=== PATIENT | female | born 1960 | race Caucasian/White ===

== ENCOUNTER 2020-03-18 08:33 | Outpatient (REF) | payer OTHER, SELFPAY ==
--- NOTE | 2020-03-18 | MR_ITS ---
EXAMINATION: MR LUMBAR SPINE WITHOUT CONTRAST CLINICAL INFORMATION: Low back pain x5 years on and off worsening times couple of months. Lifting injury 20 years ago. No recent injury. COMPARISON: Lumbar spine x-ray 12/22/2018 TECHNIQUE: MRI of the lumbar spine was obtained using routine sequences without contrast. FINDINGS: There is normal lumbar lordosis. The vertebral heights and alignment is normal. There are disc desiccation changes at L2-L3, L3-L4 and L4-L5 disc levels. The T12-L1 disc level appears unremarkable. At L2-L3 disc level there is a broad-based diffuse bulge flattening the ventral thecal sac with mild AP canal stenosis seen. There is a left lateral disc herniation impinging on the left L2 nerve root. This is best visualized on axial image 15/7. The neural foramina are bilaterally mildly narrowed. At L3-L4 disc level there is mild diffuse bulge with mild bilateral ligament flavum and facet joint hypertrophy with mild AP canal stenosis. Mild narrowing of inferolateral recess of both neural foramina noted. There is mild ligament flavum and facet joint hypertrophy. At L4-L5 disc level there is minimal disc bulge with mild AP canal stenosis. No disc herniation seen. There is minimal bilateral narrowing of neural foramina. There is mild facet joint and ligamentum flavum hypertrophy. At L5-S1 disc level there is no evidence of disc bulge, herniation or spinal stenosis. The neural foramina are patent bilaterally. There is significant bilateral facet joint arthropathy seen. The bone marrow signal, intraspinal signal and paravertebral soft tissues are normal. Conus medullaris terminates at L1-L2 disc level and appears normal in morphology. MR/MR lumbar spine wo con IMPRESSION: Multilevel degenerative disc bulges L2-L3 through L4-L5 disc level with mild AP canal stenosis. There is a left lateral disc herniation at the L2-L3 disc level impinging on the left L2 nerve root. There is underlying mild facet joint hypertrophy most marked at the L5-S1 disc level.
== END 2020-03-18 08:34 | disposition home or self-care (01) ==
LOC: HO.MRI 08:33
PROVIDERS: PCP Internal Medicine Medical Oncology; Visit Provider Internal Medicine Medical Oncology
DX: M51.36 Other intervertebral disc degeneration, lumbar region (principal)
CPT/HCPCS: 72148

== ENCOUNTER 2020-08-10 21:26 | Inpatient (IN) | payer OTHER, SELFPAY ==
--- NOTE | ~2020-08-10 | MR_ITS ---
EXAMINATION: BRAIN MRI WITHOUT CONTRAST CLINICAL INFORMATION: Question stroke. COMPARISON: CT angiogram of the head and neck 08/10/2020. TECHNIQUE: Multiplanar MR imaging of the brain was performed without contrast. FINDINGS: There are scattered nonspecific foci of T2 FLAIR signal hyperintensity within the periventricular white matter and donald that most likely represent a chronic manifestation of small vessel ischemia. No acute territorial infarct. No pathological magnetic susceptibility artifact. Intracranial vascular flow voids are maintained. There is no intracranial mass effect or midline shift. No abnormal extra-axial collection. Lateral and third ventricles are normal. No hydrocephalus. Midline structures including the cervicomedullary junction are normal. No acute bone marrow signal changes. There is no mastoid or middle ear effusion. Mild paranasal sinus disease primarily affecting the ethmoid air cells. Globes and orbits are symmetric. MR/MR head/brain wo con IMPRESSION: There are scattered chronic small vessel ischemic changes within the periventricular white matter and donald. Otherwise unremarkable examination. No evidence of acute infarct or hemorrhage.
--- NOTE | ~2020-08-10 | CT_ITS ---
EXAMINATION: CT angio head neck stroke CLINICAL INFORMATION: Left facial numbness. Left upper extremity numbness. COMPARISON: CT scan of the head 08/10/2020. TECHNIQUE: Leaf Binner images were obtained. A CT angiogram of the head and neck was performed in the arterial phase after the intravenous administration of 70 mL Omnipaque 350. Pre and delayed postcontrast images of the head were also obtained. MIP reconstructions were generated in multiple orientations at the acquisition workstation. Multiple three-dimensional surface rendered images and maximum intensity projection images were generated on a dedicated 3-D lab workstation. Arterial stenoses are measured in accordance with NASCET criteria or similar method if applicable. This CT examination was performed using dose optimization techniques as appropriate, including one or more of the following: Automated exposure control, iterative reconstruction, and adjustment of technique factors (mA and/or kVp) according to patient size (this includes techniques or standardized protocols for targeted exams where dose is matched to indication/reason for exam). Total exam dose-length product 1517 mGy-cm FINDINGS: Head: Postcontrast images reveal no abnormal mass or enhancement within the intracranial compartment. No intracranial mass effect or midline shift. Lateral and third ventricles are normal. No hydrocephalus. Langley-white matter differentiation is preserved and there is no evidence of acute territorial infarct. The calvarium and skull base are intact. Mastoid air cells and middle ear cavities are well aerated. No active paranasal sinus disease. CT angiogram neck: Scattered atheromatous calcification involves the aortic arch apex. Origins of major aortic branches are widely patent. Common carotid arteries are normal. A small amount of partially calcified atheromatous plaque involves both carotid bifurcations. No stenosis of the extracranial internal carotid arteries. The cervical segments of the vertebral arteries as well as their origins are patent. CT angiogram head: Intracranial internal carotid arteries are normal. Intradural vertebral artery segments and basilar artery are normal. Anterior, middle, and posterior cerebral artery complexes are normal. No high-grade stenosis or proximal occlusion is visualized within the intracranial vessels. Other: Soft tissues of the neck including the thyroid gland are normal. Visualized lung apices are clear. There is no acute osseous finding. Specifically no worrisome lytic or blastic osseous lesion. There is multilevel degenerative spondylosis of the cervical spine with at least mild canal stenosis at multiple levels. CT/CT angio head neck stroke IMPRESSION: No evidence of acute territorial infarct. No abnormal intracranial mass or enhancement. There is no stenosis of the cervical carotid or vertebral arteries. No high-grade stenosis or proximal occlusion is visualized within the intracranial vessels. There is multilevel degenerative spondylosis of the cervical spine with at least mild canal stenosis at multiple levels. If there are clinical symptoms of compressive myelopathy then a dedicated cervical spine MRI can be obtained for better anatomic characterization of the cord and canal. This critical result was discussed with Amy Camacho at 10:46 PM on 08/10/2020 and it was ascertained that the content and urgency of the report was understood at the time of direct communication.
--- NOTE | ~2020-08-10 | CT_ITS ---
EXAMINATION: CT HEAD WITHOUT CONTRAST (STROKE PROTOCOL) CLINICAL INFORMATION: Stroke protocol. Left arm numbness. Left facial numbness COMPARISON: None TECHNIQUE: Contiguous axial imaging was performed from the skull base to vertex without intravenous administration of contrast. This CT examination was performed using dose optimization techniques as appropriate, variously including the following: *Automated exposure control *Adjustment of mA and/or kV according to patient size (this includes techniques or standardized protocols for targeted exams where dose is matched to indication/reason for exam; i.e. extremities or head) *Use of iterative reconstruction technique DLP: 698 mGy-cm FINDINGS: There is no intracranial hemorrhage, hematoma, or extra-axial fluid collection. The ventricles are normal in size. There is no hydrocephalus, edema, or mass effect. The walls-white matter differentiation appears symmetric. There is no acute infarct or mass lesion. The calvarium appears intact. There is no pneumocephalus or orbital emphysema. The visualized sinuses and middle ears and mastoid air cells show no significant mucosal thickening. There are no air-fluid levels. CT/CT head for stroke IMPRESSION: No acute intracranial pathology. This critical result was discussed with Amy Camacho MD by telephone at 08/10/2020 10:21 PM and it was ascertained that the content and urgency of the report was understood at the time of direct communication.
[2020-08-10 21:35] VITALS: BP 195/96; PULSE 70; RESP 16; TEMP 36.5; O2SAT 100; BMI 27.3
--- NOTE | 2020-08-10 21:44 | PC.NURSE ---
poc 123
[2020-08-10 21:47] LABS: Glucose, Whole Blood 123 mg/dL (60-115)
--- NOTE | 2020-08-10 21:49 | PC.NURSE ---
IV, POC, EKG and labs obtained. MD at bedside. Pt aware of plan for CT.
[2020-08-10 21:53] LABS: MANUAL DIFF FLAG NO
[2020-08-10 21:55] LABS: Basophils Percent Auto 0.4 % (0-2); Eosinophils Absolute Auto 0.2 X10*3/uL (0.0-0.4); Eosinophils Percent Auto 2.6 % (0-4); Hematocrit 37.9 % (37-47); Hemoglobin 12.6 g/dl (12.0-16.0); Imm Gran Abs Auto 0.02 X10*3/uL (0.00-0.03); Imm Gran Pct Auto 0.3 % (0.0-0.4); Lymphocytes Absolute Auto 3.1 X10*3/uL (1.2-4.9); Lymphocytes Percent Auto 38.4 % (20-40); Mean Corpuscular HGB Conc 33.2 g/dl (31.0-35.0); Mean Corpuscular Hemoglobin 29.9 pg (27.0-33.0); Mean Platelet Volume 9.7 fL (9.4-12.3); Monocytes Absolute Auto 0.8 X10*3/uL (0.1-1.2); Monocytes Percent Auto 9.7 % (2-11); Neutrophils Absolute Auto 3.9 X10*3/uL (2.0-8.3); Neutrophils Percent Auto 48.6 % (45-73); Platelet Count 193 X10*3/uL (160-400); Red Blood Count 4.21 X10*6/uL (4.20-5.50); Red Cell Distribution Width 12.8 % (11.0-16.0); White Blood Count 7.9 X10*3/uL (4.8-10.8)
--- NOTE | 2020-08-10 21:58 | ED_ITS ---
HPI - Neuro Symptoms/Deficit General Chief Complaint: Neuro Symptoms/Deficit Stated Complaint: Numbness on left side Time Seen by Provider: 08/10/20 21:40 Source: patient Mode of arrival: ambulatory Limitations: no limitations History of Present Illness HPI Narrative: Patient comes to the emergency room complaining of left-sided headache, left-sided facial numbness, mild left-sided mouth droop. It earlier today, patient was complaining dysarthria and dysphasia which have improved. Patient denies chest pain. Patient states all her symptoms started around 630-7 p.m. patient states she was at work, did not feel right, had her blood pressure checked and they told her it was high. Patient was instructed to go home, take her blood pressure medication, took atenolol, then return to work. Patient symptoms did not improve, then she came to the emergency room. Related Data Home Medications Medication Instructions Recorded Confirmed atenolol 100 mg PO DAILY 08/10/20 08/10/20 cyclobenzaprine 10 mg PO BEDTIME 08/10/20 08/10/20 hydrochlorothiazide 50 mg PO DAILY 08/10/20 08/10/20 Allergies Allergy/AdvReac Type Severity Reaction Status Date / Time prednisone [PREDNISONE] Allergy Unknown HIVES Unverified 02/01/20 15:03 Sulfa (Sulfonamide Allergy Unknown HIVES Unverified 02/01/20 15:03 Antibiotics) [SULFA (SULFONAMIDE ANTIBIOTICS)] sulfur Allergy Unknown Verified 12/21/18 00:00 sulfa Allergy Unknown Uncoded 02/25/19 00:00 [facility] Past Medical History Medical History (Updated 08/10/20 @ 23:00 by Amy Camacho MD) HTN (hypertension) Social History Social History Advance Directives: No Advance Directives Information Provided: No Physical Exam Vital Signs: Vital Signs: Last Vital Signs Temp 97.7 F 08/10/20 22:00 Pulse 67 08/10/20 22:36 Resp 20 08/10/20 22:36 BP 162/91 H 08/10/20 22:36 Pulse Ox 99 08/10/20 22:00 Body Mass Index 27.3 Course Course Course Narrative: Initial head CT interpretation from Radiology: No acute intracranial pathology. CTA reading is still pending 10:41 I discussed the patient with Dr. Hutchins, at this time patient continues complaining numbness on the left side of the face tongue an arm, strength 5/5 in bilateral upper and lower extremities, facial droop improved, now it is barely noticeable, continues having a headache. Her Neurology, it is possible that the patient had a vascular event, however her current neurological deficits do not warrant tPA. At this time, patient will receive full dose of aspirin. A few minutes ago, patient received her 1st dose of IV labetalol 10:46: CTA of head and neck is negative for large vessel occlusion Patient's blood pressure now is 162/90, heart rate 60, patient states that her symptoms are improving, she still feels that the left side of her tongue is numb, strength 5/5 in upper lower extremities, no chest pain I discussed the above-mentioned with our hospitalist Dr. Beckford, patient being admitted. Patient will need an MRI in the morning MDM - Neuro Symptoms/Deficit Lab Data Result diagrams: 08/10/20 22:00 08/10/20 22:00 Labs: Lab Results 08/10/20 08/10/20 08/10/20 Range/Units 21:43 21:45 21:45 WBC 7.9 (4.8-10.8) X10*3/uL RBC 4.21 (4.20-5.50) X10*6/uL Hgb 12.6 (12.0-16.0) g/dl Hct 37.9 (37-47) % MCV 90.0 (80-98) fL MCH 29.9 (27.0-33.0) pg MCHC 33.2 (31.0-35.0) g/dl RDW 12.8 (11.0-16.0) % Plt Count 193 (160-400) X10*3/uL MPV 9.7 (9.4-12.3) fL Immature Gran % (Auto) 0.3 (0.0-0.4) % Neut % (Auto) 48.6 (45-73) % Lymph % (Auto) 38.4 (20-40) % Sargent % (Auto) 9.7 (2-11) % Eos % (Auto) 2.6 (0-4) % Baso % (Auto) 0.4 (0-2) % Lymph # (Auto) 3.1 (1.2-4.9) X10*3/uL Sargent # (Auto) 0.8 (0.1-1.2) X10*3/uL Eos # (Auto) 0.2 (0.0-0.4) X10*3/uL Baso # (Auto) 0.0 (0.0-0.2) X10*3/uL Abs Immat Gran (auto) 0.02 (0.00-0.03) X10*3/uL Absolute Neuts (auto) 3.9 (2.0-8.3) X10*3/uL Absolute Nucleated RBC 0.000 (0.0-0.012) X10*3/uL Nucleated RBC % (auto) 0.0 (0.0-0.2) /100WBC PT (10.8-13.0) SEC Whole Blood PT (11.1-13.5) sec INR (0.9-1.1) Whole Blood INR (0.9-1.1) APTT (24.1-38.0) SEC Hold Blue Top Sodium 140 (135-145) mmol/L Potassium 3.8 (3.3-5.1) mmol/L Chloride 103 (96-108) mmol/L Carbon Dioxide 26 (22-29) mmol/L Anion Gap 15 (12-20) BUN 20 H (9-16) mg/dL Creatinine 0.81 (0.5-1.4) mg/dL Estim Creat Clear Calc 87.6 Estimated GFR > 60 POC Glucose 123 H (60-115) mg/dL Random Glucose 112 (60-115) mg/dL Calcium 8.6 (8.4-10.2) mg/dL Total Creatine Kinase (26-140) U/L Troponin I High Sens (<3.5-17.0) ng/L 08/10/20 08/10/20 08/10/20 Range/Units 21:45 21:47 22:00 WBC 8.5 (4.8-10.8) X10*3/uL RBC 4.18 L (4.20-5.50) X10*6/uL Hgb 12.4 (12.0-16.0) g/dl Hct 37.8 (37-47) % MCV 90.4 (80-98) fL MCH 29.7 (27.0-33.0) pg MCHC 32.8 (31.0-35.0) g/dl RDW 12.8 (11.0-16.0) % Plt Count 193 (160-400) X10*3/uL MPV 9.6 (9.4-12.3) fL Immature Gran % (Auto) 0.2 (0.0-0.4) % Neut % (Auto) 46.5 (45-73) % Lymph % (Auto) 39.2 (20-40) % Sargent % (Auto) 10.7 (2-11) % Eos % (Auto) 2.9 (0-4) % Baso % (Auto) 0.5 (0-2) % Lymph # (Auto) 3.3 (1.2-4.9) X10*3/uL Sargent # (Auto) 0.9 (0.1-1.2) X10*3/uL Eos # (Auto) 0.3 (0.0-0.4) X10*3/uL Baso # (Auto) 0.0 (0.0-0.2) X10*3/uL Abs Immat Gran (auto) 0.02 (0.00-0.03) X10*3/uL Absolute Neuts (auto) 4.0 (2.0-8.3) X10*3/uL Absolute Nucleated RBC 0.000 (0.0-0.012) X10*3/uL Nucleated RBC % (auto) 0.0 (0.0-0.2) /100WBC PT 10.9 (10.8-13.0) SEC Whole Blood PT (11.1-13.5) sec INR 0.9 (0.9-1.1) Whole Blood INR (0.9-1.1) APTT 35.4 (24.1-38.0) SEC Hold Blue Top SEE NOTE Sodium (135-145) mmol/L Potassium (3.3-5.1) mmol/L Chloride (96-108) mmol/L Carbon Dioxide (22-29) mmol/L Anion Gap (12-20) BUN (9-16) mg/dL Creatinine (0.5-1.4) mg/dL Estim Creat Clear Calc Estimated GFR POC Glucose (60-115) mg/dL Random Glucose (60-115) mg/dL Calcium (8.4-10.2) mg/dL Total Creatine Kinase (26-140) U/L Troponin I High Sens 3.6 (<3.5-17.0) ng/L 08/10/20 08/10/20 08/10/20 Range/Units 22:00 22:00 22:01 WBC (4.8-10.8) X10*3/uL RBC (4.20-5.50) X10*6/uL Hgb (12.0-16.0) g/dl Hct (37-47) % MCV (80-98) fL MCH (27.0-33.0) pg MCHC (31.0-35.0) g/dl RDW (11.0-16.0) % Plt Count (160-400) X10*3/uL MPV (9.4-12.3) fL Immature Gran % (Auto) (0.0-0.4) % Neut % (Auto) (45-73) % Lymph % (Auto) (20-40) % Sargent % (Auto) (2-11) % Eos % (Auto) (0-4) % Baso % (Auto) (0-2) % Lymph # (Auto) (1.2-4.9) X10*3/uL Sargent # (Auto) (0.1-1.2) X10*3/uL Eos # (Auto) (0.0-0.4) X10*3/uL Baso # (Auto) (0.0-0.2) X10*3/uL Abs Immat Gran (auto) (0.00-0.03) X10*3/uL Absolute Neuts (auto) (2.0-8.3) X10*3/uL Absolute Nucleated RBC (0.0-0.012) X10*3/uL Nucleated RBC % (auto) (0.0-0.2) /100WBC PT (10.8-13.0) SEC Whole Blood PT 12.4 (11.1-13.5) sec INR (0.9-1.1) Whole Blood INR 1.0 (0.9-1.1) APTT (24.1-38.0) SEC Hold Blue Top Sodium 140 (135-145) mmol/L Potassium 3.7 (3.3-5.1) mmol/L Chloride 104 (96-108) mmol/L Carbon Dioxide 25 (22-29) mmol/L Anion Gap 15 (12-20) BUN 20 H (9-16) mg/dL Creatinine 0.81 (0.5-1.4) mg/dL Estim Creat Clear Calc 87.6 Estimated GFR > 60 POC Glucose (60-115) mg/dL Random Glucose 115 (60-115) mg/dL Calcium 8.8 (8.4-10.2) mg/dL Total Creatine Kinase 231 H (26-140) U/L Troponin I High Sens < 3.5 (<3.5-17.0) ng/L ECG Data Attestation: I personally reviewed and interpreted this ECG as follows: (Normal sinus rhythm, heart rate 70, nonspecific T-wave inversion in leadIII, nurses segment depression or elevation, QTC 447) NIH Stroke Scale Level of Consciousness: Alert Level of Consciousness Questions: Answers both questions correctly Level of Consciousness Commands: Performs both tasks correctly Best Gaze: Normal Visual: No visual loss Facial Palsy: Minor paralyis Motor Arm (Right): No drift Motor Arm (Left): No drift Motor Leg (Right): No drift Motor Leg (Left): No drift Limb Ataxia: Absent Sensory: Mild to moderate sensory loss Best Language: Mild to moderate aphasia Dysarthia: Mild to moderate dysarthria Extinction and Inattention: No abnormality Score: 4 Discharge Plan Discharge Clinical Impression: Cerebrovascular accident Patient Disposition: Admitted As Inpatient Prescriptions: No Action cyclobenzaprine 10 mg tablet 10 mg PO BEDTIME RF: 0 hydrochlorothiazide 50 mg tablet 50 mg PO DAILY RF: 0 atenolol 50 mg tablet 100 mg PO DAILY RF: 0
[2020-08-10 22:00] VITALS: BP 195/96; PULSE 722; RESP 222; TEMP 36.5; O2SAT 99
[2020-08-10 22:08] LABS: MANUAL DIFF FLAG NO
[2020-08-10 22:08] LABS: Prothrombin Time Whole Bld POC 12.4 sec (11.1-13.5)
[2020-08-10 22:09] LABS: Basophils Percent Auto 0.5 % (0-2); Eosinophils Absolute Auto 0.3 X10*3/uL (0.0-0.4); Eosinophils Percent Auto 2.9 % (0-4); Hematocrit 37.8 % (37-47); Hemoglobin 12.4 g/dl (12.0-16.0); Imm Gran Abs Auto 0.02 X10*3/uL (0.00-0.03); Imm Gran Pct Auto 0.2 % (0.0-0.4); Lymphocytes Absolute Auto 3.3 X10*3/uL (1.2-4.9); Lymphocytes Percent Auto 39.2 % (20-40); Mean Corpuscular HGB Conc 32.8 g/dl (31.0-35.0); Mean Corpuscular Hemoglobin 29.7 pg (27.0-33.0); Mean Corpuscular Volume 90.4 fL (80-98); Mean Platelet Volume 9.6 fL (9.4-12.3); Monocytes Absolute Auto 0.9 X10*3/uL (0.1-1.2); Monocytes Percent Auto 10.7 % (2-11); Neutrophils Percent Auto 46.5 % (45-73); Platelet Count 193 X10*3/uL (160-400); Red Blood Count 4.18 X10*6/uL (4.20-5.50); Red Cell Distribution Width 12.8 % (11.0-16.0); White Blood Count 8.5 X10*3/uL (4.8-10.8)
--- NOTE | 2020-08-10 22:12 | PC.NURSE ---
pt to ct scan. Second IV access placed in R AC
[2020-08-10 22:17] LABS: Anion Gap 15 (12-20); Blood Urea Nitrogen 20 mg/dL (9-16); Calcium 8.6 mg/dL (8.4-10.2); Carbon Dioxide 26 mmol/L (22-29); Chloride 103 mmol/L (96-108); Creatinine Clr Calc Pharmacy 87.6; Estimated Glomerular Filt Rate > 60; Glucose Random 112 mg/dL (60-115); Potassium 3.8 mmol/L (3.3-5.1); Sodium 140 mmol/L (135-145)
[2020-08-10 22:18] LABS: INTERNATIONAL NORM RATIO 0.9 (0.9-1.1); Prothrombin Time 10.9 SEC (10.8-13.0)
[2020-08-10] MEDS: iohexoL 350 MG/ML 75 ML INFUS..BTL IV (22:18)
[2020-08-10 22:26] LABS: Troponin-I High Sensitivity 3.6 ng/L (<3.5-17.0)
[2020-08-10 22:28] VITALS: BP 181/77; PULSE 62
[2020-08-10] MEDS: Labetalol HCL 100 MG/20 ML VIAL 10 MG IVPUSH (22:28)
--- NOTE | 2020-08-10 22:29 | PC.NURSE ---
Pt returns from CT. Pt continues c/o a frontal BORJA, 7/10, and tingling to left side of body. VSS, pt remains hypertensive, medicated with Labetalol per MAR. Awaiting CT results, continue to monitor.
[2020-08-10 22:34] LABS: Partial Thromboplastin Time 35.4 SEC (24.1-38.0)
[2020-08-10 22:35] LABS: Anion Gap 15 (12-20); Blood Urea Nitrogen 20 mg/dL (9-16); Calcium 8.8 mg/dL (8.4-10.2); Carbon Dioxide 25 mmol/L (22-29); Chloride 104 mmol/L (96-108); Creatinine Clr Calc Pharmacy 87.6; Estimated Glomerular Filt Rate > 60; Glucose Random 115 mg/dL (60-115); Potassium 3.7 mmol/L (3.3-5.1); Sodium 140 mmol/L (135-145)
[2020-08-10 22:36] VITALS: BP 162/91; PULSE 67; RESP 20
[2020-08-10 22:36] LABS: Stroke Lab Use COMPLETE
--- NOTE | 2020-08-10 22:36 | PC.NURSE ---
Med Rec completed at bedside with pt.
[2020-08-10 22:41] LABS: Troponin-I High Sensitivity < 3.5 ng/L (<3.5-17.0)
[2020-08-10] MEDS: Aspirin Enteric Coated 325 MG TABLET.DR PO (22:53)
[2020-08-10 22:54] VITALS: BP 154/85; PULSE 64; RESP 16
--- NOTE | 2020-08-10 22:56 | PC.NURSE ---
Pt passing swallow eval, medicated with ASA per JUL. VSS. MD at bedside, plan to medicate with BORJA, awaiting orders. Pt resting in bed, watching TV in NAD.
[2020-08-10] MEDS: Acetaminophen 325 MG TABLET 650 MG PO (23:01)
--- NOTE | 2020-08-10 23:11 | PC.NURSE ---
Hospitalist at bedside.
[2020-08-11] VITALS (12 sets, daily range): BP systolic 145–187; BP diastolic 79–95; PULSE 59–101; RESP 14–18; TEMP 36.1–36.7; O2SAT 93–99
--- NOTE | 2020-08-11 00:32 | PC.NURSE ---
Pt heard coughing in room, reports a history of asthma, states she left her inhaler home, requesting an inhaler. aware.
[2020-08-11 00:35] LABS: COVID-19 Test Negative (Negative)
--- NOTE | 2020-08-11 01:14 | PC.NURSE ---
This RN calling med/surg, med/surg unable to take report at this time.
[2020-08-11] MEDS: Heparin Sodium,Porcine 5,000 UNIT/ML VIAL 5000 UNIT SUBCUT ×2 (01:29→12:30)
[2020-08-11] MEDS: hydrALAZINE HCl 20 MG/ML VIAL 5 MG IVPUSH (01:29)
[2020-08-11] MEDS: Atorvastatin Calcium 80 MG TABLET PO ×2 (01:30→20:26)
--- NOTE | 2020-08-11 01:35 | PC.NURSE ---
Pt medicated per JUL. solar field service technician at bedside for transport.
[2020-08-11] MEDS: 0.9 % Sodium Chloride Flush 3 ML SYRINGE IVFLUSH ×4 (02:59→21:46)
[2020-08-11 05:25] LABS: MANUAL DIFF FLAG NO
[2020-08-11 05:42] LABS: Basophils Percent Auto 0.4 % (0-2); Eosinophils Absolute Auto 0.2 X10*3/uL (0.0-0.4); Hematocrit 38.3 % (37-47); Hemoglobin 12.7 g/dl (12.0-16.0); Imm Gran Abs Auto 0.02 X10*3/uL (0.00-0.03); Imm Gran Pct Auto 0.3 % (0.0-0.4); Lymphocytes Absolute Auto 2.7 X10*3/uL (1.2-4.9); Lymphocytes Percent Auto 36.8 % (20-40); Mean Corpuscular HGB Conc 33.2 g/dl (31.0-35.0); Mean Corpuscular Hemoglobin 29.5 pg (27.0-33.0); Mean Corpuscular Volume 89.1 fL (80-98); Mean Platelet Volume 10.2 fL (9.4-12.3); Monocytes Absolute Auto 0.7 X10*3/uL (0.1-1.2); Neutrophils Absolute Auto 3.6 X10*3/uL (2.0-8.3); Neutrophils Percent Auto 49.5 % (45-73); Platelet Count 200 X10*3/uL (160-400); Red Cell Distribution Width 12.8 % (11.0-16.0); White Blood Count 7.3 X10*3/uL (4.8-10.8)
[2020-08-11 05:56] LABS: Anion Gap 16 (12-20); Blood Urea Nitrogen 15 mg/dL (9-16); Carbon Dioxide 24 mmol/L (22-29); Chloride 104 mmol/L (96-108); Cholesterol 193 mg/dL; Creatinine Clr Calc Pharmacy 92.1; Estimated Glomerular Filt Rate > 60; Glucose Random 113 mg/dL (60-115); HDL Cholesterol 45 mg/dL; LDL Cholesterol Calculated 129 mg/dl; Potassium 3.8 mmol/L (3.3-5.1); Sodium 140 mmol/L (135-145); Triglycerides 95 mg/dL
--- NOTE | 2020-08-11 06:28 | P.HPHOSP_ITS ---
History of Present Illness Date of Service: 08/10/20 Chief Complaint: Numbness and tingling This is a 52-year-old female with past medical history of hypertension who presents to the hospital with complaints of sudden onset facial numbness, tingling, and facial droop on the left side. Her symptoms started around 5:00 p.m. while at work., Patient also reports that her sister noted her to have a slurred speech over the phone, she checked her blood pressure at work and found to be in the 190s systolic, she was sent home took her atenolol and return back to work but continued to feel this numbness, tingling, facial droop, as well as developed left upper arm weakness, numbness and tingling. Patient therefore decided to come to the hospital. This is the 1st episode, no previous similar episodes. She also had a headache 10/10, frontal, nonradiating, she still continues to have numbness and tingling in the face but her speech has improved, she also has some weakness in her left arm. She denies any lower extremity weakness. She denies any palpitations, no chest pain, no abdominal pain nausea or vomitin g, no diarrhea constipation. She has no urinary symptoms and no lower extremity edema. She has no change in vision, and denies palpitations. On arrival to the ED to be 195/96, received hydralazine labetalol with improvement of her BP Labs unremarkable, CT of the head shows no acute intracranial abnormality, CT angiogram of head and neck shows no evidence of acute territorial infarct, no abnormal intracranial mass or enhancement, no stenosis of the cervical carotid or vertebral arteries. Neurology was consulted, recommended starting aspirin, and MRI in a.m. Patient will be admitted for further management Past medical history as below and confirmed with patient Review of Systems Review of Systems: Yes all other systems are reviewed and are negative [facility] Medical History HTN (hypertension) Social History Household Members: None Housing: House Do you presently have visiting nurse or other home services: No Smoking Status: Light tobacco smoker Cigarettes Per Day: 5 Years Smoked: 10 Smoked in Last 30 Days: Yes Patient Interested in Nicotine Replacement: No Patient Given Instructions on How to Stop Smoking: Yes Date Education Initiated: 08/11/20 Second Hand Smoke Exposure: No Use of substances other than those prescribed or required for medical reasons: Yes Substance Use Type: Marijuana Substance Use Frequency: Daily Last Used Substance: Days (ago) Currently Displaying Signs/Symptoms of Drug Intoxication Withdrawal: No Have you been hit, kicked, punched, or otherwise hurt by someone within the past year? If so, by whom?: No Do you feel safe in your current relationship?: No Current Relationship Is there a partner from a previous relationship who is making you feel unsafe now?: No Are you made to feel afraid or neglected: No Advance Directives: No Advance Directives Information Provided: No Do you have thoughts of harming others: None Do you have a plan to hurt others: No Plan Recently lost weight without trying: No Meds Allergies Allergy/AdvReac Type Severity Reaction Status Date / Time prednisone [PREDNISONE] Allergy Unknown HIVES Unverified 02/01/20 15:03 Sulfa (Sulfonamide Allergy Unknown HIVES Unverified 02/01/20 15:03 Antibiotics) [SULFA (SULFONAMIDE ANTIBIOTICS)] sulfur Allergy Unknown Verified 12/21/18 00:00 sulfa Allergy Unknown Uncoded 02/25/19 00:00 Active Medications: Current Medications Generic Name Dose Route Start Last Admin Trade Name Estela PRN Reason Stop Dose Admin Acetaminophen 650 mg 08/11/20 01:11 Acetaminophen 325 Mg Tablet PO Q6H PRN Pain, Mild (Pain Scale 1-3) Aspirin 81 mg 08/11/20 09:00 Aspirin Enteric Coated 81 Mg Tablet. PO DAILY [facility] Atenolol 100 mg 08/11/20 09:00 Atenolol 100 Mg Tablet PO DAILY [facility] Protocol Cyclobenzaprine HCl 10 mg 08/11/20 21:00 Cyclobenzaprine Hcl 10 Mg Tablet PO BEDTIME [facility] Docusate Sodium 100 mg 08/11/20 01:11 Docusate Sodium 100 Mg Capsule PO DAILY PRN Constipation Heparin Sodium (Porcine) 5,000 unit 08/11/20 01:11 08/11/20 01:29 Heparin Sodium,Porcine 5,000 Unit/Ml Vial SUBCUT 5,000 unit Q12H [facility] Administration Hydrochlorothiazide 50 mg 08/11/20 09:00 Hydrochlorothiazide 50 Mg Tablet PO DAILY [facility] Protocol Ondansetron HCl 4 mg 08/11/20 01:11 Ondansetron Hcl 4 Mg/2 Ml Vial IVPUSH Q8H PRN Nausea and Vomiting Sodium Chloride 3 ml 08/11/20 01:11 08/11/20 02:59 0.9 % Sodium Chloride Flush 3 Ml Syringe IVFLUSH 3 ml QSHIFT [facility] Administration Home Medications Medication Instructions Recorded Confirmed Last Taken Type atenolol 100 mg PO DAILY 08/10/20 08/10/20 08/10/20 18:00 History cyclobenzaprine 10 mg PO BEDTIME 08/10/20 08/10/20 08/09/20 21:00 History hydrochlorothiazide 50 mg PO DAILY 08/10/20 08/10/20 08/10/20 08:00 History mometasone-formoterol [Dulera] 2 puff INHALATION NEEDED 08/11/20 08/11/20 Unknown History Physical Exam Vital Signs and Narrative: Vital Signs: Last Vital Signs Temp 97.0 F 08/11/20 04:00 Pulse 101 H 08/11/20 04:00 Resp 18 08/11/20 04:00 BP 145/79 H 08/11/20 04:00 Pulse Ox 99 08/11/20 04:00 Body Mass Index 27.3 Const: General: cooperative and no acute distress Orientation/consciousness: patient oriented x3 Eyes: General: appearance normal, both eyes and all related structures Resp: Effort & Inspection: normal respiratory effort and able to speak in complete sentences Cardio: Rate: regular rate Rhythm: regular rhythm GI: Palpation (GI): Soft to palpation Auscultation: normal bowel sounds Skin: General skin exam: no rashes or lesions noted Neuro: Other: Has decreased sensation of the left side of face, no aphasia, dysarthria, no tongue deviation, strength is 5/5 in all extremities, General: patient oriented x3 and CN's II-XI intact bilaterally Cognition (Neuro): normal cognition Extrem: General: Yes normal to inspection and Yes no pedal edema Results Labs CBC and Chem 7: 08/11/20 04:51 08/11/20 04:51 Labs: Laboratory Results - last 24 hr 08/10/20 08/10/20 08/10/20 21:43 21:45 21:45 MCV 90.0 MCH 29.9 MCHC 33.2 RDW 12.8 Plt Count 193 MPV 9.7 Immature Gran % (Auto) 0.3 Neut % (Auto) 48.6 Lymph % (Auto) 38.4 [place] % (Auto) 9.7 Eos % (Auto) 2.6 Baso % (Auto) 0.4 Lymph # (Auto) 3.1 [place] # (Auto) 0.8 Eos # (Auto) 0.2 Baso # (Auto) 0.0 Abs Immat Gran (auto) 0.02 Absolute Neuts (auto) 3.9 Absolute Nucleated RBC 0.000 Nucleated RBC % (auto) 0.0 PT Whole Blood PT INR Whole Blood INR APTT Hold Blue Top Anion Gap 15 Estim Creat Clear Calc 87.6 Estimated GFR > 60 POC Glucose 123 H Random Glucose 112 Calcium 8.6 Total Creatine Kinase Troponin I High Sens Triglycerides Cholesterol LDL Cholesterol, Calc HDL Cholesterol COVID-19 (RHONDA) [employer] 08/10/20 08/10/20 08/10/20 21:45 21:47 22:00 MCV 90.4 MCH 29.7 MCHC 32.8 RDW 12.8 Plt Count 193 MPV 9.6 Immature Gran % (Auto) 0.2 Neut % (Auto) 46.5 Lymph % (Auto) 39.2 [place] % (Auto) 10.7 Eos % (Auto) 2.9 Baso % (Auto) 0.5 Lymph # (Auto) 3.3 [place] # (Auto) 0.9 Eos # (Auto) 0.3 Baso # (Auto) 0.0 Abs Immat Gran (auto) 0.02 Absolute Neuts (auto) 4.0 Absolute Nucleated RBC 0.000 Nucleated RBC % (auto) 0.0 PT 10.9 Whole Blood PT INR 0.9 Whole Blood INR APTT 35.4 Hold Blue Top SEE NOTE Anion Gap Estim Creat Clear Calc Estimated GFR POC Glucose Random Glucose Calcium Total Creatine Kinase Troponin I High Sens 3.6 Triglycerides Cholesterol LDL Cholesterol, Calc HDL Cholesterol COVID-19 (RHONDA) [employer] 08/10/20 08/10/20 08/10/20 22:00 22:00 22:01 MCV MCH MCHC RDW Plt Count MPV Immature Gran % (Auto) Neut % (Auto) Lymph % (Auto) [place] % (Auto) Eos % (Auto) Baso % (Auto) Lymph # (Auto) [place] # (Auto) Eos # (Auto) Baso # (Auto) Abs Immat Gran (auto) Absolute Neuts (auto) Absolute Nucleated RBC Nucleated RBC % (auto) PT Whole Blood PT 12.4 INR Whole Blood INR 1.0 APTT Hold Blue Top Anion Gap 15 Estim Creat Clear Calc 87.6 Estimated GFR > 60 POC Glucose Random Glucose 115 Calcium 8.8 Total Creatine Kinase 231 H Troponin I High Sens < 3.5 Triglycerides Cholesterol LDL Cholesterol, Calc HDL Cholesterol COVID-19 (RHONDA) COVID-19 Clin Com 08/11/20 08/11/20 08/11/20 00:13 04:51 04:51 MCV 89.1 MCH 29.5 MCHC 33.2 RDW 12.8 Plt Count 200 MPV 10.2 Immature Gran % (Auto) 0.3 Neut % (Auto) 49.5 Lymph % (Auto) 36.8 [place] % (Auto) 10.0 Eos % (Auto) 3.0 Baso % (Auto) 0.4 Lymph # (Auto) 2.7 [place] # (Auto) 0.7 Eos # (Auto) 0.2 Baso # (Auto) 0.0 Abs Immat Gran (auto) 0.02 Absolute Neuts (auto) 3.6 Absolute Nucleated RBC 0.000 Nucleated RBC % (auto) 0.0 PT Whole Blood PT INR Whole Blood INR APTT Hold Blue Top Anion Gap 16 Estim Creat Clear Calc 92.1 Estimated GFR > 60 POC Glucose Random Glucose 113 Calcium 9.0 Total Creatine Kinase Troponin I High Sens Triglycerides 95 Cholesterol 193 LDL Cholesterol, Calc 129 HDL Cholesterol 45 COVID-19 (RHONDA) Negative COVID-19 Clin Com See Note Imaging Radiologist's Impressions: Impressions Head CT 08/10/20 21:49 IMPRESSION: No acute intracranial pathology. This critical result was discussed with Amy Camacho MD by telephone at 08/10/2020 10:21 PM and it was ascertained that the content and urgency of the report was understood at the time of direct communication. Head/Neck CTA 08/10/20 21:50 IMPRESSION: No evidence of acute territorial infarct. No abnormal intracranial mass or enhancement. There is no stenosis of the cervical carotid or vertebral arteries. No high-grade stenosis or proximal occlusion is visualized within the intracranial vessels. There is multilevel degenerative spondylosis of the cervical spine with at least mild canal stenosis at multiple levels. If there are clinical symptoms of compressive myelopathy then a dedicated cervical spine MRI can be obtained for better anatomic characterization of the cord and canal. This critical result was discussed with Amy Camacho at 10:46 PM on 08/10/2020 and it was ascertained that the content and urgency of the report was understood at the time of direct communication. Assessment and Plan (1) Cerebrovascular accident: Qualifiers: CVA mechanism: unspecified Qualified Code(s): I63.9 - Cerebral infarction, unspecified Status: Acute This is a 60-year-old female with past medical history of hypertension presents to the hospital with numbness tingling, elevated blood pressure # stroke/TIA - patient has numbness tingling, decreased sensation in face, as well as left upper extremity - given mild symptoms well as improvement, patient was not given tPA - CT angiogram unremarkable, CT head on - risk factors include hypertension, and family history of CVA - will start on aspirin, high-dose as refer statin, MRI in a.m. - lipid battery - neurology consulted # hypertensive crisis - reports compliance with medication possibly secondary to acute stroke - blood pressure better controlled now - resume home medications DVT prophylaxis: Heparin subQ
[2020-08-11] MEDS: hydroCHLOROthiazide 50 MG TABLET PO (07:58)
[2020-08-11] MEDS: Aspirin Enteric Coated 81 MG TABLET.DR PO (07:58)
[2020-08-11] MEDS: atenoloL 100 MG TABLET PO (07:58)
[2020-08-11] MEDS: Acetaminophen 325 MG TABLET 650 MG PO (12:30)
--- NOTE | 2020-08-11 13:07 | HO.PM.IMPN ---
Subjective Subjective Date of Service: 08/11/20 Interval History: L arm weakness + paresthesias resolved L facial weakness + paresthesias improved normal speech Physical Exam Vital Signs: Vital Signs: Last Vital Signs Temp 97.5 F 08/11/20 11:41 Pulse 60 08/11/20 11:41 Resp 16 08/11/20 11:41 BP 160/93 H 08/11/20 11:41 Pulse Ox 96 08/11/20 11:41 Body Mass Index 27.3 Gen: in no acute distress HEENT: sclera anicteric, moist mucus membranes Neck: supple Lungs: clear to auscultation bilaterally Heart: regular rate and rhythm, no murmurs Abd: soft, non-tender, non-distended Ext: no edema Skin: warm/well-perfused Neuro: alert and oriented x3, barely perceptible lower L facial droop Psych: appropriate affect Objective Data Current Medications Generic Name Dose Route Start Last Admin Trade Name Freq PRN Reason Stop Dose Admin Acetaminophen 650 mg 08/11/20 01:11 08/11/20 12:30 Acetaminophen 325 Mg Tablet PO 650 mg Q6H PRN Administration Pain, Mild (Pain Scale 1-3) Aspirin 81 mg 08/11/20 09:00 08/11/20 07:58 Aspirin Enteric Coated 81 Mg Tablet.Dr PO 81 mg DAILY [facility] Administration Atenolol 100 mg 08/11/20 09:00 08/11/20 07:58 Atenolol 100 Mg Tablet PO 100 mg DAILY [facility] Administration Protocol Atorvastatin Calcium 80 mg 08/11/20 21:00 Atorvastatin Calcium 80 Mg Tablet PO BEDTIME [facility] Cyclobenzaprine HCl 10 mg 08/11/20 21:00 Cyclobenzaprine Hcl 10 Mg Tablet PO BEDTIME [facility] Docusate Sodium 100 mg 08/11/20 01:11 Docusate Sodium 100 Mg Capsule PO DAILY PRN Constipation Heparin Sodium (Porcine) 5,000 unit 08/11/20 01:11 08/11/20 12:30 Heparin Sodium,Porcine 5,000 Unit/Ml Vial SUBCUT 5,000 unit Q12H [facility] Administration Hydrochlorothiazide 50 mg 08/11/20 09:00 08/11/20 07:58 Hydrochlorothiazide 50 Mg Tablet PO 50 mg DAILY [facility] Administration Protocol Ondansetron HCl 4 mg 08/11/20 01:11 Ondansetron Hcl 4 Mg/2 Ml Vial IVPUSH Q8H PRN Nausea and Vomiting Sodium Chloride 3 ml 08/11/20 01:11 08/11/20 07:59 0.9 % Sodium Chloride Flush 3 Ml Syringe IVFLUSH 3 ml QSHIFT [facility] Administration Labs CBC & Chem 7: 08/11/20 04:51 08/11/20 04:51 Labs: Laboratory Results - last 24 hr 08/10/20 08/10/20 08/10/20 21:43 21:45 21:45 WBC 7.9 RBC 4.21 Hgb 12.6 Hct 37.9 MCV 90.0 MCH 29.9 MCHC 33.2 RDW 12.8 Plt Count 193 MPV 9.7 Immature Gran % (Auto) 0.3 Neut % (Auto) 48.6 Lymph % (Auto) 38.4 [place] % (Auto) 9.7 Eos % (Auto) 2.6 Baso % (Auto) 0.4 Lymph # (Auto) 3.1 [place] # (Auto) 0.8 Eos # (Auto) 0.2 Baso # (Auto) 0.0 Abs Immat Gran (auto) 0.02 Absolute Neuts (auto) 3.9 Absolute Nucleated RBC 0.000 Nucleated RBC % (auto) 0.0 PT Whole Blood PT INR Whole Blood INR APTT Hold Blue Top Sodium 140 Potassium 3.8 Chloride 103 Carbon Dioxide 26 Anion Gap 15 BUN 20 H Creatinine 0.81 Estim Creat Clear Calc 87.6 Estimated GFR > 60 POC Glucose 123 H Random Glucose 112 Calcium 8.6 Total Creatine Kinase Troponin I High Sens Triglycerides Cholesterol LDL Cholesterol, Calc HDL Cholesterol COVID-19 ([facility]ONDA) COVID-19 Clin Com 08/10/20 08/10/20 08/10/20 21:45 21:47 22:00 WBC 8.5 RBC 4.18 L Hgb 12.4 Hct 37.8 MCV 90.4 MCH 29.7 MCHC 32.8 RDW 12.8 Plt Count 193 MPV 9.6 Immature Gran % (Auto) 0.2 Neut % (Auto) 46.5 Lymph % (Auto) 39.2 [place] % (Auto) 10.7 Eos % (Auto) 2.9 Baso % (Auto) 0.5 Lymph # (Auto) 3.3 [place] # (Auto) 0.9 Eos # (Auto) 0.3 Baso # (Auto) 0.0 Abs Immat Gran (auto) 0.02 Absolute Neuts (auto) 4.0 Absolute Nucleated RBC 0.000 Nucleated RBC % (auto) 0.0 PT 10.9 Whole Blood PT INR 0.9 Whole Blood INR APTT 35.4 Hold Blue Top SEE NOTE Sodium Potassium Chloride Carbon Dioxide Anion Gap BUN Creatinine Estim Creat Clear Calc Estimated GFR POC Glucose Random Glucose Calcium Total Creatine Kinase Troponin I High Sens 3.6 Triglycerides Cholesterol LDL Cholesterol, Calc HDL Cholesterol COVID-19 (RHONDA) COVID-19 Clin Com 08/10/20 08/10/20 08/10/20 22:00 22:00 22:01 WBC RBC Hgb Hct MCV MCH MCHC RDW Plt Count MPV Immature Gran % (Auto) Neut % (Auto) Lymph % (Auto) [place] % (Auto) Eos % (Auto) Baso % (Auto) Lymph # (Auto) [place] # (Auto) Eos # (Auto) Baso # (Auto) Abs Immat Gran (auto) Absolute Neuts (auto) Absolute Nucleated RBC Nucleated RBC % (auto) PT Whole Blood PT 12.4 INR Whole Blood INR 1.0 APTT Hold Blue Top Sodium 140 Potassium 3.7 Chloride 104 Carbon Dioxide 25 Anion Gap 15 BUN 20 H Creatinine 0.81 Estim Creat Clear Calc 87.6 Estimated GFR > 60 POC Glucose Random Glucose 115 Calcium 8.8 Total Creatine Kinase 231 H Troponin I High Sens < 3.5 Triglycerides Cholesterol LDL Cholesterol, Calc HDL Cholesterol COVID-19 (RHONDA) COVID-19 Clin Com 08/11/20 08/11/20 08/11/20 00:13 04:51 04:51 WBC 7.3 RBC 4.30 Hgb 12.7 Hct 38.3 MCV 89.1 MCH 29.5 MCHC 33.2 RDW 12.8 Plt Count 200 MPV 10.2 Immature Gran % (Auto) 0.3 Neut % (Auto) 49.5 Lymph % (Auto) 36.8 [place] % (Auto) 10.0 Eos % (Auto) 3.0 Baso % (Auto) 0.4 Lymph # (Auto) 2.7 [place] # (Auto) 0.7 Eos # (Auto) 0.2 Baso # (Auto) 0.0 Abs Immat Gran (auto) 0.02 Absolute Neuts (auto) 3.6 Absolute Nucleated RBC 0.000 Nucleated RBC % (auto) 0.0 PT Whole Blood PT INR Whole Blood INR APTT Hold Blue Top Sodium 140 Potassium 3.8 Chloride 104 Carbon Dioxide 24 Anion Gap 16 BUN 15 Creatinine 0.77 Estim Creat Clear Calc 92.1 Estimated GFR > 60 POC Glucose Random Glucose 113 Calcium 9.0 Total Creatine Kinase Troponin I High Sens Triglycerides 95 Cholesterol 193 LDL Cholesterol, Calc 129 HDL Cholesterol 45 COVID-19 (RHONDA) Negative COVID-19 Clin Com See Note ITS Impressions Head CT 08/10/20 21:49 IMPRESSION: No acute intracranial pathology. This critical result was discussed with Amy Camacho MD by telephone at 08/10/2020 10:21 PM and it was ascertained that the content and urgency of the report was understood at the time of direct communication. Head/Neck CTA 08/10/20 21:50 IMPRESSION: No evidence of acute territorial infarct. No abnormal intracranial mass or enhancement. There is no stenosis of the cervical carotid or vertebral arteries. No high-grade stenosis or proximal occlusion is visualized within the intracranial vessels. There is multilevel degenerative spondylosis of the cervical spine with at least mild canal stenosis at multiple levels. If there are clinical symptoms of compressive myelopathy then a dedicated cervical spine MRI can be obtained for better anatomic characterization of the cord and canal. This critical result was discussed with Amy Camacho at 10:46 PM on 08/10/2020 and it was ascertained that the content and urgency of the report was understood at the time of direct communication. Brain MRI 08/11/20 01:11 IMPRESSION: There are scattered chronic small vessel ischemic changes within the periventricular white matter and odnald. Otherwise unremarkable examination. No evidence of acute infarct or hemorrhage. Assessment and Plan (1) Cerebrovascular accident: Status: Acute Assessment and Plan: hospital d#1 60yo F with HTN presenting with L facial and upper extremity weakness and paresthesias # TIA - presented out of tPA window and symptoms very mild [NIHSS 1] - ASA, high-intensity statin - neuro consult + PT/OT/INDUSTRIAL ACCOUNTANT evaluations pending # essential HTN - continue atenolol + HCTZ- will need 3rd agent in future but for now allow permissive HTN # VTE ppx - LMWH
--- NOTE | 2020-08-11 13:50 | MHC.CM.PN ---
PT REPORTS SHE LIVES ALONE AND IS INDEPENDENT WITH ALL CARE. PT HAS NO SERVICES AND ONLY A NEBULIZER FOR DME. PT REPORTS HER PCP IS JILLIAN SHIELDS AND HAS HAS A HCP ON FILE DC PLAN IS CURRENTLY TBD PENDING PT/OT [facility] WITH SERVICES VS ACUTE REHAB TRANSPORTATION TO BE DETERMINED BY DISPO
[2020-08-11] MEDS: Enoxaparin Sodium 40 MG/0.4 ML SYRINGE SUBCUT (14:33)
--- NOTE | 2020-08-11 18:26 | P.CNNE_ITS ---
History of Present Illness Data of Consult Service Date: 08/11/20 Primary Care Provider: Armando Kerns MD HPI Reason for consult: Left face and arm prickly tingling for a few hrs. Elevated BP 60 yr R handed woman with long h/o HBP on atenolol and HCTZ didn't feel right and her BP was in the 190s systolic so she went home from work AND TOOK AN EXTRA ATENOLOL but BP went up furher and she felt prickly sensation in left face and left upper extremity so she came to the ER. CT and CTA were negative. She had no deficits so tPA was not given. MRI today shows no acute stroke, only chronic white matter microvascular disease. Her symptoms of paresthesia resolved in a few hours. She still feeel a slight headache, but otherwise normal . Her speech is normal. Yesterday her sister thought that her speech was not quite right on the phone . Review of Systems Eyes: Eyes: Reports no additional eye complaints ENT: Reports system reviewed and no additional complaints, except as documented and Reports Normal hearing present Cardiovascular: Cardiovascular: Reports no additional cardiovascular complaints Respiratory: Respiratory: Reports no additional respiratory complaints Gastrointestinal: Gastrointestinal: Reports no additional gastrointestinal complaints Musculoskeletal: Musculoskeletal: Reports no additional musculoskeletal complaints Integumentary/Breasts: Skin/Breast: Reports system reviewed and no additional complaints, except as docu Neurologic: Reports as per HPI and Reports Normal hearing present Psychiatric: Psychiatric: Reports as per HPI Endocrine: Endocrine: Reports no additional endocrine complaints Hematologic/Lymphatic: Hematologic/Lymphatic: Reports no additional hematologic/lymphatic complaints Allergic/Immunologic: Allergic/Immunologic: Reports no additional allergic/immunologic complaints [facility] Past Medical History Medical History HTN (hypertension) Social History Social History Household Members: None Housing: House Do you presently have visiting nurse or other home services: No Smoking Status: Light tobacco smoker Cigarettes Per Day: 5 Years Smoked: 10 Smoked in Last 30 Days: Yes Patient Interested in Nicotine Replacement: No Patient Given Instructions on How to Stop Smoking: Yes Date Education Initiated: 08/11/20 Second Hand Smoke Exposure: No Use of substances other than those prescribed or required for medical reasons: Yes Substance Use Type: Marijuana Substance Use Frequency: Daily Last Used Substance: Days (ago) Currently Displaying Signs/Symptoms of Drug Intoxication Withdrawal: No Have you been hit, kicked, punched, or otherwise hurt by someone within the past year? If so, by whom?: No Do you feel safe in your current relationship?: No Current Relationship Is there a partner from a previous relationship who is making you feel unsafe now?: No Are you made to feel afraid or neglected: No Advance Directives: No Advance Directives Information Provided: No Do you have thoughts of harming others: None Do you have a plan to hurt others: No Plan Recently lost weight without trying: No service: No Current occupational status: employed Meds Allergies Allergy/AdvReac Type Severity Reaction Status Date / Time prednisone [PREDNISONE] Allergy Unknown HIVES Unverified 02/01/20 15:03 Sulfa (Sulfonamide Allergy Unknown HIVES Unverified 02/01/20 15:03 Antibiotics) [SULFA (SULFONAMIDE ANTIBIOTICS)] sulfur Allergy Unknown Verified 12/21/18 00:00 sulfa Allergy Unknown Uncoded 02/25/19 00:00 Active Medications: Current Medications Generic Name Dose Route Start Last Admin Trade Name Freq PRN Reason Stop Dose Admin Acetaminophen 650 mg 08/11/20 01:11 08/11/20 12:30 Acetaminophen 325 Mg Tablet PO 650 mg Q6H PRN Administration Pain, Mild (Pain Scale 1-3) Aspirin 81 mg 08/11/20 09:00 08/11/20 07:58 Aspirin Enteric Coated 81 Mg Tablet. PO 81 mg DAILY TERE Administration Atenolol 100 mg 08/11/20 09:00 08/11/20 07:58 Atenolol 100 Mg Tablet PO 100 mg DAILY TERE Administration Protocol Atorvastatin Calcium 80 mg 08/11/20 21:00 Atorvastatin Calcium 80 Mg Tablet PO BEDTIME TERE Cyclobenzaprine HCl 10 mg 08/11/20 21:00 Cyclobenzaprine Hcl 10 Mg Tablet PO BEDTIME TERE Docusate Sodium 100 mg 08/11/20 01:11 Docusate Sodium 100 Mg Capsule PO DAILY PRN Constipation Enoxaparin Sodium 40 mg 08/11/20 14:00 08/11/20 14:33 Enoxaparin Sodium 40 Mg/0.4 Ml Syringe SUBCUT 40 mg Q24H TERE Administration Hydrochlorothiazide 50 mg 08/11/20 09:00 08/11/20 07:58 Hydrochlorothiazide 50 Mg Tablet PO 50 mg DAILY [facility] Administration Protocol Ondansetron HCl 4 mg 08/11/20 01:11 Ondansetron Hcl 4 Mg/2 Ml Vial IVPUSH Q8H PRN Nausea and Vomiting Sodium Chloride 3 ml 08/11/20 01:11 08/11/20 14:39 0.9 % Sodium Chloride Flush 3 Ml Syringe IVFLUSH 3 ml QSHIFT [facility] Administration Home Medications Medication Instructions Recorded Confirmed Last Taken Type atenolol 100 mg PO DAILY 08/10/20 08/10/20 08/10/20 18:00 History cyclobenzaprine 10 mg PO BEDTIME 08/10/20 08/10/20 08/09/20 21:00 History hydrochlorothiazide 50 mg PO DAILY 08/10/20 08/10/20 08/10/20 08:00 History mometasone-formoterol [Dulera] 2 puff INHALATION NEEDED 08/11/20 08/11/20 Unknown History Physical Exam Vital Signs: Vital Signs: Last Vital Signs Temp 97.7 F 08/11/20 15:21 Pulse 59 08/11/20 15:21 Resp 14 08/11/20 15:21 BP 187/89 H 08/11/20 15:21 Pulse Ox 95 08/11/20 15:21 Body Mass Index 27.3 Const: General: cooperative, comfortable, no acute distress, well developed, alert and awake Nutritional Appearance: well nourished Orientation/consciousness: oriented to person, oriented to place and oriented to time Limitations: no limitations HENMT: Head: Yes normal to inspection, Yes normocephalic and Yes atraumatic Ears: hearing grossly normal bilaterally General nose exam: Normal external nose present Face and sinus: Yes normal facial exam Mouth: Normal oral and palatal mucosa present Eyes: General: appearance normal, both eyes and all related structures Visual Melgar: normal visual melgar by confrontation Alignment and Position: alignment normal Periorbital: periorbital findings normal Eyelids: Yes eyelids normal Conjunctivae: conjunctivae normal Sclerae: sclerae normal Corneas: corneas normal Pupils: Equal, round and reactive pupils present and Pupil accommodation reflex normal EOM: EOMs intact bilaterally Direct Ophthalmoscopy: normal light reflex Neck: Neck: Yes normal visual inspection, Yes full ROM and Yes no meningeal signs Thyroid: Thyroid normal Carotids: normal carotid upstroke and bounding pulses Chest: Chest palpation & inspection: normal inspection of the chest Resp: Effort & Inspection: normal respiratory effort Auscultation: clear to auscultation bilaterally Cardio: Rate: regular rate Rhythm: regular rhythm Heart sounds: S1 normal heart sound present and S2 normal heart sound present Peripheral pulses: Peripheral pulses 2+ throughout GI: Inspection: Yes normal to inspection Percussion: Yes normal to percussion Auscultation: normal bowel sounds Rectal Exam - Female: deferred Back/Spine/Pelvis: Cervical Spine: normal cervical lordosis and cervical ROM normal Thoracic/Lumbar Spine: thoracic and lumbar spine normal to inspection Skin: General skin exam: no rashes or lesions noted Neuro: Other: Subtle left shoulder abduction weakness 5-/5 otherwise normal strength. Right plantar is equivocal extensor General: oriented to person, oriented to place, oriented to time, gait normal, tone normal, moves all extremities, Normal light touch and pain sensation, no meningeal signs, no focal motor deficits, CN's II-XI intact bilaterally, normal sensation to monofilament and deep tendon reflexes 2+ bilaterally Cranial nerves: Yes CN's II-XII intact bilaterally, Yes Equal, round and reactive pupils present, Yes Bilaterally intact EOM present, Yes Nystagmus not present, Yes Normal facial strength present, Yes Midline tongue present, Yes Normal gag reflex present, Yes Symmetric palate elevation present, Yes Normal hearing present and Yes Ability to bilaterally rotate head present Cognition (Neuro): normal cognition Speech: Other speech findings present (Neuro) Gait exam (Neuro): Normal gait present Motor exam (neuro): 5/5 motor strength present throughout, Pronator motor function not present, no tremor noted, no asterixis, Motor fasciculations not present, Normal motor muscle tone present throughout and Motor abnormalities not present Sensory Exam: Bilaterally intact graphesthesia Deep tendon reflexes (DTR's): Right triceps reflex intensity grade: 2+, Left triceps reflex intensity grade: 2+, Rt Biceps (C5, C6): 2+, Left biceps reflex intensity grade: 2+, Right brachioradialis reflex intensity grade: 2+, Left brachioradialis reflex intensity grade: 2+, Right patellar reflex intensity grade: 2+, Left patellar reflex intensity grade: 2+, Right ankle reflex intensity grade: 2+ and Left ankle reflex intensity grade: 2+ Plantar Reflex Responses: downgoing: left and equivocal: right Coordination: [id number] test normal, [id number] test normal, tandem gait normal and Romberg test negative Pupil s: Normal pupillary reactivity/response: bilateral Extrem: General: Yes normal to inspection, Yes normal exam except as noted and Yes no pedal edema Psych: Appearance: grossly normal Mental Status: mental status grossly normal Speech and movement: Normal speech and movement present and Clear speech present Affect: normal affect Attitude: cooperative Thought p rocess: Normal thought process present Results Labs CBC & Chem 7: 08/11/20 04:51 08/11/20 04:51 Labs: Short CBC 08/10/20 08/10/20 08/11/20 Range/Units 21:45 22:00 04:51 WBC 7.9 8.5 7.3 (4.8-10.8) X10*3/uL Hgb 12.6 12.4 12.7 (12.0-16.0) g/dl Hct 37.9 37.8 38.3 (37-47) % Plt Count 193 193 200 (160-400) X10*3/uL BMP 08/10/20 08/10/20 08/11/20 21:45 22:00 04:51 Sodium 140 140 140 Potassium 3.8 3.7 3.8 Chloride 103 104 104 Carbon Dioxide 26 25 24 BUN 20 H 20 H 15 Creatinine 0.81 0.81 0.77 Calcium 8.6 8.8 9.0 Cardiac Enzymes 08/10/20 Range/Units 22:00 Total Creatine Kinase 231 H (26-140) U/L Assessment and Plan (1) Cerebral microvascular disease: Problem details: MRI shows chronic microvascular disease related to HBP Status: Acute control BP to bring BP below 140/80. Consider adding LIsinopril or Amlodipine ASA 81mg. (2) Hypertension: Status: Acute as above
[2020-08-11] MEDS: Cyclobenzaprine HCl 10 MG TABLET PO (20:27)
[2020-08-12] VITALS (11 sets, daily range): BP systolic 150–171; BP diastolic 76–89; PULSE 56–82; RESP 16–20; TEMP 36.1–36.4; O2SAT 94–98
--- NOTE | 2020-08-12 06:51 | CA_ITS ---
Transthoracic Echocardiogram Patient (Last, First, Middle): Libertad Hurst M Gender: Female Date of : 1960 Age: 60 Procedure Date: 08/12/2020 Procedure Type: Transthoracic Echocardiogram Location: S3W Height: 175.26 cm Weight: 83.92 kg BSA: 2.00 m2 Heart Rate: bpm BP: 160 / 95 mmHg Cupola Liner Helper: CECE Referring MD: Rachell Beckford MD Symptoms: stroke Study Quality: Good Conclusions: - Normal left ventricular size and systolic function. - Abnormal diastolic function is noted. - Normal right ventricular cavity size and systolic function. - The left atrium is likely dilated. Interatrial shunt cannot be excluded by color Doppler. - There is mild dilatation of the sinuses of Valsalva. Findings Left Ventricle Normal left ventricular size and systolic function. There is mildly increased left ventricular wall thickness. The visually estimated ejection fraction is between 60-65%. Abnormal diastolic function is noted. Spectral Doppler is indicative of a pseudonormal filling pattern. E/E prime ratio is between 8 and 15 consistent with indeterminate filling pressures. Right Ventricle Normal right ventricular cavity size and systolic function. Atria The left atrium is likely dilated. Interatrial shunt cannot be excluded by color Doppler. The right atrium is normal in size. Aortic Valve There is a normal trileaflet aortic valve. There is mild calcification of the aortic valve. There is no aortic valve stenosis. There is trace (trivial) aortic valve regurgitation. Mitral Valve Normal mitral valve structure and function. There is trace mitral valve regurgitation. There is no mitral valve stenosis. Pulmonic Valve Normal pulmonic valve structure and function. There is trace pulmonic valve regurgitation. Tricuspid Valve Normal tricuspid valve structure and function. There is trace tricuspid valve regurgitation. Tricuspid regurgitation envelope is inadequate for calculation of right ventricular systolic pressure. Normal right atrial pressure. Great Vessels There is mild dilatation of the sinuses of Valsalva. The visualized portions of the pulmonary artery and branches are normal. Venous The inferior vena cava is normal in size and collapses greater than 50% with inspiration. Pericardium/Pleural There is no evidence of pericardial effusion. Prior Study Comparison No prior study available for comparison. Recommendations, Care & Conclusions Recommend contrast study to evaluate intracardiac shunting. Measurements 2D Linear Measurements IVSd: 1.13 0.6-0.9/0.6-1.0 cm LVIDd: 5.01 3.9-5.3/4.2-5.9 cm LVIDd Index: 2.51 2.4-3.2/2.2-3.1 cm/m2 LVIDs: 2.91 2.0-3.6 cm LVPWd: 1.10 0.7-1.1 cm Ao Root: 3.80 2.1-3.5 cm LA Diam: 3.90 2.7-3.8/3.0-4.0 cm LAIDs Index: 1.95 1.5-2.3 cm/m2 LV Mass: 263.90 67-162/88-224 g LV Mass Index: 131.95 43-95/49-115 g/m2 LVOT Diam: 2.20 3.0+(-)1.3 cm 2D Systolic Function EF 4C: 57.10 >55% EF 2C: 62.00 >55% EF BiP: 60.40 >55% Mitral Valve MV Pk E: 0.62 MV PK A: 0.59 MV Decel Time: 349.00 E/A: 1.10 E'Lateral: 7.62 E'Medial: 5.55 E/E' Med: 11.10 E/E' Lat: 8.10 PHT: 102.00 MVA PHT: 2.16 Decel [place]: 1.77 Aortic Valve AoV Pk Benji: 1.64 AoV Mn Benji: 1.09 AoV VTI: 0.35 AoV Pk Grad: 11.00 Aov Mn Grad: 5.00 [place] Cont.VTI: 2.38 LVOT LVOT Pk Benji: 0.99 LVOT Mn Benji: 0.51 LVOT VTI: 0.22 LVOT Pk Grad: 4.00 LVOT Mn Grad: 1.00 LVOT Diam: 2.20 LVOT Area: 3.80 Diastolic Function MV Pk E: 0.62 MV Pk A: 0.59 E/A: 1.10 E'Medial: 5.55 E/E' Med: 11.10 E' Laterial: 7.62 E/E' Lat: 8.10 Tricuspid Valve RA Press: 3.00 Great Vessels Aorta Ao Root-2D: 3.80 2.0-3.7 cm Sinus of Valsalva: 3.80 2.0-3.5 cm Ao Asc: 3.10 2.1-3.4 cm Ao Arch: 2.70 Updated in Other Vendor System with Status of Final Rafael Seymour MD electronically signed on 08/12/2020 4:11:19 PM with status of Final
[2020-08-12 07:12] LABS: Estimated Average Glucose 100 mg/dL; Hemoglobin A1c % 5.1 %
[2020-08-12] MEDS: hydroCHLOROthiazide 50 MG TABLET PO (09:16)
[2020-08-12] MEDS: atenoloL 100 MG TABLET PO (09:16)
[2020-08-12] MEDS: Aspirin Enteric Coated 81 MG TABLET.DR PO (09:16)
[2020-08-12] MEDS: 0.9 % Sodium Chloride Flush 3 ML SYRINGE IVFLUSH ×3 (09:17→20:54)
[2020-08-12] MEDS: Acetaminophen 325 MG TABLET 650 MG PO ×2 (09:17→19:52)
[2020-08-12] MEDS: Fluticasone/Vilanterol 200/25 BLST.W.DEV 1 PUFF INHALE (09:19)
--- NOTE | 2020-08-12 13:13 | P.DS_ITS ---
DS: Providers Provider Date of Service: 09/14/20 Date of admission: 08/10/20 23:48 Primary care physician: Armando Kerns MD Consults: 08/11/20 01:11 Consult to Neurology Routine Consulting Provider: [facility] [place] Reason for consultation: TIA/stroke DS: Diagnosis Discharge Diagnosis (1) Cerebral microvascular disease: (2) Hypertension: Status: Acute DS: Medications Discharge Medications Home Medications: Home Medications Medication Instructions Recorded Confirmed atenolol 100 mg PO DAILY 08/10/20 08/10/20 cyclobenzaprine 10 mg PO BEDTIME 08/10/20 08/10/20 hydrochlorothiazide 50 mg PO DAILY 08/10/20 08/10/20 mometasone-formoterol [Dulera] 2 puff INHALATION NEEDED 08/11/20 08/11/20 DS: Summary Hospital Course Hospital Course: Chief Complaint: Numbness and tingling please see Dr Griffin's discharge summary from yesterday for more details: This is a 52-year-old female with past medical history of hypertension who presents to the hospital with complaints of sudden onset facial numbness, tingling, and facial droop on the left side. Her symptoms started around 5:00 p.m. while at work., Patient also reports that her sister noted her to have a slurred speech over the phone, she checked her blood pressure at work and found to be in the 190s systolic, she was sent home took her atenolol and return back to work but continued to feel this numbness, tingling, facial droop, as well as developed left upper arm weakness, numbness and tingling. Patient therefore decided to come to the hospital. This is the 1st episode, no previous similar episodes. She also had a headache /, frontal, nonradiating, she still continues to have numbness and tingling in the face but her speech has improved, she also has some weakness in her left arm. She denies any lower extremity weakness. She denies any palpitations, no chest pain, no abdominal pain nausea or vomiting, no diarrhea constipation. She has no urinary symptoms and no lower extremity edema. She has no change in vision, and denies palpitations. On arrival to the ED to be 195/96, received hydralazine labetalol with improvement of her BP Labs unremarkable, CT of the head shows no acute intracranial abnormality, CT angiogram of head and neck shows no evidence of acute territorial infarct, no abnormal intracranial mass or enhancement, no stenosis of the cervical carotid or vertebral arteries. Neurology was consulted, recommended starting aspirin, and MRI in a.m. Patient will be admitted for further management Hospital course: 1. TIA with chronic microvascular disease. MRI did not show new stroke, showed chronic small-vessel ischemic changes. Seen by Neurology: Patient was started on ASA, added small dose atorvastatin. 2. essential HTN- continue atenolol + HCTZ and added Norvasc . Above management discussed with the patient in detail length she understand and in agreement with the above plan, time spent 50 minutes and 50% time spent on counseling. Significant findings: As above. Procedures performed: None. Treatment and response: As above. Complications: None. Time Spent with Patient Time attestation: Total time spent providing and/or coordinating discharge services: Discharge coordination time: Greater than 30 minutes Physical Exam Vital Signs: Vital Signs: Last Vital Signs Temp 97.5 F 08/12/20 11:50 Pulse 62 08/12/20 11:50 Resp 17 08/12/20 11:50 BP 156/86 H 08/12/20 11:50 Pulse Ox 96 08/12/20 11:50 Body Mass Index 27.3 Constitutional Awake and Alert, No apparent distress Neck Supple, No lymphadenopathy Cardiovascular RRR, No M/R/G, S1 S2, No S3 S4, No pedal edema Respiratory Lungs clear, No respiratory distress Gastrointestinal Non tender, Non-distended Skin No rash Neurological Alert & oriented x3 Psychological Appropriate affect DS: Data Data Completed and Pending Labs on day of discharge: Laboratory Results - last 24 hr 08/11/20 04:51 Estimat Average Glucose 100 Hemoglobin A1c % 5.1 Discharge Plan Discharge Anticipated Discharge Date/Time: 08/12/20 12:59 Patient Disposition: Home, Self-Care Discharge Diagnosis: uncontrolled HTN Referrals: Armando Kerns MD [Primary Care Provider] - Discharge Medications: New amlodipine [Norvasc] 5 mg tablet 5 mg PO DAILY Qty: 5 RF: 0 atorvastatin 20 mg tablet 20 mg PO BEDTIME Qty: 30 RF: 0 Continued cyclobenzaprine 10 mg tablet 10 mg PO BEDTIME RF: 0 hydrochlorothiazide 50 mg tablet 50 mg PO DAILY RF: 0 atenolol 50 mg tablet 100 mg PO DAILY RF: 0 Dulera 200-5 mcg/actuation HFA aerosol inhaler 2 puff inhalation NEEDED RF: 0 Discharge Orders: Discharge Order (Routine); Ordered 08/12/20 Ordered By: Jeffery Lilly Diet: advance to usual diet Activity on Discharge: As tolerated Stand Alone Forms: Patient Portal Discharge page Care Plan Goals: Minimize risk for stroke Health Concerns: Uncontrolled HTN Plan of Treatment: take blood pressure medication as directed Assessment: Uncontrolled hypertension. Discharge Date/Time: 08/13/20 10:03
--- NOTE | 2020-08-12 13:29 | MHC.CM.PN ---
Addendum entered by Mckenzie Bills 08/12/20 13:44: nurse vision care associate note met with patient she is aware that she will be discharged home today no srrvices , she is in agreement with this, and wants to be able to return back to work. she has transdportation home and will fllw upwith her primary dr barger. she is also aware that she will be on some new blood pressure medications, (and denies any financial concersn in getting them) Original Note: NURSE EMERGENCY RESPONSE TECHNICIAN NOTE ELECTRONIC MEDICAL RECORD REVIEWED , CASE DISCUSSED SOFIA KO NURSE AND ON MULTIPLE DISCIPLAINRY ROUNDS PWER HOSPITAIST PATIENT WILL BE DISCHARGED HOEM TODAY WITH NO NEED FOR ANY SERVICES , DISCAHREG PLAN HOME NO SERVICES PER HOSPITAIST (AND N VNA ORDEREDS) PATIENT TO SELF ARRANGE TRANSPORTATION WITH FAMILY PCP PATIENT TO CALL FOR POST HOSPITLA DISCHARGE FOLLOW UP
[2020-08-12] MEDS: Enoxaparin Sodium 40 MG/0.4 ML SYRINGE SUBCUT (13:34)
[2020-08-12] MEDS: amLODIPine Besylate 5 MG TABLET PO (13:34)
--- NOTE | 2020-08-12 18:03 | HO.PM.IMPN ---
Subjective Subjective Date of Service: 09/14/20 Interval History: L arm weakness + paresthesias resolved L facial weakness + paresthesias improved normal speech Physical Exam Vital Signs: Vital Signs: Last Vital Signs Temp 97.2 F 08/12/20 15:58 Pulse 62 08/12/20 15:58 Resp 20 08/12/20 15:58 BP 156/89 H 08/12/20 15:58 Pulse Ox 94 08/12/20 15:58 Body Mass Index 27.3 Objective Data Current Medications Generic Name Dose Route Start Last Admin Trade Name Carlosq PRN Reason Stop Dose Admin Acetaminophen 650 mg 08/11/20 01:11 08/12/20 09:17 Acetaminophen 325 Mg Tablet PO 650 mg Q6H PRN Administration Pain, Mild (Pain Scale 1-3) Aspirin 81 mg 08/11/20 09:00 08/12/20 09:16 Aspirin Enteric Coated 81 Mg Tablet.Dr PO 81 mg DAILY TERE Administration Atenolol 100 mg 08/11/20 09:00 08/12/20 09:16 Atenolol 100 Mg Tablet PO 100 mg DAILY TERE Administration Protocol Atorvastatin Calcium 80 mg 08/11/20 21:00 08/11/20 20:26 Atorvastatin Calcium 80 Mg Tablet PO 80 mg BEDTIME TERE Administration Cyclobenzaprine HCl 10 mg 08/11/20 21:00 08/11/20 20:27 Cyclobenzaprine Hcl 10 Mg Tablet PO 10 mg BEDTIME TERE Administration Docusate Sodium 100 mg 08/11/20 01:11 Docusate Sodium 100 Mg Capsule PO DAILY PRN Constipation Enoxaparin Sodium 40 mg 08/11/20 14:00 08/12/20 13:34 Enoxaparin Sodium 40 Mg/0.4 Ml Syringe SUBCUT 40 mg Q24H TERE Administration Fluticasone/Vilanterol 1 puff 08/12/20 08:00 08/12/20 09:19 Fluticasone/Vilanterol 200/25 Blst.W.Dev INHALE 1 puff RDAILY TERE Administration Hydrochlorothiazide 50 mg 08/11/20 09:00 08/12/20 09:16 Hydrochlorothiazide 50 Mg Tablet PO 50 mg DAILY TERE Administration Protocol Ondansetron HCl 4 mg 08/11/20 01:11 Ondansetron Hcl 4 Mg/2 Ml Vial IVPUSH Q8H PRN Nausea and Vomiting Sodium Chloride 3 ml 08/11/20 01:11 08/12/20 17:46 0.9 % Sodium Chloride Flush 3 Ml Syringe IVFLUSH 3 ml QSHIFT TERE Administration Labs CBC & Chem 7: 08/11/20 04:51 08/11/20 04:51 Assessment and Plan (1) Cerebral microvascular disease: (2) Hypertension: Status: Acute Assessment and Plan: 60yo F with HTN presenting with L facial and upper extremity weakness and paresthesias # TIA - presented out of tPA window and symptoms very mild [NIHSS 1] - ASA, high-intensity statin - neuro consult + PT/OT/MARKET RESEARCH CONSULTANT evaluations pending # essential HTN - continue atenolol + HCTZ- will need 3rd agent in future but for now allow permissive HTN Neuro recommend SBP < 140, added Norvasc 5 mg, BP remains high so hydralazine PRN # VTE ppx - LMWH
[2020-08-12] MEDS: hydrALAZINE HCl 10 MG TABLET PO (18:21)
[2020-08-12] MEDS: Atorvastatin Calcium 80 MG TABLET PO (20:53)
[2020-08-12] MEDS: Cyclobenzaprine HCl 10 MG TABLET PO (20:53)
[2020-08-13] VITALS: BP 142/74; PULSE 60; RESP 18; TEMP 36; O2SAT 96
[2020-08-13 04:00] VITALS: BP 137/78; PULSE 68; RESP 18; TEMP 36.1; O2SAT 96
[2020-08-13 07:40] VITALS: BP 147/85; PULSE 64; RESP 17; TEMP 36; O2SAT 95
[2020-08-13] MEDS: atenoloL 100 MG TABLET PO (08:23)
[2020-08-13] MEDS: Aspirin Enteric Coated 81 MG TABLET.DR PO (08:24)
[2020-08-13] MEDS: hydroCHLOROthiazide 50 MG TABLET PO (08:24)
[2020-08-13] MEDS: 0.9 % Sodium Chloride Flush 3 ML SYRINGE IVFLUSH (08:25)
--- NOTE | 2020-08-13 09:46 | MHC.CM.PN ---
nurse senior resident care director note upon arrival to the unit found that patient was stil here , per patient and case [id number] with staffnurse patients blood pressure was elevated and the decision was to give her blod pressure medications and monitor over night . she reported no symptoms just blod pressure readings when staff took her blodd pressure. patient will be discharged today no services, with new blood pressure medications norvasc, in addition to her home blood pressure medications atenolol and hydrochlorathiazide. patient also reported that sdhe can have her blood pressure checked at work qd if necessary and she was given my physician goal range for blood pressures readings
--- NOTE | 2020-08-13 13:23 | P.DS_ITS ---
DS: Providers Provider Date of Service: 08/13/20 Date of admission: 08/10/20 23:48 Date of discharge: 08/13/20 Primary care physician: Armando Kerns MD Consults: 08/11/20 01:11 Consult to Neurology Routine Consulting Provider: [facility] Reason for consultation: TIA/stroke DS: Diagnosis Discharge Diagnosis (1) Cerebral microvascular disease: Status: Acute (2) Hypertension: Status: Acute DS: Medications Discharge Medications Home Medications: Home Medications Medication Instructions Recorded Confirmed atenolol 100 mg PO DAILY 08/10/20 08/10/20 cyclobenzaprine 10 mg PO BEDTIME 08/10/20 08/10/20 hydrochlorothiazide 50 mg PO DAILY 08/10/20 08/10/20 Dulera 2 puff INHALATION NEEDED 08/11/20 08/11/20 Previous Rx's Medication Instructions Recorded amlodipine [Norvasc] 5 mg PO DAILY #5 tab 08/12/20 DS: Summary Hospital Course Hospital Course: Chief Complaint: Numbness and tingling please see Dr Griffin's discharge summary from yesterday for more details: This is a 52-year-old female with past medical history of hypertension who presents to the hospital with complaints of sudden onset facial numbness, tingling, and facial droop on the left side. Her symptoms started around 5:00 p.m. while at work., Patient also reports that her sister noted her to have a slurred speech over the phone, she checked her blood pressure at work and found to be in the 190s systolic, she was sent home took her atenolol and return back to work but continued to feel this numbness, tingling, facial droop, as well as developed left upper arm weakness, numbness and tingling. Patient therefore decided to come to the hospital. This is the 1st episode, no previous similar episodes. She also had a headache 10/10, frontal, nonradiating, she still continues to have numbness and tingling in the face but her speech has improved, she also has some weakness in her left arm. She denies any lower extremity weakness. She denies any palpitations, no chest pain, no abdominal pain nausea or vomiting, no diarrhea constipation. She has no urinary symptoms and no lower extremity edema. She has no change in vision, and denies palpitations. On arrival to the ED to be 195/96, received hydralazine labetalol with improvement of her BP Labs unremarkable, CT of the head shows no acute intracranial abnormality, CT angiogram of head and neck shows no evidence of acute territorial infarct, no abnormal intracranial mass or enhancement, no stenosis of the cervical carotid or vertebral arteries. Neurology was consulted, recommended starting aspirin, and MRI in a.m. Patient will be admitted for further management Hospital course: 1. TIA with chronic microvascular disease. MRI did not show new stroke, showed chronic small-vessel ischemic changes. Seen by Neurology: Patient was started on ASA, added small dose atorvastatin. 2. essential HTN- continue atenolol + HCTZ and added Norvasc . Above management discussed with the patient in detail length she understand and in agreement with the above plan, time spent 50 minutes and 50% time spent on counseling. Significant findings: As above. Procedures performed: None. Treatment and response: As above. Complications: None. Time Spent with Patient Time attestation: Total time spent providing and/or coordinating discharge services: Discharge coordination time: Greater than 30 minutes Physical Exam Vital Signs: Vital Signs: Last Vital Signs Temp 96.8 F 08/13/20 07:40 Pulse 64 08/13/20 07:40 Resp 17 08/13/20 07:40 BP 147/85 H 08/13/20 07:40 Pulse Ox 95 08/13/20 07:40 Body Mass Index 27.3 Physical exam: Constitutional: Not in acute distress, pleasant female. skin: no erythema or rash. Cvs: rrr, [id number] , no murmur res: clear to auscultation ,no rhonchii or wheezing abd: no rebound or guarding ,nt, bs present. ext pulses present , no cyanosis neuro: axo3 , nonfocal. Discharge Plan Discharge Anticipated Discharge Date/Time: 08/12/20 12:59 Patient Disposition: Home, Self-Care Referrals: Armando Kerns MD [Primary Care Provider] - Discharge Medications: New amlodipine [Norvasc] 5 mg tablet 5 mg PO DAILY Qty: 5 RF: 0 atorvastatin 20 mg tablet 20 mg PO BEDTIME Qty: 30 RF: 0 Continued cyclobenzaprine 10 mg tablet 10 mg PO BEDTIME RF: 0 hydrochlorothiazide 50 mg tablet 50 mg PO DAILY RF: 0 atenolol 50 mg tablet 100 mg PO DAILY RF: 0 Dulera 200-5 mcg/actuation HFA aerosol inhaler 2 puff inhalation NEEDED RF: 0 Discharge Orders: Discharge Order (Routine); Ordered 08/12/20 Ordered By: Jeffery Lilly Diet: advance to usual diet Activity on Discharge: As tolerated Stand Alone Forms: Patient Portal Discharge page Care Plan Goals: Minimize risk for stroke Health Concerns: Uncontrolled HTN Plan of Treatment: take blood pressure medication as directed Discharge Date/Time: 08/13/20 10:03
--- NOTE | 2020-09-11 15:17 | MHC.STROKE ---
LATE ENTRY FOR 08/13/20. PATIENT WAS ON ANTI-OLATELET ASPIRIN WHILE SHE WAS IN THE HOSPITAL. HER DISCHARGE SUMMARY DID NOT INCLUDE THE ASPIRIN. I DID CALL DR. SHIELDS'S OFFICE TODAY 09/11/20 AT 0195 AND CHECKED WITH HIS OFFICE IS SHE WAS ON AN ANTIPLATELET. SHE IS NOT. AN ANTIPLATELET WAS RECOMMENDED.
== END 2020-08-13 10:03 | disposition home or self-care (01) | DRG 305 ==
LOC: HO.ED 23:00 → HO.EDOVER 08-11 00:55 → HO.S3 08-11 01:07
PROVIDERS: Family Medicine; Admitting Provider Internal Medicine; Emergency Provider Emergency Medicine; PCP Internal Medicine Medical Oncology; Visit Provider Internal Medicine
DX: I16.9 Hypertensive crisis, unspecified (principal); G45.9 Transient cerebral ischemic attack, unspecified; I67.9 Cerebrovascular disease, unspecified; I10 Essential (primary) hypertension; F17.210 Nicotine dependence, cigarettes, uncomplicated; Z71.6 Tobacco abuse counseling; Z20.822 Contact with and (suspected) exposure to COVID-19; Z88.2 Allergy status to sulfonamides; Z79.899 Other long term (current) drug therapy
CPT/HCPCS: 36415; 70450; 70496; 70498; 70551; 80048; 80061; 82550; 82947; 83036; 84484; 85025; 85610; 85730; 87635; 92610; 93306; 96374; 97161; 97165; 99285; J1650; Q9967

== ENCOUNTER 2020-08-19 08:58 | Outpatient (REF) | payer OTHER, SELFPAY ==
[2020-08-19 10:13] LABS: Rheumatoid Factor < 15.0 IU/mL (<15.0)
[2020-08-19 10:41] LABS: Erythrocyte Sedimentation Rate 23 MM/HR (0-20)
[2020-08-19 10:53] LABS: Syphilis Screen Nonreactive (Nonreactive)
[2020-08-20 11:52] LABS: Lyme Abs Screen <0.90 index
[2020-08-20 14:17] LABS: IgA 102 mg/dL (47-310); IgG 916 mg/dL (600-1640); IgM 89 mg/dL (50-300)
[2020-08-20 23:03] LABS: Anti Nuclear Antibody Screen NEGATIVE (NEGATIVE)
== END 2020-08-19 08:59 | disposition home or self-care (01) ==
LOC: HO.LAB 08:58
PROVIDERS: PCP Internal Medicine Medical Oncology; Visit Provider Psychiatry & Neurology Neurology
DX: M79.7 Fibromyalgia (principal)
CPT/HCPCS: 36415; 82550; 82784; 85652; 86038; 86039; 86334; 86431; 86617; 86618; 86780

== ENCOUNTER → 2020-10-25 13:53 | Outpatient (BNVA) | payer OTHER, SELFPAY | PROVIDERS: PCP Internal Medicine Medical Oncology; Visit Provider Nurse Practitioner Family ==

== ENCOUNTER → 2020-11-19 08:53 | Outpatient (BNVA) | payer OTHER, SELFPAY | PROVIDERS: PCP Internal Medicine Medical Oncology; Visit Provider Nurse Practitioner Family ==

== ENCOUNTER 2020-12-05 14:06 | Outpatient (REF) | payer OTHER, SELFPAY ==
--- NOTE | ~2020-12-05 | US_ITS ---
EXAMINATION: US SOFT TISSUE EXTREMITY CLINICAL INFORMATION: M79.89 - Other specified soft tissue disorders. Patient notes painful lump medial side antecubital fossa right arm. COMPARISON: None TECHNIQUE: Real-time linear ultrasound of the right arm is targeted to the area of clinical concern antecubital fossa. Patient is able to point to area at time of imaging. Grayscale imaging and color Doppler are performed. FINDINGS: There is no visible cystic or solid mass. No skin thickening or edema tracking in soft tissue planes. There is normal color flow in the vasculature. US/US extremity nonvascular IMPRESSION: No focal abnormality noted on targeted soft tissue ultrasound right upper extremity. If clinically indicated, further evaluation of the extremity could be performed with MRI, use of contrast depending on indication.
== END 2020-12-05 14:07 | disposition home or self-care (01) ==
LOC: HO.US 14:06
PROVIDERS: Visit Provider Nurse Practitioner Family
DX: M79.89 Other specified soft tissue disorders (principal)
CPT/HCPCS: 76882

== ENCOUNTER 2021-01-01 06:07 | Outpatient (REF) | payer OTHER, SELFPAY ==
--- NOTE | ~2021-01-01 | FL_ITS ---
EXAMINATION: XR FLUOROSCOPY WITH IMAGES CLINICAL INFORMATION: Sacrococcygeal disorder. COMPARISON: None. TECHNIQUE: Fluoroscopy performed by Amy Godwin. Fluoroscopy time: 0.4 minutes DAP: 1.91 Gycm2 Images: 4 FINDINGS: There are 4 images obtained of SI joints revealing needle positioned along inferior bilateral SI joints. No contrast visualized FL/FL guidance in treatment room IMPRESSION: Fluoroscopy was provided to Amy Godwin for pain management.
== END 2021-01-01 06:08 | disposition home or self-care (01) ==
LOC: HO.RADIR 06:07
PROVIDERS: Visit Provider Internal Medicine
DX: M53.3 Sacrococcygeal disorders, not elsewhere classified (principal)
CPT/HCPCS: 27096; J1040; Q9967

== ENCOUNTER → 2021-02-05 10:26 | Outpatient (BNVA) | payer OTHER, SELFPAY | PROVIDERS: PCP Internal Medicine Medical Oncology; Visit Provider Nurse Practitioner Family ==

== ENCOUNTER 2021-03-19 05:38 | Outpatient (REF) | payer OTHER, SELFPAY ==
--- NOTE | ~2021-03-19 | FL_ITS ---
EXAMINATION: XR FLUOROSCOPY WITH IMAGES CLINICAL INFORMATION: M53.3 - Sacrococcygeal disorders, not elsewhere classified COMPARISON: Fluoroscopic spot views 01/01/2021 TECHNIQUE: Fluoroscopy performed by Dr. Guzman. Fluoroscopy time: 0.4 minutes DAP: 1.38 Gycm2 Images: 8 FINDINGS: There are spinal needles overlying the bilateral sacroiliac joints at mid depth. FL/FL guidance in treatment room IMPRESSION: Fluoroscopy for pain management procedures.
== END 2021-03-19 05:39 | disposition home or self-care (01) ==
LOC: HO.RADIR 05:38
PROVIDERS: Visit Provider Internal Medicine
DX: M53.3 Sacrococcygeal disorders, not elsewhere classified (principal)
CPT/HCPCS: 27096

== ENCOUNTER → 2021-03-24 09:19 | Outpatient (BNVA) | payer OTHER, SELFPAY | PROVIDERS: PCP Internal Medicine Medical Oncology; Visit Provider Internal Medicine ==

== ENCOUNTER 2021-04-30 06:09 | Outpatient (REF) | payer OTHER, SELFPAY ==
--- NOTE | ~2021-04-30 | FL_ITS ---
EXAMINATION: XR FLUOROSCOPY WITH IMAGES CLINICAL INFORMATION: M53.3 - Sacrococcygeal disorders, not elsewhere classified COMPARISON: Fluoroscopic spot views 03/19/2021. TECHNIQUE: Fluoroscopy performed by Dr. Iain Guzman. Fluoroscopy time: 0.3 minutes DAP: 3.78 Gycm2 Images: 4 FINDINGS: There are spinal needles overlying the bilateral mid SI joints. FL/FL guidance in treatment room IMPRESSION: Fluoroscopy for pain management procedure.
== END 2021-04-30 06:10 | disposition home or self-care (01) ==
LOC: HO.RADIR 06:09
PROVIDERS: Visit Provider Internal Medicine
DX: M47.816 Spondylosis without myelopathy or radiculopathy, lumbar region (principal); M53.3 Sacrococcygeal disorders, not elsewhere classified; I10 Essential (primary) hypertension; F17.210 Nicotine dependence, cigarettes, uncomplicated; Z88.2 Allergy status to sulfonamides; Z88.8 Allergy status to other drugs, medicaments and biological substances; Z79.899 Other long term (current) drug therapy
CPT/HCPCS: 27096; J1040; Q9967

== ENCOUNTER 2021-05-25 18:51 | Emergency (ER) | payer OTHER, SELFPAY ==
--- NOTE | ~2021-05-25 | XR_ITS ---
EXAMINATION: XR CHEST CLINICAL INFORMATION: Shortness of breath COMPARISON: None TECHNIQUE: 2 views of the chest were obtained. FINDINGS: No significant abnormality is noted involving the heart, lungs, mediastinum. No acute osseous process. Thoracic spine degeneration. XR/XR chest 2V IMPRESSION: No acute process seen.
[2021-05-25 19:05] VITALS: BP 137/82; PULSE 74; RESP 16; TEMP 37.3; O2SAT 95; BMI 29.5
--- NOTE | 2021-05-25 19:12 | ECG_ITS ---
Test Reason : dyspnea Blood Pressure : / mmHG Vent. Rate : 080 BPM Atrial Rate : 080 BPM P-R Int : 166 ms QRS Dur : 080 ms QT Int : 396 ms P-R-T Axes : 001 035 030 degrees QTc Int : 456 ms Normal sinus rhythm Artifact in precordial leads, but otherwise normal EKG When compared with ECG of 19-MAR-2017 09:09, No significant changes seen Referred By: Elsie Landrum Electronically Signed By:BLANCHE GONSALES
[2021-05-25 19:33] VITALS: BP 156/81; PULSE 68; RESP 16; TEMP 37.2; O2SAT 92
--- NOTE | 2021-05-25 19:35 | ED_ITS ---
HPI - SOB/Dyspnea General Chief Complaint: Dyspnea <Elsie Landrum NP - Last Filed: 05/25/21 21:43> Stated Complaint: bronchitis <Elsie Landrum NP - Last Filed: 05/25/21 21:43> Time Seen by Provider: 05/25/21 18:58 <Elsie Landrum NP - Last Filed: 05/25/21 21:43> Source: EMS <Eslie Landrum NP - Last Filed: 05/25/21 21:43> Mode of arrival: EMS <Elsie Landrum NP - Last Filed: 05/25/21 21:43> Limitations: no limitations <Elsie Landrum NP - Last Filed: 05/25/21 21:43> History of Present Illness HPI Narrative: 60-year-old female with a history of asthma here with reports of wheezing, cough and difficulty breathing for the last 7 days. Patient tells me that she started azithromycin last week and is currently on day 4. She is using her home albuterol nebulizer at home but having continued symptoms. Today while at home she had a coughing fit with difficulty breathing and when she stood up she felt dizzy and lightheaded and she fell to the ground. Patient reports she passed out. Patient denies any chest pain, fevers, chills, productive cough, leg swelling or pain. Received Pfizer vaccine x2 <Elsie Landrum NP - Last Filed: 05/25/21 21:43> Related Data Home Medications: Home Medications Medication Instructions Recorded Confirmed atenolol 50 mg tablet 100 mg PO DAILY 08/10/20 04/30/21 cyclobenzaprine 10 mg tablet 10 mg PO BEDTIME 08/10/20 04/30/21 hydrochlorothiazide 50 mg tablet 50 mg PO DAILY 08/10/20 04/30/21 mometasone-formoterol HFA 200 2 puff INHALATION NEEDED 08/11/20 04/30/21 mcg-5 mcg/actuation aerosol inhaler (Dulera) aspirin 81 mg tablet,delayed 81 mg PO DAILY 11/19/20 04/30/21 release (Adult Aspirin Regimen) Previous Rx's Medication Instructions Recorded amlodipine 5 mg tablet (Norvasc) 5 mg PO DAILY #5 tab 08/12/20 atorvastatin 20 mg tablet 20 mg PO BEDTIME #30 tab 08/13/20 lorazepam 1 mg tablet 1 mg PO ONCE PRN #2 tab 12/30/20 albuterol sulfate 5 mg/mL(0.5 %) 5 mg INHALATION Q4H PRN #20 ml 05/25/21 solution for nebulization albuterol sulfate 90 mcg/actuation 2 puff INHALATION Q4-6H PRN #8.5 g 05/25/21 aerosol inhaler prednisone 20 mg tablet 40 mg PO DAILY #8 tab 05/25/21 pseudoephedrine 30 mg-codeine 10 10 ml PO Q4-6H PRN #200 ml 05/25/21 mg-guaifen 200 mg/5 mL oral liquid <Elsie Landrum NP - Last Filed: 05/25/21 21:43> Allergies/Adverse Reactions: Allergies Allergy/AdvReac Type Severity Reaction Status Date / Time prednisone [PREDNISONE] Allergy Unknown HIVES Verified 04/30/21 10:06 sulfa Allergy Unknown Unknown Uncoded 02/05/21 11:10 <Elsie Landrum NP - Last Filed: 05/25/21 21:43> Review of Systems Review of Systems: Yes all other systems are reviewed and are negative <Elsie Landrum NP - Last Filed: 05/25/21 21:43> Constitutional: Constitutional: Reports no additional constitutional complaints, Denies body ache(s), Denies chills, Denies fever(s), Denies headache(s) and Denies weakness <Elsie Landrum NP - Last Filed: 05/25/21 21:43> Eyes: Eyes: Reports no additional eye complaints and Denies change in vision <Elsie Landrum NP - Last Filed: 05/25/21 21:43> ENT: Reports system reviewed and no additional complaints, except as documented, Reports dizziness, Denies headache(s), Denies nasal congestion, Denies nasal discharge and Denies neck pain <Elsie Landrum NP - Last Filed: 05/25/21 21:43> Cardiovascular: Cardiovascular: Reports no additional cardiovascular complaints, Denies chest pain, Reports syncope, Denies leg edema and Reports dy spnea <Elsie Landrum NP - Last Filed: 05/25/21 21:43> Respiratory: Respiratory: Reports no additional respiratory complaints, Reports cough, Reports dyspnea and Reports wheezing <Elsie Landrum NP - Last Filed: 05/25/21 21:43> Gastrointestinal: Gastrointestinal: Reports no additional gastrointestinal complaints, Denies abdominal pain, Denies diarrhea, Denies nausea and Denies vomiting <Elsie Landrum NP - Last Filed: 05/25/21 21:43> Genitourinary: Genitourinary: Reports no additional female genitourinary complaints and Denies urinary incontinence <Elsie Landrum NP - Last Filed: 05/25/21 21:43> Musculoskeletal: Musculoskeletal: Reports no additional musculoskeletal complaints, Denies back pain, Denies arthralgias, Denies joint swelling, Denies neck pain, Denies numbness and Denies tingling <Elsie Landrum NP - Last Filed: 05/25/21 21:43> Integumentary/Breasts: Skin/Breast: Reports system reviewed and no additional complaints, except as docu and Denies rash <Elsie Landrum NP - Last Filed: 05/25/21 21:43> Neurologic: Reports system reviewed and no additional complaints, except as documented, Denies Abnormal speech present, Reports dizziness, Reports syncope, Denies headache(s), Denies numbness, Denies tingling and Denies weakness <Elsie Landrum NP - Last Filed: 05/25/21 21:43> Allergic/Immunologic: Allergic/Immunologic: Reports wheezing <Elsie Landrum NP - Last Filed: 05/25/21 21:43> [facility] Past Medical History Attestation statement: The following information was validated with the patient. <Elsie Landrum NP - Last Filed: 05/25/21 21:43> Source: old records reviewed and nursing notes reviewed <Elsie Landrum NP - Last Filed: 05/25/21 21:43> Medical History: Medical History Cerebral microvascular disease HTN (hypertension) <Elsie Landrum NP - Last Filed: 05/25/21 21:43> Social History Social History: Social History Household Members: None Housing: House Do you presently have visiting nurse or other home services: No Cigarettes Per Day: 5 Years Smoked: 10 Second Hand Smoke Exposure: No Substance Use Type: Marijuana Advance Directives: No Advance Directives Information Provided: Yes service: No Current occupational status: employed <Elsie Landrum NP - Last Filed: 05/25/21 21:43> Physical Exam Vital Signs: Vital Signs: Last Vital Signs Temp 98.9 F 05/25/21 19:33 Pulse 77 05/25/21 22:08 Resp 16 05/25/21 22:08 BP 145/93 H 05/25/21 22:08 Pulse Ox 95 05/25/21 22:08 BMI result Body Mass Index 29.5 <Elsie Landrum NP - Last Filed: 05/25/21 21:43> Vital Signs: Last Vital Signs Temp 98.9 F 05/25/21 19:33 Pulse 77 05/25/21 22:08 Resp 16 05/25/21 22:08 BP 145/93 H 05/25/21 22:08 Pulse Ox 95 05/25/21 22:08 BMI result Body Mass Index 29.5 <VIRGINIA Castro - Last Filed: 05/25/21 22:27> Const: General: cooperative, healthy appearing, comfortable and no acute distress <Elsie Landrum NP - Last Filed: 05/25/21 21:43> Orientation/consciousness: patient oriented x3 <Elsie Landrum NP - Last Filed: 05/25/21 21:43> Limitations: no limitations <Elsie Landrum NP - Last Filed: 05/25/21 21:43> HENMT: Head: Yes normal to inspection <Elsie Landrum NP - Last Filed: 05/25/21 21:43> Ears: hearing grossly normal bilaterally <Elsie Landrum NP - Last Filed: 05/25/21 21:43> General nose exam: Normal external nose present <Elsie Landrum NP - Last Filed: 05/25/21 21:43> Face and sinus: Yes normal facial exam <Elsie Landrum NP - Last Filed: 05/25/21 21:43> Mouth: Normal oral and palatal mucosa present <Elsie Landrum NP - Last Filed: 05/25/21 21:43> Throat: Yes posterior oropharynx normal <Elsie Landrum NP - Last Filed: 05/25/21 21:43> Eyes: General: appearance normal, both eyes and all related structures <Elsie Landrum NP - Last Filed: 05/25/21 21:43> Pupils: Equal, round and reactive pupils present <Elsie Landrum NP - Last Filed: 05/25/21 21:43> Neck: Neck: Yes normal visual inspection <Elsie Landrum NP - Last Filed: 05/25/21 21:43> Chest: Chest palpation & inspection: normal inspection of the chest <Elsie Landrum NP - Last Filed: 05/25/21 21:43> Resp: Other: Expiratory wheezing throughout <Elsie Landrum NP - Last Filed: 05/25/21 21:43> Effort & Inspection: normal respiratory effort <Elsie Landrum NP - Last Filed: 05/25/21 21:43> Cardio: Rate: regular rate <Elsie Landrum NP - Last Filed: 05/25/21 21:43> Rhythm: regular rhythm <Elsie Landrum NP - Last Filed: 05/25/21 21:43> Peripheral pulses: Peripheral pulses 2+ throughout <Elsie Landrum NP - Last Filed: 05/25/21 21:43> GI: Inspection: Yes normal to inspection <Elsie Landrum NP - Last Filed: 05/25/21 21:43> Palpation (GI): Soft to palpation and nontender <Elsie Landrum NP - Last Filed: 05/25/21 21:43> Auscultation: normal bowel sounds <Elsie Landrum NP - Last Filed: 05/25/21 21:43> Back/Spine/Pelvis: Thoracic/Lumbar Spine: thoracic and lumbar spine normal to inspection <Elsie Landrum NP - Last Filed: 05/25/21 21:43> Skin: General skin exam: no rashes or lesions noted <Elsie Landrum NP - Last Filed: 05/25/21 21:43> Neuro: General: patient oriented x3, no focal motor deficits and normal sensation to monofilament <Elsie Landrum NP - Last Filed: 05/25/21 21:43> Cranial nerves: Yes Equal, round and reactive pupils present <Elsie Landrum NP - Last Filed: 05/25/21 21:43> Cognition (Neuro): normal cognition <Elsie Landrum NP - Last Filed: 05/25/21 21:43> Speech: No Abnormal speech present <Elsie Landrum NP - Last Filed: 05/25/21 21:43> Gait exam (Neuro): Normal gait present <Elsie Landrum NP - Last Filed: 05/25/21 21:43> Motor exam (neuro): 5/5 motor strength present throughout <Elsie Landrum NP - Last Filed: 05/25/21 21:43> Extrem: General: Yes normal to inspection, Yes no pedal edema and Yes no calf tenderness <Elsie Landrum NP - Last Filed: 05/25/21 21:43> Course Course Course Narrative: 60-year-old female here with reports of asthma symptoms which include cough, wheezing and shortness of breath for the last 7 days unrelieved with home nebulizer machine and starting is azithromycin 5 day course. Patient also te lls me that today after having a coughing fit she stood up and felt dizzy and had a syncopal episode. On arrival the patient is alert and oriented. She continues to complain of cough and wheezing and difficulty breathing. On arrival her respiratory rate is normal. Her oxygen saturation rate is 94% on room air. She does have expiratory wheezing throughout. She received a DuoNeb by EMS Will check chest x-ray, COVID screen, labs, EKG. Will give patient albuterol 10 mg, IV Solu-Medrol and magnesium Of note the patient has a listed allergy to oral prednisone. She tells me that she has symptoms of feeling jittery and irritability with prednisone but no symptoms of difficulty breathing or wheezing or rash or vomiting or diarrhea 0-chest x-ray negative. Labs are unremarkable. Patient is feeling improved. Lungs are improved there is still mild expiratory wheezing but overall better. COVID screen is pending. Plan for ambulatory oxygen saturation determine disposition. Likely asthma exacerbation. 2144-Patient ambulated with pulse oximeter >92%. <Elsie Landrum NP - Last Filed: 05/25/21 21:43> 60-year-old female here with reports of asthma symptoms which include cough, wheezing and shortness of breath for the last 7 days unrelieved with home nebulizer machine and starting is azithromycin 5 day course. Patient also tells me that today after having a coughing fit she stood up and felt dizzy and had a syncopal episode. On arrival the patient is alert and oriented. She continues to complain of cough and wheezing and difficulty breathing. On arrival her respiratory rate is normal. Her oxygen saturation rate is 94% on room air. She does have expiratory wheezing throughout. She received a DuoNeb by EMS Will check chest x-ray, COVID screen, labs, EKG. Will give patient albuterol 10 mg, IV Solu-Medrol and magnesium Of note the patient has a listed allergy to oral prednisone. She tells me that she has symptoms of feeling jittery and irritability with prednisone but no symptoms of difficulty breathing or wheezing or rash or vomiting or diarrhea 2139-chest x-ray negative. Labs are unremarkable. Patient is feeling improved. Lungs are improved there is still mild expiratory wheezing but overall better. COVID screen is pending. Plan for ambulatory oxygen saturation determine disposition. Likely asthma exacerbation. 2144-Patient ambulated with pulse oximeter >92%. 2225- patient prefers to be dsicharged and called with the results of her covid swab. patient is well-appearing <VIRGINIA Castro - Last Filed: 05/25/21 22:27> MDM - SOB/Dyspnea MDM Narrative Medical decision making narrative: Less likely PE with negative D-dimer and no clinical findings concerning for DVT with no tachypnea or hypoxia <Elsie Landrum NP - Last Filed: 05/25/21 21:43> Differential Diagnosis Differential diagnosis: Likely pneumonia, asthma with exacerbation and pulmonary embolism <Elsie Landrum NP - Last Filed: 05/25/21 21:43> Medical Records Attestation: I reviewed the patient's medical records. <Elsie Landrum NP - Last Filed: 05/25/21 21:43> Lab Data Attestation: I reviewed the patient's lab results. <Elsie Landrum NP - Last Filed: 05/25/21 21:43> Result diagrams: : 05/25/21 20:44 05/25/21 20:44 <Elsie Landrum NP - Last Filed: 05/25/21 21:43> Labs: Lab Results 05/25/21 05/25/21 05/25/21 Range/Units 20:44 20:44 20:44 WBC 8.5 (4.8-10.8) X10*3/uL RBC 4.31 (4.20-5.50) X10*6/uL Hgb 13.1 (12.0-16.0) g/dl Hct 38.8 (37.0-47.0) % MCV 90.0 (80.0-98.0) fL MCH 30.4 (27.0-33.0) pg MCHC 33.8 (31.0-35.0) g/dl RDW 12.4 (11.0-16.0) % Plt Count 190 (160-400) X10*3/uL MPV 9.7 (9.4-12.3) fL Immature Gran % (Auto) 0.1 (0.0-0.4) % Neut % (Auto) 57.3 (45-73) % Lymph % (Auto) 28.6 (20-40) % Atlantic % (Auto) 8.5 (2-11) % Eos % (Auto) 4.9 H (0-4) % Baso % (Auto) 0.6 (0-2) % Lymph # (Auto) 2.4 (1.2-4.9) X10*3/uL Atlantic # (Auto) 0.7 (0.1-1.2) X10*3/uL Eos # (Auto) 0.4 (0.0-0.4) X10*3/uL Baso # (Auto) 0.1 (0.0-0.2) X10*3/uL Abs Immat Gran (auto) 0.01 (0.00-0.03) X10*3/uL Absolute Neuts (auto) 4.9 (2.0-8.3) x10*3/uL Absolute Nucleated RBC 0.000 (0.0-0.012) X10*3/uL Nucleated RBC % (auto) 0.0 (0.0-0.2) /100WBC PT (9.9-13.0) SEC INR (0.9-1.1) D-Dimer High Sensitivty NG/ML Sodium 139 (135-145) mmol/L Potassium 3.6 (3.3-5.1) mmol/L Chloride 106 (96-108) mmol/L Carbon Dioxide 25 (22-29) mmol/L Anion Gap 12 (12-20) BUN 23 H (9-16) mg/dL Creatinine 1.05 (0.5-1.4) mg/dL Estim Creat Clear Calc 70.0 Estimated GFR 54 Random Glucose 118 H (60-115) mg/dL Lactic Acid (0.5-2.0) mmol/L Calcium 9.2 (8.4-10.2) mg/dL Magnesium 2.8 H (1.6-2.6) mg/dL Total Bilirubin 0.2 (0.0-1.0) mg/dL Direct Bilirubin < 0.2 (0.0-0.5) mg/dL AST 14 (5-31) U/L ALT 15 (0-31) U/L Alkaline Phosphatase 75 (39-117) U/L Troponin I High Sens < 3.5 (<3.5-17.0) ng/L Total Protein 6.5 (6.5-8.0) g/dL Albumin 3.9 (3.5-5.0) g/dL 05/25/21 05/25/21 Range/Units 20:44 20:44 WBC (4.8-10.8) X10*3/uL RBC (4.20-5.50) X10*6/uL Hgb (12.0-16.0) g/dl Hct (37.0-47.0) % MCV (80.0-98.0) fL MCH (27.0-33.0) pg MCHC (31.0-35.0) g/dl RDW (11.0-16.0) % Plt Count (160-400) X10*3/uL MPV (9.4-12.3) fL Immature Gran % (Auto) (0.0-0.4) % Neut % (Auto) (45-73) % Lymph % (Auto) (20-40) % Atlantic % (Auto) (2-11) % Eos % (Auto) (0-4) % Baso % (Auto) (0-2) % Lymph # (Auto) (1.2-4.9) X10*3/uL Atlantic # (Auto) (0.1-1.2) X10*3/uL Eos # (Auto) (0.0-0.4) X10*3/uL Baso # (Auto) (0.0-0.2) X10*3/uL Abs Immat Gran (auto) (0.00-0.03) X10*3/uL Absolute Neuts (auto) (2.0-8.3) x10*3/uL Absolute Nucleated RBC (0.0-0.012) X10*3/uL Nucleated RBC % (auto) (0.0-0.2) /100WBC PT 11.6 (9.9-13.0) SEC INR 1.0 (0.9-1.1) D-Dimer High Sensitivty < 150 NG/ML Sodium (135-145) mmol/L Potassium (3.3-5.1) mmol/L Chloride (96-108) mmol/L Carbon Dioxide (22-29) mmol/L Anion Gap (12-20) BUN (9-16) mg/dL Creatinine (0.5-1.4) mg/dL Estim Creat Clear Calc Estimated GFR Random Glucose (60-115) mg/dL Lactic Acid 0.9 (0.5-2.0) mmol/L Calcium (8.4-10.2) mg/dL Magnesium (1.6-2.6) mg/dL Total Bilirubin (0.0-1.0) mg/dL Direct Bilirubin (0.0-0.5) mg/dL AST (5-31) U/L ALT (0-31) U/L Alkaline Phosphatase (39-117) U/L Troponin I High Sens (<3.5-17.0) ng/L Total Protein (6.5-8.0) g/dL Albumin (3.5-5.0) g/dL <Elsie Landrum NP - Last Filed: 05/25/21 21:43> Lab Results 05/25/21 05/25/21 05/25/21 Range/Units 20:44 20:44 20:44 WBC 8.5 (4.8-10.8) X10*3/uL RBC 4.31 (4.20-5.50) X10*6/uL Hgb 13.1 (12.0-16.0) g/dl Hct 38.8 (37.0-47.0) % MCV 90.0 (80.0-98.0) fL MCH 30.4 (27.0-33.0) pg MCHC 33.8 (31.0-35.0) g/dl RDW 12.4 (11.0-16.0) % Plt Count 190 (160-400) X10*3/uL MPV 9.7 (9.4-12.3) fL Immature Gran % (Auto) 0.1 (0.0-0.4) % Neut % (Auto) 57.3 (45-73) % Lymph % (Auto) 28.6 (20-40) % Atlantic % (Auto) 8.5 (2-11) % Eos % (Auto) 4.9 H (0-4) % Baso % (Auto) 0.6 (0-2) % Lymph # (Auto) 2.4 (1.2-4.9) X10*3/uL Atlantic # (Auto) 0.7 (0.1-1.2) X10*3/uL Eos # (Auto) 0.4 (0.0-0.4) X10*3/uL Baso # (Auto) 0.1 (0.0-0.2) X10*3/uL Abs Immat Gran (auto) 0.01 (0.00-0.03) X10*3/uL Absolute Neuts (auto) 4.9 (2.0-8.3) x10*3/uL Absolute Nucleated RBC 0.000 (0.0-0.012) X10*3/uL Nucleated RBC % (auto) 0.0 (0.0-0.2) /100WBC PT (9.9-13.0) SEC INR (0.9-1.1) D-Dimer High Sensitivty NG/ML Sodium 139 (135-145) mmol/L Potassium 3.6 (3.3-5.1) mmol/L Chloride 106 (96-108) mmol/L Carbon Dioxide 25 (22-29) mmol/L Anion Gap 12 (12-20) BUN 23 H (9-16) mg/dL Creatinine 1.05 (0.5-1.4) mg/dL Estim Creat Clear Calc 70.0 Estimated GFR 54 Random Glucose 118 H (60-115) mg/dL Lactic Acid (0.5-2.0) mmol/L Calcium 9.2 (8.4-10.2) mg/dL Magnesium 2.8 H (1.6-2.6) mg/dL Total Bilirubin 0.2 (0.0-1.0) mg/dL Direct Bilirubin < 0.2 (0.0-0.5) mg/dL AST 14 (5-31) U/L ALT 15 (0-31) U/L Alkaline Phosphatase 75 (39-117) U/L Troponin I High Sens < 3.5 (<3.5-17.0) ng/L Total Protein 6.5 (6.5-8.0) g/dL Albumin 3.9 (3.5-5.0) g/dL 05/25/21 05/25/21 Range/Units 20:44 20:44 WBC (4.8-10.8) X10*3/uL RBC (4.20-5.50) X10*6/uL Hgb (12.0-16.0) g/dl Hct (37.0-47.0) % MCV (80.0-98.0) fL MCH (27.0-33.0) pg MCHC (31.0-35.0) g/dl RDW (11.0-16.0) % Plt Count (160-400) X10*3/uL MPV (9.4-12.3) fL Immature Gran % (Auto) (0.0-0.4) % Neut % (Auto) (45-73) % Lymph % (Auto) (20-40) % Atlantic % (Auto) (2-11) % Eos % (Auto) (0-4) % Baso % (Auto) (0-2) % Lymph # (Auto) (1.2-4.9) X10*3/uL Atlantic # (Auto) (0.1-1.2) X10*3/uL Eos # (Auto) (0.0-0.4) X10*3/uL Baso # (Auto) (0.0-0.2) X10*3/uL Abs Immat Gran (auto) (0.00-0.03) X10*3/uL Absolute Neuts (auto) (2.0-8.3) x10*3/uL Absolute Nucleated RBC (0.0-0.012) X10*3/uL Nucleated RBC % (auto) (0.0-0.2) /100WBC PT 11.6 (9.9-13.0) SEC INR 1.0 (0.9-1.1) D-Dimer High Sensitivty < 150 NG/ML Sodium (135-145) mmol/L Potassium (3.3-5.1) mmol/L Chloride (96-108) mmol/L Carbon Dioxide (22-29) mmol/L Anion Gap (12-20) BUN (9-16) mg/dL Creatinine (0.5-1.4) mg/dL Estim Creat Clear Calc Estimated GFR Random Glucose (60-115) mg/dL Lactic Acid 0.9 (0.5-2.0) mmol/L Calcium (8.4-10.2) mg/dL Magnesium (1.6-2.6) mg/dL Total Bilirubin (0.0-1.0) mg/dL Direct Bilirubin (0.0-0.5) mg/dL AST (5-31) U/L ALT (0-31) U/L Alkaline Phosphatase (39-117) U/L Troponin I High Sens (<3.5-17.0) ng/L Total Protein (6.5-8.0) g/dL Albumin (3.5-5.0) g/dL <VIRGINIA Castro - Last Filed: 05/25/21 22:27> Imaging Data Chest x-ray: Attestation: I personally reviewed and interpreted this imaging study as follows: <Elsie Landrum NP - Last Filed: 05/25/21 21:43> Radiologist's impression: Elsie lawler NP~ EXAMINATION: XR CHEST CLINICAL INFORMATION: Shortness of breath COMPARISON: None TECHNIQUE: 2 views of the chest were obtained. FINDINGS: No significant abnormality is noted involving the heart, lungs, mediastinum. No acute osseous process. Thoracic spine degeneration. XR/XR chest 2V IMPRESSION: No acute process seen. <Elsie Landrum NP - Last Filed: 05/25/21 21:43> ECG Data Attestation: I personally reviewed and interpreted this ECG as follows: <Elsie Landrum NP - Last Filed: 05/25/21 21:43> ECG interpretation date: 05/25/21 <Elsie Landrum NP - Last Filed: 05/25/21 21:43> ECG interpretation time: 19:52 <Elsie Landrum NP - Last Filed: 05/25/21 21:43> Interpretation: Sinus rhythm with a rate 80, normal HI, normal QRS normal QT <Elsie Landrum NP - Last Filed: 05/25/21 21:43> Discharge Plan Discharge Clinical Impression: Asthma with exacerbation, Syncope <Elsie Landrum NP - Last Filed: 05/25/21 21:43> Patient Disposition: Home, Self-Care <Elsie Landrum NP - Last Filed: 05/25/21 21:43> Instructions: Asthma (ED), Syncope (ED) <Elsie Landrum NP - Last Filed: 05/25/21 21:43> Additional Instructions: Start prednisone tomorrow Increase fluids, rest Motrin or Tylenol as needed You may complete your antibiotic Use your inhaler and nebulizer as needed Covid test is negative <Elsie Landrum NP - Last Filed: 05/25/21 21:43> Prescriptions: New prednisone 20 mg tablet 40 mg PO DAILY Qty: 8 RF: 0 albuterol sulfate 90 mcg/actuation HFA aerosol inhaler 2 puff inhalation Q4-6H PRN (Reason: shortness of breath or wheezing) Qty: 8.5 RF: 0 albuterol sulfate 5 mg/mL solution for nebulization 5 mg inhalation Q4H PRN (Reason: shortness of breath or wheezing) Qty: 20 RF: 0 [id number] 30-10-200 mg/5 mL liquid 10 ml PO Q4-6H PRN (Reason: cough) Qty: 200 RF: 0 No Action lorazepam 1 mg tablet 1 mg PO ONCE PRN (Reason: painful procedure) Qty: 2 RF: 0 cyclobenzaprine 10 mg tablet 10 mg PO BEDTIME RF: 0 hydrochlorothiazide 50 mg tablet 50 mg PO DAILY RF: 0 atenolol 50 mg tablet 100 mg PO DAILY RF: 0 Dulera 200-5 mcg/actuation HFA aerosol inhaler 2 puff inhalation NEEDED RF: 0 amlodipine [Norvasc] 5 mg tablet 5 mg PO DAILY Qty: 5 RF: 0 atorvastatin 20 mg tablet 20 mg PO BEDTIME Qty: 30 RF: 0 aspirin [Adult Aspirin Regimen] 81 mg tablet,delayed release (DR/EC) 81 mg PO DAILY RF: 0 <Elsie Landrum NP - Last Filed: 05/25/21 21:43> Referrals: Armando Kerns MD [Primary Care Provider] - 2 days <Elsie Landrum NP - Last Filed: 05/25/21 21:43> Stand Alone Forms: Work/School Release <Elsie Landrum NP - Last Filed: 05/25/21 21:43>
[2021-05-25] MEDS: Albuterol Sulfate (0.083%) 2.5 MG/3 ML VIAL.NEB 10 MG INHALE (19:39)
[2021-05-25 19:40] VITALS: PULSE 70; O2SAT 94
[2021-05-25] MEDS: Magnesium Sulfate/H2O 2 GM/50 ML PIGGYBACK IV (19:47)
[2021-05-25] MEDS: methylPREDNISolone Sod Succ 125 MG/2 ML VIAL IVPUSH (19:47)
[2021-05-25 20:00] VITALS: BP 144/80; PULSE 74; RESP 16; O2SAT 94
[2021-05-25] MEDS: 0.9 % Sodium Chloride 1,000 ML 999 ML IV (20:04)
[2021-05-25 20:53] LABS: MANUAL DIFF FLAG NO
[2021-05-25 20:55] LABS: Basophils Absolute Auto 0.1 X10*3/uL (0.0-0.2); Basophils Percent Auto 0.6 % (0-2); Eosinophils Absolute Auto 0.4 X10*3/uL (0.0-0.4); Eosinophils Percent Auto 4.9 % (0-4); Hematocrit 38.8 % (37.0-47.0); Hemoglobin 13.1 g/dl (12.0-16.0); Imm Gran Abs Auto 0.01 X10*3/uL (0.00-0.03); Imm Gran Pct Auto 0.1 % (0.0-0.4); Lymphocytes Absolute Auto 2.4 X10*3/uL (1.2-4.9); Lymphocytes Percent Auto 28.6 % (20-40); Mean Corpuscular HGB Conc 33.8 g/dl (31.0-35.0); Mean Corpuscular Hemoglobin 30.4 pg (27.0-33.0); Mean Platelet Volume 9.7 fL (9.4-12.3); Monocytes Absolute Auto 0.7 X10*3/uL (0.1-1.2); Monocytes Percent Auto 8.5 % (2-11); Neutrophils Absolute Auto 4.9 x10*3/uL (2.0-8.3); Neutrophils Percent Auto 57.3 % (45-73); Platelet Count 190 X10*3/uL (160-400); Red Blood Count 4.31 X10*6/uL (4.20-5.50); Red Cell Distribution Width 12.4 % (11.0-16.0); White Blood Count 8.5 X10*3/uL (4.8-10.8)
[2021-05-25 21:00] LABS: Prothrombin Time 11.6 SEC (9.9-13.0)
[2021-05-25 21:08] LABS: D Dimer High Sensitivity < 150 NG/ML; Lactic Acid 0.9 mmol/L (0.5-2.0)
[2021-05-25 21:14] LABS: Alanine Aminotransferase 15 U/L (0-31); Albumin Level 3.9 g/dL (3.5-5.0); Alkaline Phosphatase 75 U/L (39-117); Anion Gap 12 (12-20); Aspartate Amino Transferase 14 U/L (5-31); Bilirubin Direct < 0.2 mg/dL (0.0-0.5); Bilirubin Total 0.2 mg/dL (0.0-1.0); Blood Urea Nitrogen 23 mg/dL (9-16); Calcium 9.2 mg/dL (8.4-10.2); Carbon Dioxide 25 mmol/L (22-29); Chloride 106 mmol/L (96-108); Estimated Glomerular Filt Rate 54; Glucose Random 118 mg/dL (60-115); Magnesium 2.8 mg/dL (1.6-2.6); Potassium 3.6 mmol/L (3.3-5.1); Sodium 139 mmol/L (135-145); Total Protein 6.5 g/dL (6.5-8.0)
[2021-05-25 21:15] LABS: Troponin-I High Sensitivity < 3.5 ng/L (<3.5-17.0)
[2021-05-25 22:08] VITALS: BP 145/93; PULSE 77; RESP 16; O2SAT 95
[2021-05-25 22:16] LABS: Influenza A PCR NEGATIVE (Negative); Influenza B PCR NEGATIVE (Negative); Resp Syncy Virus RNA Qual PCR NEGATIVE (Negative); SARS COV2 PCR INHOUSE NEGATIVE (Negative)
[2021-05-25] MEDS: Benzonatate 100 MG CAPSULE PO (22:21)
== END 2021-05-25 22:47 | disposition home or self-care (01) ==
PROVIDERS: Nurse Practitioner Family; Emergency Provider Emergency Medicine; PCP Internal Medicine Medical Oncology
DX: J45.901 Unspecified asthma with (acute) exacerbation (principal); R55 Syncope and collapse; Z20.822 Contact with and (suspected) exposure to COVID-19; I10 Essential (primary) hypertension; F17.200 Nicotine dependence, unspecified, uncomplicated; F12.90 Cannabis use, unspecified, uncomplicated
CPT/HCPCS: 0241U; 36415; 71046; 80048; 80076; 83605; 83735; 84484; 85025; 85379; 85610; 87040; 93005; 94640; 94644; 96365; 96366; 96375; 99284; J2930; J3475

== ENCOUNTER → 2021-05-30 09:51 | Outpatient (BNVA) | payer OTHER, SELFPAY | PROVIDERS: PCP Internal Medicine Medical Oncology; Visit Provider Internal Medicine ==

== ENCOUNTER 2021-06-25 06:04 | Outpatient (REF) | payer OTHER, SELFPAY ==
--- NOTE | ~2021-06-25 | FL_ITS ---
EXAMINATION: XR FLUOROSCOPY WITH IMAGES CLINICAL INFORMATION: Spondylosis with myelopathy or radiculopathy. COMPARISON: April 30, 2021 TECHNIQUE: Fluoroscopy performed by Dr. Iain Guzman. Fluoroscopy time: 0.4 minutes DAP: 1.59 Gycm2 Images: 4 FINDINGS: Clio and contrast are seen overlying the L3-S1 facet joints bilaterally. FL/FL guidance in treatment room IMPRESSION: Pain management imaging.
== END 2021-06-25 06:05 | disposition home or self-care (01) ==
LOC: HO.RADIR 06:04
PROVIDERS: Visit Provider Internal Medicine
DX: M47.816 Spondylosis without myelopathy or radiculopathy, lumbar region (principal)
CPT/HCPCS: 64493; 64494; Q9967

== ENCOUNTER → 2021-06-27 10:48 | Outpatient (BNVA) | payer OTHER, SELFPAY | PROVIDERS: PCP Internal Medicine Medical Oncology; Visit Provider Nurse Practitioner Family ==

== ENCOUNTER 2021-07-05 04:34 | Inpatient (IN) | payer OTHER, SELFPAY ==
[2021-07-05] VITALS (12 sets, daily range): BP systolic 121–147; BP diastolic 63–79; PULSE 70–102; RESP 16–20; TEMP 34.9–36.4; O2SAT 92–99; BMI 33.8
--- NOTE | ~2021-07-05 | XR_ITS ---
EXAMINATION: XR CHEST CLINICAL INFORMATION: Shortness of breath COMPARISON: 05.25.2021 TECHNIQUE: Frontal view of the chest was obtained. FINDINGS: Normal symmetric lung volumes. No parenchymal consolidation. No pleural effusion. No pneumothorax. Cardiomediastinal silhouette and pulmonary vascularity are within normal limits. No acute osseous abnormalities. XR/XR chest 1V IMPRESSION: Unremarkable examination.
[2021-07-05 04:55] LABS: MANUAL DIFF FLAG NO
[2021-07-05 04:58] LABS: Basophils Percent Auto 0.6 % (0-2); Eosinophils Absolute Auto 0.4 X10*3/uL (0.0-0.4); Eosinophils Percent Auto 6.5 % (0-4); Hemoglobin 13.6 g/dl (12.0-16.0); Imm Gran Abs Auto 0.02 X10*3/uL (0.00-0.03); Imm Gran Pct Auto 0.3 % (0.0-0.4); Lymphocytes Absolute Auto 2.3 X10*3/uL (1.2-4.9); Lymphocytes Percent Auto 37.3 % (20-40); Mean Corpuscular HGB Conc 33.2 g/dl (31.0-35.0); Mean Corpuscular Hemoglobin 30.5 pg (27.0-33.0); Mean Corpuscular Volume 91.9 fL (80.0-98.0); Mean Platelet Volume 9.6 fL (9.4-12.3); Monocytes Absolute Auto 0.4 X10*3/uL (0.1-1.2); Monocytes Percent Auto 7.1 % (2-11); Neutrophils Percent Auto 48.2 % (45-73); Platelet Count 202 X10*3/uL (160-400); Red Blood Count 4.46 X10*6/uL (4.20-5.50); Red Cell Distribution Width 12.8 % (11.0-16.0); White Blood Count 6.2 X10*3/uL (4.8-10.8)
[2021-07-05 04:59] LABS: VBG Base Excess -4.2 mmol/L; VBG HCO3 24 mmol/L (22-26); VBG pCO2 56 mmHg; VBG pH 7.23 (7.32-7.43); VBG pO2 48 mmHg
[2021-07-05 05:00] LABS: Venous Blood Gas Refer to POC result
[2021-07-05] MEDS: methylPREDNISolone Sod Succ 125 MG/2 ML VIAL IVPUSH (05:04)
[2021-07-05] MEDS: Albuterol Sulfate (0.083%) 2.5 MG/3 ML VIAL.NEB 10 MG INHALE ×2 (05:09→06:21)
[2021-07-05 05:13] LABS: Lactic Acid 3.9 mmol/L (0.5-2.0)
[2021-07-05 05:15] LABS: Alanine Aminotransferase 12 U/L (0-31); Albumin Level 4.2 g/dL (3.5-5.0); Alkaline Phosphatase 66 U/L (39-117); Anion Gap 16 (12-20); Aspartate Amino Transferase 16 U/L (5-31); Bilirubin Total 0.4 mg/dL (0.0-1.0); Blood Urea Nitrogen 14 mg/dL (9-16); Calcium 9.3 mg/dL (8.4-10.2); Carbon Dioxide 23 mmol/L (22-29); Chloride 105 mmol/L (96-108); Creatinine Clr Calc Pharmacy 74.3; Estimated Glomerular Filt Rate 58; Glucose Random 211 mg/dL (60-115); Potassium 4.4 mmol/L (3.3-5.1); Sodium 140 mmol/L (135-145); Total Protein 6.9 g/dL (6.5-8.0)
[2021-07-05 05:31] LABS: COVID-19 Test Invalid (Negative)
--- NOTE | 2021-07-05 05:41 | ED.SOB ---
HPI - SOB/Dyspnea General Chief Complaint: Dyspnea Stated Complaint: asthma Time Seen by Provider: 07/05/21 04:38 Source: patient Mode of arrival: EMS History of Present Illness HPI Narrative: 61-year-old female with increasing shortness of breath that started last night and while attempting you get up from her bed she had aside out of bed because of respiratory distress. As per EMS on arrival she was noted to be approximately 86% O2 some saturation, received 5 mg of albuterol in route and was noted to be on CPAP. Otherwise, patient denies any chest pain / palpitations, fevers, chills. Related Data Home Medications Medication Instructions Recorded Confirmed atenolol 50 mg tablet 100 mg PO DAILY 08/10/20 06/25/21 cyclobenzaprine 10 mg tablet 10 mg PO BEDTIME 08/10/20 06/25/21 hydrochlorothiazide 50 mg tablet 50 mg PO DAILY 08/10/20 06/25/21 mometasone-formoterol HFA 200 2 puff INHALATION NEEDED 08/11/20 06/25/21 mcg-5 mcg/actuation aerosol inhaler (Dulera) aspirin 81 mg tablet,delayed 81 mg PO DAILY 11/19/20 06/25/21 release (Adult Aspirin Regimen) Previous Rx's Medication Instructions Recorded amlodipine 5 mg tablet (Norvasc) 5 mg PO DAILY #5 tab 08/12/20 atorvastatin 20 mg tablet 20 mg PO BEDTIME #30 tab 08/13/20 lorazepam 1 mg tablet 1 mg PO ONCE PRN #2 tab 12/30/20 albuterol sulfate 5 mg/mL(0.5 %) 5 mg INHALATION Q4H PRN #20 ml 05/25/21 solution for nebulization albuterol sulfate 90 mcg/actuation 2 puff INHALATION Q4-6H PRN #8.5 g 05/25/21 aerosol inhaler prednisone 20 mg tablet 40 mg PO DAILY #8 tab 05/25/21 pseudoephedrine 30 mg-codeine 10 10 ml PO Q4-6H PRN #200 ml 05/25/21 mg-guaifen 200 mg/5 mL oral liquid Allergies Allergy/AdvReac Type Severity Reaction Status Date / Time prednisone [PREDNISONE] Allergy Unknown HIVES Verified 06/25/21 08:00 sulfa Allergy Unknown Unknown Uncoded 06/25/21 08:00 Review of Systems Review of Systems: Pertinent positives and negatives as stated in HPI 10 point review of systems is otherwise negative. COUNTS INCLUDE 234 BEDS AT THE [facility] Past Medical History Source: nursing notes reviewed Medical History Cerebral microvascular disease HTN (hypertension) Social History Social History Household Members: None Housing: House Do you presently have visiting nurse or other home services: No Cigarettes Per Day: 5 Years Smoked: 10 Second Hand Smoke Exposure: No Substance Use Type: Marijuana Advance Directives: No Patient : No service: No Current occupational status: employed Physical Exam Vital Signs: Vital Signs: Last Vital Signs Pulse 79 07/05/21 05:44 Resp 19 07/05/21 05:44 BP 127/78 07/05/21 05:44 Pulse Ox 96 07/05/21 04:45 BMI result Body Mass Index 33.8 VITAL SIGNS: Reviewed. GENERAL: Chronically ill, in mild distress. HEAD: Normocephalic/atraumatic EYES: PERRLA, EOMI OROPHARYNX: no oral lesions noted, posterior pharynx clear and non-erythematous without noted tonsillar enlargement/erythema/exudates NECK: Supple, no adenopathy LUNGS: bibasilar decreased breath sounds, with noted expiratory wheeze, tachypnea is present. SpO2<96> On EMS CPAP CARDIOVASCULAR: Regular rate and rhythm without noted murmurs ABDOMEN: Soft, non-tender, non-distended with bowel sounds. SKIN: Inspection of the skin reveals no rashes NEUROLOGIC: Alert and oriented x 4. Strength and sensation to light touch were grossly intact x 4. Course Course Course Narrative: 0545: 61-year-old female with history and clinical presentation consistent with asthma/COPD exacerbation and on review of all investigations she has noted elevated lactic and VBG does demonstrate mild PCO 2 elevation with pH of 7.23. after patient has received the Solu-Medrol and albuterol treatments she is resting comfortably and is no longer tachypneic. She received initial antibiotics and does not currently meet criteria for sepsis fluids. The rapid COVID-19 was invalid and will repeat testing with the respiratory panel. I discussed the case with the inpatient hospitalist who accepts admission. Repeat VBG has normalized. MDM - SOB/Dyspnea Lab Data Result diagrams: 07/05/21 04:48 07/05/21 04:48 Labs: Lab Results 07/05/21 07/05/21 07/05/21 Range/Units 04:48 04:48 04:49 WBC 6.2 (4.8-10.8) X10*3/uL RBC 4.46 (4.20-5.50) X10*6/uL Hgb 13.6 (12.0-16.0) g/dl Hct 41.0 (37.0-47.0) % MCV 91.9 (80.0-98.0) fL MCH 30.5 (27.0-33.0) pg MCHC 33.2 (31.0-35.0) g/dl RDW 12.8 (11.0-16.0) % Plt Count 202 (160-400) X10*3/uL MPV 9.6 (9.4-12.3) fL Immature Gran % (Auto) 0.3 (0.0-0.4) % Neut % (Auto) 48.2 (45-73) % Lymph % (Auto) 37.3 (20-40) % Page % (Auto) 7.1 (2-11) % Eos % (Auto) 6.5 H (0-4) % Baso % (Auto) 0.6 (0-2) % Lymph # (Auto) 2.3 (1.2-4.9) X10*3/uL Page # (Auto) 0.4 (0.1-1.2) X10*3/uL Eos # (Auto) 0.4 (0.0-0.4) X10*3/uL Baso # (Auto) 0.0 (0.0-0.2) X10*3/uL Abs Immat Gran (auto) 0.02 (0.00-0.03) X10*3/uL Absolute Neuts (auto) 3.0 (2.0-8.3) x10*3/uL Absolute Nucleated RBC 0.000 (0.0-0.012) X10*3/uL Nucleated RBC % (auto) 0.0 (0.0-0.2) /100WBC VBG pH (7.32-7.43) VBG pCO2 mmHg VBG pO2 mmHg VBG HCO3 (22-26) mmol/L VBG O2 Saturation % VBG Base Excess mmol/L Sodium 140 (135-145) mmol/L Potassium 4.4 D (3.3-5.1) mmol/L Chloride 105 (96-108) mmol/L Carbon Dioxide 23 (22-29) mmol/L Anion Gap 16 (12-20) BUN 14 (9-16) mg/dL Creatinine 0.98 (0.5-1.4) mg/dL Estim Creat Clear Calc 74.3 Estimated GFR 58 Random Glucose 211 H (60-115) mg/dL Lactic Acid 3.9 H* (0.5-2.0) mmol/L Calcium 9.3 (8.4-10.2) mg/dL Total Bilirubin 0.4 (0.0-1.0) mg/dL AST 16 (5-31) U/L ALT 12 (0-31) U/L Alkaline Phosphatase 66 (39-117) U/L Total Protein 6.9 (6.5-8.0) g/dL Albumin 4.2 (3.5-5.0) g/dL COVID-19 (RHONDA) (Negative) COVID-19 Clin Com 07/05/21 07/05/21 07/05/21 Range/Units 04:49 04:53 05:54 WBC (4.8-10.8) X10*3/uL RBC (4.20-5.50) X10*6/uL Hgb (12.0-16.0) g/dl Hct (37.0-47.0) % MCV (80.0-98.0) fL MCH (27.0-33.0) pg MCHC (31.0-35.0) g/dl RDW (11.0-16.0) % Plt Count (160-400) X10*3/uL MPV (9.4-12.3) fL Immature Gran % (Auto) (0.0-0.4) % Neut % (Auto) (45-73) % Lymph % (Auto) (20-40) % Page % (Auto) (2-11) % Eos % (Auto) (0-4) % Baso % (Auto) (0-2) % Lymph # (Auto) (1.2-4.9) X10*3/uL Page # (Auto) (0.1-1.2) X10*3/uL Eos # (Auto) (0.0-0.4) X10*3/uL Baso # (Auto) (0.0-0.2) X10*3/uL Abs Immat Gran (auto) (0.00-0.03) X10*3/uL Absolute Neuts (auto) (2.0-8.3) x10*3/uL Absolute Nucleated RBC (0.0-0.012) X10*3/uL Nucleated RBC % (auto) (0.0-0.2) /100WBC VBG pH 7.23 L 7.35 (7.32-7.43) VBG pCO2 56 46 mmHg VBG pO2 48 71 mmHg VBG HCO3 24 26 (22-26) mmol/L VBG O2 Saturation 66.0 92.0 % VBG Base Excess -4.2 0.4 mmol/L Sodium (135-145) mmol/L Potassium (3.3-5.1) mmol/L Chloride (96-108) mmol/L Carbon Dioxide (22-29) mmol/L Anion Gap (12-20) BUN (9-16) mg/dL Creatinine (0.5-1.4) mg/dL Estim Creat Clear Calc Estimated GFR Random Glucose (60-115) mg/dL Lactic Acid (0.5-2.0) mmol/L Calcium (8.4-10.2) mg/dL Total Bilirubin (0.0-1.0) mg/dL AST (5-31) U/L ALT (0-31) U/L Alkaline Phosphatase (39-117) U/L Total Protein (6.5-8.0) g/dL Albumin (3.5-5.0) g/dL COVID-19 (RHONDA) Invalid (Negative) COVID-19 Clin Com See Note Discharge Plan Discharge Clinical Impression: Acute exacerbation of COPD with asthma, Hypertension Patient Disposition: Admitted As Inpatient
[2021-07-05] MEDS: levoFLOXacin/D5W 750 MG/150 ML PIGGYBACK 100 MG IV (05:47)
[2021-07-05 06:00] LABS: VBG Base Excess 0.4 mmol/L; VBG HCO3 26 mmol/L (22-26); VBG pCO2 46 mmHg; VBG pH 7.35 (7.32-7.43); VBG pO2 71 mmHg
[2021-07-05 06:00] LABS: Venous Blood Gas Refer to POC result
[2021-07-05 06:35] LABS: Influenza A PCR NEGATIVE (Negative); Influenza B PCR NEGATIVE (Negative); Resp Syncy Virus RNA Qual PCR NEGATIVE (Negative); SARS COV2 PCR INHOUSE NEGATIVE (Negative)
[2021-07-05 06:53] LABS: Reflex Lactate? Lactic Acid Added
--- NOTE | 2021-07-05 07:08 | PC.NURSE ---
report taken from chris head pt here for dyspnea, in no apparent distress on first contact, appears to be resting. has albuterol tx going, o2 at 98%. denies sob/cp at this time, awaiting lactic acid repeat as well as hospitalist eval. wctm for dc needs.
--- NOTE | 2021-07-05 09:05 | PHA.MEDREC ---
Pharmacy Consult ? Medication Reconciliation Pharmacy has completed the medication reconciliation. Pt had 10 day protocol of doxycycline BID but was unsure of which day she was on, stated she believes day 3 but rx was filled 06/30/21. She also pointed out that she has not picked up her Dulera inhaler in some time but needs to because it really helps. Gi Navarrete, PharmD
[2021-07-05 09:45] LABS: Reflex Lactate? 2 Y
[2021-07-05] MEDS: Atorvastatin Calcium 10 MG TABLET PO (10:06)
[2021-07-05] MEDS: atenoloL 50 MG TABLET PO ×2 (10:06→20:01)
[2021-07-05] MEDS: amLODIPine Besylate 5 MG TABLET PO (10:06)
[2021-07-05] MEDS: Cholecalciferol (Vitamin D3) 25 MCG TABLET 50 MCG PO (10:07)
[2021-07-05] MEDS: Enoxaparin Sodium 40 MG/0.4 ML SYRINGE SUBCUT (10:07)
[2021-07-05] MEDS: Aspirin Enteric Coated 81 MG TABLET.DR PO (10:07)
[2021-07-05] MEDS: PARoxetine HCL 40 MG TABLET PO (10:08)
[2021-07-05 10:39] LABS: ~Lactic Acid-LAB USE ONLY 2.4 mmol/L (0.5-2.0)
[2021-07-05] MEDS: Albuterol/Iprat 2.5/0.5MG 3 ML AMPUL.NEB INHALE ×3 (11:11→19:14)
--- NOTE | 2021-07-05 11:24 | PM.IMHP ---
History of Present Illness Date of Service: 07/05/21 Chief Complaint: dyspnea, wheeze 61yo with asthma/COPD overlap who just finished a course of prednisone last week for exacerbation but then woke up in the middle of the night with shortness of breath and wheezing. No cough and no sputum production. No fever and no chills. She called EMS and was found to be hypoxic with SaO2 86% and in respiratory distress. She was placed on CPAP. She arrived in the ED, was given 10 mg continuous albuterol nebulization, and loaded with methylprednisolone. CXR negative. Initial venous pH 7.23 with pCO2 56; improved to 7.35/46. Lactate 3.9, 6.5% eosinophils. Flu A/B, SARS-CoV2, and RSV PCR all negative. She is currently off oxygen and CPAP and feeling better, but still wheezing. Review of Systems Review of Systems: Yes all other systems are reviewed and are negative [facility] Medical History Cerebral microvascular disease HTN (hypertension) Pertinent family history: Father had COPD. Social History Household Members: None Housing: House Do you presently have visiting nurse or other home services: No Alcohol intake: never Patient Tobacco Use Status: Former Tobacco user Cigarettes Per Day: 5 Years Smoked: 10 Second Hand Smoke Exposure: No Use of substances other than those prescribed or required for medical reasons: No Substance Use Type: Marijuana Advance Directives: No Patient : No service: No Current occupational status: employed Meds Allergies Allergy/AdvReac Type Severity Reaction Status Date / Time prednisone [PREDNISONE] Allergy Unknown HIVES Verified 06/25/21 08:00 sulfa Allergy Unknown Unknown Uncoded 06/25/21 08:00 Active Medications: Current Medications Acetaminophen (Acetaminophen 325 Mg Tablet) 650 mg PO Q6H PRN PRN Reason: Pain, Mild (Pain Scale 1-3) Albuterol Sulfate (Albuterol Sulfate (0.083%) 2.5 Mg/3 Ml Vial.Neb) 2.5 mg INHALE Q2H PRN PRN Reason: Shortness of Breath/Wheezing Albuterol/Ipratropium (Albuterol/Iprat 2.5/0.5mg 3 Ml Ampul.Neb) 3 ml INHALE RQ4H WHILE AWAKE [facility] Last Admin: 07/05/21 11:11 Dose: 3 ml Documented by: Amlodipine Besylate (Amlodipine Besylate 5 Mg Tablet) 5 mg PO DAILY [facility]; Protocol Last Admin: 07/05/21 10:06 Dose: 5 mg Documented by: Aspirin (Aspirin Enteric Coated 81 Mg Tablet.) 81 mg PO DAILY [facility] Last Admin: 07/05/21 10:07 Dose: 81 mg Documented by: Atenolol (Atenolol 50 Mg Tablet) 50 mg PO BID [facility]; Protocol Last Admin: 07/05/21 10:06 Dose: 50 mg Documented by: Atorvastatin Calcium (Atorvastatin Calcium 10 Mg Tablet) 10 mg PO DAILY [facility] Last Admin: 07/05/21 10:06 Dose: 10 mg Documented by: Cyclobenzaprine HCl (Cyclobenzaprine Hcl 5 Mg Tablet) 5 mg PO BEDTIME PRN PRN Reason: Spasms Enoxaparin Sodium (Enoxaparin Sodium 40 Mg/0.4 Ml Syringe) 40 mg SUBCUT Q24H [facility] Last Admin: 07/05/21 10:07 Dose: 40 mg Documented by: Methylprednisolone Sodium Succinate (Methylprednisolone Sod Succ 40 Mg/Ml Vial) 40 mg IVPUSH Q12H [facility] Ondansetron HCl (Ondansetron Hcl 4 Mg/2 Ml Vial) 4 mg IVPUSH Q8H PRN PRN Reason: Nausea and Vomiting Paroxetine HCl (Paroxetine Hcl 40 Mg Tablet) 40 mg PO DAILY [facility] Last Admin: 07/05/21 10:08 Dose: 40 mg Documented by: Pharmacy Consult (Consult Rx Perform Med Rec) 1 each MISCELLANE ONCE PRN PRN Reason: Consult order Sodium Chloride (0.9 % Sodium Chloride Flush 3 Ml Syringe) 3 ml IVFLUSH QSHIFT [facility] Vitamin D (Cholecalciferol (Vitamin D3) 25 Mcg Tablet) 50 mcg PO DAILY [facility] Last Admin: 07/05/21 10:07 Dose: 50 mcg Documented by: Home Medications Medication Instructions Recorded Confirmed Last Taken Type atenolol 50 mg tablet 50 mg PO BID 08/10/20 07/05/21 08/10/20 18:00 History mometasone-formoterol HFA 200 2 puff INHALATION NEEDED 08/11/20 07/05/21 Unknown History mcg-5 mcg/actuation aerosol inhaler (Dulera) aspirin 81 mg tablet,delayed 81 mg PO DAILY 11/19/20 07/05/21 07/05/21 History release (Adult Aspirin Regimen) albuterol sulfate 90 mcg/actuation 2 puff INHALATION Q4H PRN 07/05/21 07/05/21 Unknown History aerosol inhaler atorvastatin 10 mg tablet 1 tab PO DAILY 07/05/21 07/05/21 07/04/21 History cholecalciferol (vitamin D3) 50 50 mcg PO DAILY 07/05/21 07/05/21 07/05/21 History mcg (2,000 unit) tablet cyclobenzaprine 5 mg tablet 1 tab PO BEDTIME PRN 07/05/21 07/05/21 Unknown History doxycycline hyclate 100 mg tablet 1 tab PO BID 07/05/21 07/05/21 Unknown History paroxetine HCl 40 mg tablet 1 tab PO DAILY 07/05/21 07/05/21 07/05/21 History Physical Exam Vital Signs and Narrative: Vital Signs: Last Vital Signs Pulse 88 07/05/21 11:16 Resp 16 07/05/21 11:16 BP 137/69 07/05/21 09:48 Pulse Ox 96 07/05/21 09:48 BMI result Body Mass Index 33.8 Gen: in no acute distress HEENT: sclera anicteric, moist mucus membranes Neck: supple Lungs: diffuse expiratory wheezing with prolonged expiratory phase Heart: regular rate and rhythm, no murmurs Abd: soft, non-tender, non-distended; obese Ext: no edema Skin: warm/well-perfused Neuro: alert and oriented x3, no focal findings Psych: appropriate affect Results Labs CBC and Chem 7: 07/05/21 04:48 07/05/21 04:48 Labs: Laboratory Results - last 24 hr 07/05/21 07/05/21 07/05/21 04:48 04:48 04:49 MCV 91.9 MCH 30.5 MCHC 33.2 RDW 12.8 Plt Count 202 MPV 9.6 Immature Gran % (Auto) 0.3 Neut % (Auto) 48.2 Lymph % (Auto) 37.3 [place] % (Auto) 7.1 Eos % (Auto) 6.5 H Baso % (Auto) 0.6 Lymph # (Auto) 2.3 [place] # (Auto) 0.4 Eos # (Auto) 0.4 Baso # (Auto) 0.0 Abs Immat Gran (auto) 0.02 Absolute Neuts (auto) 3.0 Absolute Nucleated RBC 0.000 Nucleated RBC % (auto) 0.0 VBG pH VBG pCO2 VBG pO2 VBG HCO3 VBG O2 Saturation VBG Base Excess Anion Gap 16 Estim Creat Clear Calc 74.3 Estimated GFR 58 Random Glucose 211 H Lactic Acid 3.9 H* Lactic Acid F/U @ 2Hr Lactic Acid F/U @ 4Hr Calcium 9.3 Total Bilirubin 0.4 AST 16 ALT 12 Alkaline Phosphatase 66 Total Protein 6.9 Albumin 4.2 COVID-19 ([facility]ONDA) COVID-19 Clin Com Influenza Type A (PCR) Influenza Type B (PCR) RSV RNA Qual (PCR) SARS-CoV-2 RNA (RT-PCR) 07/05/21 07/05/21 07/05/21 04:49 04:53 05:53 MCV MCH MCHC RDW Plt Count MPV Immature Gran % (Auto) Neut % (Auto) Lymph % (Auto) [place] % (Auto) Eos % (Auto) Baso % (Auto) Lymph # (Auto) [place] # (Auto) Eos # (Auto) Baso # (Auto) Abs Immat Gran (auto) Absolute Neuts (auto) Absolute Nucleated RBC Nucleated RBC % (auto) VBG pH 7.23 L VBG pCO2 56 VBG pO2 48 VBG HCO3 24 VBG O2 Saturation 66.0 VBG Base Excess -4.2 Anion Gap Estim Creat Clear Calc Estimated GFR Random Glucose Lactic Acid Lactic Acid F/U @ 2Hr Lactic Acid F/U @ 4Hr Calcium Total Bilirubin AST ALT Alkaline Phosphatase Total Protein Albumin COVID-19 (RHONDA) Invalid COVID-19 Clin Com See Note Influenza Type A (PCR) NEGATIVE Influenza Type B (PCR) NEGATIVE RSV RNA Qual (PCR) NEGATIVE SARS-CoV-2 RNA (RT-PCR) NEGATIVE 07/05/21 07/05/21 07/05/21 05:54 07:43 10:18 MCV MCH MCHC RDW Plt Count MPV Immature Gran % (Auto) Neut % (Auto) Lymph % (Auto) [place] % (Auto) Eos % (Auto) Baso % (Auto) Lymph # (Auto) [place] # (Auto) Eos # (Auto) Baso # (Auto) Abs Immat Gran (auto) Absolute Neuts (auto) Absolute Nucleated RBC Nucleated RBC % (auto) VBG pH 7.35 VBG pCO2 46 VBG pO2 71 VBG HCO3 26 VBG O2 Saturation 92.0 VBG Base Excess 0.4 Anion Gap Estim Creat Clear Calc Estimated GFR Random Glucose Lactic Acid Lactic Acid F/U @ 2Hr 3.0 H* Lactic Acid F/U @ 4Hr 2.4 H* Calcium Total Bilirubin AST ALT Alkaline Phosphatase Total Protein Albumin COVID-19 (RHONDA) COVID-19 Clin Com Influenza Type A (PCR) Influenza Type B (PCR) RSV RNA Qual (PCR) SARS-CoV-2 RNA (RT-PCR) ITS Impressions Chest X-Ray 07/05/21 05:32 IMPRESSION: Unremarkable examination. Imaging Radiologist's Impressions: Impressions Chest X-Ray 07/05/21 05:32 IMPRESSION: Unremarkable examination. Assessment and Plan (1) Acute exacerbation of COPD with asthma: Status: Acute Plan 61yo F with COPD/asthma who recently finished a course of prednisone presenting with acute dyspnea, wheezing, hypoxia, and respiratory distress due to COPD/asthma exacerbation. # COPD/asthma exacerbation - admit to M/S, give IV methylprednisolone + standing/prn nebs # acute hypoxic/hypercapneic respiratory failure - resolved - check D-dimer to r/o PE [low-risk by [place]] # lactic acidosis - not septic; due to bronchodilator effect # HTN - continue amlodipine + atenolol # HLD - continue statin # depression - continue paroxetine # chronic back pain - continue prn cyclobenzaprine # VTE ppx - LMWH # code- fuill Quality Stroke Does the patient have a stroke diagnosis?: No VTE Prior VTE?: No VTE Risk Level:: Medical - moderate - high VTE Device Contraindication: N/A - Device Ordered VTE Drug Contraindication: N/A - Med Ordered
[2021-07-05 11:57] LABS: D Dimer High Sensitivity 196 NG/ML
[2021-07-05] MEDS: methylPREDNISolone Sod Succ 40 MG/ML VIAL IVPUSH (17:11)
[2021-07-05] MEDS: Acetaminophen 325 MG TABLET 650 MG PO (17:17)
[2021-07-05] MEDS: Benzonatate 100 MG CAPSULE PO (20:01)
[2021-07-05] MEDS: 0.9 % Sodium Chloride Flush 3 ML SYRINGE IVFLUSH (23:32)
[2021-07-06] VITALS (9 sets, daily range): BP systolic 137–185; BP diastolic 65–89; PULSE 63–80; RESP 18–20; TEMP 36.2–37.3; O2SAT 93–97
[2021-07-06] MEDS: 0.9 % Sodium Chloride Flush 3 ML SYRINGE IVFLUSH ×3 (06:27→20:35)
[2021-07-06] MEDS: methylPREDNISolone Sod Succ 40 MG/ML VIAL IVPUSH (06:27)
--- NOTE | 2021-07-06 06:30 | PC.NURSE ---
Patient reported at 0625 feeling short of breath at rest. Reports using her own inhaler from home all night, unbeknownst to staff. Patient was not aware that she should not take medications from home. audible wheezing. 96% room air. Respiratory on their way for PRN nebulizer. Patient instructed to ring when in need of inhaler/nebulizer.
[2021-07-06] MEDS: Cholecalciferol (Vitamin D3) 25 MCG TABLET 50 MCG PO (07:50)
[2021-07-06] MEDS: PARoxetine HCL 40 MG TABLET PO (07:50)
[2021-07-06] MEDS: amLODIPine Besylate 5 MG TABLET PO (07:50)
[2021-07-06] MEDS: Atorvastatin Calcium 10 MG TABLET PO (07:50)
[2021-07-06] MEDS: atenoloL 50 MG TABLET PO ×2 (07:50→20:34)
[2021-07-06] MEDS: Aspirin Enteric Coated 81 MG TABLET.DR PO (07:50)
[2021-07-06] MEDS: Albuterol/Iprat 2.5/0.5MG 3 ML AMPUL.NEB INHALE ×2 (08:06→15:27)
[2021-07-06] MEDS: Enoxaparin Sodium 40 MG/0.4 ML SYRINGE SUBCUT (09:01)
--- NOTE | 2021-07-06 11:21 | MHC.CM.PN ---
Addendum entered by Lydia Dominguez 07/06/21 13:14: HCP COMPLETED. 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 CURRENT DC PLAN IS HOME WITH NO SERVICES PT WILL ARRANGE TRANSPORT
--- NOTE | 2021-07-06 12:18 | HO.PM.IMPN ---
Subjective Subjective Date of Service: 07/06/21 Interval History: No acute issues overnight. Minimal improvement with current therapies. Productive cough bothersome at night Review of Systems Denies chest pain Admits to shortness of breath with minimal exertion along with productive cough Denies nausea vomiting diarrhea Physical Exam Vital Signs: Vital Signs: Last Vital Signs Temp 99.1 F 07/06/21 07:52 Pulse 75 07/06/21 08:07 Resp 18 07/06/21 08:07 BP 185/86 H 07/06/21 07:52 Pulse Ox 96 07/06/21 07:52 BMI result Body Mass Index 33.8 Const: Other: Awake alert orient x3 no acute distress Resp: Other: Diminished at bases; dense expiratory wheezes all amaro Cardio: Other: No S4; positive S1-S2; no S3 murmurs rubs or gallops GI: Other: Soft nontender nondistended normoactive bowel sounds x4 quadrants Extrem: Other: No edema bilaterally Objective Data Active Medications Acetaminophen (Acetaminophen 325 Mg Tablet) 650 mg PO Q6H PRN PRN Reason: Pain, Mild (Pain Scale 1-3) Last Admin: 07/05/21 17:17 Dose: 650 mg Documented by: LOC Albuterol Sulfate (Albuterol Sulfate (0.083%) 2.5 Mg/3 Ml Vial.Neb) 2.5 mg INHALE Q2H PRN PRN Reason: Shortness of Breath/Wheezing Albuterol/Ipratropium (Albuterol/Iprat 2.5/0.5mg 3 Ml Ampul.Neb) 3 ml INHALE RQ4H WHILE AWAKE [facility] Last Admin: 07/06/21 11:49 Dose: Not Given Documented by: BLANCA Non-Admin Reason: Patient Refused Amlodipine Besylate (Amlodipine Besylate 5 Mg Tablet) 5 mg PO DAILY [facility]; Protocol Last Admin: 07/06/21 07:50 Dose: 5 mg Documented by: LOC Aspirin (Aspirin Enteric Coated 81 Mg Tablet.) 81 mg PO DAILY [facility] Last Admin: 07/06/21 07:50 Dose: 81 mg Documented by: LOC Atenolol (Atenolol 50 Mg Tablet) 50 mg PO BID [facility]; Protocol Last Admin: 07/06/21 07:50 Dose: 50 mg Documented by: LOC Atorvastatin Calcium (Atorvastatin Calcium 10 Mg Tablet) 10 mg PO DAILY [facility] Last Admin: 07/06/21 07:50 Dose: 10 mg Documented by: LOC Benzonatate (Benzonatate 100 Mg Capsule) 100 mg PO TID PRN PRN Reason: Cough Last Admin: 07/05/21 20:01 Dose: 100 mg Documented by: OBIE Cyclobenzaprine HCl (Cyclobenzaprine Hcl 5 Mg Tablet) 5 mg PO BEDTIME PRN PRN Reason: Spasms Doxycycline Hyclate (Doxycycline Hyclate 100 Mg Tablet) 100 mg PO Q12H [facility] Enoxaparin Sodium (Enoxaparin Sodium 40 Mg/0.4 Ml Syringe) 40 mg SUBCUT Q24H [facility] Last Admin: 07/06/21 09:01 Dose: 40 mg Documented by: LOC Methylprednisolone Sodium Succinate (Methylprednisolone Sod Succ 125 Mg/2 Ml Vial) 60 mg IVPUSH Q6H [facility] Ondansetron HCl (Ondansetron Hcl 4 Mg/2 Ml Vial) 4 mg IVPUSH Q8H PRN PRN Reason: Nausea and Vomiting Paroxetine HCl (Paroxetine Hcl 40 Mg Tablet) 40 mg PO DAILY [facility] Last Admin: 07/06/21 07:50 Dose: 40 mg Documented by: LOC Pharmacy Consult (Consult Rx Perform Med Rec) 1 each MISCELLANE ONCE PRN PRN Reason: Consult order Sodium Chloride (0.9 % Sodium Chloride Flush 3 Ml Syringe) 3 ml IVFLUSH QSHIFT [facility] Last Admin: 07/06/21 06:27 Dose: 3 ml Documented by: BRANT Vitamin D (Cholecalciferol (Vitamin D3) 25 Mcg Tablet) 50 mcg PO DAILY [facility] Last Admin: 07/06/21 07:50 Dose: 50 mcg Documented by: LOC Labs CBC & Chem 7: 07/05/21 04:48 07/05/21 04:48 Microbiology Microbiology Results: Microbiology 07/05/21 04:54 Blood Culture - Preliminary Blood - Venous No growth after 24 hours. 07/05/21 04:49 Blood Culture - Preliminary Blood - Venous No growth after 24 hours. Assessment and Plan (1) Acute exacerbation of COPD with asthma: Status: Acute (2) Hypertension: Status: Acute Plan 61yo F with COPD/asthma who recently finished a course of prednisone presenting with acute dyspnea, wheezing, hypoxia, and respiratory distress due to COPD/asthma exacerbation. 1. COPD/asthma exacerbation - will increase methylprednisolone to 60 q.6 hours -add doxycycline given sputum production 2.Acute hypoxic/hypercapneic respiratory failure - resolved - as per #1 3. Persistant lactic acidosis - not septic; due to bronchodilator effect 4. HTN - acceptable control - continue amlodipine/ atenolol 5.Depression - continue paroxetine VTE ppx LMWH Full Code Quality Stroke Does the patient have a stroke diagnosis?: No VTE Prior VTE?: No VTE Risk Level:: Medical - moderate - high VTE Device Contraindication: N/A - Device Ordered VTE Drug Contraindication: N/A - Med Ordered
[2021-07-06] MEDS: methylPREDNISolone Sod Succ 125 MG/2 ML VIAL 60 MG IVPUSH ×2 (13:32→18:35)
[2021-07-06] MEDS: Cyclobenzaprine HCl 5 MG TABLET PO (18:41)
[2021-07-07] VITALS: BP 155/80; PULSE 52; RESP 18; TEMP 36.9; O2SAT 94
[2021-07-07] MEDS: methylPREDNISolone Sod Succ 125 MG/2 ML VIAL 60 MG IVPUSH ×2 (00:41→06:30)
[2021-07-07] MEDS: guaiFEN/Codeine SF 200/20/10ML 10 ML LIQUID PO (02:27)
[2021-07-07 04:00] VITALS: BP 148/68; PULSE 54; RESP 18; TEMP 36.8; O2SAT 94
[2021-07-07 05:44] LABS: MANUAL DIFF FLAG NO
[2021-07-07 05:48] LABS: Basophils Percent Auto 0.1 % (0-2); Hematocrit 39.4 % (37.0-47.0); Imm Gran Abs Auto 0.11 X10*3/uL (0.00-0.03); Imm Gran Pct Auto 0.9 % (0.0-0.4); Lymphocytes Percent Auto 8.8 % (20-40); Mean Corpuscular Hemoglobin 30.2 pg (27.0-33.0); Mean Corpuscular Volume 91.6 fL (80.0-98.0); Mean Platelet Volume 10.2 fL (9.4-12.3); Monocytes Absolute Auto 0.2 X10*3/uL (0.1-1.2); Monocytes Percent Auto 1.8 % (2-11); Neutrophils Absolute Auto 10.3 x10*3/uL (2.0-8.3); Neutrophils Percent Auto 88.4 % (45-73); Platelet Count 218 X10*3/uL (160-400); Red Cell Distribution Width 12.8 % (11.0-16.0); White Blood Count 11.7 X10*3/uL (4.8-10.8)
[2021-07-07 06:16] LABS: Alanine Aminotransferase 11 U/L (0-31); Albumin Level 4.3 g/dL (3.5-5.0); Alkaline Phosphatase 54 U/L (39-117); Anion Gap 14 (12-20); Aspartate Amino Transferase 10 U/L (5-31); Bilirubin Total 0.4 mg/dL (0.0-1.0); Blood Urea Nitrogen 19 mg/dL (9-16); Calcium 9.7 mg/dL (8.4-10.2); Carbon Dioxide 26 mmol/L (22-29); Chloride 105 mmol/L (96-108); Creatinine Clr Calc Pharmacy 94.6; Estimated Glomerular Filt Rate > 60; Glucose Fasting 131 mg/dL (60-99); Potassium 4.6 mmol/L (3.3-5.1); Sodium 140 mmol/L (135-145); Total Protein 7.1 g/dL (6.5-8.0)
[2021-07-07] MEDS: Aspirin Enteric Coated 81 MG TABLET.DR PO (07:13)
[2021-07-07] MEDS: amLODIPine Besylate 5 MG TABLET PO (07:13)
[2021-07-07] MEDS: Atorvastatin Calcium 10 MG TABLET PO (07:13)
[2021-07-07] MEDS: 0.9 % Sodium Chloride Flush 3 ML SYRINGE IVFLUSH (07:13)
[2021-07-07] MEDS: Cholecalciferol (Vitamin D3) 25 MCG TABLET 50 MCG PO (07:13)
[2021-07-07] MEDS: atenoloL 50 MG TABLET PO (07:13)
[2021-07-07] MEDS: PARoxetine HCL 40 MG TABLET PO (07:13)
[2021-07-07 07:32] VITALS: BP 172/76; PULSE 65; RESP 18; TEMP 36.2; O2SAT 96
[2021-07-07 08:11] VITALS: PULSE 65; RESP 18; O2SAT 96
[2021-07-07] MEDS: Albuterol/Iprat 2.5/0.5MG 3 ML AMPUL.NEB INHALE (08:11)
[2021-07-07] MEDS: Enoxaparin Sodium 40 MG/0.4 ML SYRINGE SUBCUT (09:09)
[2021-07-07 11:36] VITALS: BP 189/101; PULSE 65; RESP 18; TEMP 36.6; O2SAT 97
[2021-07-07] MEDS: Benzonatate 100 MG CAPSULE PO (12:12)
--- NOTE | 2021-07-07 12:23 | MHC.CM.PN ---
PT TO DC HOME TODAY WITH NO SERVICES PT TO ARRANGE TRANSPORT
--- NOTE | 2021-07-07 12:28 | PM.DS ---
DS: Providers Provider Date of Service: 07/07/21 Date of admission: 07/05/21 09:29 Date of discharge: 07/07/21 Primary care physician: Armando Kerns MD DS: Diagnosis Discharge Diagnosis (1) Acute exacerbation of COPD with asthma: Status: Acute (2) Hypertension: Status: Acute DS: Summary Hospital Course Hospital Course: 61yo with asthma/COPD overlap who just finished a course of prednisone last week for exacerbation but then woke up in the middle of the night with shortness of breath and wheezing.? No cough and no sputum production.? No fever and no chills.? She called EMS and was found to be hypoxic with SaO2 86% and in respiratory distress.? She was placed on CPAP.? She arrived in the ED, was given 10 mg continuous albuterol nebulization, and loaded with methylprednisolone.? CXR negative.? Initial venous pH 7.23 with pCO2 56; improved to 7.35/46.? Lactate 3.9, 6.5% eosinophils.? Flu A/B, SARS-CoV2, and RSV PCR all negative.? She is currently off oxygen and CPAP and feeling better, but still wheezing. Hospital course Patient admitted to the general medical floor given IV methylprednisolone along with oral doxycycline and aggressive nebs. With a course of next 48 hours she improved significantly however still has considerable wheezes and cough. At this time she does not have an O2 requirement, and she wishes to go home. At this time please she is medically stable for same and will prescribe a home nebulizer with albuterol for along with a steroid taper and completed course of doxycycline. She will follow-up with her PCP in 1-2 weeks. She was given work note to return 07/14/2021 without restrictions Time Spent with Patient Time attestation: Total time spent providing and/or coordinating discharge services: Discharge coordination time: Greater than 30 minutes Quality: Stroke Does the patient have a stroke diagnosis?: No Physical Exam Vital Signs: Vital Signs: Last Vital Signs Temp 97.9 F 07/07/21 11:36 Pulse 65 07/07/21 11:36 Resp 18 07/07/21 11:36 BP 189/101 H 07/07/21 11:36 Pulse Ox 97 07/07/21 11:36 BMI result Body Mass Index 33.8 Const: Other: Awake alert orient x3 no acute distress Resp: Other: Diminished at bases; expiratory wheezes all amaro but improved aeration Cardio: Other: No S4; positive S1-S2; no S3 murmurs rubs or gallops GI: Other: Soft nontender nondistended normoactive bowel sounds x4 quadrants Extrem: Other: No edema bilaterally DS: Data Data Completed and Pending Labs on day of discharge: Laboratory Results - last 24 hr 07/07/21 07/07/21 04:56 04:56 WBC 11.7 H RBC 4.30 Hgb 13.0 Hct 39.4 MCV 91.6 MCH 30.2 MCHC 33.0 RDW 12.8 Plt Count 218 MPV 10.2 Immature Gran % (Auto) 0.9 H Neut % (Auto) 88.4 H Lymph % (Auto) 8.8 L Payette % (Auto) 1.8 L Eos % (Auto) 0.0 Baso % (Auto) 0.1 Lymph # (Auto) 1.0 L Payette # (Auto) 0.2 Eos # (Auto) 0.0 Baso # (Auto) 0.0 Abs Immat Gran (auto) 0.11 H Absolute Neuts (auto) 10.3 H Absolute Nucleated RBC 0.000 Nucleated RBC % (auto) 0.0 Sodium 140 Potassium 4.6 Chloride 105 Carbon Dioxide 26 Anion Gap 14 BUN 19 H Creatinine 0.77 Estim Creat Clear Calc 94.6 Estimated GFR > 60 Fasting Glucose 131 H Calcium 9.7 Total Bilirubin 0.4 AST 10 ALT 11 Alkaline Phosphatase 54 Total Protein 7.1 Albumin 4.3 Preliminary micro results at discharge 07/05/21 04:54 Blood Culture - Preliminary Blood - Venous No growth after 48 hours. 07/05/21 04:49 Blood Culture - Preliminary Blood - Venous No growth after 48 hours. Discharge Plan Discharge Patient Disposition: Home, Self-Care Discharge Diagnosis: Acute asthma exacerbation Referrals: Armando Kerns MD [Primary Care Provider] - 1 Week Discharge Medications: New codeine-guaifenesin 10-100 mg/5 mL Liquid 10 ml PO Q4H PRN (Reason: Cough) Qty: 240 0RF methylprednisolone 4 mg tablet See Rx Instructions .ROUTE .COMPLEX Qty: 18 0RF Rx Instructions: 4 mg orally: 1 tab p.o. t.i.d. x3 days, 1 tab b.i.d. x3 days, 1 tab daily x3 days albuterol sulfate 2.5 mg /3 mL (0.083 %) solution for nebulization 2.5 mg inhalation Q4-6H PRN (Reason: shortness of breath or wheezing) Qty: 90 0RF ipratropium-albuterol 0.5 mg-3 mg(2.5 mg base)/3 mL Solution For Nebulization 3 ml inhalation RQ4H WHILE AWAKE Qty: 90 0RF cefuroxime axetil 500 mg tablet 500 mg PO BID 10 Days Qty: 20 0RF (DME) nebulizer and compressor Device See Rx Instructions .Route Qty: 1 0RF Rx Instructions: As directed Continued atenolol 50 mg tablet 50 mg PO BID 0RF Dulera 200-5 mcg/actuation HFA aerosol inhaler 2 puff inhalation NEEDED 0RF amlodipine [Norvasc] 5 mg tablet 5 mg PO DAILY Qty: 5 0RF atorvastatin 10 mg tablet 1 tab PO DAILY 0RF paroxetine HCl 40 mg tablet 1 tab PO DAILY 0RF cyclobenzaprine 5 mg tablet 1 tab PO BEDTIME PRN (Reason: Spasms) 0RF cholecalciferol (vitamin D3) 50 mcg (2,000 unit) Tablet 50 mcg PO DAILY 0RF albuterol sulfate 90 mcg/actuation HFA aerosol inhaler 2 puff inhalation Q4H PRN (Reason: shortness of breath or wheezing) 0RF albuterol sulfate 5 mg/mL solution for nebulization 5 mg inhalation Q4H PRN (Reason: shortness of breath or wheezing) Qty: 20 0RF aspirin [Adult Aspirin Regimen] 81 mg tablet,delayed release (DR/EC) 81 mg PO DAILY 0RF Discontinued doxycycline hyclate 100 mg tablet 1 tab PO BID 0RF Rx Instructions: 10 day protocol filled 06/30/21 Discharge Orders: Discharge Order (Routine); Ordered 07/07/21 Ordered By: Arthur Esparza Diet: advance to usual diet Activity on Discharge: As tolerated Stand Alone Forms: Patient Portal Discharge page Care Plan Goals: Complete course of Ceftin twice a day for 10 days. Take methylprednisolone (Medrol) as prescribed. Take with food. Health Concerns: Continue to abstain from tobacco Plan of Treatment: Complete course of antibiotics and steroids as prescribed. Use nebulizer 4 times a day as needed for wheezing. Cough syrup at bedtime. Assessment: As per discharge summary
== END 2021-07-07 13:28 | disposition home or self-care (01) | DRG 190 ==
LOC: HO.ED 05:54 → HO.EDOVER 09:37 → HO.S3 13:47
PROVIDERS: Admitting Provider Family Medicine; Emergency Provider Student in an Organized Health Care Education/Training Program; PCP Internal Medicine Medical Oncology; Visit Provider Hospitalist
DX: J44.1 Chronic obstructive pulmonary disease with (acute) exacerbation (principal); J96.02 Acute respiratory failure with hypercapnia; J96.01 Acute respiratory failure with hypoxia; J45.901 Unspecified asthma with (acute) exacerbation; E87.2 Acidosis; E78.5 Hyperlipidemia, unspecified; I10 Essential (primary) hypertension; F32.A Depression, unspecified; G89.29 Other chronic pain; Z20.822 Contact with and (suspected) exposure to COVID-19; Z88.2 Allergy status to sulfonamides; Z79.82 Long term (current) use of aspirin; Z79.899 Other long term (current) drug therapy
CPT/HCPCS: 0241U; 36415; 71045; 80053; 82803; 83605; 85025; 85379; 87040; 87635; 94640; 94644; 94645; 96365; 96375; 99285; J1650; J1956; J2920; J2930

== ENCOUNTER 2021-07-23 06:08 | Outpatient (REF) | payer OTHER, SELFPAY ==
--- NOTE | ~2021-07-23 | FL_ITS ---
EXAMINATION: XR FLUOROSCOPY WITH IMAGES CLINICAL INFORMATION: M47.816 - Spondylosis without myelopathy or radiculopathy COMPARISON: MR lumbar spine 03/18/2020. TECHNIQUE: Fluoroscopy performed by Dr. Iain Guzman. Fluoroscopy time: 0.3 minutes DAP: 2.54 Gycm2 Images: 3 FINDINGS: There are spinal needles overlying the bilateral outer L3, L4, and L5 neural foramen. There is contrast seen in the respective nerve sheaths. Some early transforaminal epidural extension is suggested. No visible vascular communication. FL/FL guidance in treatment room IMPRESSION: Fluoroscopy for pain management procedures.
== END 2021-07-23 06:09 | disposition home or self-care (01) ==
LOC: HO.RADIR 06:08
PROVIDERS: Visit Provider Internal Medicine
DX: M47.816 Spondylosis without myelopathy or radiculopathy, lumbar region (principal)
CPT/HCPCS: 64493; 64494

== ENCOUNTER → 2021-07-25 11:44 | Outpatient (BNVA) | payer OTHER, SELFPAY | PROVIDERS: PCP Internal Medicine Medical Oncology; Visit Provider Nurse Practitioner Family ==

== ENCOUNTER → 2021-08-08 08:46 | Outpatient (BNVA) | payer OTHER, SELFPAY | PROVIDERS: PCP Internal Medicine Medical Oncology; Visit Provider Hospitalist | DX: J45.40 Moderate persistent asthma, uncomplicated (principal); F17.210 Nicotine dependence, cigarettes, uncomplicated; Z79.899 Other long term (current) drug therapy; Z23 Encounter for immunization | CPT/HCPCS: 90471; 90732 ==

== ENCOUNTER → 2021-08-22 11:04 | Outpatient (BNVA) | payer OTHER, SELFPAY | PROVIDERS: PCP Internal Medicine Medical Oncology; Visit Provider Internal Medicine | DX: Z13.89 Encounter for screening for other disorder (principal) ==

== ENCOUNTER 2021-09-01 07:04 | Outpatient (REF) | payer OTHER, SELFPAY ==
[2021-09-01 07:19] LABS: MANUAL DIFF FLAG NO
[2021-09-01 08:03] LABS: Basophils Percent Auto 0.5 % (0-2); Eosinophils Absolute Auto 0.3 X10*3/uL (0.0-0.4); Eosinophils Percent Auto 3.3 % (0-4); Hematocrit 36.8 % (37.0-47.0); Hemoglobin 12.2 g/dl (12.0-16.0); Imm Gran Abs Auto 0.03 X10*3/uL (0.00-0.03); Imm Gran Pct Auto 0.4 % (0.0-0.4); Lymphocytes Absolute Auto 2.6 X10*3/uL (1.2-4.9); Lymphocytes Percent Auto 34.4 % (20-40); Mean Corpuscular HGB Conc 33.2 g/dl (31.0-35.0); Mean Corpuscular Hemoglobin 30.3 pg (27.0-33.0); Mean Corpuscular Volume 91.5 fL (80.0-98.0); Mean Platelet Volume 10.2 fL (9.4-12.3); Monocytes Absolute Auto 0.7 X10*3/uL (0.1-1.2); Monocytes Percent Auto 9.9 % (2-11); Neutrophils Absolute Auto 3.8 x10*3/uL (2.0-8.3); Neutrophils Percent Auto 51.5 % (45-73); Platelet Count 210 X10*3/uL (160-400); Red Blood Count 4.02 X10*6/uL (4.20-5.50); Red Cell Distribution Width 12.7 % (11.0-16.0); White Blood Count 7.5 X10*3/uL (4.8-10.8)
[2021-09-01 08:56] LABS: Erythrocyte Sedimentation Rate 18 MM/HR (0-20)
[2021-09-03 06:36] LABS: Immunoglobulin E 248 kU/L (<OR=114)
[2021-09-03 14:47] LABS: IgA 108 mg/dL (47-310); IgG 726 mg/dL (600-1640); IgM 98 mg/dL (50-300)
[2021-09-06 14:50] LABS: Asperg fumigatus Precip Abs NEGATIVE (NEGATIVE); Micropoly faeni Abs NEGATIVE (NEGATIVE); Pigeon serum Abs NEGATIVE (NEGATIVE); Saccharo pora viridis Abs NEGATIVE (NEGATIVE); Thermo candidus Abs NEGATIVE (NEGATIVE); Thermoa vulgaris #1 NEGATIVE (NEGATIVE)
== END 2021-09-01 07:05 | disposition home or self-care (01) ==
LOC: HO.LAB 07:04
PROVIDERS: PCP Internal Medicine Medical Oncology; Visit Provider Hospitalist
DX: J45.909 Unspecified asthma, uncomplicated (principal); R91.8 Other nonspecific abnormal finding of lung field
CPT/HCPCS: 36415; 82784; 82785; 85025; 85652; 86003; 86331; 86606; 86609

== ENCOUNTER 2021-09-05 07:45 | Outpatient (REF) | payer OTHER, SELFPAY ==
--- NOTE | 2021-09-05 13:19 | PFT_ITS ---
Forced vital capacity 66%, FEV1 58%. FEV1/FVC ratio is 67. FEF 25-75, 42% and MVV 69%. Post bronchodilator therapy, there is a significant improvement in all the flow volumes bringing the results to almost normal levels. Total lung capacity 102%. Residual volume 142%. Diffusion capacity 50. CONCLUSION: Moderately severe obstructive airway disorder. Excellent response to bronchodilator therapy with almost complete reversal of the obstructive disorder. These findings are consistent with asthma, COPD overlap syndrome. Clinical correlation recommended. MD KATARZYNA Godwin/MODPablo / [id number]
== END 2021-09-05 07:46 | disposition home or self-care (01) ==
LOC: HO.RESP 07:45
PROVIDERS: PCP Internal Medicine Medical Oncology; Visit Provider Hospitalist
DX: J45.909 Unspecified asthma, uncomplicated (principal); R06.00 Dyspnea, unspecified
CPT/HCPCS: 94060; 94727; 94729

== ENCOUNTER 2021-10-23 11:42 | Outpatient (REF) | payer OTHER, SELFPAY ==
--- NOTE | ~2021-10-23 | XR_ITS ---
EXAMINATION: XR PELVIS CLINICAL INFORMATION: Right posterior pelvic pain. COMPARISON: MR lumbar spine 03/18/2020. TECHNIQUE: AP view of the pelvis. FINDINGS: The bones and soft tissues are normal. No fracture. Sacroiliac and hip joints are normal. Pubic symphysis is normal. No abnormal soft tissue calcifications. XR/XR pelvis 1-2V IMPRESSION: Normal pelvis. If symptoms persist, recommend correlation with a CT or MR, as subtle pelvic fractures can be radiographically occult.
--- NOTE | ~2021-10-23 | XR_ITS ---
EXAMINATION: XR LUMBOSACRAL SPINE CLINICAL INFORMATION: Lower back pain. COMPARISON: MR lumbar spine dated from 03/18/2020. TECHNIQUE: Three views of the lumbosacral spine. FINDINGS: No acute compression deformity or malalignment. Moderate disc space narrowing and facet arthropathy at L5-S1. Mild disc space narrowing at L4-L5. Mild symmetric sclerosis of the SI joints. No significant soft tissue abnormality. Small pelvic phleboliths are noted. Atherosclerotic disease of the abdominal aorta. XR/XR lumbar spine 2-3V IMPRESSION: No acute compression deformity or subluxation. Mild to moderate lumbar spondylosis, more prominent at L5-S1. For evaluation of nerve root impingement and central canal narrowing, correlation with an MR of the lumbar spine could be helpful if clinically pertinent.
== END 2021-10-23 11:43 | disposition home or self-care (01) ==
LOC: HO.XRAY 11:42
PROVIDERS: PCP Internal Medicine Medical Oncology; Visit Provider Internal Medicine
DX: R10.2 Pelvic and perineal pain (principal); M54.50 Low back pain, unspecified; Z91.81 History of falling
CPT/HCPCS: 72100; 72170

== ENCOUNTER 2021-11-28 13:06 | Outpatient (REF) | payer OTHER, SELFPAY ==
--- NOTE | ~2021-11-28 | CT_ITS ---
EXAMINATION: CT CHEST SCREENING CLINICAL INFORMATION: Nicotine dependence. COMPARISON: Chest x-ray 07/05/2021. TECHNIQUE: Multidetector volumetric CT imaging of the chest is performed without contrast using low dose technique. Additional 2D coronal and sagittal reformatted images and axial 3D maximum intensity projection (MIP) images are generated on the CT workstation. This CT examination was performed using dose optimization techniques as appropriate, variously including the following: *Automated exposure control *Adjustment of mA and/or kV according to patient size (this includes techniques or standardized protocols for targeted exams where dose is matched to indication/reason for exam; i.e. extremities or head) *Use of iterative reconstruction technique DLP: 60 mGy-cm FINDINGS: LUNGS: The lungs are well expanded and clear of acute pneumonic process. There is a 1 mm calcification right lower lobe axial image 168/6. No additional pulmonary nodule seen. There is minimal atelectatic changes right lung base and lingula. MEDIASTINUM: The thyroid lobes are symmetric and normal. The central trachea and the bronchi are normal. Heart size and the great vessels are normal caliber. No pericardial effusion is seen. No abnormal-sized mediastinal or hilar lymph node seen. There is residual thymus tissue in the anterior mediastinum. There are coronary artery calcifications present. PLEURA: There is no pleural effusion. No pleural mass or thickening. AXILLA: No lymphadenopathy. UPPER ABDOMEN: Visualized liver, spleen, pancreas and bilateral adrenal glands unremarkable. OSSEOUS STRUCTURES: There is no lytic or sclerotic process seen. There is mild ventral spondylosis mid and lower dorsal spine. CT/CT lung screening IMPRESSION: 1 mm calcification. Minimal atelectatic changes in the lingula and right lower lobe. ASSESSMENT: Lung-RADS category 2: Benign. RECOMMENDATION: Low-dose annual CT chest.
== END 2021-11-28 13:07 | disposition home or self-care (01) ==
LOC: HO.CT 13:06
PROVIDERS: PCP Internal Medicine Medical Oncology; Visit Provider Physician Assistant Medical
DX: Z12.2 Encounter for screening for malignant neoplasm of respiratory organs (principal); F17.210 Nicotine dependence, cigarettes, uncomplicated
CPT/HCPCS: 71271; G0296

== ENCOUNTER 2022-03-18 18:29 | Outpatient (REF) | payer OTHER, SELFPAY ==
--- NOTE | ~2022-03-18 | MR_ITS ---
EXAMINATION: MR LUMBAR SPINE WITHOUT CONTRAST CLINICAL INFORMATION: Bilateral leg numbness. Back pain. COMPARISON: MRI dated 03/18/2020. TECHNIQUE: Multiplanar, multisequence imaging was obtained. FINDINGS: VERTEBRAL BODIES AND PARASPINAL STRUCTURES: There is a mild leftward curvature of the mid lumbar spine. No compression fractures are seen. A minimal retrosubluxation is stable at the L3-L4 level. Reduced intradiscal signal and mild disc space narrowing are relatively stable from the L2 through the L5 levels. Mild edematous endplate changes are visible at the L5-S1 level lateralized to the left side and to the right side at the L2-L3 and L3-L4 levels. There are no compression fractures. The paraspinal soft tissues are normal. Small left renal cyst is stable. The imaged bony pelvis is normal. CONUS MEDULLARIS AND CAUDA EQUINE: The distal cord, conus tip, and cauda equina nerve roots are normal. SPINAL LEVELS: L1-L2: No disc pathology, central canal stenosis, or foraminal narrowing. L2-L3: Mild diffuse disc bulge and endplate spurring with jtuu-rw-yzsurcta facet arthropathy and stable mild central canal stenosis. Mild bilateral foraminal narrowing is otherwise unchanged. L3-L4: Slight retrosubluxation and broad-based disc bulge with facet arthropathy contributes to worsened ventral thecal sac deformity and ojgc-zz-fnlgishb central canal stenosis, also slightly worsened. Mild foraminal narrowing. L4-L5: Broad-based disc bulge and superimposed shallow, broad-based central disc protrusion results in mild mass effect upon the L5 nerve roots in the subarticular zones. Hypertrophic facet arthropathy with stable mild central canal stenosis. Qpbh-jv-avkzaoek right foraminal narrowing as on prior imaging. L5-S1: Hwrzaxea-ri-aisrvf facet arthropathy, more so on the left side again evident, though without foraminal encroachment. Very mild disc bulge. No central canal stenosis. MR/MR lumbar spine wo con IMPRESSION: 1. Slightly worsened ventral thecal sac deformity and progressed xptz-tg-nzsbhtgb central canal stenosis at the L3-L4 level. 2. Stable broad-based central disc protrusion at the L4-L5 level with mild mass effect upon both L5 nerve roots. Stable mild central canal stenosis and hrck-sv-ergfuprd right foraminal narrowing. 3. Stable mild central canal stenosis and hypertrophic facet arthropathy at the L2-L3 level. Mild leftward lumbar spinal curvature. 4. Stable vnklxpos-fl-gkkwtl facet arthropathy at the L5-S1 level.
--- NOTE | ~2022-03-18 | MR_ITS ---
EXAMINATION: MR CERVICAL SPINE WITHOUT CONTRAST CLINICAL INFORMATION: Cervical spondylosis. COMPARISON: None available. TECHNIQUE: MRI of the cervical spine was performed using routine sequences without contrast. FINDINGS: The cervical vertebral bodies maintain normal height. There is mild anterolisthesis of C3 on C4 and C6 on C7. There is moderate disc height loss at C5-C6. No bone marrow edema is seen. The cervical cord signal appears normal. The imaged portions of the intracranial contents and extraspinal soft tissues appear normal. SPINAL LEVELS: C2-C3: No posterior disc abnormality. No spinal canal or neural foraminal stenosis. C3-C4: No posterior disc abnormality. Uncovertebral hypertrophy mildly narrows left neural foramen. Moderate right facet arthropathy. No spinal canal stenosis. C4-C5: Disc osteophyte complex with central protrusion with mild inferior migration results in moderate spinal canal stenosis with ventral cord deformity. Moderate left and mild right facet arthropathy. Mild left neural foraminal stenosis. C5-C6: Disc osteophyte complex with ligamentum flavum infolding resulting in moderate to severe spinal canal stenosis with cord deformity. Uncovertebral hypertrophy and mild facet arthropathy results in severe bilateral neural foraminal stenosis. C6-C7: Mild disc osteophyte complex with uncovertebral hypertrophy. Mild left neural foraminal stenosis. No spinal canal stenosis. C7-T1: No posterior disc abnormality. Moderate facet arthropathy. No spinal canal or neural foraminal stenosis. MR/MR cervical spine wo con IMPRESSION: 1. Multilevel degenerative spondylotic changes. 2. At C4-C5 there is moderate spinal canal stenosis with ventral cord deformity. 3. At C5-C6 there is moderate to severe spinal canal stenosis with cord deformity and severe bilateral neural foraminal stenosis.
== END 2022-03-18 18:30 | disposition home or self-care (01) ==
LOC: HO.MRI 18:29
PROVIDERS: Visit Provider Physician Assistant
DX: M54.2 Cervicalgia (principal); M47.816 Spondylosis without myelopathy or radiculopathy, lumbar region
CPT/HCPCS: 72141; 72148

== ENCOUNTER → 2022-05-25 07:48 | Outpatient (BNVA) | payer OTHER, SELFPAY | PROVIDERS: PCP Internal Medicine Medical Oncology; Visit Provider Internal Medicine Rheumatology | DX: Z13.89 Encounter for screening for other disorder (principal) ==

== ENCOUNTER 2022-05-25 08:54 | Outpatient (REF) | payer OTHER, SELFPAY ==
[2022-05-25 10:33] LABS: MANUAL DIFF FLAG NO
[2022-05-25 10:39] LABS: Basophils Absolute Auto 0.1 X10*3/uL (0.0-0.2); Basophils Percent Auto 0.6 % (0-2); Eosinophils Absolute Auto 0.2 X10*3/uL (0.0-0.4); Eosinophils Percent Auto 2.7 % (0-4); Hematocrit 39.9 % (37.0-47.0); Hemoglobin 13.1 g/dl (12.0-16.0); Imm Gran Abs Auto 0.03 X10*3/uL (0.00-0.03); Imm Gran Pct Auto 0.4 % (0.0-0.4); Lymphocytes Absolute Auto 1.7 X10*3/uL (1.2-4.9); Lymphocytes Percent Auto 21.3 % (20-40); Mean Corpuscular HGB Conc 32.8 g/dl (31.0-35.0); Mean Corpuscular Hemoglobin 29.2 pg (27.0-33.0); Mean Corpuscular Volume 88.9 fL (80.0-98.0); Mean Platelet Volume 9.7 fL (9.4-12.3); Monocytes Absolute Auto 0.6 X10*3/uL (0.1-1.2); Monocytes Percent Auto 7.6 % (2-11); Neutrophils Absolute Auto 5.3 x10*3/uL (2.0-8.3); Neutrophils Percent Auto 67.4 % (45-73); Platelet Count 229 X10*3/uL (160-400); Red Blood Count 4.49 X10*6/uL (4.20-5.50); Red Cell Distribution Width 12.7 % (11.0-16.0); White Blood Count 7.9 X10*3/uL (4.8-10.8)
[2022-05-25 11:13] LABS: C Reactive Protein 0.23 mg/dL (< or = 0.50)
[2022-05-25 11:25] LABS: Thyroid Stimulating Hormone 1.67 uIU/mL (0.32-4.0)
[2022-05-25 11:43] LABS: Erythrocyte Sedimentation Rate 25 MM/HR (0-20)
== END 2022-05-25 08:55 | disposition home or self-care (01) ==
LOC: HO.10HDL 08:54
PROVIDERS: Visit Provider Internal Medicine Rheumatology
DX: M54.9 Dorsalgia, unspecified (principal); M25.551 Pain in right hip; M47.816 Spondylosis without myelopathy or radiculopathy, lumbar region; M47.812 Spondylosis without myelopathy or radiculopathy, cervical region; R53.83 Other fatigue
CPT/HCPCS: 36415; 82550; 84443; 85025; 85652; 86140

== ENCOUNTER → 2022-10-23 08:26 | Outpatient (BNVA) | payer OTHER, SELFPAY | PROVIDERS: PCP Internal Medicine Medical Oncology; Visit Provider Internal Medicine ==

== ENCOUNTER → 2022-10-27 14:29 | Outpatient (BNVA) | payer OTHER, SELFPAY | PROVIDERS: PCP Internal Medicine Medical Oncology; Visit Provider Neurological Surgery ==

== ENCOUNTER 2022-11-19 08:16 | Day surgery (SDC) | payer OTHER, SELFPAY ==
--- NOTE | 2022-11-13 | ECG_ITS ---
Test Reason : preop Blood Pressure : / mmHG Vent. Rate : 062 BPM Atrial Rate : 062 BPM P-R Int : 190 ms QRS Dur : 086 ms QT Int : 436 ms P-R-T Axes : 029 022 -02 degrees QTc Int : 442 ms Normal sinus rhythm Normal ECG When compared with ECG of 25-MAY-2021 19:52, Inverted T waves have replaced nonspecific T wave abnormality in Inferior leads Referred By: Katharine Alston Electronically Signed By:Rafael Seymour
[2022-11-13 13:19] VITALS: BP 198/93; PULSE 62; RESP 20; O2SAT 98; BMI 29.2
--- NOTE | 2022-11-13 13:34 | HO.ANESPROP2 ---
Documented by User: Katharine Alston NP 11/13/22 13:45 HPI - Anesthesia Eval Consult details Narrative: 62yo F for C4-5,C5-6 Ant Cerv Discectomy w/ fusion Medically optimized per pcp No recent illness COPD stable with daily beztri. Occasional albuterol. Continues to smoke. Denies CP. Walks daily. ~ 2 miles [facility] Active Problems Active Problems: All Active Problems (Updated 11/13/22 @ 13:07 by Naa Schmid RN) Spondylosis of lumbar region without myelopathy or radiculopathy (Acute) Cervicalgia (Acute) Bilateral shoulder pain (Acute) Palpable mass of soft tissue of elbow (Acute) Sacroiliac joint pain (Acute) Snoring (Acute) Multilevel spine pain (Acute) Hip pain, right (Acute) Cervical osteoarthritis (Acute) Fatigue (Acute) Cervical spinal stenosis (Acute) Spinal stenosis, lumbar region with neurogenic claudication (Acute) Cervical spondylosis with myelopathy and radiculopathy (Acute) Hypertension (Acute) Personal history of nicotine dependence (Acute) Asthma (Acute) Past Medical History Medical History (Updated 11/13/22 @ 13:07 by Naa Schmid RN) Arthritis Asthma Cerebral microvascular disease COVID-19 Degenerative disc disease at L5-S1 level Depression Habitual snoring Hepatitis C History of TIA (transient ischemic attack) Hypertension Internal hemorrhoids Nonhealing nonsurgical wound Numbness Personal history of nicotine dependence Tobacco dependence Tubular adenoma of colon (~2001) Family History Family History (Updated 10/07/21 @ 12:34 by Shereen Rivera PA-C) Paternal Grandmother Colon cancer Father HTN (hypertension) CAD (coronary artery disease) Mother HTN (hypertension) CAD (coronary artery disease) Son HTN (hypertension) Family history of problems with anesthesia: No Surgical History Surgical History (Updated 11/12/22 @ 12:29 by Naa Schmid RN) History of colonoscopy History of hysterectomy (~2007) History of liver biopsy (~2014) History of surgery on lower extremity (~2014) History of tubal ligation History of Problems with Anesthesia: No Social History Social History (Updated 11/19/22 @ 08:42 by Lia Farfan RN) Household Members: None Housing: House Are you a primary home care nurse to a significant other at home: No Do you presently have visiting nurse or other home services: No Alcohol intake: current Alcohol intake frequency: a few times a month Patient Tobacco Use Status: Current everyday Tobacco user Tobacco use type: Cigarette Cigarettes Per Day: 5 Years Smoked: 20 Years Quit 01/2022 Second Hand Smoke Exposure: No Use of substances other than those prescribed or required for medical reasons: Yes Substance Use Type: Marijuana Substance Use Frequency: Daily Have you been hit, kicked, punched, or otherwise hurt by someone within the past year? If so, by whom?: No Are you DNR?: No Advance Directives: No Advance Directives Information Provided: Yes Advance Directives on File: No Recently lost weight without trying: No Eating poorly because of decreased appetite: No Nutrition Risks: No Nutritional Risk Patient : No : No Poor oral hygiene: No service: No Current occupational status: employed Meds Allergies Allergy/AdvReac Type Severity Reaction Status Date / Time prednisone [PREDNISONE] Allergy Unknown Anxiety Verified 11/13/22 13:18 prednisolone Allergy Unknown Verified 11/12/22 12:31 sulfa Allergy Unknown Hives Uncoded 11/13/22 13:18 Home Medications Medication Instructions Recorded Confirmed Last Taken Type atenolol 50 mg tablet 100 mg PO DAILY 08/10/20 11/13/22 11/19/22 History aspirin 81 mg tablet,delayed 81 mg PO DAILY 11/19/20 11/13/22 11/11/22 History release (Adult Aspirin Regimen) paroxetine HCl 40 mg tablet 1 tab PO DAILY 07/05/21 11/13/22 11/19/22 History albuterol sulfate 90 mcg/actuation 2 puff inhalation Q4-6H PRN 11/12/22 11/12/22 11/17/22 History aerosol inhaler (ProAir HFA) Shortness Of Breath amitriptyline 50 mg tablet 100 mg PO BEDTIME 11/12/22 11/13/22 11/17/22 History meloxicam submicronized 10 mg 10 mg PO DAILY 11/12/22 11/13/22 11/11/22 History capsule Exam Exam Date and Time: November 13, 2022 1334 Height,Weight and Vital Signs: Height 5 ft 9 in Weight 89.811 kg Last Vital Signs Pulse 62 11/13/22 13:19 Resp 20 11/13/22 13:19 BP 198/93 H 11/13/22 13:19 Pulse Ox 98 11/13/22 13:19 O2 Del Method Room Air 11/13/22 13:19 Airway Mallampati Class: III (Small mouth) TM Dist: >3cm Neck ROM: Limited Loose/Missing/Broken Teeth: No Heart: RRR Lungs: CTAB Assessment and Plan Assessment Anesthesia Assessment: Anesthesia Plan Discussed, Smoking Cess. Discussed and PAT Visit Final Anesthetic Review Family History of Problems with Anesthesia: No History of Problems with Anesthesia: No Documented by User: Iain Guzman MD 11/19/22 09:38 [facility] Past Medical History Medical History (Updated 11/13/22 @ 13:07 by Naa Schmid RN) Arthritis Asthma Cerebral microvascular disease COVID-19 Degenerative disc disease at L5-S1 level Depression Habitual snoring Hepatitis C History of TIA (transient ischemic attack) Hypertension Internal hemorrhoids Nonhealing nonsurgical wound Numbness Personal history of nicotine dependence Tobacco dependence Tubular adenoma of colon (~2001) Family History Family History (Updated 10/07/21 @ 12:34 by Shereen Rivera PA-C) Paternal Grandmother Colon cancer Father HTN (hypertension) CAD (coronary artery disease) Mother HTN (hypertension) CAD (coronary artery disease) Son HTN (hypertension) Surgical History Surgical History (Updated 11/12/22 @ 12:29 by Naa Schmid RN) History of colonoscopy History of hysterectomy (~2007) History of liver biopsy (~2014) History of surgery on lower extremity (~2014) History of tubal ligation Social History Social History (Updated 11/19/22 @ 08:42 by Lia Farfan RN) Household Members: None Housing: House Are you a primary home care nurse to a significant other at home: No Do you presently have visiting nurse or other home services: No Alcohol intake: current Alcohol intake frequency: a few times a month Patient Tobacco Use Status: Current everyday Tobacco user Tobacco use type: Cigarette Cigarettes Per Day: 5 Years Smoked: 20 Years Quit 01/2022 Second Hand Smoke Exposure: No Use of substances other than those prescribed or required for medical reasons: Yes Substance Use Type: Marijuana Substance Use Frequency: Daily Have you been hit, kicked, punched, or otherwise hurt by someone within the past year? If so, by whom?: No Are you DNR?: No Advance Directives: No Advance Directives Information Provided: Yes Advance Directives on File: No Recently lost weight without trying: No Eating poorly because of decreased appetite: No Nutrition Risks: No Nutritional Risk Patient : No : No Poor oral hygiene: No service: No Current occupational status: employed Meds Allergies Allergy/AdvReac Type Severity Reaction Status Date / Time prednisone [PREDNISONE] Allergy Unknown Anxiety Verified 11/13/22 13:18 prednisolone Allergy Unknown Verified 11/12/22 12:31 sulfa Allergy Unknown Hives Uncoded 11/13/22 13:18 Home Medications Medication Instructions Recorded Confirmed Last Taken Type atenolol 50 mg tablet 100 mg PO DAILY 08/10/20 11/13/22 11/19/22 History aspirin 81 mg tablet,delayed 81 mg PO DAILY 11/19/20 11/13/22 11/11/22 History release (Adult Aspirin Regimen) paroxetine HCl 40 mg tablet 1 tab PO DAILY 07/05/21 11/13/22 11/19/22 History albuterol sulfate 90 mcg/actuation 2 puff inhalation Q4-6H PRN 11/12/22 11/12/22 11/17/22 History aerosol inhaler (ProAir HFA) Shortness Of Breath amitriptyline 50 mg tablet 100 mg PO BEDTIME 11/12/22 11/13/22 11/17/22 History meloxicam submicronized 10 mg 10 mg PO DAILY 11/12/22 11/13/22 11/11/22 History capsule Assessment and Plan Final Anesthetic Review NPO: Yes ASA Class: III Final Preanesthetic Review: No Changes in Pt Med Stat, Meds/Allgs Chart Reviewed, Consent Obtained/Reviewed and Anes Risks/Benef Reviewed Patient Risk: Intermediate Procedure Risk: Intermediate Anesthetic Plan Anesthetic Plan: GA Disposition: Standard PACU
[2022-11-13 14:25] LABS: Hematocrit 39.3 % (37.0-47.0); Mean Corpuscular HGB Conc 33.1 g/dl (31.0-35.0); Mean Corpuscular Hemoglobin 28.8 pg (27.0-33.0); Mean Corpuscular Volume 87.1 fL (80.0-98.0); Mean Platelet Volume 9.7 fL (9.4-12.3); Platelet Count 207 X10*3/uL (160-400); Red Blood Count 4.51 X10*6/uL (4.20-5.50); Red Cell Distribution Width 12.5 % (11.0-16.0); White Blood Count 8.4 X10*3/uL (4.8-10.8)
[2022-11-13 15:10] LABS: Anion Gap 10 (12-20); Blood Urea Nitrogen 13 mg/dL (9-16); Calcium 9.6 mg/dL (8.4-10.2); Carbon Dioxide 29 mmol/L (22-29); Chloride 105 mmol/L (96-108); Creatinine Clr Calc Pharmacy 100.6; Estimated Glomerular Filt Rate > 60; Glucose Random 105 mg/dL (60-115); Potassium 4.1 mmol/L (3.3-5.1); Sodium 140 mmol/L (135-145)
[2022-11-19] VITALS (15 sets, daily range): BP systolic 138–203; BP diastolic 67–98; PULSE 62–69; RESP 10–20; TEMP 36.5–36.8; O2SAT 91–96
--- NOTE | ~2022-11-19 | FL_ITS ---
EXAMINATION: XR FLUOROSCOPY WITH IMAGES CLINICAL INFORMATION: Pain COMPARISON: 03/18/2022 TECHNIQUE: Fluoroscopy Supervised By: Dr. Lui Mendiola. Fluoroscopy Time: 0. Cumulative Dose: 0.854 mGy. DAP: 0.151 Gycm2. Images: 2. FINDINGS: Interbody fusion changes are noted at C4-C5 and C5-C6 seen in a limited fashion. FL/FL guidance in OR IMPRESSION: Postsurgical changes as above..
--- NOTE | 2022-11-19 08:58 | PC.NURSE ---
DR MEJIA AWARE B/P WILL RECHECK B/P IN 30MINS PT STS TOOK B/P MEDS AT 8AM
--- NOTE | 2022-11-19 09:51 | MHC.SHP ---
Pre-Procedural Eval Section A Date of Service: 11/19/22 The patient is an INPATIENT: No The History & Physical has been completed within 30 days and I have reviewed it.: Yes Section B Chief Complaint: Other spondylosis with myelopathy, cervical region Allergies: Allergies Allergy/AdvReac Type Severity Reaction Status Date / Time prednisone [PREDNISONE] Allergy Unknown Anxiety Verified 11/13/22 13:18 prednisolone Allergy Unknown Verified 11/12/22 12:31 sulfa Allergy Unknown Hives Uncoded 11/13/22 13:18 Plan Diagnosis/Plan: Unchanged I have reviewed the history and physical and performed a pertinent physical examination on my patient. No changes have occurred unless specified. Time Spent With Patient Time: Total time managing care of this patient today ____ minutes.
--- NOTE | 2022-11-19 12:10 | W.PM.OPN ---
Operative Note Operative Note Date of Service: 11/19/22 Narrative: Preoperative Diagnosis: cervical myelopathy due to degenerative disc disease C4-5 and C5-C6 Procedure: C4-5 and C5-Y2Zgmkhyme discectomy, arthrodesis and implantation cage ; C4-C6 anterior instrumentation ; local autograft; microscope Informed Consent was obtained for this operation. I have explained the nature, purpose and benefits of the operation. I have discussed the risks and benefit of the operation including possible complications or adverse events with patient/family. Alternative(s) were discussed with the patient with their relative benefits and risks as well as the consequences of not accepting the operation were included in obtaining consent. Surgeon: PERLA TELLEZ MD, PHD Procedure Assisted By: Saud Mejia Description of Procedure: this 8-year-old female are suffer from neck pain and progressive cervical myelopathy due to spinal cord compression at C4-5 and C5-C6. She was offered an anterior diskectomy and fusion of these levels. The procedure complications were explained. The patient was consented. The patient was brought to the operating room and endotracheally intubated. The patient was put in supine position with slight extension of the neck. Prep and drape was done followed by timeout. A mid cervical incision was made followed by opening of the platysma. The prevertebral fascia was reached following the natural planes while the physician marketing assistant manager provided manual retraction. The prevertebral fascia was opened to expose the disc space. A spinal needle was placed in the disk space to confirm the correct level with xray. The longus colli muscles were released bilaterally and a self retaining retractor was inserted. An initial diskectomy was done towards the posterior annulus at C4-5 and C5-C6. Then two Rich[place] pins were placed in the C4-5 vertebral bodies and distraction was give over the interspace. The discectomy was completed toward the posterior annulus of the disc. The microscope was brought in. The central disc herniation was removed to decompress the spinal cord. the body of C4 and C5 was undercut and bone chips were saved for autograft. The endplates were prepared after which a 6 mm cage filled with autograft was inserted into the disc space. A separate attached plate was locked down with 2 x 14 mm screws as anterior instrumentation. Then attention was turned to the C5-C6 level. Distraction was given over the interspace. The diskectomy was completed. The posterior longitudinal ligament was opened and resected to expose the underlying dura. Osteophytes were resected from the body of C5 and C6 and saved for autograft. Bilateral foraminotomies were done. The endplates were prepared after which a 6 mm cage filled with autograft was inserted into the disc space. A separate attached plate was locked down with 2 x 14 mm screws as anterior instrumentation. Final x-rays in AP and lateral projection showed a satisfactory position of the implant. The physician marketing assistant manager took over. The Richwood pin was removed. Hemostasis was done. He closed the incision in 2 layers with a 3-0 Vicryl. Steri-Strips used to approximate incision. An OpSite with Tegaderm was used to cover the incision. All sponge and needle counts were correct. Patient was extubated and transported in stable is to recovery room. Anesthesia: General Estimated Blood Loss (ml):20 Duration of Surgery: 90 Postoperative Plan: Discharge home Complications: None
--- NOTE | 2022-11-19 12:10 | PM.DS ---
DS: Providers Provider Date of Service: 11/19/22 Date of discharge: 11/19/22 Primary care physician: Armando Kerns MD Admitting clinician: Neeraj Grullon DS: Diagnosis Discharge Diagnosis (1) Cervical spondylosis with myelopathy and radiculopathy: Status: Acute DS: Summary Time Spent with Patient Time attestation: Total time managing care of this patient today ____ minutes. Discharge coordination time: Less than 30 minutes Quality: Safe Use of Opioids Does Pt have an Active Cancer Diagnosis on the Problem List?: No Quality: Stroke Does the patient have a stroke diagnosis?: No Physical Exam Vital Signs: Vital Signs: Last Vital Signs Temp 98.2 F 11/19/22 08:18 Pulse 68 11/19/22 08:18 Resp 20 11/19/22 08:18 BP 183/89 H 11/19/22 08:58 Pulse Ox 96 11/19/22 08:18 O2 Del Method Room Air 11/19/22 08:18 BMI result Body Mass Index 29.2 Discharge Plan Discharge Patient Disposition: Home, Self-Care Referrals: Armando Kerns MD [Primary Care Provider] - 1 Week Discharge Medications: New docusate sodium [Colace] 100 mg capsule 100 mg PO BID Qty: 20 0RF oxycodone-acetaminophen [Percocet] 5-325 mg tablet 1 tab PO Q4H PRN (Reason: pain) Qty: 30 0RF Rx Instructions: Partial Fill upon patient request. Continued atenolol 50 mg tablet 100 mg PO DAILY amlodipine [Norvasc] 5 mg tablet 5 mg PO DAILY Qty: 5 0RF paroxetine HCl 40 mg tablet 1 tab PO DAILY albuterol sulfate 2.5 mg /3 mL (0.083 %) solution for nebulization 2.5 mg inhalation Q4-6H PRN (Reason: shortness of breath or wheezing) Qty: 90 0RF (DME) nebulizer and compressor Device See Rx Instructions .Route Qty: 1 0RF Rx Instructions: As directed amitriptyline 50 mg tablet 100 mg PO BEDTIME albuterol sulfate [ProAir HFA] 90 mcg/actuation Hfa Aerosol Inhaler 2 puff INHALATION Q4-6H PRN (Reason: Shortness Of Breath) meloxicam submicronized 10 mg Capsule 10 mg PO DAILY aspirin [Adult Aspirin Regimen] 81 mg tablet,delayed release (DR/EC) 81 mg PO DAILY Greta Ingram 160-9-4.8 mcg/actuation HFA aerosol inhaler 2 inh inhalation BID 30 Days Qty: 10.7 11RF Discharge Orders: Discharge Order (Routine); Ordered 11/19/22 Ordered By: Saud Lanier Diet: Advance to usual diet Activity on Discharge: As tolerated Activity Restrictions/Additional Instructions: After your spinal surgery we ask you to observe the following restrictions/guidelines: Activity: It is normal to feel some discomfort as you increase your activity, but that will improve with time. We ask you avoid heavy lifting or acitivities that cause pain. As a general rule, 8lbs is a safe limit for lifting right after surgery. Walk as much as you feel comfortable but not to exhaustion. You will feel extra tired the first few days after surgery. Stay well hydrated. It is OK to walk up and down stairs You may return to driving when you are off narcotics (such as vicodin, oxycodone, dilaudid, etc), and you are back to normal functional capacity. If you have any concerns please check with office before driving. Return to work is specific to each patient and each surgery, so please speak with your doctor/PA at first follow up. Please bring paperwork such as FMLA at that time if you need it filled out. Medications: We will give you a short supply of narcotics after surgery (usually one weeks worth). If you need more please call the office but do not use more than prescribed. You will need to give our office 48 hours notice if you need narcotics refilled and we do not fill narcotics on weekends or evenings. If you are on a narcotic, it is a good idea to take a stool softener such as colace or senna to avoid constipation If you take blood thinner such as aspirin, Plavix, Coumadin, Effient, Eliquis etc for conditions such as Afib, DVT, Pulmonary embolus, coronary disease, stents etc please speak with your surgeon about specific details as to when you can resume these medications. You can resume NSAIDs on post op day 1 (eg: Motrin, Naproxen, etc). Follow up: Please call the office, , after surgery to arrange a 3 week follow up for wound check. Wound Care: You may remove your dressing on the first day after surgery. You may leave open to air. Please do not remove the steri strips underneath. they will fall off on their own in one week. IT IS NORMAL FOR THE WOUND TO OOZE OR BE BLOODY FOR A FEW DAYS AFTER SURGERY. IF THIS HAPPENS JUST PLACE NEW DRESSING OVER IT TO AVOID STAINING CLOTHES. You may shower on post op day # 1 We ask that you do not let the water soak the wound. If it does get wet, just towel dry lightly. Please do not scrub your incision or place any type of chemical/ointment on the wound. No tub baths, pools or jacuzzis for one month. If you have any leaking or redness from your wound, or fevers, please call office
== END 2022-11-19 15:46 | disposition home or self-care (01) ==
PROVIDERS: Nurse Practitioner; PCP Internal Medicine Medical Oncology; Visit Provider Neurological Surgery
PROC: (CPT 22551; principal; 2022-11-19 11:40)
DX: M47.12 Other spondylosis with myelopathy, cervical region (principal); M47.22 Other spondylosis with radiculopathy, cervical region; M50.021 Cervical disc disorder at C4-C5 level with myelopathy; M50.121 Cervical disc disorder at C4-C5 level with radiculopathy; M50.022 Cervical disc disorder at C5-C6 level with myelopathy; M50.122 Cervical disc disorder at C5-C6 level with radiculopathy; G95.20 Unspecified cord compression; I10 Essential (primary) hypertension; J45.909 Unspecified asthma, uncomplicated; Z79.82 Long term (current) use of aspirin; Z79.899 Other long term (current) drug therapy
CPT/HCPCS: 22551; 22552; 22853 ×2; 22845; 20936; 36415; 80048; 85027; 93005; C1713; J0131; J0690; J1100; J1170; J2250; J2405; J3010

== ENCOUNTER 2022-12-09 14:48 | Outpatient (AMB) | payer OTHER, SELFPAY ==
--- NOTE | 2022-12-09 17:47 | HO.SPINEOV ---
Intake Intake Visit Reasons: 1st post op Allergies prednisone [PREDNISONE] Allergy (Unknown, Verified 11/13/22 13:18) Anxiety prednisolone Allergy (Verified 11/12/22 12:31) Unknown sulfa Allergy (Unknown, Uncoded 11/13/22 13:18) Hives Assessment & Plan Assessment & Plan (1) Status post cervical spinal fusion: Code(s): Z98.1 - Arthrodesis status Plan Dear colleague, On 12/10/2022, I saw for 1st postoperative visit your patient Libertad Hurst. She underwent an anterior diskectomy fusion C4-5 and C5-C6 3 weeks ago for progressive cervical myelopathy. She states that her arms still feel heavy. She does not recall dropping that many objects any more and she has not fallen. So overall her neurological symptoms seem to be improved. Her main complaint today is right-sided neck pain that should resolve over time. I would like to follow up with the patient in 6 weeks with a cervical x-ray. At the end of the consult she also mentioned back pain for which she underwent an MRI in the recent past. We will discuss these symptoms at her next visit. Thank you for the referral. Neeraj Grullon MD, PhD Spine Fellowship Trained Neurosurgeon Director, [facility] [place] [facility] Orders: Orders XR cervical spine 2V 6 Weeks Z98.1 - Arthrodesis status Coding Level of Care Code Global (10975) Diagnoses Status post cervical spinal fusion Z98.1
== END 2022-12-09 16:39 | disposition home or self-care (01) ==
PROVIDERS: PCP Internal Medicine Medical Oncology; Visit Provider Neurological Surgery
DX: Z98.1 Arthrodesis status (principal)
CPT/HCPCS: 99024

== ENCOUNTER → 2022-12-09 14:48 | Outpatient (BNVA) | payer OTHER, SELFPAY | PROVIDERS: PCP Internal Medicine Medical Oncology; Visit Provider Neurological Surgery ==

== ENCOUNTER 2023-01-19 11:40 | Outpatient (REF) | payer OTHER, SELFPAY ==
--- NOTE | ~2023-01-19 | XR_ITS ---
EXAMINATION: XR CERVICAL SPINE CLINICAL INFORMATION: Arthrodesis status post ACDF C4-C6 COMPARISON: MRI cervical spine from 03/18/2022 TECHNIQUE: 2 views of the cervical spine were obtained. FINDINGS: Anterior cervical fusion of C4-C5 and C5-C6. Spinal hardware is grossly intact. Prevertebral soft tissue swelling at this level. Straightening of normal cervical curvature which may secondary to patient positioning versus muscle spasm. No acute visible fracture or dislocation. 2 mm and spaces are maintained. Posterior elements are intact. Paraspinal soft tissues are unremarkable. Visualized portions of the upper chest are unremarkable. XR/XR cervical spine 2V IMPRESSION: 1. Anterior cervical fusion of C4-C5 and C5-C6. Spinal hardware is grossly intact. 2. Prevertebral soft tissue swelling at this level. 3. Straightening of normal cervical curvature which may secondary to patient positioning versus muscle spasm. 4. No acute visible fracture or dislocation.
== END 2023-01-19 11:41 | disposition home or self-care (01) ==
LOC: HO.HOSX 11:40
PROVIDERS: Visit Provider Physician Assistant
DX: M54.2 Cervicalgia (principal); R53.1 Weakness; Z98.1 Arthrodesis status
CPT/HCPCS: 72040

== ENCOUNTER 2023-01-19 12:44 | Outpatient (AMB) | payer OTHER, SELFPAY ==
--- NOTE | 2023-01-19 13:03 | A.SPINEOV_ITS ---
Intake Intake Visit Reasons: 2nd post op with xrays Intake Note: Ms. Hurst is here today for her 2nd post-op visit. Project Economist Required: No Allergies prednisone [PREDNISONE] Allergy (Unknown, Verified 11/13/22 13:18) Anxiety prednisolone Allergy (Verified 11/12/22 12:31) Unknown sulfa Allergy (Unknown, Uncoded 11/13/22 13:18) Hives Assessment & Plan Assessment & Plan (1) Cervicalgia: Code(s): M54.2 - Cervicalgia Plan Libertad is a 62-year-old female comes in today for her 2nd postoperative appointment. She had cervical spine x-rays completed today which were reviewed with her in the office. She states that she is still having bilateral hand weakness, and reports that her arm still feel ?heavy. She is able to complete the majority of her ADLs without issue and is able to use her bilateral upper extremities for more intricate tasks such as cooking cleaning. She states that she does not have any right-sided neck/upper back pain any longer. She reports that she has a different issue, that she would like to discuss with Dr. Grullon. She has significant low back pain which radiates from her lumbar spine to her posterior buttocks down the posterior thighs terminating above the knee. She also endorses significant bilateral lateral sided hip pain. She reports that she wants to have surgery for this issue, and is concerned that she was not able to see Dr. Grullon today as she has been experiencing significant low back pain as of late. She was informed that she was booked only for a postoperative appointment today, and that Dr. Grullon is still in surgery from this AM. On exam the patient has 5/5 strength in her upper extremities with no obvious deficit. She has 5/5 strength in her lower extremities as well, and has no deficit. Sensation remains grossly intact. (-) bilateral straight leg raise. (- ) bilateral rick's. (+) left-sided Gaenslen's, (-) right-sided Gaenslen's. The patient is able to ambulate well. Pain management is currently working the patient up for this low back pain issue and reported that the most successful intervention has been the blockade of her sacroiliac innervation via a Dreyfus technique injection that provided 70% relief. They recommended sacroiliac joint innervation stimulator placement which was denied by her insurance. Per the last pain management notes it seems as though they are attempting to appeal the insurance company for approval. Libertad was encouraged to make a follow-up appointment with the assistant front office manager to see Dr. Grullon for a separate consult. She will be scheduled for a consult appointment with Dr. Grullon for her new low-back related issue. He will need to review her MRI from March of 2022 and decided if there is some type of intervention he would like to offer. Total amount of time spent in this visit was 35 minutes in discussion of symptoms, MRI lumbar spine & Cervical X-ray imaging results, pain management treatment course, & subsequent plan of care. Blade Grullon MD,PhD [facility] Orders: Orders XR cervical spine 2V Today Z98.1 - Arthrodesis status Coding Level of Care Code Est Pt Level 4 (66954) Diagnoses Cervicalgia M54.2
== END 2023-01-19 13:56 | disposition home or self-care (01) ==
PROVIDERS: PCP Internal Medicine Medical Oncology; Visit Provider Physician Assistant
DX: M54.2 Cervicalgia (principal)
CPT/HCPCS: 99214

== ENCOUNTER 2023-01-20 07:15 | Outpatient (REF) | payer OTHER, SELFPAY | END 2023-01-20 07:16 | disposition home or self-care (01) | LOC: HO.HOSX 07:15 | PROVIDERS: Visit Provider Neurological Surgery | DX: Z13.89 Encounter for screening for other disorder (principal) ==

== ENCOUNTER 2023-02-02 14:28 | Outpatient (AMB) | payer OTHER, SELFPAY ==
--- NOTE | 2023-02-02 14:43 | A.SPINEOV_ITS ---
Intake Intake Visit Reasons: lower back consult Intake Note: Mrs. Hurst is here today c/o new problem/low back pain. Call Center Professional Required: No Allergies prednisone [PREDNISONE] Allergy (Unknown, Verified 11/13/22 13:18) Anxiety prednisolone Allergy (Verified 11/12/22 12:31) Unknown sulfa Allergy (Unknown, Uncoded 11/13/22 13:18) Hives Assessment & Plan Assessment & Plan (1) Lumbar degenerative disc disease: Code(s): M51.36 - Other intervertebral disc degeneration, lumbar region Plan Dear Colleague, On 02/02/2023, I saw Libertad Hurst for excruciating low back pain. I recently performed a cervical decompression and fusion for cervical myelopathy. Today she wants to discuss her back problems. She states that they have been going on for a long time and prevent her from doing her job. The pain is located in the lower spine and in the bilateral hips. The pain gets worse with sitting or laying on her side. Standing make her symptoms better. She denies symptoms in her legs. It takes a long time to get going in the morning due to her back pain. She had multiple injections in the past, including an SI joint injection. The SI joint injection only gave her relief for 1 hour of approximately 70%. She was evaluated by our pain management team, Dr. Guzman, who recommended a mi nimally invasive lumbar decompression L3-4 and L4-5. On exam, she is in discomfort sitting and she wants to stand up. Extension of the lumbar spine is painful. There are no neurological deficits. Reviewed the MRI of the lumbar spine shows mild lumbar degenerative disc disease L2-3, L3-4 and L4-5 and moderate central spinal stenosis L3-4 and L4-5. In summary, this patient is suffering from chronic intractable low back pain. The symptoms are not characteristic of lumbar spinal stenosis and therefore I would not offer her a lumbar decompression or lumbar fusion. I will discuss her case with Dr. Guzman to see if she is a candidate for facet blocks and possible facet denervation. I spent 30 minutes in this consult. Neeraj Grullon MD, PhD Spine Fellowship Trained Neurosurgeon Director, [facility] [place] [facility] Coding Level of Care Code Est Pt Level 3 (97926) Diagnoses Lumbar degenerative disc disease M51.36
== END 2023-02-02 15:27 | disposition home or self-care (01) ==
PROVIDERS: PCP Internal Medicine Medical Oncology; Visit Provider Neurological Surgery
DX: M51.36 Other intervertebral disc degeneration, lumbar region (principal)
CPT/HCPCS: 99213

== ENCOUNTER → 2023-02-02 14:28 | Outpatient (BNVA) | payer OTHER, SELFPAY | PROVIDERS: PCP Internal Medicine Medical Oncology; Visit Provider Neurological Surgery ==

== ENCOUNTER 2023-02-08 09:08 | Outpatient (AMB) | payer OTHER, SELFPAY ==
[2023-02-08 09:21] VITALS: BP 191/84; PULSE 63; RESP 14; O2SAT 92
--- NOTE | 2023-02-08 09:21 | A.OFFVIS_ITS ---
Intake Vital Signs 02/08/23 09:21 Weight 195 lb BP 191/84 H Blood Pressure Location Rt brachial Position Sitting Respiration 14 Pulse 63 Pulse Source Pulse Oximeter Pulse Oximetry (%) 92 Oxygen Delivery Method Room Air Intake Visit Reasons: BACK PAIN/REF BACK DR TELLEZ Allergies prednisone [PREDNISONE] Allergy (Unknown, Verified 02/08/23 09:23) Anxiety sulfa Allergy (Unknown, Uncoded 02/08/23 09:23) Hives Medication List - Last Reconciled 02/08/23 by Shyanne Villafuerte LPN albuterol sulfate 2.5 mg (3 mL) inhalation Q4-6H PRN albuterol sulfate 90 mcg/actuation (ProAir HFA) 2 puffs inhalation Q4-6H PRN amitriptyline 100 mg PO BEDTIME amlodipine (Norvasc) 5 mg PO DAILY aspirin (Adult Aspirin Regimen) 81 mg PO DAILY atenolol 100 mg PO DAILY flmopfatwb-cphlkghr-rbnqeycctw 160-9-4.8 mcg/actuation (Breztri Aerosphere) 2 inhalations inhalation BID 30 days nebulizer and compressor As directed paroxetine HCl 1 tab PO DAILY HPI BACK PAIN/REF BACK DR TELLEZ HPI Details 62-year-old female who presents today to the office for a follow-up of back pain. She underwent an anterior diskectomy fusion C4-5 and C5-C6 on 11/19/22. She still has neck pain, making steady improvement. Still trying to wean off smoking. The patient reports longstanding history of back pain. It limits her ability to do her job. The pain is located in the lower spine and in the bilateral hips. The pain gets worse with sitting or lying on her side. She reports pain and paresthesia in her right foot. She has difficulty standing for prolonged time. Endorses back pain with walking, improved with sitting and flexing forward. She had multiple injections in the past, the most helpful of which was a SIJ innervation block. The patient started back on Chantix. The patient will resume half-day shift work on 02/14/23. She is taking amitriptyline 50 mg QHS P.R.N. Past Procedures: 07/23/21: Bilateral Diagnostic L3-L4-L5 MB Bs ? 40 - 50% relief. 06/25/21: Right Diagnostic L3-L4-L5 MBBs ? 40 to 50% relief. 04/30/21: Bilateral Intra-articular SIJ injection ? 30% relief for 2 weeks. 03/19/21: Bilateral Diagnostic SIJ Inner vation Block ([employer]) ? 70% relief for 4 hours. 01/01/21: Bilateral SIJ Injections ? 25% relief for a few days. [facility] Medical History (Updated 02/08/23 @ 12:44 by Iain Guzman MD) Numbness COVID-19 Arthritis Habitual snoring Tobacco dependence Depression Internal hemorrhoids Nonhealing nonsurgical wound Degenerative disc disease at L5-S1 level History of TIA (transient ischemic attack) Hepatitis C Tubular adenoma of colon (~2001) Personal history of nicotine dependence Asthma Hypertension Cerebral microvascular disease Surgical History (Updated 12/09/22 @ 17:50 by Neeraj Tellez MD, PhD) History of tubal ligation History of surgery on lower extremity (~2014) History of colonoscopy History of liver biopsy (~2014) History of hysterectomy (~2007) Family History (Updated 10/07/21 @ 12:34 by Shereen Rivera PA-C) Paternal Grandmother Colon cancer Father HTN (hypertension) CAD (coronary artery disease) Mother HTN (hypertension) CAD (coronary artery disease) Son HTN (hypertension) Social History (Updated 11/19/22 @ 08:42 by Lia Farfan RN) Household Members: None Housing: House Are you a primary intensive care anaesthetist to a significant other at home: No Do you presently have visiting nurse or other home services: No Alcohol intake: current Alcohol intake frequency: a few times a month Patient Tobacco Use Status: Current everyday Tobacco user Tobacco use type: Cigarette Cigarettes Per Day: 5 Years Smoked: 20 Years Quit 01/2022 Second Hand Smoke Exposure: No Substance Use Type: Marijuana service: No Current occupational status: employed Review of Systems Const All systems reviewed & are unremarkable except as noted in HPI and below Physical Exam Vital Signs: Last Vital Signs Pulse 63 02/08/23 09:21 Resp 14 02/08/23 09:21 BP 191/84 H 02/08/23 09:21 Pulse Ox 92 02/08/23 09:21 Oxygen Delivery Method Room Air 02/08/23 09:21 General: Appears afebrile. Alert and oriented. Mood and affect appropriate. Follows and participates in conversation appropriately. Respiratory effort is unlabored. Able to transition from sit to stand unassisted. Ambulates with bilaterally normal heel strike and toe off. Results Reviewed Results Reviewed: 03/18/22: MR LUMBAR SPINE WITHOUT CONTRAST FINDINGS: VERTEBRAL BODIES AND PARASPINAL STRUCTURES: There is a mild leftward curvature of the mid lumbar spine. No compression fractures are seen. A minimal retrosubluxation is stable at the L3-L4 level. Reduced intradiscal signal and mild disc space narrowing are relatively stable from the L2 through the L5 levels. Mild edematous endplate changes are visible at the L5-S1 level lateralized to the left side and to the right side at the L2-L3 and L3-L4 levels. There are no compression fractures. The paraspinal soft tissues are normal. Small left renal cyst is stable. The imaged bony pelvis is normal. CONUS MEDULLARIS AND CAUDA EQUINE: The distal cord, conus tip, and cauda equina nerve roots are normal. SPINAL LEVELS: L1-L2: No disc pathology, central canal stenosis, or foraminal narrowing. L2-L3: Mild diffuse disc bulge and endplate spurring with tzct-jd-uhvasjzi facet arthropathy and stable mild central canal stenosis. Mild bilateral foraminal narrowing is otherwise unchanged. L3-L4: Slight retrosubluxation and broad-based disc bulge with facet arthropathy contributes to worsened ventral thecal sac deformity and pvyh-vn-nclhtnkb central canal stenosis, also slightly worsened. Mild foraminal narrowing. L4-L5: Broad-based disc bulge and superimposed shallow, broad-based central disc protrusion results in mild mass effect upon the L5 nerve roots in the subarticular zones. Hypertrophic facet arthropathy with stable mild central canal stenosis. Kfdl-si-sdhkleqx right foraminal narrowing as on prior imaging. L5-S1: Pzfgrncp-bo-wdyaqb facet arthropathy, more so on the left side again evident, though without foraminal encroachment. Very mild disc bulge. No central canal stenosis. IMPRESSION: 1. Slightly worsened ventral thecal sac deformity and progressed mild-to-mod erate central canal stenosis at the L3-L4 level. 2. Stable broad-based central disc protrusion at the L4-L5 level with mild mass effect upon both L5 nerve roots. Stable mild central canal stenosis and dopp-yg-qwwirqwr right foraminal narrowing. 3. Stable mild central canal stenosis and hypertrophic facet arthropathy at the L2-L3 level. Mild leftward lumbar spinal curvature. 4. Stable egvkziou-nu-uyrnjx facet arthropathy at the L5-S1 level. 01/19/23: XR CERVICAL SPINE FINDINGS: Anterior cervical fusion of C4-C5 and C5-C6. Spinal hardware is grossly intact. Prevertebral soft tissue swelling at this level. Straightening of normal cervical curvature which may secondary to patient positioning versus muscle spasm. No acute visible fracture or dislocation. 2 mm and spaces are maintained. Posterior elements are intact. Paraspinal soft tissues are unremarkable. Visualized portions of the upper chest are unremarkable. IMPRESSION: 1. Anterior cervical fusion of C4-C5 and C5-C6. Spinal hardware is grossly intact. 2. Prevertebral soft tissue swelling at this level. 3. Straightening of normal cervical curvature which may secondary to patient positioning versus muscle spasm. 4. No acute visible fracture or dislocation. Assessment & Plan Assessment & Plan (1) Lumbar degenerative disc disease: Code(s): M51.36 - Other intervertebral disc degeneration, lumbar region (2) Spinal stenosis, lumbar region with neurogenic claudication: Code(s): M48.062 - Spinal stenosis, lumbar region with neurogenic claudication (3) Vertebrogenic low back pain: Code(s): M54.51 - Vertebrogenic low back pain Plan We will schedule her for bilateral L3-4 and L4-5 MILD procedure to start with given significant LF hypertrophy at those levels (80/60mm respectively) and symptoms of neurogenic claudication/radiculopathy. Discussed the risks and benefits of the procedure with the patient in detail. All questions were ans wered. The patient is on board with the plan. Following the MILD procedure, we will consider BVN ablation/intercept procedure at L4-5 for possible vertebrogenic sourse for refractory symptoms. Provided a one-time script for Tramadol for pain control until the procedure is completed. Counseled not to combine with amitriptyline. Justification for interventional therapy: ? Patient with average pain > 6/10 ? Patient has exhausted conservative therapy including diagnostic injections, steroid injections, oral medications. ? Patient continuing home exercise program ? Previous injection provided >50% relief x > [address] Guzman by Nir Arenas, medical staff assistant, on 02/08/2023. I, Dr. Guzman, have personally reviewed and agree with the information entered by the scribe. Medications: New tramadol 50 mg PO BID PRN 40 tabs 0RF pain Coding Level of Care Code Est Pt Level 4 (66674) Diagnoses Lumbar degenerative disc disease M51.36 Spinal stenosis, lumbar region with neurogenic claudication M48.062 Vertebrogenic low back pain M54.51
== END 2023-02-08 09:51 | disposition home or self-care (01) ==
PROVIDERS: PCP Internal Medicine Medical Oncology; Visit Provider Internal Medicine
DX: M51.36 Other intervertebral disc degeneration, lumbar region (principal); M48.062 Spinal stenosis, lumbar region with neurogenic claudication; M54.51 Vertebrogenic low back pain
CPT/HCPCS: 99214

== ENCOUNTER → 2023-02-08 09:08 | Outpatient (BNVA) | payer OTHER, SELFPAY | PROVIDERS: PCP Internal Medicine Medical Oncology; Visit Provider Internal Medicine ==

== ENCOUNTER 2023-06-11 12:50 | Inpatient (IN) | payer OTHER, SELFPAY ==
[2023-06-11] VITALS (8 sets, daily range): BP systolic 152–166; BP diastolic 58–84; PULSE 68–84; RESP 15–20; TEMP 36.3–37.1; O2SAT 90–97; BMI 26.6
--- NOTE | ~2023-06-11 | XR_ITS ---
EXAMINATION: XR CHEST CLINICAL INFORMATION: Shortness of breath. Cough. Rule out pneumonia. COMPARISON: Previous chest x-ray June [address] November 2019 TECHNIQUE: 2 views of the chest were obtained. FINDINGS: The cardiac and mediastinal contours are stable. The lungs are clear. No pleural effusion or thorax. Degenerative changes of the thoracic spine. Postsurgical changes of the lower cervical spine. XR/XR chest 2V IMPRESSION: No evidence for acute disease in the chest.
--- NOTE | 2023-06-11 13:04 | ECG_ITS ---
Test Reason : DYSPNEA Blood Pressure : / mmHG Vent. Rate : 065 BPM Atrial Rate : 065 BPM P-R Int : 176 ms QRS Dur : 080 ms QT Int : 408 ms P-R-T Axes : 018 022 028 degrees QTc Int : 424 ms Normal sinus rhythm Normal ECG When compared with ECG of 13-NOV-2022 14:06, No significant change was found Referred By: Tmomy Rodrigues Electronically Signed By:Rafael Seymour
--- NOTE | 2023-06-11 13:06 | ED_ITS ---
HPI - SOB/Dyspnea General Chief Complaint: Dyspnea Stated Complaint: DIFF BREATHING Time Seen by Provider: 06/11/23 12:53 Source: patient Mode of arrival: EMS Limitations: no limitations History of Present Illness HPI Narrative: 63-year-old female with a history of arthritis, depression, degenerative disc disease, TIA, cerebral microvascular disease, hypertension, asthma, hepatitis-C status post treatment who presents emergency department for evaluation of shortness of breath x2 weeks. Patient states she has had a cough which is productive of thick yellow sputum for approximately 2 weeks. She states she has been short of breath and has had use her inhaler and nebulizer more frequently. She did see her PCP and was treated with prednisone and an antibiotic as an outpatient with no improvement of her symptoms. She states that prior to coming to the emergency department she became very short of breath and was unable breathe. She used an albuterol nebulizer at home with no relief therefore she called an ambulance. Paramedics report that the patient appear to be in significant respiratory distress, she was tripoding and using accessory muscles to breathe. Paramedics treated her with DuoNeb x2 nebulizer treatments, Solu- Medrol 125 mg IV and magnesium 2 g IV. At the time my evaluation she is tachypneic but able to answer questions, speaks in full sentences and according the paramedics is significantly improved compared to when they 1st evaluated her. Patient states she has never been intubated but did have an asthma exacerbation approximately 1 year prior requiring a 4 day hospitalization. Patient smokes 5 cigarettes per day. She also smokes at least 1 marijuana cigarettes daily. Related Data Home Medications Medication Instructions Recorded Confirmed atenolol 50 mg tablet 100 mg PO DAILY 08/10/20 06/11/23 aspirin 81 mg tablet,delayed 81 mg PO DAILY 11/19/20 06/11/23 release (Adult Aspirin Regimen) paroxetine HCl 40 mg tablet 1 tab PO DAILY 07/05/21 06/11/23 albuterol sulfate 90 mcg/actuation 2 puff inhalation Q4-6H PRN 11/12/22 06/11/23 aerosol inhaler (ProAir HFA) Shortness Of Breath amitriptyline 50 mg tablet 50 mg PO BEDTIME 11/12/22 06/11/23 Previous Rx's Medication Instructions Recorded amlodipine 5 mg tablet (Norvasc) 5 mg PO DAILY #5 tabs 08/12/20 albuterol sulfate 2.5 mg/3 mL 2.5 mg (3 mL) inhalation Q4-6H PRN 07/07/21 (0.083 %) solution for nebulization shortness of breath or wheezing #90 mL nebulizer and compressor #1 ea 07/07/21 budesonide 160 mcg-glycopyr 9 2 inh inhalation BID 30 days #10.7 02/11/22 mcg-formot 4.8 mcg/actuation HFA grams inhaler (Breztri Aerosphere) Allergies Allergy/AdvReac Type Severity Reaction Status Date / Time prednisone [PREDNISONE] Allergy Unknown Anxiety Verified 06/11/23 13:02 sulfa Allergy Unknown Hives Uncoded 06/11/23 13:02 Review of Systems 2 Review of Systems: Yes all other systems are reviewed and are negative [facility] Past Medical History Medical History Numbness COVID-19 Arthritis Habitual snoring Tobacco dependence Depression Internal hemorrhoids Nonhealing nonsurgical wound Degenerative disc disease at L5-S1 level History of TIA (transient ischemic attack) Hepatitis C Tubular adenoma of colon (~2001) Personal history of nicotine dependence Asthma Hypertension Cerebral microvascular disease Surgical History History of tubal ligation History of surgery on lower extremity (~2014) History of colonoscopy History of liver biopsy (~2014) History of hysterectomy (~2007) Family History Family History Paternal Grandmother Colon cancer Father HTN (hypertension) CAD (coronary artery disease) Mother HTN (hypertension) CAD (coronary artery disease) Son HTN (hypertension) Social History Social History Household Members: None Housing: House Are you a primary director of healthcare systems to a significant other at home: No Do you presently have visiting nurse or other home services: No Alcohol intake: current Alcohol intake frequency: a few times a month Patient Tobacco Use Status: Never used Tobacco Tobacco use type: Cigarette Cigarettes Per Day: 5 Years Smoked: 20 Years Quit 01/2022 Smoked in Last 30 Days: No Second Hand Smoke Exposure: No Use of substances other than those prescribed or required for medical reasons: No Substance Use Type: Marijuana Advance Directives: No Advance Directives Information Provided: Yes Nutrition Risks: No Nutritional Risk Patient : No service: No Current occupational status: employed Physical Exam 2 Vital Signs: Vital Signs: Last Vital Signs Temp 97.4 F 06/11/23 15:24 Pulse 84 06/11/23 15:24 Resp 15 06/11/23 15:24 BP 164/68 H 06/11/23 15:24 Pulse Ox 93 06/11/23 15:24 O2 Del Method Nasal Cannula 06/11/23 15:24 O2 Flow Rate 2 06/11/23 15:24 BMI result Body Mass Index 26.6 Vital signs were normal except for an elevated respiratory rate of 20 an elevated blood pressure of 152/82 Exam General: Awake, alert in no distress, speaking in full sentences, tachypneic but otherwise no significant respiratory distress Head: Normocephalic, atraumatic EENT: PERRL, Lids normal, sclera normal, conjunctiva normal, nose normal , ears normal, throat without erythema or exudates Neck: Supple, no adenopathy, no trachea midline or C-spine tenderness Lung: Breath sounds symmetric bilaterally, diffuse wheezing, coughing at end of expiration, no rales, no rhonchi Chest: symmetric movement, nontender Heart: regular rate and rhythm, normal S1, S2 no murmurs or rubs Abdomen: soft, non-tender, nondistended, normal bowel sounds Back: no vertebral tenderness, no CVAT Extremities: no deformities, moves all extremities symmetrically Neuro: Awake, alert, oriented, normal speech, cranial nerves intact, moves all extremities symmetrically Psych: Pleasant, cooperative Medications Administered Generic Name Dose Route Start Last Admin Trade Name Freq PRN Reason Stop Dose Admin Albuterol/Ipratropium 3 ml 06/11/23 16:00 06/11/23 15:06 Albuterol/Iprat 2.5/0.5mg 3 Ml Ampul.Neb INHALE 3 ml RQ4H TERE Administration Discontinued Medications Generic Name Dose Route Start Last Admin Trade Name Freq PRN Reason Stop Dose Admin Albuterol Sulfate 2.5 mg/ 5 mg 06/11/23 13:05 06/11/23 13:17 Albuterol Sulfate 2.5 mg INHALE 06/11/23 13:06 5 mg ONCE ONE Administration Medical Decision Making Medical Decision Making MDM Narrative: 63-year-old female with a history of arthritis, depression, degenerative disc disease, TIA, cerebral microvascular disease, hypertension, asthma, hepatitis-C status post treatment who presents emergency department for evaluation of shortness of breath x2 weeks completed a course of steroids and antibiotics with no improvement her symptoms, developed severe shortness of breath prior to coming to the emergency department. Paramedics reported that the patient was in significant respiratory distress, was using accessory muscles to breathe and was tripoding when they arrived on the scene. Patient gave herself a nebulizer treatment of albuterol with no improvement, paramedics treated the patient with DuoNeb x2 nebulizers, Solu-Medrol 125 mg IV and magnesium 2 g IV with improvement of her symptoms. On presentation the patient is tachypneic, able to talk in full sentences. Exam did reveal diffuse wheezing with cough at the end of expiration otherwise unremarkable. Following evaluation was ordered: CBC, CMP, PTT, BNP, troponin, VBG, EKG, two view chest x-ray, O2 saturation and cardiac monitoring Patient was treated with the following: Bronchodilator protocol Differential diagnosis includes but is not limited to asthma exacerbation, bronchitis, pneumonia, viral syndrome, COVID-19, influenza, electrolyte abnormalities, anemia, myocardial infarction/ischemia 14:20 My interpretation patient's laboratory evaluation is as follows: WBC was normal. H&H was normal. CMP was normal except for slight elevation of glucose of 121. COVID-19 and influenza were negative. Venous blood gas revealed a normal pH of 7.39 and a normal pCO2 of 41 suggesting that the patient is not retaining CO2 which is reassuring. Troponin was below detectable limits. The patient does feel better after getting albuterol 5 mg nebulizer. Patient's lung exam however revealed significant diffuse wheezing. Patient's presentation is consistent with an asthma exacerbation, given the frequency of her nebulizer use at home, in the amount of bronchodilators use in the emergency department, the patient will need to be admitted for further management of her asthma. I did discuss over tiger text, the patient's presentation and need for admission with the covering hospitalist, physician mobile unit assistant Angélica Lombardo. Differential Diagnosis Differential Diagnoses: The differential diagnosis associated with the presentation includes Admission/Observation Consideration of admission/observation: Escalation of care including admission/observation considered Lab Data 06/11/23 13:19 06/11/23 13:19 Labs: Lab Results 06/11/23 06/11/23 Range/Units 13:19 13:26 WBC 8.0 (4.8-10.8) X10*3/uL RBC 4.48 (4.20-5.50) X10*6/uL Hgb 13.5 (12.0-16.0) g/dl Hct 40.5 (37.0-47.0) % MCV 90.4 (80.0-98.0) fL MCH 30.1 (27.0-33.0) pg MCHC 33.3 (31.0-35.0) g/dl RDW 13.0 (11.0-16.0) % Plt Count 197 (160-400) X10*3/uL MPV 9.8 (9.4-12.3) fL Immature Gran % (Auto) 0.2 (0.0-0.4) % Neut % (Auto) 61.0 (45-73) % Lymph % (Auto) 23.4 (20-40) % [place] % (Auto) 7.3 (2-11) % Eos % (Auto) 7.6 H (0-4) % Baso % (Auto) 0.5 (0-2) % Lymph # (Auto) 1.9 (1.2-4.9) X10*3/uL [place] # (Auto) 0.6 (0.1-1.2) X10*3/uL Eos # (Auto) 0.6 H (0.0-0.4) X10*3/uL Baso # (Auto) 0.0 (0.0-0.2) X10*3/uL Abs Immat Gran (auto) 0.02 (0.00-0.03) X10*3/uL Absolute Neuts (auto) 4.9 (2.0-8.3) x10*3/uL Absolute Nucleated RBC 0.000 (0.0-0.012) X10*3/uL Nucleated RBC % (auto) 0.0 (0.0-0.2) /100WBC APTT 30.8 (26.0-36.4) SEC VBG pH 7.39 (7.32-7.43) VBG pCO2 41 mmHg VBG pO2 57 mmHg VBG HCO3 25 (22-26) mmol/L VBG O2 Saturation 88.0 % VBG Base Excess 0.9 mmol/L Sodium 139 (135-145) mmol/L Potassium 4.0 (3.3-5.1) mmol/L Chloride 106 (96-108) mmol/L Carbon Dioxide 23 (22-29) mmol/L Anion Gap 14 (12-20) BUN 14 (9-16) mg/dL Creatinine 0.86 (0.5-1.4) mg/dL Estim Creat Clear Calc 78.5 Estimated GFR > 60 Random Glucose 121 H (60-115) mg/dL Calcium 8.9 D (8.4-10.2) mg/dL Total Bilirubin 0.6 (0.0-1.0) mg/dL AST 15 (5-31) U/L ALT 12 (0-31) U/L Alkaline Phosphatase 55 (39-117) U/L Troponin I High Sens < 2.7 (<3.5-17.0) ng/L B-Natriuretic Peptide 148 H (<100) pg/mL Total Protein 6.8 (6.5-8.0) g/dL Albumin 4.0 (3.5-5.0) g/dL Lipase 14 (8-78) U/L COVID-19 (RHONDA) Negative (Negative) COVID-19 Clin Com See Note Influenza Type A (DK) Negative (Negative) Influenza Type B (DK) Negative (Negative) Influenza A & B Note See Note Independent Interpretation I performed an independent interpretation of an: EKG Interpretation: My interpretation patient's 12 EKG done at 13:44 hours is as follows: Normal sinus rhythm rate of 65, normal IA interval, QRS duration QTC interval, no ST segment elevation, no ST segment profession, normal T-waves, no PACs, no PVCs- this is a normal EKG Radiology Impression Discussion of test interpretation with radiology: I have reviewed the radiologist's reading. Radiologist Impression: XR chest 2V IMPRESSION: No evidence for acute disease in the chest. Dictated By: Courtney Echevarria MD Critical Care Time Critical Care Time Critical Care Time: Yes Total Critical Care Time: 35 Attestation: Critical Care: The patient was critically ill with a high probability of imminent or life threatening deterioration. I spent greater than 30 minutes of discontinuous time evaluating the patient,delivering critical care at the bedside, discussing and evaluating pertinent data with consultants. Critical care time does not include time spent performing separately billable procedures or teaching. Total time spent performing critical care was 35 minutes. Discharge Plan Discharge Clinical Impression: Asthma Patient Disposition: Admitted As Inpatient
--- NOTE | 2023-06-11 13:15 | PC.NURSE ---
a&ox4. vss and up to date. 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 pt presents to the ED from home w/ sob x 2 weeks. pt was 90% upon EMS arrival w/ use of accessory muscles/in tripod position. EMS placed pt on 3L via NC - resting at 95%. pt recieved 2 duoneb treatments, solumedrol, and magnesium via IVP. pt able to speak in full/clear sentences upon ED arrival. slight sob/wob noted. respirations even/slightly labored. pt received breathing treatment via RT in ED. pt placed back on 2L via NC. ED provider bedside w/ pt assessing pt. pt aware of plan of care going forward at this time. call vincent placed within reach.
[2023-06-11] MEDS: Albuterol Sulfate 2.5 MG, Albuterol Sulfate (0.083%) 2.5 MG 5 MG INHALE (13:17)
[2023-06-11 13:28] LABS: MANUAL DIFF FLAG NO
[2023-06-11 13:31] LABS: VBG Base Excess 0.9 mmol/L; VBG HCO3 25 mmol/L (22-26); VBG pCO2 41 mmHg; VBG pH 7.39 (7.32-7.43); VBG pO2 57 mmHg
[2023-06-11 13:32] LABS: Venous Blood Gas Refer to POC result
[2023-06-11 13:33] LABS: Basophils Percent Auto 0.5 % (0-2); Eosinophils Absolute Auto 0.6 X10*3/uL (0.0-0.4); Eosinophils Percent Auto 7.6 % (0-4); Hematocrit 40.5 % (37.0-47.0); Hemoglobin 13.5 g/dl (12.0-16.0); Imm Gran Abs Auto 0.02 X10*3/uL (0.00-0.03); Imm Gran Pct Auto 0.2 % (0.0-0.4); Lymphocytes Absolute Auto 1.9 X10*3/uL (1.2-4.9); Lymphocytes Percent Auto 23.4 % (20-40); Mean Corpuscular HGB Conc 33.3 g/dl (31.0-35.0); Mean Corpuscular Hemoglobin 30.1 pg (27.0-33.0); Mean Corpuscular Volume 90.4 fL (80.0-98.0); Mean Platelet Volume 9.8 fL (9.4-12.3); Monocytes Absolute Auto 0.6 X10*3/uL (0.1-1.2); Monocytes Percent Auto 7.3 % (2-11); Neutrophils Absolute Auto 4.9 x10*3/uL (2.0-8.3); Platelet Count 197 X10*3/uL (160-400); Red Blood Count 4.48 X10*6/uL (4.20-5.50)
[2023-06-11 13:37] LABS: Partial Thromboplastin Time 30.8 SEC (26.0-36.4)
[2023-06-11 13:45] LABS: Alanine Aminotransferase 12 U/L (0-31); Alkaline Phosphatase 55 U/L (39-117); Anion Gap 14 (12-20); Aspartate Amino Transferase 15 U/L (5-31); Bilirubin Total 0.6 mg/dL (0.0-1.0); Blood Urea Nitrogen 14 mg/dL (9-16); Calcium 8.9 mg/dL (8.4-10.2); Carbon Dioxide 23 mmol/L (22-29); Chloride 106 mmol/L (96-108); Creatinine Clr Calc Pharmacy 78.5; Estimated Glomerular Filt Rate > 60; Glucose Random 121 mg/dL (60-115); Lipase 14 U/L (8-78); Sodium 139 mmol/L (135-145); Total Protein 6.8 g/dL (6.5-8.0)
[2023-06-11 13:51] LABS: B Type Natriuretic Peptide 148 pg/mL (<100)
[2023-06-11 13:53] LABS: COVID-19 Test Negative (Negative); IDNOW Serial# 58CA691E; IDNOW Serial# 9DB6401D; Influenza A Negative (Negative); Influenza B2 Negative (Negative)
[2023-06-11 13:55] LABS: Troponin-I High Sensitivity < 2.7 ng/L (<3.5-17.0)
--- NOTE | 2023-06-11 13:57 | PC.NURSE ---
pt to xray at this time. pt ambulating independently w/o assistance and without the use of O2. no sob/wob noted. respirations even and unlabored.
--- NOTE | 2023-06-11 14:44 | PC.NURSE ---
pt speaking w/ admitting provider at this time.
--- NOTE | 2023-06-11 14:58 | P.HPHOSP_ITS ---
History of Present Illness Date of Service: 06/11/23 Attending physician on admission: Gadiel Leal Chief Complaint: sob 63y/o F active smoker cigratte and marijuana ,hx of asthma /copd overlap,arthritis, depression, degenerative disc disease, TIA, cerebral microvascular disease, hypertension, hepatitis-C status post treatment - presented with shortness of breath and productive cough with yellow sputum for almost 3-4 days. In addition patient claimed to excessive inhaler use, also tried course of prednisone as well as Ceftin outpatient with PCP but no relief. Her shortness of breath and wheezing was not getting better so decided come to the hospital- Paramedics treated her with DuoNeb x2 nebulizer treatments, Solu- Medrol 125 mg IV and magnesium 2 g IV with little relief. In addition patient denies any BiPAP use history or intubation in past But asthma exacerbation approximately 1 year prior requiring a 4 day hospitalization. In ED: No leukocytosis,bmp also fine, chest x-ray also fine. She said 1 of the family member had similar symptoms, denies any URI like symptoms or any recent travel. otherwise Denies new complaint of chest pain or or abdominal pain or fever or chills or nausea or vomiting or any weakness or numbness. Considering shortness of breath not improving significantly in addition failing outpatient prednisone and antibiotic therapy-ED requested for inpatient admission for COPD/asthma exacerbation. Review of Systems 2 Review of Systems: Yes all other systems are reviewed and are negative [facility] Medical History Numbness COVID-19 Arthritis Habitual snoring Tobacco dependence Depression Internal hemorrhoids Nonhealing nonsurgical wound Degenerative disc disease at L5-S1 level History of TIA (transient ischemic attack) Hepatitis C Tubular adenoma of colon (~2001) Personal history of nicotine dependence Asthma Hypertension Cerebral microvascular disease Family History Paternal Grandmother Colon cancer Father HTN (hypertension) CAD (coronary artery disease) Mother HTN (hypertension) CAD (coronary artery disease) Son HTN (hypertension) Pertinent family history: Father had COPD. Surgical History History of tubal ligation History of surgery on lower extremity (~2014) History of colonoscopy History of liver biopsy (~2014) History of hysterectomy (~2007) Social History Household Members: None Housing: House Are you a primary child care sitter to a significant other at home: No Do you presently have visiting nurse or other home services: No Alcohol intake: current Alcohol intake frequency: a few times a month Patient Tobacco Use Status: Never used Tobacco Tobacco use type: Cigarette Cigarettes Per Day: 5 Years Smoked: 20 Years Quit 01/2022 Second Hand Smoke Exposure: No Substance Use Type: Marijuana service: No Current occupational status: employed Meds Allergies Allergy/AdvReac Type Severity Reaction Status Date / Time prednisone [PREDNISONE] Allergy Unknown Anxiety Verified 06/11/23 13:02 sulfa Allergy Unknown Hives Uncoded 06/11/23 13:02 Active Medications: Current Medications Albuterol/Ipratropium (Albuterol/Iprat 2.5/0.5mg 3 Ml Ampul.Neb) 3 ml INHALE Q4H TERE Albuterol/Ipratropium (Albuterol/Iprat 2.5/0.5mg 3 Ml Ampul.Neb) 3 ml INHALE Q3H PRN PRN Reason: sob Enoxaparin Sodium (Enoxaparin Sodium 40 Mg/0.4 Ml Syringe) 40 mg SUBCUT Q24H [facility] Azithromycin 500 mg/ Sodium (Chloride) 250 mls @ 125 mls/hr IV Q24H [facility] Methylprednisolone Sodium Succinate (Methylprednisolone Sod Succ 40 Mg/Ml Vial) 40 mg IVPUSH BID [facility] Sodium Chloride (0.9 % Sodium Chloride Flush 3 Ml Syringe) 3 ml IVFLUSH QSHIFT [facility] Home Medications Medication Instructions Recorded Confirmed Last Taken Type atenolol 50 mg tablet 100 mg PO DAILY 08/10/20 06/11/23 06/10/23 History aspirin 81 mg tablet,delayed 81 mg PO DAILY 11/19/20 06/11/23 06/10/23 History release (Adult Aspirin Regimen) paroxetine HCl 40 mg tablet 1 tab PO DAILY 07/05/21 06/11/23 06/10/23 History albuterol sulfate 90 mcg/actuation 2 puff inhalation Q4-6H PRN 11/12/22 06/11/23 06/10/23 History aerosol inhaler (ProAir HFA) Shortness Of Breath amitriptyline 50 mg tablet 50 mg PO BEDTIME 11/12/22 06/11/23 06/10/23 History Physical Exam 2 Vital Signs and Narrative: Vital Signs: Last Vital Signs Temp 98.8 F 06/11/23 13:02 Pulse 80 06/11/23 13:16 Resp 20 06/11/23 13:16 BP 152/82 H 06/11/23 13:02 Pulse Ox 97 06/11/23 13:02 O2 Del Method Room Air 06/11/23 13:02 BMI result Body Mass Index 26.6 Appearance: Alert.? Oriented X3.?sob. Eyes: Pupils equal, round and reactive to light.? Sclera nonicteric.? ENT: Pharynx normal.? Moist mucous membranes. cvs: rrr, [id number] . res: air entry diminshed ,has b/l exp wheezing abd: no rebound or guarding ,nt, bs present. ext pulses present , no cyanosis . neuro: axo3 , nonfocal. Results Labs 06/11/23 13:19 06/11/23 13:19 Labs: Laboratory Results - last 24 hr 06/11/23 06/11/23 13:19 13:26 MCV 90.4 MCH 30.1 MCHC 33.3 RDW 13.0 Plt Count 197 MPV 9.8 Immature Gran % (Auto) 0.2 Neut % (Auto) 61.0 Lymph % (Auto) 23.4 [place] % (Auto) 7.3 Eos % (Auto) 7.6 H Baso % (Auto) 0.5 Lymph # (Auto) 1.9 [place] # (Auto) 0.6 Eos # (Auto) 0.6 H Baso # (Auto) 0.0 Abs Immat Gran (auto) 0.02 Absolute Neuts (auto) 4.9 Absolute Nucleated RBC 0.000 Nucleated RBC % (auto) 0.0 APTT 30.8 VBG pH 7.39 VBG pCO2 41 VBG pO2 57 VBG HCO3 25 VBG O2 Saturation 88.0 VBG Base Excess 0.9 Anion Gap 14 Estim Creat Clear Calc 78.5 Estimated GFR > 60 Random Glucose 121 H Calcium 8.9 D Total Bilirubin 0.6 AST 15 ALT 12 Alkaline Phosphatase 55 B-Natriuretic Peptide 148 H Total Protein 6.8 Albumin 4.0 Lipase 14 COVID-19 (RHONDA) Negative COVID-19 Clin Com See Note Influenza Type A (DK) Negative Influenza Type B (DK) Negative Influenza A & B Note See Note ECG Attestation: I personally reviewed and interpreted this ECG as follows: (nsr ,no st changes ) Imaging Radiologist's Impressions: Impressions Chest X-Ray 06/11/23 13:59 IMPRESSION: No evidence for acute disease in the chest. Assessment and Plan (1) COPD (chronic obstructive pulmonary disease): Qualifiers: COPD type: COPD with acute exacerbation Qualified Code(s): J44.1 - Chronic obstructive pulmonary disease with (acute) exacerbation Status: Acute Plan 63y/o F active smoker cigratte and marijuana ,hx of asthma /copd overlap,arthritis, depression, degenerative disc disease, TIA, cerebral microvascular disease, hypertension, hepatitis-C status post treatment - presented with shortness of breath and productive cough with yellow sputum for almost 3-4 days. Acute Copd excerebation / Asthma (mild persistent): Shortness of breath with minimal exertion, talking in small sentences Failed outpatient prednisone/antibiotic therapy. started on nebs, steroids, antibiotics. TIA history: Continue aspirin, medical reconciliation pending Hypertension: Continue home medication, medical reconciliation pending. Depression:Continue home medication, medical reconciliation pending. Active smoker: Recommended to quit smoking, also recommended to quit marijuana use if possible. Added nicotine therapy. DVT prophylaxis: SubQ Lovenox Patient will benefit from 24-48 hour of inpatient management for COPD exacerbation considering failed outpatient prednisone/antibiotic therapy and inhaler, also did not responded well with ED in nebulizers-needs nebs, steroids, antibiotics and respiratory status monitoring for any deterioration and if needed might need expert evaluation. Above management discussed with the patient in detail length she understand and in agreement with the above plan, time spent 70 minute. Patient is full code. Quality Stroke Does the patient have a stroke diagnosis?: No VTE Prior VTE?: No VTE Risk Level:: Medical - moderate - high VTE Device Contraindication: N/A - Device Ordered VTE Drug Contraindication: N/A - Med Ordered
[2023-06-11] MEDS: Albuterol/Iprat 2.5/0.5MG 3 ML AMPUL.NEB INHALE (15:06)
--- NOTE | 2023-06-11 15:10 | PC.NURSE ---
pt receiving 2nd breathing treatment via RT at this time.
--- NOTE | 2023-06-11 15:24 | PHA.MEDREC ---
Pharmacy Consult ? Medication Reconciliation Pharmacy has completed the medication reconciliation.Confirmed medication with patient. Erica Palencia CPhT
--- NOTE | 2023-06-11 15:28 | MHC.EDTECH ---
This pct just assumed care of pt at 1500 ,vitals taken and Patient belonging list done .
--- NOTE | 2023-06-11 15:30 | PC.NURSE ---
admission worksheet completed. transport notified at this time.
[2023-06-11] MEDS: Enoxaparin Sodium 40 MG/0.4 ML SYRINGE SUBCUT (15:43)
[2023-06-11] MEDS: Nicotine 21 MG PATCH.TD24 TRANSDERMA (15:43)
[2023-06-11] MEDS: Azithromycin 500 MG in 0.9 % Sodium Chloride 250 ML 125 MG IV (15:43)
--- NOTE | 2023-06-11 15:48 | PC.NURSE ---
medication administered per provider order.
[2023-06-11] MEDS: 0.9 % Sodium Chloride Flush 3 ML SYRINGE IVFLUSH ×2 (15:51→19:33)
--- NOTE | 2023-06-11 16:01 | PC.NURSE ---
pt being transported upstairs at this time.
[2023-06-11] MEDS: Loratadine 10 MG TABLET PO (17:21)
[2023-06-11] MEDS: guaiFENesin 200 MG/10 ML 10 ML LIQUID PO (17:21)
[2023-06-11] MEDS: Magnesium Sulfate/D5W 1 GM/100 ML PIGGYBACK IV (17:59)
[2023-06-11] MEDS: methylPREDNISolone Sod Succ 40 MG/ML VIAL IVPUSH (19:32)
[2023-06-11] MEDS: Amitriptyline HCl 50 MG TABLET PO (19:32)
[2023-06-11] MEDS: Ibuprofen 400 MG TABLET PO (19:38)
--- NOTE | 2023-06-11 19:44 | MHC.PIE ---
p; pt c/o sharp pain with cough to rt chest/breast. note; not prn pain meds? i; dr umana notified. new order Motrin po q6 e; will cont to monitor
[2023-06-12] VITALS (9 sets, daily range): BP systolic 140–152; BP diastolic 70–77; PULSE 67–85; RESP 14–18; TEMP 36.1–37; O2SAT 92–97
[2023-06-12] MEDS: Albuterol/Iprat 2.5/0.5MG 3 ML AMPUL.NEB INHALE ×5 (02:25→19:43)
[2023-06-12] MEDS: Nicotine 21 MG PATCH.TD24 TRANSDERMA (08:53)
[2023-06-12] MEDS: amLODIPine Besylate 5 MG TABLET PO (08:55)
[2023-06-12] MEDS: PARoxetine HCL 40 MG TABLET PO (08:55)
[2023-06-12] MEDS: Loratadine 10 MG TABLET PO (08:55)
[2023-06-12] MEDS: atenoloL 100 MG TABLET PO (08:55)
[2023-06-12] MEDS: 0.9 % Sodium Chloride Flush 3 ML SYRINGE IVFLUSH ×2 (08:55→19:57)
[2023-06-12] MEDS: methylPREDNISolone Sod Succ 40 MG/ML VIAL IVPUSH ×2 (08:55→19:55)
[2023-06-12] MEDS: Aspirin Enteric Coated 81 MG TABLET.DR PO (08:56)
--- NOTE | 2023-06-12 10:33 | HO.PM.IMPN ---
Subjective Subjective Date of Service: 06/12/23 Interval History: copd excerebation Review of Systems Patient shortness of breath with minimal exertion, has cough, no fever or chills Physical Exam Vital Signs: Vital Signs: Last Vital Signs Temp 97 F 06/12/23 06:51 Pulse 73 06/12/23 06:51 Resp 17 06/12/23 06:51 BP 152/72 H 06/12/23 06:51 Pulse Ox 92 06/12/23 06:51 O2 Del Method Nasal Cannula 06/12/23 06:51 O2 Flow Rate 2 06/12/23 06:51 BMI result Body Mass Index 26.6 Appearance: Alert.? Oriented X3.?sob. cvs: rrr, [id number] . res: air entry diminshed ,has b/l exp wheezing abd: no rebound or guarding ,nt, bs present. ext pulses present , no cyanosis . neuro: axo3 , nonfocal. Objective Data Active Medications Albuterol/Ipratropium (Albuterol/Iprat 2.5/0.5mg 3 Ml Ampul.Neb) 3 ml INHALE RQ4H [facility] Last Admin: 06/12/23 06:31 Dose: 3 ml Documented By: KAYLEY Albuterol/Ipratropium (Albuterol/Iprat 2.5/0.5mg 3 Ml Ampul.Neb) 3 ml INHALE Q3H PRN PRN Reason: sob Last Admin: 06/12/23 02:25 Dose: 3 ml Documented By: KAYLEY Amitriptyline HCl (Amitriptyline Hcl 50 Mg Tablet) 50 mg PO BEDTIME [facility] Last Admin: 06/11/23 19:32 Dose: 50 mg Documented By: ADALBERTO Amlodipine Besylate (Amlodipine Besylate 5 Mg Tablet) 5 mg PO DAILY [facility]; Protocol Last Admin: 06/12/23 08:55 Dose: 5 mg Documented By: SEAN Aspirin (Aspirin Enteric Coated 81 Mg Tablet.) 81 mg PO DAILY [facility] Last Admin: 06/12/23 08:56 Dose: 81 mg Documented By: SEAN Atenolol (Atenolol 100 Mg Tablet) 100 mg PO DAILY [facility]; Protocol Last Admin: 06/12/23 08:55 Dose: 100 mg Documented By: SEAN Enoxaparin Sodium (Enoxaparin Sodium 40 Mg/0.4 Ml Syringe) 40 mg SUBCUT Q24H [facility] Last Admin: 06/11/23 15:43 Dose: 40 mg Documented By: JAYLEEN Guaifenesin (Guaifenesin 200 Mg/10 Ml 10 Ml Liquid) 10 ml PO Q6H PRN PRN Reason: cough Last Admin: 06/11/23 17:21 Dose: 10 ml Documented By: YULIA Azithromycin 500 mg/ Sodium (Chloride) 250 mls @ 125 mls/hr IV Q24H [facility] Last Infusion: 06/11/23 18:00 Dose: Infused Documented By: YULIA Ibuprofen (Ibuprofen 400 Mg Tablet) 400 mg PO Q6H PRN PRN Reason: Pain, Mild (Pain Scale 1-3) Last Admin: 06/11/23 19:38 Dose: 400 mg Documented By: ADALBERTO Loratadine (Loratadine 10 Mg Tablet) 10 mg PO DAILY [facility] Last Admin: 06/12/23 08:55 Dose: 10 mg Documented By: SEAN Methylprednisolone Sodium Succinate (Methylprednisolone Sod Succ 40 Mg/Ml Vial) 40 mg IVPUSH BID [facility] Last Admin: 06/12/23 08:55 Dose: 40 mg Documented By: SEAN Nicotine (Nicotine 21 Mg Patch.Td24) 21 mg TRANSDERMA DAILY [facility] Last Admin: 06/12/23 08:53 Dose: 21 mg Documented By: SEAN Paroxetine HCl (Paroxetine Hcl 40 Mg Tablet) 40 mg PO DAILY [facility] Last Admin: 06/12/23 08:55 Dose: 40 mg Documented By: SEAN Sodium Chloride (0.9 % Sodium Chloride Flush 3 Ml Syringe) 3 ml IVFLUSH QSHIFT [facility] Last Admin: 06/12/23 08:55 Dose: 3 ml Documented By: SEAN Labs 06/11/23 13:19 06/11/23 13:19 Labs: Laboratory Results - last 24 hr 06/11/23 06/11/23 13:19 13:26 MCV 90.4 MCH 30.1 MCHC 33.3 RDW 13.0 Plt Count 197 MPV 9.8 Immature Gran % (Auto) 0.2 Neut % (Auto) 61.0 Lymph % (Auto) 23.4 [place] % (Auto) 7.3 Eos % (Auto) 7.6 H Baso % (Auto) 0.5 Lymph # (Auto) 1.9 [place] # (Auto) 0.6 Eos # (Auto) 0.6 H Baso # (Auto) 0.0 Abs Immat Gran (auto) 0.02 Absolute Neuts (auto) 4.9 Absolute Nucleated RBC 0.000 Nucleated RBC % (auto) 0.0 APTT 30.8 VBG pH 7.39 VBG pCO2 41 VBG pO2 57 VBG HCO3 25 VBG O2 Saturation 88.0 VBG Base Excess 0.9 Anion Gap 14 Estim Creat Clear Calc 78.5 Estimated GFR > 60 Random Glucose 121 H Calcium 8.9 D Total Bilirubin 0.6 AST 15 ALT 12 Alkaline Phosphatase 55 B-Natriuretic Peptide 148 H Total Protein 6.8 Albumin 4.0 Lipase 14 COVID-19 (RHONDA) Negative COVID-19 Clin Com See Note Influenza Type A (DK) Negative Influenza Type B (DK) Negative Influenza A & B Note See Note Assessment and Plan (1) COPD (chronic obstructive pulmonary disease): Status: Acute Plan 63y/o F active smoker cigratte and marijuana ,hx of asthma /copd overlap,arthritis, depression, degenerative disc disease, TIA, cerebral microvascular disease, hypertension, hepatitis-C status post treatment - presented with shortness of breath and productive cough with yellow sputum for almost 3-4 days. Acute Copd excerebation / Asthma (mild persistent): Shortness of breath with minimal exertion, talking in small sentences Failed outpatient prednisone/antibiotic therapy. started on nebs, steroids, antibiotics. TIA history: Continue aspirin, medical reconciliation pending Hypertension: Continue home medication, medical reconciliation pending. Depression:Continue home medication, medical reconciliation pending. Active smoker: Recommended to quit smoking, also recommended to quit marijuana use if possible. Added nicotine therapy. DVT prophylaxis: SubQ Lovenox ongoing inpatient need:in my clinical judgement 48 -72 hour of inpatient management for COPD exacerbation considering failed outpatient prednisone/antibiotic therapy and inhaler, also did not responded well with ED in nebulizers-needs nebs, steroids, antibiotics and respiratory status monitoring for any deterioration and if needed might need expert evaluation. Quality Stroke Does the patient have a stroke diagnosis?: No VTE Prior VTE?: No VTE Risk Level:: Medical - moderate - high VTE Device Contraindication: N/A - Device Ordered VTE Drug Contraindication: N/A - Med Ordered
--- NOTE | 2023-06-12 12:01 | MHC.CM.PN ---
pt is now inpt
--- NOTE | 2023-06-12 12:44 | MHC.CM.PN ---
pt is independent lives at home with her son has own ride home
[2023-06-12] MEDS: Enoxaparin Sodium 40 MG/0.4 ML SYRINGE SUBCUT (16:17)
[2023-06-12] MEDS: Azithromycin 500 MG in 0.9 % Sodium Chloride 250 ML 125 MG IV (16:17)
[2023-06-12] MEDS: guaiFENesin 200 MG/10 ML 10 ML LIQUID PO (17:41)
[2023-06-12] MEDS: Ibuprofen 400 MG TABLET PO (19:55)
[2023-06-12] MEDS: Amitriptyline HCl 50 MG TABLET PO (19:55)
[2023-06-13] MEDS: 0.9 % Sodium Chloride Flush 3 ML SYRINGE IVFLUSH (00:16)
[2023-06-13 03:28] VITALS: BP 157/70; PULSE 57; RESP 16; TEMP 36.4; O2SAT 96
[2023-06-13 07:36] VITALS: BP 149/71; PULSE 87; RESP 16; TEMP 36.3; O2SAT 94
[2023-06-13] MEDS: Albuterol/Iprat 2.5/0.5MG 3 ML AMPUL.NEB INHALE ×2 (07:36→11:19)
[2023-06-13 07:37] VITALS: PULSE 70; RESP 18; O2SAT 98
[2023-06-13] MEDS: Loratadine 10 MG TABLET PO (08:29)
[2023-06-13] MEDS: amLODIPine Besylate 5 MG TABLET PO (08:29)
[2023-06-13] MEDS: Aspirin Enteric Coated 81 MG TABLET.DR PO (08:29)
[2023-06-13] MEDS: atenoloL 100 MG TABLET PO (08:30)
[2023-06-13] MEDS: methylPREDNISolone Sod Succ 40 MG/ML VIAL IVPUSH (08:30)
[2023-06-13] MEDS: Nicotine 21 MG PATCH.TD24 TRANSDERMA (08:30)
[2023-06-13] MEDS: PARoxetine HCL 40 MG TABLET PO (08:30)
--- NOTE | 2023-06-13 10:43 | MHC.CM.PN ---
pt will dc home no servies
[2023-06-13 11:19] VITALS: PULSE 68; RESP 18; O2SAT 97
--- NOTE | 2023-06-13 11:58 | P.DS_ITS ---
DS: Providers Provider Date of Service: 06/13/23 Date of admission: 06/12/23 11:50 Date of discharge: 06/13/23 Primary care physician: Armando Kerns MD Attending physician on discharge: Gadiel Leal Discharging clinician: Gadiel Leal DS: Diagnosis Discharge Diagnosis (1) COPD (chronic obstructive pulmonary disease): Status: Acute DS: Summary Hospital Course Hospital Course: 63y/o F active smoker cigratte and marijuana ,hx of asthma /copd overlap,arthritis, depression, degenerative disc disease, TIA, cerebral microvascular disease, hypertension, hepatitis-C status post treatment - pr esented with shortness of breath and productive cough with yellow sputum for almost 3-4 days. In addition patient claimed to excessive inhaler use, also tried course of prednisone as well as Ceftin outpatient with PCP but no relief. Her shortness of breath and wheezing was not getting better so decided come to the hospital- Paramedics treated her with DuoNeb x2 nebulizer treatments, Solu- Medrol 125 mg IV and magnesium 2 g IV with little relief. In addition patient denies any BiPAP use history or intubation in past But asthma exacerbation approximately 1 year prior requiring a 4 day hospita lization. In ED: No leukocytosis,bmp also fine, chest x-ray also fine. She said 1 of the family member had similar symptoms, denies any URI like symptoms or any recent travel. otherwise Denies new complaint of chest pain or or abdominal pain or fever or chills or nausea or vomiting or any weakness or numbness. Considering shortness of breath not improving significantly in addition failing outpatient prednisone and antibiotic therapy-ED requested for inpatient admission for COPD/asthma exacerbation. Hospital course: Patient came to the hospital because of shortness of breath-found to have copd excerebation: No leukocytosis, chest x-ray negative- started on nebs,steriods ,antibiotics -seems improved significantly with above supportive care - going home with po prednisone 40 mg for 4 days ,azithromycin 250 mg po daily for 3 days more and cough medictaion. Patient was strongly advised to quit smoking, nicotine patch ordered. follow up with pcp outpatient. Plan: po prednisone 40 mg for 4 days ,azithromycin 250 mg po daily for 3 days more and cough medictaion nicotine patch ordered for 7 days. Above management discussed with the patient in detail length she understand in agreement with the above plan, time spent 50 minute. Time Attestation Discharge coordination time: Greater than 30 minutes Quality: Safe Use of Opioids Does Pt have an Active Cancer Diagnosis on the Problem List?: No Quality: Stroke Does the patient have a stroke diagnosis?: No Physical Exam Vital Signs: Vital Signs: Last Vital Signs Temp 97.3 F 06/13/23 07:36 Pulse 68 06/13/23 11:19 Resp 18 06/13/23 11:19 BP 149/71 H 06/13/23 07:36 Pulse Ox 94 06/13/23 07:36 O2 Del Method Nasal Cannula 06/13/23 07:36 O2 Flow Rate 1 06/13/23 07:36 BMI result Body Mass Index 26.6 Appearance: Alert.? Oriented X3.?sob. Eyes: Pupils equal, round and reactive to light.? Sclera nonicteric.? ENT: Pharynx normal.? Moist mucous membranes. cvs: rrr, [id number] . res: air entry fair ,no rales or wheezing abd: no rebound or guarding ,nt, bs present. ext pulses present , no cyanosis . neuro: axo3 , nonfocal. DS: Data Data Completed and Pending Labs on day of discharge: Preliminary micro results at discharge 06/11/23 13:19 Blood Culture - Preliminary Blood - Venous No growth after 24 hours. 06/11/23 13:19 Blood Culture - Preliminary Blood - Venous No growth after 24 hours. Imaging Chest x-ray: Radiologist's impression: ITS Impressions Chest X-Ray 06/11/23 13:59 IMPRESSION: No evidence for acute disease in the chest. Discharge Plan Discharge Anticipated Discharge Date/Time: 06/13/23 11:49 Patient Disposition: Home, Self-Care Discharge Diagnosis: copd execerebation Referrals: Armando Kerns MD [Primary Care Provider] - 1 Week Discharge Medications: New guaifenesin 100 mg/5 mL Liquid 100 mg PO Q6H PRN (Reason: cough) Qty: 100 0RF nicotine 21 mg/24 hr Patch 24 Hour 21 mg transdermal DAILY Qty: 7 0RF loratadine 10 mg Tablet 10 mg PO DAILY Qty: 10 0RF azithromycin 250 mg tablet 250 mg PO DAILY 3 Days Qty: 2 0RF Continued atenolol 50 mg tablet 100 mg PO DAILY amlodipine [Norvasc] 5 mg tablet 5 mg PO DAILY Qty: 5 0RF paroxetine HCl 40 mg tablet 1 tab PO DAILY albuterol sulfate 2.5 mg /3 mL (0.083 %) solution for nebulization 2.5 mg inhalation Q4-6H PRN (Reason: shortness of breath or wheezing) Qty: 90 0RF (DME) nebulizer and compressor Device See Rx Instructions .Route Qty: 1 0RF Rx Instructions: As directed amitriptyline 50 mg tablet 50 mg PO BEDTIME albuterol sulfate [ProAir HFA] 90 mcg/actuation Hfa Aerosol Inhaler 2 puff INHALATION Q4-6H PRN (Reason: Shortness Of Breath) aspirin [Adult Aspirin Regimen] 81 mg tablet,delayed release (DR/EC) 81 mg PO DAILY Breztri Aerosphere 160-9-4.8 mcg/actuation HFA aerosol inhaler 2 inh inhalation BID 30 Days Qty: 10.7 11RF Discharge Orders: Discharge Order (Routine); Ordered 06/13/23 Ordered By: Gadiel Leal Diet: Advance to usual diet Activity on Discharge: As tolerated Stand Alone Forms: Patient Portal Discharge page Care Plan Goals: Patient came to the hospital because of shortness of breath-found to have copd excerebation: No leukocytosis, chest x-ray negative- started on nebs,steriods ,antibiotics -seems improved significantly with above supportive care - going home with po prednisone 40 mg for 4 days ,azithromycin 250 mg po daily for 3 days more and cough medictaion. Patient was strongly advised to quit smoking, nicotine patch ordered. follow up with pcp outpatient. Health Concerns: po prednisone 40 mg for 4 days ,azithromycin 250 mg po daily for 3 days more and cough medictaion nicotine patch ordered for 7 days. Plan of Treatment: as above. Assessment: as above.
== END 2023-06-13 13:08 | disposition home or self-care (01) | DRG 191 ==
LOC: HO.ED 14:45 → HO.EDOVER 15:07 → HO.S3 15:16
PROVIDERS: Admitting Provider Internal Medicine; Emergency Provider Emergency Medicine Emergency Medical Services; PCP Internal Medicine Medical Oncology; Visit Provider Internal Medicine
DX: J44.1 Chronic obstructive pulmonary disease with (acute) exacerbation (principal); J45.31 Mild persistent asthma with (acute) exacerbation; F32.A Depression, unspecified; F17.210 Nicotine dependence, cigarettes, uncomplicated; Z71.6 Tobacco abuse counseling; Z20.822 Contact with and (suspected) exposure to COVID-19; Z79.82 Long term (current) use of aspirin; Z79.899 Other long term (current) drug therapy
CPT/HCPCS: 71046; 80053; 82803; 83690; 83880; 84484; 85025; 85730; 87040; 87502; 87635; 93005; 94640; 99285; J0456; J1650; J2920; J3475

== ENCOUNTER → 2023-06-11 13:04 | Outpatient (BNV) | payer OTHER, SELFPAY | PROVIDERS: Admitting Provider Internal Medicine; Emergency Provider Emergency Medicine Emergency Medical Services; PCP Internal Medicine Medical Oncology; Visit Provider Internal Medicine Cardiovascular Disease | DX: R06.00 Dyspnea, unspecified (principal) | CPT/HCPCS: 93010 ==

== ENCOUNTER → 2023-06-11 14:53 | Outpatient (BNV) | payer OTHER, SELFPAY | PROVIDERS: Admitting Provider Internal Medicine; Emergency Provider Emergency Medicine Emergency Medical Services; PCP Internal Medicine Medical Oncology; Visit Provider Internal Medicine | DX: J44.1 Chronic obstructive pulmonary disease with (acute) exacerbation (principal) | CPT/HCPCS: 99222; 99232; 99239 ==

== ENCOUNTER 2023-08-02 10:00 | Outpatient (AMB) | payer OTHER, SELFPAY ==
[2023-08-02 10:27] VITALS: BP 140/67; PULSE 76; RESP 12; O2SAT 95; BMI 27.3
--- NOTE | 2023-08-02 10:27 | A.OFFVIS_ITS ---
Intake Vital Signs 08/02/23 10:27 Height 5 ft 9 in Weight 185 lb BMI 27.3 BP 140/67 H Blood Pressure Location Lt brachial Position Sitting Respiration 12 Pulse 76 Pulse Source Pulse Oximeter Pulse Oximetry (%) 95 Oxygen Delivery Method Room Air Intake Visit Reasons: PROCEDURE DISCUSSION Allergies prednisone [PREDNISONE] Allergy (Unknown, Verified 08/02/23 10:28) Anxiety sulfa Allergy (Unknown, Uncoded 08/02/23 10:28) Hives Medication List - Last Reconciled 08/02/23 by Shyanne Villafuerte LPN albuterol sulfate 2.5 mg (3 mL) inhalation Q4-6H PRN albuterol sulfate 90 mcg/actuation (ProAir HFA) 2 puffs inhalation Q4-6H PRN amitriptyline 50 mg PO BEDTIME amlodipine (Norvasc) 5 mg PO DAILY atenolol 100 mg PO DAILY [id number]-xgclarrf-emjbaazbwm 160-9-4.8 mcg/actuation (Breztri Aerosphere) 2 inhalations inhalation BID 30 days nebulizer and compressor As directed nicotine 21 mg transdermal DAILY paroxetine HCl 1 tab PO DAILY HPI PROCEDURE DISCUSSION HPI Details 63-year-old female who presents today to the office for a discussion of procedure. 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 Pain is rated as greater than 6 to 7/10 in intensity and has been going on for many years. She states that her neck pain is stable for now. For the past two weeks, she has had worsening pain symptoms, which may be secondary to weather changes. She has difficulty sitting, standing, or lying down. She has difficulty sleeping and takes Amitriptyline ev fortunato day. She reports tingling and numbness sensations in her feet when climbing up or down the stairs. She leans forward on the shopping cart while at the grocery store. She has tried tramadol with mild relief. She is working in the afternoon instead of night. Her insurance had denied PA the MILD procedure due to the procedure being deemed experimental. Past Procedures: 07/23/21: Bilateral Diagnostic L3-L4-L5 MB Bs ? 40 - 50% relief. 06/25/21: Right Diagnostic L3-L4-L5 MBBs ? 40 to 50% relief. 04/30/21: Bilateral Intra-articular SIJ injection ? 30% relief for 2 weeks. 03/19/21: Bilateral Diagnostic SIJ Inner vation Block (Dreyfuss Technique) ? 70% relief for 4 hours. 01/01/21: Bilateral SIJ Injections ? 25% relief for a few days. [facility] Medical History Numbness COVID-19 Arthritis Habitual snoring Tobacco dependence Depression Internal hemorrhoids Nonhealing nonsurgical wound Degenerative disc disease at L5-S1 level History of TIA (transient ischemic attack) Hepatitis C Tubular adenoma of colon (~2001) Personal history of nicotine dependence Asthma Hypertension Cerebral microvascular disease Surgical History History of tubal ligation History of surgery on lower extremity (~2014) History of colonoscopy History of liver biopsy (~2014) History of hysterectomy (~2007) Family History Paternal Grandmother Colon cancer Father HTN (hypertension) CAD (coronary artery disease) Mother HTN (hypertension) CAD (coronary artery disease) Son HTN (hypertension) Social History Household Members: None Household Members Other:: son Housing: House Are you a primary lead care manager to a significant other at home: No Do you presently have visiting nurse or other home services: No Alcohol intake: current Alcohol intake frequency: a few times a month Patient Tobacco Use Status: Never used Tobacco Tobacco use type: Cigarette Cigarettes Per Day: 5 Years Smoked: 20 Years Quit 01/2022 Second Hand Smoke Exposure: No Substance Use Type: Marijuana service: No Current occupational status: employed Review of Systems Const All systems reviewed & are unremarkable except as noted in HPI and below Physical Exam Vital Signs: Last Vital Signs Pulse 76 08/02/23 10:27 Resp 12 08/02/23 10:27 BP 140/67 H 08/02/23 10:27 Pulse Ox 95 08/02/23 10:27 Oxygen Delivery Method Room Air 08/02/23 10:27 BMI result Body Mass Index 27.3 General: Appears afebrile. Alert and oriented. Mood and affect appropriate. Follows and participates in conversation appropriately. Respiratory effort is unlabored. Able to transition from sit to stand unassisted. Ambulates with bilaterally normal heel strike and toe off. Discomfort with lateral bending and twisting. Axial rotation also reproduces pain. Forward flexion produces discomfort. Results Reviewed Results Reviewed: MRI March 2022 VERTEBRAL BODIES AND PARASPINAL STRUCTURES: There is a mild leftward curvature of the mid lumbar spine. No compression fractures are seen. A minimal retrosubluxation is stable at the L3-L4 level. Reduced intradiscal signal and mild disc space narrowing are relatively stable from the L2 through the L5 levels. Mild edematous endplate changes are visible at the L5-S1 level lateralized to the left side and to the right side at the L2-L3 and L3-L4 levels. There are no compression fractures. The paraspinal soft tissues are normal. Assessment & Plan Assessment & Plan (1) Vertebrogenic low back pain: Code(s): M54.51 - Vertebrogenic low back pain Plan Patient has dual issue of moderate spinal stenosis at L3-4 with ligamentum flavum hypertrophy as well as multilevel vertebral endplate Modic changes leading to vertebrogenic low back pain. Unfortunately our authorization request for the minimally invasive lumbar decompression was denied including the appeal. At this time given her debilitating symptoms at rest, I believe it is reasonable to proceed with BVN ablation at L3, L4 and L5 levels. We will submit a PA for this procedure. Discussed the risks and benefits of the procedure with the patient in detail. All questions were answered. The patient is on board with the plan. Justification for interventional therapy: ? Patient with average pain > 6/10 ? Patient has exhausted conservative therapy including oral medications, physical therapy, multiple diagnostic and therapeutic injections for lumbar facets, spinal stenosis and sacroiliac joint pain . Patient has a good understanding of their pain condition and has appropriate mental and social support I provided her 1 time script of tramadol to bridge her until her procedure is scheduled. Scribed for Dr. Guzman by Nir Arenas, medical office asst, on 08/02/2023. I, Dr. Guzman, have personally reviewed and agree with the information entered by the scribe. Medications: New tramadol 50 mg PO DAILY 60 tabs 0RF Coding Level of Care Code Est Pt Level 4 (42300) Diagnoses Vertebrogenic low back pain M54.51
== END 2023-08-02 11:09 | disposition home or self-care (01) ==
PROVIDERS: PCP Internal Medicine Medical Oncology; Visit Provider Internal Medicine
DX: M54.51 Vertebrogenic low back pain (principal)
CPT/HCPCS: 99214

== ENCOUNTER → 2023-08-02 10:00 | Outpatient (BNVA) | payer OTHER, SELFPAY | PROVIDERS: PCP Internal Medicine Medical Oncology; Visit Provider Internal Medicine ==

== ENCOUNTER 2023-11-08 08:54 | Outpatient (AMB) | payer OTHER, SELFPAY ==
--- NOTE | 2023-11-08 08:55 | MHC.OFFVIS ---
Vital Signs 11/08/23 09:02 Height 5 ft 9 in Weight 189 lb BMI 27.9 BP 186/92 H Blood Pressure Location Lt brachial Position Sitting Respiration 14 Pulse 80 Pulse Source Pulse Oximeter Pulse Oximetry (%) 96 Oxygen Delivery Method Room Air Intake Visit Reasons: Back Pain Allergies prednisone [PREDNISONE] Allergy (Unknown, Verified 11/08/23 09:03) Anxiety sulfa Allergy (Intermediate, Uncoded 11/10/23 09:08) Hives Medication List - Last Reconciled 11/08/23 by Shyanne Villafuerte LPN albuterol sulfate 2.5 mg (3 mL) inhalation Q4-6H PRN albuterol sulfate 90 mcg/actuation (ProAir HFA) 2 puffs inhalation Q4-6H PRN amitriptyline 50 mg PO BEDTIME amlodipine (Norvasc) 5 mg PO DAILY atenolol 100 mg PO DAILY crbjhtfcoc-ydtuksvb-abuwibmtnj 160-9-4.8 mcg/actuation (Breztri Aerosphere) 2 inhalations inhalation BID 30 days nebulizer and compressor As directed nicotine 21 mg transdermal DAILY paroxetine HCl 1 tab PO DAILY tramadol 50 mg PO DAILY HPI HPI Back Pain: Details: 63-year-old female who presents today to the office for a back pain. She reports that the pain radiates to her buttock region. She has difficulty sitting, lying down, and prolonged standing. The right side is worse than the left. She has not received any calls to schedule the appointment. Dr. Salazar prescribed amitriptyline, which made her sleepy. She takes it at night. She had FMLA. She is not taking any blood thinners or NSAIDs. She is amenable to scheduling the procedure for Wednesday. She requested a prescription for pain management. She has tried tramadol with minimal benefit.? Past Procedures: 07/23/21: Bilateral Diagnostic L3-L4-L5 MBBs ? 40 - 50% relief. 06/25/21: Right Diagnostic L3-L4-L5 MBBs ? 40 to 50% relief. 04/30/21: Bilateral Intra-articular SIJ injection ? 30% relief for 2 weeks. 03/19/21: Bilateral Diagnostic SIJ Innervation Block (Dreyfuss Technique) ? 70% relief for 4 hours. 01/01/21: Bilateral SIJ Injections ? 25% relief for a few days. [facility] Medical History Numbness COVID-19 Arthritis Habitual snoring Tobacco dependence Depression Internal hemorrhoids Nonhealing nonsurgical wound Degenerative disc disease at L5-S1 level History of TIA (transient ischemic attack) Hepatitis C Tubular adenoma of colon (~2001) Personal history of nicotine dependence Asthma Hypertension Cerebral microvascular disease Surgical History History of tubal ligation History of surgery on lower extremity (~2014) History of colonoscopy History of liver biopsy (~2014) History of hysterectomy (~2007) Family History Paternal Grandmother Colon cancer Father HTN (hypertension) CAD (coronary artery disease) Mother HTN (hypertension) CAD (coronary artery disease) Son HTN (hypertension) Social History Household Members: None Household Members Other:: son Housing: House Are you a primary wound care nurse to a significant other at home: No Do you presently have visiting nurse or other home services: No Alcohol intake: current Alcohol intake frequency: a few times a month Patient Tobacco Use Status: Never used Tobacco Tobacco use type: Cigarette Cigarettes Per Day: 5 Years Smoked: 20 Years Quit 01/2022 Second Hand Smoke Exposure: No Use of substances other than those prescribed or required for medical reasons: No Substance Use Type: Marijuana Are you DNR?: No Advance Directives: No Advance Directives Information Provided: Yes Patient : No service: No Current occupational status: employed Review of Systems Const All systems reviewed & are unremarkable except as noted in HPI and below Physical Exam Vital Signs: Last Vital Signs Pulse 80 11/08/23 09:02 Resp 14 11/08/23 09:02 BP 186/92 H 11/08/23 09:02 Pulse Ox 96 11/08/23 09:02 Oxygen Delivery Method Room Air 11/08/23 09:02 BMI result Body Mass Index 27.9 General: Appears afebrile. Alert and oriented. Mood and affect appropriate. Follows and participates in conversation appropriately. Respiratory effort is unlabored. Able to transition from sit to stand unassisted. Ambulates with bilaterally normal heel strike and toe off. Results Reviewed Results Reviewed: No imaging is available for review. Assessment & Plan Assessment & Plan (1) Vertebrogenic low back pain: Code(s): M54.51 - Vertebrogenic low back pain Category: Medical Plan She has been having severe pain, especially on the right side. Once again, I reviewed the MRI that shows modic changes at L3-L4-L5-S1.?I will try to schedule her for her BVN ablation next Wednesday since I do not see any documentation regarding approval of an extension for her procedure window. We will call her if we are able to schedule her this week. Scribed for Dr. Guzman by Nir Arenas, certified medical coder, on 11/08/2023. I, Dr. Guzman, have personally reviewed and agree with the information entered by the scribe. Medications: Changed From tramadol 50 mg PO DAILY 60 tabs 0RF To tramadol 50 mg PO BID 60 tabs 0RF Coding Level of Care Code Est Pt Level 3 (96183) Diagnoses Vertebrogenic low back pain M54.51
[2023-11-08 09:02] VITALS: BP 186/92; PULSE 80; RESP 14; O2SAT 96; BMI 27.9
== END 2023-11-08 09:24 | disposition home or self-care (01) ==
PROVIDERS: PCP Internal Medicine Medical Oncology; Visit Provider Internal Medicine
DX: M54.51 Vertebrogenic low back pain (principal)
CPT/HCPCS: 99214

== ENCOUNTER → 2023-11-08 08:54 | Outpatient (BNVA) | payer OTHER, SELFPAY | PROVIDERS: PCP Internal Medicine Medical Oncology; Visit Provider Internal Medicine ==

== ENCOUNTER 2023-11-10 07:24 | Day surgery (SDC) | payer OTHER, SELFPAY ==
[2023-11-10] VITALS (15 sets, daily range): BP systolic 147–182; BP diastolic 66–92; PULSE 59–71; RESP 12–20; TEMP 36.2–36.6; O2SAT 93–100; BMI 21.4
--- NOTE | ~2023-11-10 | FL_ITS ---
EXAMINATION: XR FLUOROSCOPY WITH IMAGES CLINICAL INFORMATION: L3, L4, L5 basivertebral nerve ablation. COMPARISON: None available. TECHNIQUE: Fluoroscopy Supervised By: Dr. Guzman. Fluoroscopy Time: 3 min, 44.2 sec. Cumulative Dose: 165.20 mGy. DAP: 26.213 Gycm2. Images: 9. FINDINGS: Intraoperative fluoroscopy and spot films were performed during a procedure in the OR. Ablation probes are seen overlying the spine with the bottom image showing a probe at S1. Precise levels can not be ascertained secondary to marked coning of the images with lack of appropriate landmarks. Please correlate with Dr. Guzman' report for complete details. FL/FL guidance in OR IMPRESSION: Intraoperative fluoroscopy and spot films were obtained. Please see Dr. Guzman' report for complete details.
--- NOTE | 2023-11-10 10:15 | HO.ANESPROP2 ---
[facility] Active Problems Active Problems: All Active Problems COPD (chronic obstructive pulmonary disease) (Acute) Vertebrogenic low back pain (Acute) Lumbar degenerative disc disease (Acute) Status post cervical spinal fusion (Acute) Spondylosis of lumbar region without myelopathy or radiculopathy (Acute) Cervicalgia (Acute) Bilateral shoulder pain (Acute) Palpable mass of soft tissue of elbow (Acute) Sacroiliac joint pain (Acute) Snoring (Acute) Multilevel spine pain (Acute) Hip pain, right (Acute) Cervical osteoarthritis (Acute) Fatigue (Acute) Cervical spinal stenosis (Acute) Spinal stenosis, lumbar region with neurogenic claudication (Acute) Cervical spondylosis with myelopathy and radiculopathy (Acute) Hypertension (Acute) Personal history of nicotine dependence (Acute) Asthma (Acute) Past Medical History Medical History Numbness COVID-19 Arthritis Habitual snoring Tobacco dependence Depression Internal hemorrhoids Nonhealing nonsurgical wound Degenerative disc disease at L5-S1 level History of TIA (transient ischemic attack) Hepatitis C Tubular adenoma of colon (~2001) Personal history of nicotine dependence Asthma Hypertension Cerebral microvascular disease Functional capacity: independent ambulation Patient : No Family History Family History Paternal Grandmother Colon cancer Father HTN (hypertension) CAD (coronary artery disease) Mother HTN (hypertension) CAD (coronary artery disease) Son HTN (hypertension) Family history of problems with anesthesia: No Surgical History Surgical History History of tubal ligation History of surgery on lower extremity (~2014) History of colonoscopy History of liver biopsy (~2014) History of hysterectomy (~2007) History of Problems with Anesthesia: Unobtainable Social History Social History Household Members: None Household Members Other:: son Housing: House Are you a primary personal care home administrator to a significant other at home: No Do you presently have visiting nurse or other home services: No Alcohol intake: current Alcohol intake frequency: a few times a month Patient Tobacco Use Status: Never used Tobacco Tobacco use type: Cigarette Cigarettes Per Day: 5 Years Smoked: 20 Years Quit 01/2022 Second Hand Smoke Exposure: No Substance Use Type: Marijuana service: No Current occupational status: employed Meds Allergies Allergy/AdvReac Type Severity Reaction Status Date / Time prednisone [PREDNISONE] Allergy Unknown Anxiety Verified 11/08/23 09:03 sulfa Allergy Intermediate Hives Uncoded 11/10/23 09:08 Active Medications: Current Medications Lactated Ringer's (Lr) 1,000 mls @ 100 mls/hr IVCONT .Q10H TERE Home Medications ?Medication ?Instructions ?Recorded ?Confirmed ?Last Taken ?Type atenolol 50 mg tablet 100 mg PO DAILY 08/10/20 11/08/23 11/10/23 07:00 History paroxetine HCl 40 mg tablet 1 tab PO DAILY 07/05/21 11/08/23 06/10/23 History albuterol sulfate 90 mcg/actuation 2 puff inhalation Q4-6H PRN 11/12/22 11/08/23 11/10/23 07:00 History aerosol inhaler (ProAir HFA) Shortness Of Breath amitriptyline 50 mg tablet 50 mg PO BEDTIME 11/12/22 11/08/23 06/10/23 History Exam Height,Weight and Vital Signs: Height 5 ft 9 in Weight 65.884 kg Last Vital Signs Temp 97.9 F 11/10/23 09:10 Pulse 60 11/10/23 09:10 Resp 16 11/10/23 09:10 BP 177/92 H 11/10/23 09:10 Pulse Ox 96 11/10/23 09:10 O2 Del Method Room Air 11/10/23 09:10 Airway Mallampati Class: III TM Dist: >3cm Neck ROM: Full Heart: RRR Lungs: CTA Assessment and Plan Assessment Anesthesia Assessment: Anesthesia Plan Discussed and Smoking Cess. Discussed Final Anesthetic Review Family History of Problems with Anesthesia: No History of Problems with Anesthesia: Unobtainable NPO: Yes ASA Class: III Final Preanesthetic Review: Meds/Allgs Chart Reviewed, Consent Obtained/Reviewed and Anes Risks/Benef Reviewed Patient Risk: Low Procedure Risk: Low Anesthetic Plan Anesthetic Plan: GA Disposition: Standard PACU
[2023-11-10 10:45] LABS: MRSA Nasal PCR NEGATIVE (Negative); SA Nasal PCR NEGATIVE (Negative)
--- NOTE | 2023-11-10 10:45 | MHC.SHP ---
Pre-Procedural Eval Section A - 24 Hr Update-Section A only Date of Service: 11/10/23 The patient is an INPATIENT: No Changes since office visit: Yes Patient answered all questions The patient has been examined within 24 hours of the surgical procedure. The History & Physical has been completed within 30 days and I have reviewed it.: Yes Section B - Complete if H&P > 30 days Chief Complaint: Vertebrogenic low back pain Allergies: Allergies Allergy/AdvReac Type Severity Reaction Status Date / Time prednisone [PREDNISONE] Allergy Unknown Anxiety Verified 11/08/23 09:03 sulfa Allergy Intermediate Hives Uncoded 11/10/23 09:08 Plan Diagnosis/Plan: Unchanged I have reviewed the history and physical and performed a pertinent physical examination on my patient. No changes have occurred unless specified. Time Spent With Patient Time: Total time managing care of this patient today ____ minutes.
--- NOTE | 2023-11-10 10:47 | P.OP_ITS ---
Operative Note Operative Note Date of Service: 11/10/23 Narrative: Basivertebral nerve (BVN) ablation ? Intracept Procedure L3, L4, L5, S1 Procedure Time Out: Patient ID confirmed, correct procedure to be performed, correct site and/or side for procedure as per marked location and correct medication(s), including antibiotic to be used for the procedure. Description of Procedure: After receiving anesthesia in the supine position, the patient was placed prone on the operating room table and all pressure points were appropriately padded. The back was sterilely prepped and draped. The C-arm was sterilely draped and moved into position to visualize the S1 vertebral body in the AP and lateral plane. The C-arm was rotated to a Wood view to square off the superior endplate at S1. The C-arm was then rotated to the right approximately 15-20 degrees for an approach to the right S1 pedicle. The skin entry point was identified and infiltrated with 1% lidocaine using a 25-gauge 1- 1/2 inch needle. A 22-gauge 5-inch spinal needle was used to anesthetize the track to the pedicle and periosteum and confirm the introducer cannula trajectory. A skin incision was made with 15 scalpel blade. The introducer cannula with bevel tip was then introduced through the skin, subcutaneous tissue and paraspinal muscle until bony contact was made. The position was checked in the AP and lateral plane. Using a mallet, the trocar was then advanced thru the pedicle to the posterior aspect of the vertebral body using a combination of AP and lateral views to ensure appropriate traversing of the pedicle and no breaching of the pedicle medially. Once the trocar was in the posterior aspect of the S1 vertebral body, the trocar was removed from the cannula and the curved cannula assembly with the nitinol J-stylet was inserted. The spin wheel was rotated counterclockwise permitting excursion of the J-stylet. The curved cannula assembly was then advanced using a mallet in 1-2 mm increments. The J- stylet was observed to traverse the vertebral body in the AP and lateral views. The J-stylet was removed and replaced with the straight stylet to reach the BVN target. Target was reached when the tip of the stylet was 50% anterior of the posterior wall of the S1 in the lateral view (midway between the superior and inferior endplates) and it crossed the midline of the S1 spinous process in the AP view. The stylet was then removed. The bipolar radiofrequency (RF) probe was connected to the generator and then inserted into the introducer cannula in its ablation position. The spin wheel was rotated clockwise to retract the PEEK sleeve to expose the proximal electrode on the radiofrequency probe. The BVN was then ablated using [employer]?s targeted RFG algorithm. While the ablation was occurring at S1, the C-arm was moved to visualize the target at the superolateral aspect of the L5 vertebral body. The C-arm was rotated to square off the superior endplate at L5 and rotated left to obtain an oblique view. The superolateral left L5 pedicle was identified for access. The same process was utilized to place the tip of the cannular 50% anterior of the posterior wall of the L5 in the lateral view (midway between the superior and inferior endplates) and it crossed the midline of the L5 spinous process in the AP view. The stylet was then removed. The bipolar radiofrequency (RF) probe was removed from the previous vertebral body, the tip cleaned and was inserted into the introducer cannula in its ablation position. The spin wheel was rotated clockwise to retract the PEEK sleeve to expose the proximal electrode on the radiofrequency probe. The BVN was then ablated using [employer]?s targeted RFG algorithm. While the ablation was occurring at L5, the C-arm was moved to visualize the target at the superolateral aspect of the L4 vertebral body using the approach similar to the L5 vertebral body. The C-arm was rotated to square off the superior endplate at L4 and rotated approximately to the right to obtain an oblique view. The superolateral right L4 pedicle was identified, and the skin entry point identified. Same steps were followed as for L5. Target was reached when the tip of the stylet was 50% anterior of the posterior wall of the L4 in the lateral view (midway between the superior and inferior endplates) and it crossed the midline of the L4 spinous process in the AP view. The stylet was then removed. The bipolar radiofrequency (RF) probe was removed from the previous vertebral body, the tip cleaned and was inserted into the introducer cannula in its ablation position. The spin wheel was rotated clockwise to retract the PEEK sleeve to expose the proximal electrode on the radiofrequency probe. The BVN was then ablated using [employer]?s targeted RFG algorithm. While the ablation was occurring at L4, the C-arm was moved to visualize the target at the superolateral aspect of the L3 vertebral body. The C-arm was rotated to square off the superior endplate at L3 and rotated left to obtain an oblique view. The superolateral left L3 pedicle was identified for access. The same process was utilized to place the tip of the cannular 50% anterior of the posterior wall of the L3 in the lateral view (midway between the superior and inferior endplates) and it crossed the midline of the L5 spinous process in the AP view. The stylet was then removed. The bipolar radiofrequency (RF) probe was removed from the previous vertebral body, the tip cleaned and was inserted into the introducer cannula in its ablation position. The spin wheel was rotated clockwise to retract the PEEK sleeve to expose the proximal electrode on the radiofrequency probe. The BVN was then ablated using [employer]?s targeted RFG algorithm. With all ablations completed, the instruments were removed from the vertebral bodies. The surgical wounds were closed with 2-0 silk sutures and a sterile dressing was applied. The patient was returned to the supine position and the anesthesia reversed. The patient tolerated the procedure well and was brought to the recovery room. The patient was provided post-op and follow up instructions. Complications: None Estimate Blood Loss: 50 mL
[2023-11-10] MEDS: oxyCODONE HCl Immed Release 5 MG TABLET PO (13:31)
[2023-11-10] MEDS: fentaNYL citrate/PF 100 MCG/2 ML VIAL 25 MCG IVPUSH ×3 (13:32→13:42)
--- NOTE | 2023-11-10 13:38 | P.BOP_ITS ---
Brief Operative Note Date of Service: 11/10/23 Pre-op diagnosis: Vertebrogenic low back pain Post-op diagnosis: same Procedure: Basivertebral nerve ablation L3, L4, L5, S1 Implants: None Surgeon: Iain Guzman MD Anesthesia: GETA Was an Outside Production Inspector used for this Procedure?: No Estimated blood loss (mL): 30 Pathology: none sent Condition: stable Disposition: PACU
[2023-11-10] MEDS: HYDROmorphone HCl 0.5 MG/0.5 ML SYRINGE 0.25 MG IVPUSH ×4 (13:45→14:07)
[2023-11-10] MEDS: Acetaminophen 1,000 MG/100 ML PIGGYBACK 400 MG IV (13:54)
--- NOTE | 2023-11-10 16:23 | HO.POSTANES ---
Post Anesthesia Evaluation Post Anesthesia Evaluation Date of Service: 11/10/23 Vital Signs: Vital Signs Temp Pulse Resp BP Pulse Ox O2 Del Method O2 Flow Rate 11/10/23 15:25 97.1 F 60 16 158/82 H 95 Room Air 11/10/23 15:10 60 14 160/84 H 95 Room Air 11/10/23 14:55 60 14 160/79 H 94 Nasal Cannula with ETCO2 3 11/10/23 14:42 59 13 171/80 H 95 Nasal Cannula with ETCO2 3 11/10/23 14:27 60 12 162/85 H 95 Nasal Cannula with ETCO2 3 11/10/23 14:12 62 16 168/69 H 94 Nasal Cannula with ETCO2 3 11/10/23 14:05 63 16 159/70 H 94 Nasal Cannula with ETCO2 3 11/10/23 14:00 61 16 157/76 H 96 Nasal Cannula with ETCO2 2 11/10/23 14:00 20 11/10/23 13:55 62 20 160/74 H 97 Nasal Cannula with ETCO2 2 11/10/23 13:47 66 16 152/68 H 98 Nasal Cannula with ETCO2 2 11/10/23 13:42 70 16 147/66 H 93 Room Air 11/10/23 13:37 63 16 166/72 H 94 Room Air 11/10/23 13:32 69 16 173/81 H 95 Room Air 11/10/23 13:27 97.1 F 71 16 182/83 H 100 Simple Mask 6 11/10/23 09:10 97.9 F 60 16 177/92 H 96 Room Air Anesthesia: General Endotracheal-GETA Mental Status: Awake Pain Control: Satisfactory Nausea/Vomiting: None Hydration: Adequate Anesthesia-Related Issues: No Anes. Related Issues
== END 2023-11-10 15:38 | disposition home or self-care (01) ==
PROVIDERS: Nurse Practitioner Family; PCP Internal Medicine Medical Oncology; Visit Provider Internal Medicine
PROC: (CPT 64628; principal; 2023-11-10 10:00)
DX: M54.51 Vertebrogenic low back pain (principal); R20.0 Anesthesia of skin; M51.37 Other intervertebral disc degeneration, lumbosacral region; I10 Essential (primary) hypertension; F32.A Depression, unspecified; B19.20 Unspecified viral hepatitis C without hepatic coma; J45.909 Unspecified asthma, uncomplicated; Z86.73 Personal history of transient ischemic attack (TIA), and cerebral infarction without residual deficits; Z79.899 Other long term (current) drug therapy; Z88.2 Allergy status to sulfonamides; Z88.8 Allergy status to other drugs, medicaments and biological substances; Z87.891 Personal history of nicotine dependence; Z98.890 Other specified postprocedural states
CPT/HCPCS: 64628; 64629 ×2; 87640; 87641; J0131; J0690; J1100; J1170; J2250; J2405; J2704; J3010

== ENCOUNTER → 2023-11-10 07:24 | Outpatient (BNV) | payer OTHER, SELFPAY | PROVIDERS: PCP Internal Medicine Medical Oncology; Visit Provider Internal Medicine | DX: M54.51 Vertebrogenic low back pain (principal) | CPT/HCPCS: 64628; 64629 ==

== ENCOUNTER 2023-11-15 08:01 | Outpatient (AMB) | payer OTHER, SELFPAY ==
--- NOTE | 2023-11-15 08:09 | A.OFFVIS_ITS ---
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 The patient reports 100% relief following the procedure. Initially she had pain post procedure for two days, which improved. She has mild pain when sitting down. She is able to move around the house with relief. She has soreness in her hip, which has improved compared to the past. She took shower yesterday and today. The dressing and sutures were removed today in the office. Past Procedures: 11/06/23: Basivertebral nerve (BVN) ablation ? Intracept Procedure L3, L4, L5, S1: 100% relief. 07/23/21: Bilateral Diagnostic L3-L4-L5 MBBs ? 40 - 50% relief. 06/25/21: Right Diagnostic L3-L4-L5 MBBs ? 40 to 50% relief. 04/30/21: Bilateral Intra-articular SIJ injection ? 30% relief for 2 weeks. 03/19/21: Bilateral Diagnostic SIJ Innervation Block (Dreyfuss Technique) ? 70% relief for 4 hours. 01/01/21: Bilateral SIJ Injections ? 25% relief for a few days. [facility] Medical History Numbness COVID-19 Arthritis Habitual snoring Tobacco dependence Depression Internal hemorrhoids Nonhealing nonsurgical wound Degenerative disc disease at L5-S1 level History of TIA (transient ischemic attack) Hepatitis C Tubular adenoma of colon (~2001) Personal history of nicotine dependence Asthma Hypertension Cerebral microvascular disease Surgical History History of tubal ligation History of surgery on lower extremity (~2014) History of colonoscopy History of liver biopsy (~2014) History of hysterectomy (~2007) Family History Paternal Grandmother Colon cancer Father HTN (hypertension) CAD (coronary artery disease) Mother HTN (hypertension) CAD (coronary artery disease) Son HTN (hypertension) Social History Household Members: None Household Members Other:: son Housing: House Are you a primary personal care service provider to a significant other at home: No Do you presently have visiting nurse or other home services: No Alcohol intake: current Alcohol intake frequency: a few times a month Patient Tobacco Use Status: Never used Tobacco Tobacco use type: Cigarette Cigarettes Per Day: 5 Years Smoked: 20 Years Quit 01/2022 Second Hand Smoke Exposure: No Substance Use Type: Marijuana service: No Current occupational status: employed Review of Systems Const All systems reviewed & are unremarkable except as noted in HPI and below Physical Exam Vital Signs: Last Vital Signs Pulse 72 11/15/23 08:10 BP 203/101 H 11/15/23 08:10 Pulse Ox 98 11/15/23 08:10 Oxygen Delivery Method Room Air 11/15/23 08:10 BMI result Body Mass Index 27.0 General: Appears afebrile. Alert and oriented. Mood and affect appropriate. Follows and participates in conversation appropriately. Respiratory effort is unlabored. Able to transition from sit to stand unassisted. Ambulates with bilaterally normal heel strike and toe off. Wounds are well healed and dry Results Reviewed Results Reviewed: No imaging is available for review. Assessment & Plan Assessment & Plan (1) Vertebrogenic low back pain: Code(s): M54.51 - Vertebrogenic low back pain Category: Medical Plan The dressing was removed today in the office. She is cleared to shower. She will follow up as needed. Scribed for Dr. Guzman by Nir Arenas, diagnostic medical sonographer, on 11/15/2023. I, Dr. Guzman, have personally reviewed and agree with the information entered by the scribe. Coding Level of Care Code Est Pt Level 3 (07576) Diagnoses Vertebrogenic low back pain M54.51
[2023-11-15 08:10] VITALS: BP 203/101; PULSE 72; O2SAT 98; BMI 27.0
== END 2023-11-15 08:39 | disposition home or self-care (01) ==
PROVIDERS: PCP Internal Medicine Medical Oncology; Visit Provider Internal Medicine
DX: M54.51 Vertebrogenic low back pain (principal)
CPT/HCPCS: 99024

== ENCOUNTER → 2023-11-15 08:01 | Outpatient (BNVA) | payer OTHER, SELFPAY | PROVIDERS: PCP Internal Medicine Medical Oncology; Visit Provider Internal Medicine ==

== ENCOUNTER 2024-02-14 09:36 | Outpatient (AMB) | payer OTHER, SELFPAY ==
[2024-02-14 10:03] VITALS: BP 180/88; PULSE 59; RESP 15; O2SAT 98
--- NOTE | 2024-02-14 10:03 | A.OFFVIS_ITS ---
Vital Signs 02/14/24 10:03 Height 5 ft 9 in BP 180/88 H Blood Pressure Location Lt brachial Position Sitting Respiration 15 Pulse 59 Pulse Source Pulse Oximeter Pulse Oximetry (%) 98 Oxygen Delivery Method Room Air Intake Visit Reasons: Follow Up S/p BVN 11/10/23 (Cont. R Side Pain) Allergies sulfa Allergy (Intermediate, Uncoded 02/14/24 10:05) Hives Medication List - Last Reconciled 02/14/24 by Shyanne Villafuerte LPN albuterol sulfate 2.5 mg (3 mL) inhalation Q4-6H PRN albuterol sulfate 90 mcg/actuation (ProAir HFA) 2 puffs inhalation Q4-6H PRN amitriptyline 50 mg PO BEDTIME amlodipine (Norvasc) 5 mg PO DAILY atenolol 100 mg PO DAILY tkyryermad-ktvcdpkt-qvuyxcojbi 160-9-4.8 mcg/actuation (Breztri Aerosphere) 2 inhalations inhalation BID 30 days nebulizer and compressor As directed nicotine 21 mg transdermal DAILY paroxetine HCl 1 tab PO DAILY tramadol 50 mg PO BID HPI HPI Follow Up S/p BVN 11/10/23 (Cont. R Side Pain): Details: 63-year-old female who presents today to the office for a follow up status post BVN ablation. She reports right-sided shooting pain and paresthesia from her lower back that radiates down to the buttock region down to the leg. She states that her left- sided pain is resolved and stable. She does some gentle stretching exercises at home in the morning. She is physically active and works two jobs. Past Procedures: 11/06/23: Basivertebral nerve (BVN) ablation ? Intracept Procedure L3, L4, L5, S1: 100% resolution of left lower back pain, persistent right radicular symptoms 07/23/21: Bilateral Diagnostic L3-L4-L5 MBBs ? 40 - 50% relief. 06/25/21: Right Diagnostic L3-L4-L5 MBBs ? 40 to 50% relief. 04/30/21: Bilateral Intra-articular SIJ injection ? 30% relief for 2 weeks. 03/19/21: Bilateral Diagnostic SIJ Innervation Block (Dreyfuss Technique) ? 70% relief for 4 hours. 01/01/21: Bilateral SIJ Injections ? 25% relief for a few days. PFSH Medical History Numbness COVID-19 Arthritis Habitual snoring Tobacco dependence Depression Internal hemorrhoids Nonhealing nonsurgical wound Degenerative disc disease at L5-S1 level History of TIA (transient ischemic attack) Hepatitis C Tubular adenoma of colon (~2001) Personal history of nicotine dependence Asthma Hypertension Cerebral microvascular disease Surgical History History of tubal ligation History of surgery on lower extremity (~2014) History of colonoscopy History of liver biopsy (~2014) History of hysterectomy (~2007) Family History Paternal Grandmother Colon cancer Father HTN (hypertension) CAD (coronary artery disease) Mother HTN (hypertension) CAD (coronary artery disease) Son HTN (hypertension) Social History Household Members: None Household Members Other:: son Housing: House Are you a primary palliative care specialist to a significant other at home: No Do you presently have visiting nurse or other home services: No Alcohol intake: current Alcohol intake frequency: a few times a month Patient Tobacco Use Status: Never used Tobacco Tobacco use type: Cigarette Cigarettes Per Day: 5 Years Smoked: 20 Years Quit 01/2022 Second Hand Smoke Exposure: No Substance Use Type: Marijuana service: No Current occupational status: employed Review of Systems Const All systems reviewed & are unremarkable except as noted in HPI and below Physical Exam Vital Signs: Last Vital Signs Pulse 59 02/14/24 10:03 Resp 15 02/14/24 10:03 BP 180/88 H 02/14/24 10:03 Pulse Ox 98 02/14/24 10:03 Oxygen Delivery Method Room Air 02/14/24 10:03 General: Appears afebrile. Alert and oriented. Mood and affect appropriate. Follows and participates in conversation appropriately. Respiratory effort is unlabored. Able to transition from sit to stand unassisted. Ambulates with bilaterally normal heel strike and toe off. Straight leg raise is positive on the right side. Results Reviewed Results Reviewed: No imaging is available for review. Assessment & Plan Assessment & Plan (1) Lumbar radiculopathy: Code(s): M54.16 - Radiculopathy, lumbar region Category: Medical Plan I once again reviewed the MRI scan showing slight impingement of the exiting nerve root at the right L4-5. This is consistent with her symptoms of right lumbar radicular pain in the right L5 distribution. We will schedule her for a right L4-5 transforaminal epidural steroid injection. Discussed the risks and benefits of the procedure with the patient in detail. All questions were answered. The patient is on board with the plan. Justification for interventional therapy: ? Patient with average pain > 6/10 ? Patient has exhausted conservative therapy ? Patient unable to tolerate physical therapy due to pain. . Patient has a good understanding of their pain condition and has appropriate mental and social support Scribed for Dr. Guzman by Nir Arenas, medical pathologist, on 02/14/2024. I, Dr. Guzman, have personally reviewed and agree with the information entered by the scribe. Coding Level of Care Code Est Pt Level 3 (14254) Diagnoses Lumbar radiculopathy M54.16
== END 2024-02-14 10:31 | disposition home or self-care (01) ==
LOC: HO.PMC 09:36
PROVIDERS: PCP Internal Medicine Medical Oncology; Visit Provider Internal Medicine
DX: M54.16 Radiculopathy, lumbar region (principal)
CPT/HCPCS: 99213

== ENCOUNTER → 2024-02-14 09:36 | Outpatient (BNVA) | payer OTHER, SELFPAY | PROVIDERS: PCP Internal Medicine Medical Oncology; Visit Provider Internal Medicine ==

== ENCOUNTER 2024-03-02 06:01 | Outpatient (REF) | payer OTHER, SELFPAY | END 2024-03-02 06:02 | disposition home or self-care (01) | LOC: CF 06:01 | PROVIDERS: Visit Provider Internal Medicine | DX: M54.16 Radiculopathy, lumbar region (principal) | CPT/HCPCS: 64483; J1100; J2003; Q9967 ==

== ENCOUNTER 2024-03-02 08:38 | Outpatient (AMB) | payer OTHER, SELFPAY ==
[2024-03-02 08:48] VITALS: BP 204/94; PULSE 57; O2SAT 97
--- NOTE | 2024-03-02 08:48 | MHC.OFFVIS ---
Vital Signs 03/02/24 08:48 03/02/24 09:35 BP 204/94 H 223/103 H Blood Pressure Location Lt brachial Lt brachial Position Sitting Sitting Pulse 57 62 Pulse Source Pulse Oximeter Pulse Oximeter Pulse Oximetry (%) 97 98 Oxygen Delivery Method Room Air Room Air Intake Visit Reasons: Right L4-L5 TFESI Allergies sulfa Allergy (Intermediate, Uncoded 02/14/24 10:05) Hives HPI HPI Right L4-L5 TFESI: Details: Patient presents for scheduled procedure. Denies any recent cough, cold, infection, fever or other significant changes in medical history since last office visit. [facility] Medical History Numbness COVID-19 Arthritis Habitual snoring Tobacco dependence Depression Internal hemorrhoids Nonhealing nonsurgical wound Degenerative disc disease at L5-S1 level History of TIA (transient ischemic attack) Hepatitis C Tubular adenoma of colon (~2001) Personal history of nicotine dependence Asthma Hypertension Cerebral microvascular disease Surgical History History of tubal ligation History of surgery on lower extremity (~2014) History of colonoscopy History of liver biopsy (~2014) History of hysterectomy (~2007) Family History Paternal Grandmother Colon cancer Father HTN (hypertension) CAD (coronary artery disease) Mother HTN (hypertension) CAD (coronary artery disease) Son HTN (hypertension) Social History Household Members: None Household Members Other:: son Housing: House Are you a primary care information associate to a significant other at home: No Do you presently have visiting nurse or other home services: No Alcohol intake: current Alcohol intake frequency: a few times a month Patient Tobacco Use Status: Never used Tobacco Tobacco use type: Cigarette Cigarettes Per Day: 5 Years Smoked: 20 Years Quit 01/2022 Second Hand Smoke Exposure: No Substance Use Type: Marijuana service: No Current occupational status: employed Physical Exam Vital Signs: Last Vital Signs Pulse 62 03/02/24 09:35 BP 223/103 H 03/02/24 09:35 Pulse Ox 98 03/02/24 09:35 Oxygen Delivery Method Room Air 03/02/24 09:35 Office Procedures Details: Transforaminal epidural steroid injection, Right L4/5 After obtaining written consent, pre-procedure blood pressure and heart rate were stable and recorded in the nursing record. The patient was placed in the prone position on the fluoroscopy table. The lumbosacral area was prepped with chloraprep, allowed to dry and draped in sterile fashion. Using fluoroscopy, the skin overlying our target was anesthetized with 0.5% lidocaine. A 22 gauge 3.5 inch spinal needle was advanced to the safe triangle in the upper pole of the right L4/5 foramen. No paresthesias were elicited with needle placement and aspiration was negative for blood and CSF. Correct needle position was confirmed with approximately 1 ml contrast dye (Omnipaque 180 mg/ml) injected under real-time fluoroscopy. No evidence of vascular or intrathecal uptake was seen and there was both epidural and peripheral spread of the contrast agent. 10 mg dexamethasone plus 1 ml containing 0.5% lidocaine was slowly injected. The needle was flushed and removed. The skin was cleansed and a sterile bandages were applied. The patient tolerated the procedure well and no complications were encountered. Following the procedure the patient's vital signs were stable. The patient was discharged home in good condition with post-procedural instructions. Time Out: Immediately prior to the procedure, the following was verbally confirmed that there is a signed consent form and that the correct patient, planned procedure, site and side are consistent with documentation and that necessary equipment and/or blood products are available prior to the start of the case. Complications: none EBL: <5 cc 16971 - Lumbar/Sacral Procedure code (CPT) selection complete Assessment & Plan Assessment & Plan (1) Lumbar radiculopathy: Code(s): M54.16 - Radiculopathy, lumbar region Category: Medical Plan Patient is status post right L4-5 TFESI. Patient tolerated procedure well and was discharged home in stable condition with discharge instructions. All questions were answered. We will follow-up via telephone or in clinic to assess response to therapy. A follow-up appointment was made during today's visit. Orders: Orders FL guidance in treatment room Today M54.16 - Radiculopathy, lumbar region Coding Level of Care Code Procedure Only Diagnoses Lumbar radiculopathy M54.16 CPT Codes Transforaminal Epidural Steroid Inj - TESI 3: 61283 - Lumbar/Sacral ([id number])
[2024-03-02 09:35] VITALS: BP 223/103; PULSE 62; O2SAT 98
== END 2024-03-02 09:46 | disposition home or self-care (01) ==
LOC: HO.PMCPRC 08:38
PROVIDERS: PCP Internal Medicine Medical Oncology; Visit Provider Internal Medicine
DX: M54.16 Radiculopathy, lumbar region (principal)
CPT/HCPCS: 64483

== ENCOUNTER 2024-09-13 10:53 | Outpatient (AMB) | payer OTHER, SELFPAY ==
[2024-09-13 11:14] VITALS: BP 206/102; PULSE 71; RESP 16; O2SAT 95; BMI 27.0
--- NOTE | 2024-09-13 11:14 | A.OFFVIS_ITS ---
Vital Signs 09/13/24 11:14 Height 5 ft 9 in Weight 183 lb BMI 27.0 BP 206/102 H Blood Pressure Location Lt brachial Position Sitting Respiration 16 Pulse 71 Pulse Source Pulse Oximeter Pulse Oximetry (%) 95 Oxygen Delivery Method Room Air Intake Visit Reasons: PROCEDURE DISCUSSION Intake Note: Pt's BP grossly elevated - she recently lost 3 family members and has been stressed [employer] Required: No Allergies sulfa Allergy (Intermediate, Uncoded 09/13/24 11:17) Hives Medication List - Last Reconciled 09/13/24 by Shyanne Villafuerte LPN albuterol sulfate 2.5 mg (3 mL) inhalation Q4-6H PRN albuterol sulfate 90 mcg/actuation (ProAir HFA) 2 puffs inhalation Q4-6H PRN amitriptyline 50 mg PO BEDTIME amlodipine (Norvasc) 5 mg PO DAILY atenolol 100 mg PO DAILY [id number] 160-9-4.8 mcg/actuation (Breztri Aerosphere) 2 inhalations inhalation BID 30 days nebulizer and compressor As directed nicotine 21 mg transdermal DAILY paroxetine HCl 1 tab PO DAILY tramadol 50 mg PO BID valsartan mg PO HPI HPI PROCEDURE DISCUSSION: Details: History of Present Illness The patient is a 64-year-old female presenting with chronic low back pain. She describes the pain as constant and occasionally unbelievable in intensity, primarily on the right side, extending from the back into the right leg. Past lumbar injections have offered temporary relief, with the recent L4-5 transforaminal injection being notably effective for up to a month compared to earlier attempts. Alongside this, she reports issues with balance following a neck procedure, affecting how she ambulates ? often remaining hunched to minimize discomfort. The patient's pain and its functional impact have been significant, with the pain regularly interfering with her day-to-day activities and her ability to work. While open to additional procedures potentially providing relief, concern about invasive methods like spinal cord stimulators persists due to negative experiences shared by acquaintances. She remains engaged in self-care efforts through TENS, though looking for more sustainable pain management solutions. Pain Description - Pain onset: Chronic and persistent over an extended period - Quality: Unbelievable at times, with constant discomfort - Location: Right side of the lower back - Radiation: Radiates down the right leg - Exacerbating factors: Standing, normal posture and daily activities - Alleviating factors: Temporary relief from previous lumbar injections, hunched posture - Functional interference: Interferes with daily activities and maintaining two jobs Physical Exam - Musculoskeletal- Positive straight leg raise test on the right side - Appears afebrile. - Alert and oriented. - Mood and affect appropriate. - Follows and participates in conversation appropriately. - Respiratory effort is unlabored. - Able to transition from sit to stand unassisted. Pain Management - Affect: Pain negatively impacts her mood and interaction, particularly on bad pain days - Analgesia: Currently utilizing TENS for relief, previously received lumbar injections with partial relief - Adverse Effects: No specific medication side effects reported - Activities of Daily Living: Pain affects her ability to work two jobs and routine activities; compensation through altered gait - Aberrant Drug Related Behaviors: None reported [facility] Medical History Numbness COVID-19 Arthritis Habitual snoring Tobacco dependence Depression Internal hemorrhoids Nonhealing nonsurgical wound Degenerative disc disease at L5-S1 level History of TIA (transient ischemic attack) Hepatitis C Tubular adenoma of colon (~2001) Personal history of nicotine dependence Asthma Hypertension Cerebral microvascular disease Surgical History History of tubal ligation History of surgery on lower extremity (~2014) History of colonoscopy History of liver biopsy (~2014) History of hysterectomy (~2007) Family History Paternal Grandmother Colon cancer Father HTN (hypertension) CAD (coronary artery disease) Mother HTN (hypertension) CAD (coronary artery disease) Son HTN (hypertension) Social History Household Members: None Household Members Other:: son Housing: House Are you a primary primary care pediatrician to a significant other at home: No Do you presently have visiting nurse or other home services: No Alcohol intake: current Alcohol intake frequency: a few times a month Patient Tobacco Use Status: Never used Tobacco Tobacco use type: Cigarette Cigarettes Per Day: 5 Years Smoked: 20 Years Quit 01/2022 Second Hand Smoke Exposure: No Substance Use Type: Marijuana service: No Current occupational status: employed Physical Exam Vital Signs: Last Vital Signs Pulse 71 09/13/24 11:14 Resp 16 09/13/24 11:14 BP 206/102 H 09/13/24 11:14 Pulse Ox 95 09/13/24 11:14 Oxygen Delivery Method Room Air 09/13/24 11:14 BMI result Body Mass Index 27.0 Assessment & Plan Assessment & Plan (1) Lumbar radiculopathy: Code(s): M54.16 - Radiculopathy, lumbar region Category: Medical Plan Plan - Right L4-5 TFESI for right lumbar radiculopathy - Provided information regarding potential future intervention with spinal cord stimulator - Monitor relief duration from epidural injections to establish effectiveness and scheduling needs - Discussed the necessity of psychological evaluation for spinal cord stimulator candidacy Patient was informed and verbally consented to the use of an ambient scribe for clinic note documentation during this visit. Discussion Notes During the visit, I reviewed the patient's history of chronic low back pain and the temporary efficacy of past SI joint injections. The discussion included detailed options for continuing injections or considering the implantation of a spinal cord stimulator, with the risks and benefits associated with each choice. The patient expressed her concerns related to the spinal cord stimulator, informed by experiences of close contacts. I emphasized the need for psychological clearance before proceeding with any device implantation. We agreed to proceed with a transforaminal epidural steroid injection since her symptoms at this time appeared to be secondary to lumbar radiculopathy in the last transforaminal injection provided more than 50% relief for more than 6 weeks. Patient Instructions - Monitor and document the duration of relief from the recent injection. - Review the provided brochure on spinal cord stimulators. - Maintain a pain and relief diary to facilitate further discussions. - Expect a follow-up call for scheduling the procedure pending authorization. - Schedule an appointment for psychological evaluation if considering a spinal cord stimulator. Coding Level of Care Code Est Pt Level 4 (36735) Diagnoses Lumbar radiculopathy M54.16
== END 2024-09-13 11:29 | disposition home or self-care (01) ==
LOC: HO.PMC 10:54
PROVIDERS: PCP Internal Medicine Medical Oncology; Visit Provider Internal Medicine
DX: M54.16 Radiculopathy, lumbar region (principal)
CPT/HCPCS: 99214

== ENCOUNTER → 2024-09-13 10:53 | Outpatient (BNVA) | payer OTHER, SELFPAY | PROVIDERS: PCP Internal Medicine Medical Oncology; Visit Provider Internal Medicine ==

== ENCOUNTER 2024-09-28 06:21 | Outpatient (REF) | payer OTHER, SELFPAY ==
--- NOTE | ~2024-09-28 | FL_ITS ---
EXAMINATION: XR FLUOROSCOPY WITH IMAGES CLINICAL INFORMATION: Lumbar pain management. COMPARISON: None available. TECHNIQUE: Fluoroscopy provided to: Dr. Guzman Fluoroscopy time: 0.2 minutes DAP: 0.0436 mGycm2 Images: 3 FINDINGS: 3 fluoroscopic spot images taken during lumbar pain management injection. Please refer to the full procedural report for details. FL/FL guidance in treatment room IMPRESSION: Fluoroscopic guidance. Electronically signed by: Zev Hyde MD 09/28/2024 11:48 AM EDT
--- OUTSIDE RECORDS SUMMARY | 2024-09-28 06:23 | XMS_ITS | Patient Health Record ---
Author Organization Armando Kerns III, MD Address [address] [place] [address] [place] [address] Care Team Providers Care Road Sign Installer Name Role Phone Armando Kerns Primary Care Provider Allergies Allergen (clinical drug ingredient) Drug/Non Drug Allergy documented on EMR Reaction Allergy Type Onset Date Status sulfacetamide Sulfacetamide Unknown Drug Allergy Active prednisolone Prednisolone Unknown Drug Allergy A ctive Results Component Value Reference Range Notes MRSA Nasal Screen Reviewed date:11/13/2023 04:12:56 AM Interpretation: Performing Lab:[facility], [address] [place] [id number] Notes/Report: MRSA Nasal PCR NEGATIVE Negative SA Nasal PCR NEGATIVE Negative MRSA Interpretation SEE NOTE MRSA target DNA not detected; SA target DNA not detected. A MRSA NEGATIVE, SA NEGATIVE test result does not preclude MRSA or SA nasal colonization. FL guidance in OR Reviewed date:12/08/2023 01:11:14 PM Interpretation: Performing Lab: Notes/Report: [address] [address] Fluoroscopy Report Signed Patient: Libertad Graves MR#: [id number] 8 : 1960 Acct:[id number] Age/Sex: 63 / F ADM Date: 11/10/23 Loc: HO.SSS Attending Dr: Iain Guzman MD Ordering Physician: Iain Guzman MD Date of Service: 11/10/23 Procedure(s): FL guidance in OR Accession Number(s): [id number] cc: Armando Kerns MD; Iain Guzman MD EXAMINATION: XR FLUOROSCOPY WITH IMAGES CLINICAL INFORMATION: L3, L4, L5 basivertebral nerve ablation. COMPARISON: None available. TECHNIQUE: Fluoroscopy Supervised By: Dr. Guzman. Fluoroscopy Time: 3 min, 44.2 sec. Cumulative Dose: 165.20 mGy. DAP: 26.213 Gycm2. Images: 9. FINDINGS: Intraoperative fluoroscopy and spot films were performed during a procedure in the OR. Ablation probes are seen overlying the spine with the bottom image showing a probe at S1. Precise levels can not be ascertained secondary to marked coning of the images with lack of appropriate landmarks. Please correlate with Dr. Guzman' report for complete details. FL/FL guidance in OR IMPRESSION: Intraoperative fluoroscopy and spot films were obtained. Please see Dr. Guzman' report for complete details. Dictated By: Hipolito Lisa MD Signed By: <Electronically signed by Hipolito Lisa MD in OV> 12/04/23 2142 DD/ 1300 TD/TT: Real Estate Associate: [place] [address] Fluoroscopy Report Signed Patient: Libertad Graves MR#: [id number] 8 : 1960 Acct:[id number] Age/Sex: 63 / F ADM Date: 11/10/23 Loc: [facility] Attending Dr: Iain Guzman MD Ordering Physician: Iain Guzman MD Date of Service: 11/10/23 Procedure(s): AARON roya veronica in OR Accession Number(s): [id number] cc: Armando Kerns MD; Iain Guzman MD EXAMINATION: XR FLUOROSCOPY WITH IMAGES CLINICAL INFORMATION: L3, L4, L5 basiverte bral nerve ablation. COMPARISON: None available. TECHNIQUE: Fluoroscopy Supervis ed By: Dr. Guzman. Fluoroscopy Time: 3 min, 44.2 sec. Cumulative Dose: 165 .20 mGy. DAP: 26.213 Gycm2. Images: 9. FINDINGS: Intraoperative fluoroscopy and spot films were performed during a procedure in the OR. Ablation probes are seen overlying the spine with the bottom image moe wing a probe at S1. Precise levels can not be ascertained secondar y to marked coning of the images with lack of appropriate landmark s. Please correlate with Dr. Guzman' report for complete details. F L/FL guidance in OR IMPRESSION: Intraoperative fluoroscopy and spot films were obtained. Please see Dr. Guzman' report for complete details. Dictated By: Hipolito Lisa MD Signed By: <Electronically signed by Hipolito Lisa MD in OV> 12/04/23 2142 DD/ 1300 TD/TT: Tourist Adviser ist: SS Reason For Referral Reason Evaluate and Treat Increased Difficulty Breathing Asthma Diagnosis 1 Mild intermittent as thma without complication (J45.20) Diagnosis 2 Tobacco dependence ( F17.200) Referral Organization Armando Kerns III, MD Referring Provider First Name Armando Referring Provider Last Name Luis F Referring Provider Speciality Internal M edicine Referred Provider [facility] er, Pulmonology Referred Provider Specialty Pulmonary [facility] General Notes DFarhana 07/24/2024 11:53:06 AM > Per request of Dr. Kerns Referral was faxed with last progress note Referral Priority Routine Medications Medication SIG (Take, Route, Frequency, Duration) Notes Start Date End Date Status Doxycycline Hyclate 100 MG 1 capsule Ora lly twice a day 05/30/2024 Active PARoxetine HCl 40 MG 1 tablet in the mor bethany Orally Once a day for 90 days Active Valsartan 40 MG 1 tablet Orally a 06/19/2024 Active Albuterol Sulfate HFA 108 (90 Base) MCG/ACT 1 puff Inhalation every 4 hrs Active amLODIPine Besylate 5 MG TAKE ONE TABLET BY MOUTH EVERY DAY Active Dulera 200-5 MCG/ACT INHALE 2 PUFFS TWO TIMES A DAY Active predniSONE 20 MG 1 tablet with food o r milk Orally Once a day 05/22/2024 Active Atenolol 50 MG TAKE 2 TABLETS BY MO UTH EVERY MORNING Active Amitriptyline HCl 50 MG TAKE ONE TABLET BY MOUTH AT BEDTIME Active Albuterol Sulfate HFA 108 (90 Base) MCG/ACT 1 puff as needed Inhalation every 4 hrs 06/25/2023 Active Breztri Aerosphere 160-9-4.8 MCG/ACT 2 puffs Inhalation Twice a day 06/25/2023 Active Immunizations Vaccine Route Administration Date Status Comme nts Hepatitis A (adult) Unknown 01/25/2018 Administered PPV 23 Unknown 08/08/2021 Administered COVID PFIZER Unknown 06/20/2020 Administered COVID PFIZER Unknown 05/27/2020 Administered Social History Tobacco Use: Social History Observation Description Date Details (start date - stop date) Current Smoker NA - NA Sex Assigned At : Social History Observation Description Sex Assigned At Female Tobacco Use/Smoking Question Answer Notes Patient is a current smoker How often do you smoke cigarettes? some days, bu t not every day How many cigarettes a day do you smoke? 5 or les s How soon after you wake up d o you smoke your first cigarette? after 60 minutes Are you interested in quitting? Ready to quit Additional Findings: Tobacco User Light cigarett e smoker ((1-9 cigs/day) Alcohol Screen Question Answer Notes Did you have a drink containing alcohol in the p ast year? No Points 0 Interpretation Negative Problems Problem Type SNOMED Code ICD Code Onset Dates Problem Status W/U Status Risk Notes Problem 39049736 Postmenopausal (Z78.0) Active confirmed Her ovaries remain and she had a hysterectomy in the past. She is postmenopausal and should have bone density done periodically. Problem 493353666508470 Obesity (BMI 30.0-34.9) (E66.9) Active confirmed Her BMI is 30 a nd she has a stable weight. We discussed a weight loss plan for aggressive sodium restriction and calorie reduction. Problem 836482898 Lumbar radiculopathy (M54.16) Active confirmed She is experiencing an exacerbation of the lumbar radiculopathy. I have advised her to use heat and to rest and to continue the muscle relaxer. She will avoid heavy lifting. A follow-up in 1 week will be done. Problem 94896172 Other chronic pain (G89.29) Active confirmed She continues to have low back pain that radiates but the diffuse joint and muscle pain is much improved with discontinuing the statin medication. Problem 40633554 Essential hypertension (I10) Active confirmed Her blood pressure is 160/88 even after lying down for 15 minutes. We discussed diet and nutrition. We reviewed the elements of sodium restriction. I recommended aggressive weight reduction.I have added valsartan 40 mg to her regimen and given her a follow-up visit in the near future to check her blood pressure again. Her medications will be titrated. Problem 74351940 Tobacco dependence (F17.200) Active confirmed She continues t o consume a package of cigarettes daily. We have discussed the health consequences of continued smoking. She was made aware of all of the tobacco cessation programs in the area. Problem 004191596 Mild intermittent asthma without complication (J45.20) Active confirmed She is still on prednisone and will use her inhaler and finished the prednisone prescription. She reports the wheezing has improved. Problem 110474485 Chronic hepatitis C without hepatic coma (B18.2) Active confirmed She has a gastroenterologis t and I will obtain the old records. She will be referred back for therapy if it would be beneficial. Her titer was very elevated. Problem Combined disorder of muscle AND peripheral nerve (024981923) Neuromuscular disease (G70.9) Active confirmed Problem History of depression (710321320) History of depression (Z86.59) Active confirmed Her depression is mild. She has been compliant with all her medications. She is conducting all his activities of daily life without impairment. Problem 996230786 Adenomatous polyp of colon, unspecified part of colon (D12.6) Active confirmed The tubular adenoma was in 2001 and in 2013. She had a normal colonoscopy. She has a family history of colon cancer and should have a colonoscopy every 5 years. She agreed with this. She was referred back to Dr. Flannery to have a screening colonoscopy in the near future. Problem 23206402 Degenerative disc disease, lumbar (M51.36) Active confirmed She has spok en to the neurosurgeon he'll consider surgery after her next surgery. Her degree of pain is unchanged. I have prescribed Tegretol. Problem 62975130 Peripheral polyneuropathy (G62.9) Active confirmed Problem 674993565 Covid-19 (U07.1) Active confirmed She has completely recovered and denies any long-haul symptoms. Problem 221675840 Transient ischemic attack (G45.9) Active confirmed Problem 851582051 Cerebral microvascular disease (I67.89) Active confirmed No further neurological symptoms have been experienced. Vital Signs Heart Rate 60 /min 06/19/2024 Temperature 97.9 degrees Fahrenheit 06/19/2024 Blood pressure diastolic 88 mm Hg 06/19/2024 Height 67 in 06/19/2024 Blood pressure systolic 160 mm Hg 06/19/2024 Weight 192 lbs 06/19/2024 BMI 30.07 kg/m2 06/19/2024 Encounters Encounter Location Date Provider Diagnosis Armando Kerns III, MD [address] [place] [address] [place] [address] 10/01/2023 Armando Kerns Tobacco dependence F17.200 ; Lumbar radiculopathy M54.16 ; Essential hypertension I10 ; Mild intermittent asthma without complication J45.20 ; Degenerative disc disease, lumbar M51.36 and Obesity (BMI 30.0-34.9) E66.9 Armando Kerns III, MD [address] [place] [address] [place] [address] 05/30/2024 Armando Kerns Pharyngitis, unspeci fied etiology J02.9 ; Essential hypertension I10 ; Mild intermittent asthma without complication J45.20 ; Obesity (BMI 30.0-34.9) E66.9 and Tobacco dependence F17.200 Armando Kerns III, MD [address] [place] [address] [place] [address] 06/19/2024 Armando Kerns Pharyngitis, unspeci fied etiology J02.9 ; Essential hypertension I10 ; Mild intermittent asthma without complication J45.20 ; Postmenopausal Z78.0 ; Adenomatous polyp of colon, unspecified part of colon D12.6 ; Degenerative disc disease, lumbar M51.36 ; Tobacco dependence F17.200 and Obesity (BMI 30.0-34.9) E66.9 Armando Kerns III, MD [address] [place] [address] [place] [address] 12/02/2023 Armando Kerns Screening due Z13.9 Armando Kerns III, MD [address] [place] [address] [place] [address] 02/08/2024 Armando Kerns III, MD [address] [place] [address] [place] [address] 05/22/2024 Armando Kerns III, MD [address] [place] [address] [place] [address] 05/22/2024 Armando Kerns III, MD [address] [place] [address] [place] [address] 05/30/2024 Armando Kerns III, MD [address] [place] [address] [place] [address] 05/31/2024 Armando Kerns III, MD [address] [place] [address] [place] [address] 07/04/2024 Armando Kerns III, MD [address] [place] [address] [place] [address] 07/04/2024 Armando Kerns III, MD [address] [place] [address] [place] [address] 07/04/2024 Armnado Kerns III, MD [address] [place] [address] [place] [address] 07/24/2024 Armando Kerns Pharyngitis, unspeci fied etiology J02.9 Armando Kerns III, MD [address] [place] [address] [place] [address] 08/31/2024 Armando Kerns Pharyngitis, unspeci fied etiology J02.9 Assessments Encounter Date Diagnosis (ICD Code) Assessment Notes Treat ment Notes Treatment Clinical Notes 10/01/2023 Lumbar radiculopathy (ICD-10 - M54.16) She is experiencing an exacerbation of the lumbar radiculopathy. I have advised her to use heat and to rest and to continue the muscle relaxer. She will avoid heavy lifting. A follow-up in 1 week will be done. 10/01/2023 Tobacco dependence (ICD-10 - F17.200) She continues to consume a package of cigarettes daily. We have discussed the health consequences of continued smoking. She was made aware of all of the tobacco cessation programs in the area. 05/30/2024 Essential hypertension (ICD-10 - I10) Her blood pressure is now at baseline. We discussed diet and nutrition. We reviewed the elements of sodium restriction. I recommended aggressive weight reduction. 05/30/2024 Pharyngitis, unspecified etiology (ICD-10 - J02.9) She was given an antibiotic and a followup visit. She was given information about antitussives and expectorants as well. 06/19/2024 Essential hypertension (ICD-10 - I10) Her blood pressure is 160/88 even after lying down for 15 minutes. We discussed diet and nutrition. We reviewed the elements of sodium restriction. I recommended aggressive weight reduction.I have added valsartan 40 mg to her regimen and given her a follow-up visit in the near future to check her blood pressure again. Her medications will be titrated. 06/19/2024 Pharyngitis, unspecified etiology (ICD-10 - J02.9) Her recent illness has completely resolved and she has returned to her baseline. 12/02/2023 Screening due (ICD-10 - Z13.9) 07/24/2024 Pharyngitis, unspecified etiology (ICD-10 - J02.9) Her recent illness has completely resolved and she has returned to her baseline. 08/31/2024 Pharyngitis, unspecified etiology (ICD-10 - J02.9) Her recent illness has completely resolved and she has returned to her baseline. 10/01/2023 Essential hypertension (ICD-10 - I10) Her blood pressure is now at baseline. We discussed diet and nutrition. We reviewed the elements of sodium restriction. I recommended aggressive weight reduction. 05/30/2024 Mild intermittent asthma without complication (ICD-10 - J45.20) She is still on prednisone and will use her inhaler and finished the prednisone prescription. She reports the wheezing has improved. 06/19/2024 Mild intermittent asthma without complication (ICD-10 - J45.20) She is still on prednisone and will use her inhaler and finished the prednisone prescription. She reports the wheezing has improved. 10/01/2023 Mild intermittent asthma without complication (ICD-10 - J45.20) She has recovered from the recent attack of asthma. She does not need prednisone. She is breathing room air comfortably. I instructed her to call me at once if her asthma worsens. 05/30/2024 Obesity (BMI 30.0-34.9) (ICD-10 - E66.9) Her BMI is 30 and she has a stable weight. We discussed a weight loss plan for aggressive sodium restriction and calorie reduction. 06/19/2024 Postmenopausal (ICD-10 - Z78.0) Her ovaries remain and she had a hysterectomy in the past. She is postmenopausal and should have bone density done periodically. 10/01/2023 Degenerative disc disease, lumbar (ICD-10 - M51.36) She has spoken to the neurosurgeon he'll consider surgery after her next surgery. Her degree of pain is unchanged. I have prescribed Tegretol. 05/30/2024 Tobacco dependence (ICD-10 - F17.200) She continues to consume a package of cigarettes daily. We have discussed the health consequences of continued smoking. She was made aware of all of the tobacco cessation programs in the area. 06/19/2024 Adenomatous polyp of colon, unspecified part of colon (ICD-10 - D12.6) The tubular adenoma was in 2001 and in 2013. She had a normal colonoscopy. She has a family history of colon cancer and should have a colonoscopy every 5 years. She agreed with this. She was referred back to Dr. Flannery to have a screening colonoscopy in the near future. 10/01/2023 Obesity (BMI 30.0-34.9) (ICD-10 - E66.9) Her BMI is 30 and she has a stable weight. We discussed a weight loss plan for aggressive sodium restriction and calorie reduction. 06/19/2024 Degenerative disc disease, lumbar (ICD-10 - M51.36) She has spoken to the neurosurgeon he'll consider surgery after her next surgery. Her degree of pain is unchanged. I have prescribed Tegretol. 06/19/2024 Tobacco dependence (ICD-10 - F17.200) She continues to consume a package of cigarettes daily. We have discussed the health consequences of continued smoking. She was made aware of all of the tobacco cessation programs in the area. 06/19/2024 Obesity (BMI 30.0-34.9) (ICD-10 - E66.9) Her BMI is 30 and she has a stable weight. We discussed a weight loss plan for aggressive sodium restriction and calorie reduction. 02/08/2024 Other Plan Of Treatment Pending Test Test Name Order Date PROFILE, FASTING (COMPREHENSIVE METABOLI C) 08/20/2020 PROFILE, RANDOM (COMPREHENSIVE METABOLIC ) 06/11/2021 TSH (THYROID STIMULATING HORMONE) 2020 CBC w DIFF 06/11/2021 MONO TEST (HETEROPHILE AB) 06/11/2021 MAMMOGRAM DIGITAL BILATERAL SCREEN 03/12 MAMMOGRAM DIGITAL BILATERAL SCREEN 12/01 Lipid Panel 08/20/2020 Free T4 (Free Thyroxine) 08/20/2020 Next Appt Details Provider Name:Armando Kerns, 10/04/2024 09:30:00 AM, [address] [place] [address] [address], [place], [address], Insurance Providers Payer Name Payer Address Payer Phone Subscriber Number Group Number Insured Name Patient Relationship to Insured Coverage Start Date Coverage End Date [facility] [address] [place] [phone] [id number] LIBERTAD GRAVES Self - patient is the insured Medical (General) History Medical History History ICD Code Degenerative disc disease at L5-S1 level M51.36 essential hypertension nonhealing wound, left 2014, clinical account liaison is Dr. Skinner and Dr. Agustin in [place] overweight body mass index 29 tubular adenoma 2001 family history of colorectal cancer hepatitis C internal hemorrhoids asthma history of depression sulfa allergy ferritin level 760 last menstrual period 2006 tobacco dependence Surgical History Surgery Date(Month/Year) No history Cervical spondylosis with myelopathy and radiculopathy 11/19/2022 debridement nonhealing wound, left calf 03/2015 liver biopsy, Dr. Echevarria 09/2014 colonoscopy, Dr. Kirby, no lesions 2013 hysterectomy, ovaries remain 2007 colonoscopy, Dr. Kirby, tubular adenoma 01/2002 tubal ligation 01/1986 Hospitalization History Reason Date(Month/Year) No history Cerebral Microvascular disease 07/2020 leg cellulitis/ ulcer 08/2015
--- OUTSIDE RECORDS SUMMARY | 2024-09-28 06:24 | XMS_ITS ---
Author Organization Armando Kerns III, MD Address [address] [place] [address] [place] [address] Care Team Providers Care Parachute Supervisor Name Role Phone Armando Kerns Primary Care Provider [phone] REASON FOR VISIT Refills Medications Medication SIG (Take, Route, Fr equency, Duration) Notes Start Date End Date Status PARoxetine HCl 40 MG 1 tablet in the mor bethany Orally Once a day for 90 days Active Social History Sex Assigned At : Social History Observation Description Sex Assigned At Female Encounters Encounter Location Date Provider Diagnosis Amrando Kerns III, MD [address] [place] [address] [place] [address] 08/31/2024 Armando Luis F Pharyngitis, unspecified etiology [...] days Next Appt Details Provider Name:Armando Kerns, 10/04/2024 09:30:00 AM, [address] [place] [address] [place], [address], Progress Notes * JACQUELIN GRAVESDOB:1960 ( 64 yo F)Acc No.[id number]:08/31/2024 Patient:?JACQUELIN GRAVES :1960???Age:64 Y???Sex:Female [facility] [address] [facility] [place], [address] * Refills? Refill PARoxetine HCl Tablet, 40 MG, Orally, 90 Tablet, 1 tablet in the morning, Once a day, 90 days, Refills=3 * true * Date:? Generated for Yfn morales/Jennifer/eTransmitting on:?09/28/2024 06:23 AM EDT
--- OUTSIDE RECORDS SUMMARY | 2024-09-28 06:24 | XMS_ITS ---
Author Organization Armando Kerns III, MD Address [address] [place] [address] [address] [place] [address] Care Team Providers Care Administrative Law Judge Name Role Phone Armando Kerns Primary Care Provider [phone] Allergies Allergen (clinical drug ingredient) Drug/Non Drug Allergy documented on EMR Reaction Allergy Type Onset Date Status sulfacetamide Sulfacetamide Unknown Drug Allergy Active prednisolone Prednisolone Unknown Drug Allergy A ctive REASON FOR VISIT Annual Exam Medications Medication SIG (Take, Route, Frequency, Duration) Notes Start Date End Date Status Doxycycline Hyclate 100 MG 1 capsule Ora lly twice a day 05/30/2024 Active Valsartan 40 MG 1 tablet Orally Twic e a day 06/19/2024 Active Albuterol Sulfate HFA 108 (90 Base) MCG/ACT 1 puff Inhalation every 4 hrs Active Atenolol 50 MG TAKE 2 TABLETS BY MO UTH EVERY MORNING Active Amitriptyline HCl 50 MG TAKE ONE TABLET BY MOUTH AT BEDTIME Active amLODIPine Besylate 5 MG TAKE ONE TABLET BY MOUTH EVERY DAY Active Dulera 200-5 MCG/ACT INHALE 2 PUFFS TWO TIMES A DAY Active PARoxetine HCl 40 MG TAKE 1 TABLET BY MO UTH DAILY IN MORNING. Active Albuterol Sulfate HFA 108 (90 Base) MCG/ACT 1 puff as needed Inhalation every 4 hrs 06/25/2023 Active Breztri Aerosphere 160-9-4.8 MCG/ACT 2 puffs Inhalation Twice a day 06/25/2023 Active predniSONE 20 MG 1 tablet with food o r milk Orally Once a day 05/22/2024 Active Social History Tobacco Use: Social History Observation [...] User Light cigarett e smoker ((1-9 cigs/day) Encounters Encounter Location Date Provider Diagnosis Armando Kerns III, MD [address] [place] [address] [address] [address] 08/18/2024 Armando Kerns Pharyngitis, unspecified etiology J02.9 Assessments Encounter Date Diagnosis (ICD Code) Assessment Notes Treatment Notes Treatment Clinical Notes 08/18/2024 Pharyngitis, unspecified etiology (ICD-10 - J02.9) Her recent illness has completely resolved and she has returned to her baseline. Plan Of Treatment Medication Medication Name Sig Start Date Stop Date Notes Doxycycline Hyclate 100 MG 1 capsule Ora lly twice a day 05/30/2024 Valsartan 40 MG 1 tablet Orally Twice a day 06/19/2024 Albuterol Sulfate HFA 108 (9 0 Base) MCG/ACT 1 puff Inhalation every 4 hrs Atenolol 50 MG TAKE 2 TABLETS BY MO UTH EVERY MORNING Amitriptyline HCl 50 MG TAKE ONE TABLET BY MOUTH AT BEDTIME amLODIPine Besylate 5 MG TAKE ONE TABLET BY MOUTH EVERY DAY Dulera 200-5 MCG/ACT INHALE 2 PUFFS TWO TIMES A DAY PARoxetine HCl 40 MG TAKE 1 TABLET BY MO UTH DAILY IN MORNING. Albuterol Sulfate HFA 108 (9 0 Base) MCG/ACT 1 puff as needed Inhalation every 4 hrs 06/25/2023 Breztri Aerosphere 160-9-4.8 MCG/ACT 2 puffs Inhalation Twice a day 06/25/2023 predniSONE 20 MG 1 tablet with food o r milk Orally Once a day 05/22/2024 Next Appt Details Provider Name:Armando Kerns, 10/04/2024 09:30:00 AM, [address] [place] [address] [address], [place], [address], Progress Notes * KOSKE, DONNADOB:1960 ( 64 yo F)Acc No.[id number]:08/18/2024 Progress Notes Patient:?JACQUELIN GRAVES Provider:?Armando Kerns MD :1960???Age:64 Y???Sex:Female D ate:08/18/2024 Address:[address] [place], [place] [address] [id number] Subjective: * Chief Complaints: * ???1. Annual Exam. * HPI: ???COVID-19 Screening:?Questions?Have you had any new onset fever, chills, cough, congestion, sore throat, shortness of breath, muscle aches??No * ROS:?General/Constitutional:?pain?only normal aches and pains.?Chills?denies.?Fatigue?admits.?Fever?denies.?ENT:?Decreased hearing?denies.?Respiratory:?Cough?denies.?Cardiovascular:?Chest pain with exertion?denies.?Dyspnea on exertion?denies.?Shortness of breath?denies.?Gastrointestinal:?Constipation?denies.?Decreased appetite?denies.?Diarrhea?denies.?Heartburn?denies.?Nausea?denies.?Rectal bleeding?denies.?Vomiting?denies.?Hematology:?bruising?denies.?petechiae?denies.?Swollen glands?none have been noted.?Genitourinary:?Frequent urination?denies.?Musculoskeletal:?Muscle aches?denies.?Painful joints?denies.?Sciatica?denies.?Weakness?denies.?Skin:?Itching?denies.?Rash?denies.?Skin lesion(s)?denies.?Neurologic:?Difficulty speaking?denies.?Dizziness?denies.?Headache?denies.?Low back pain?denies.?Psychiatric:?Depressed mood?denies.? 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 * Surgical History:?tubal liga tion 01/1986, colonoscopy, Dr. Kirby, tubular adenoma 01/2002, hysterectomy, ovaries remain 2007, colonoscopy, Dr. Kirby, no lesions 2013, liver biopsy, Dr. Echevarria 09/2014, debridement nonhealing wound, left calf 03/2015, Cervical spondylosis with myelopathy and radiculopathy 11/19/2022, No history . * Hospitalization/Major Diagno stic Procedure:?leg cellulitis/ ulcer 08/2015, Cerebral Microvascular disease 07/2020, No history . * Family History:?Father: nataly valera, Hypertension, CAD, diagnosed with HTN, CVD.?Mother: alive, Hypertension, CAD, lung cancer, diagnosed with CVD, Cancer, HTN.?Son(s): alive, diagnosed with HTN.?Siblings: alive.?Paternal Grand Mother: diagnosed with Cancer.?1 brother(s) , 2 sister(s) - healthy. 2 son(s) - healthy. .? Her paternal grandmother of colon cancer. Her sons are both hypertensive. Her brother has hypertension. * Social History:?Tobacco Use:?Tobacco Use/Smoking?Patient is a?current smoker ?How often do you smoke cigarettes??some days, but not every day ?How many cigarettes a day do you smoke??5 or less ?How soon after you wake up do you smoke your first cigarette??after 60 minutes ?Are you interested in quitting??Ready to quit ?Additional Findings: Tobacco User?Light cigarette smoker ((1-9 cigs/day) ???She is single and lives with her son. She smokes about 10 cigarettes per day and does not drink or take drugs. She works for [employer]. Smoking: The patient reported smoking, but not as much as before. Work: The patient reported working 40-46 hours a week. Exercise: The patient reported walking a lot. * Medications:?Taking PARoxeti ne HCl 40 MG Tablet TAKE 1 TABLET BY MOUTH DAILY IN MORNING. , Taking amLODIPine Besylate 5 MG Tablet TAKE ONE TABLET BY MOUTH EVERY DAY , Taking Dulera 200-5 MCG/ACT Aerosol INHALE 2 PUFFS TWO TIMES A DAY , Taking Albuterol Sulfate HFA 108 (90 Base) MCG/ACT Aerosol Solution 1 puff as needed Inhalation every 4 hrs , Taking Breztri Aerosphere 160-9-4.8 MCG/ACT Aerosol 2 puffs Inhalation Twice a day , Taking Atenolol 50 MG Tablet TAKE 2 TABLETS BY MOUTH EVERY MORNING , Taking Amitriptyline HCl 50 MG Tablet TAKE ONE TABLET BY MOUTH AT BEDTIME , Taking Doxycycline Hyclate 100 MG Capsule 1 capsule Orally twice a day , Taking Valsartan 40 MG Tablet 1 tablet Orally Twice a day , Taking Albuterol Sulfate HFA 108 (90 Base) MCG/ACT Aerosol Solution 1 puff Inhalation every 4 hrs , Taking predniSONE 20 MG Tablet 1 tablet with food or milk Orally Once a day , stop date 09/02/2024, Medication List reviewed and reconciled with the patient * Allergies:?Sulfacetamide, Pr ednisolone. Objective: * Vitals:? * Examination: ???General Examination: ?GENERAL APPEARANCE:?pleasant, well nourished, well developed, in no acute distress, calm and relaxed.?HEAD:?atraumatic, normocephalic.?EYES:?eomi, perrla, anicteric, conjugate.?EARS:?normal.?NOSE:?septum intact.?ORAL CAVITY:?normal, unremarkable.?NECK/THYROID:?no jugular venous distention, no carotid bruit, thyroid normal.?LYMPH NODES:?no enlarged lymph nodes,spleen normal.?SKIN:?no suspicious lesions, anicteric.?HEART:?no clicks, gallops, murmurs, or rubs, regular rhythm, S1, S2 normal, no s3, or vascular bruits.?LUNGS:?clear to auscultation .?BREASTS:??no masses palpable bilaterally.?ABDOMEN:?bowel sounds normal, no ascites, no organomegaly, no mass.?RECTAL EXAM:?not examined.?MUSCULOSKELETAL:?extremities unremarkable, no clubbing, cyanosis or edema.?PERIPHERAL PULSES:?normal.?NEUROLOGIC:?alert and oriented, cranial nerves 2-12 grossly intact, deep tendon reflexes 2+ symmetrical, motor strength normal upper and lower extremities, sensory exam intact.?PSYCH:?alert, oriented.? Assessment: * Assessment: 1.?Pharyngitis, unspecified etiology - J02.9???Notes :Her recent illness has completely resolved and she has returned to her baseline.??? Plan: * Treatment: 2.?Others? Continue Doxycycline Hyclate Capsule, 100 MG, 1 capsule, Orally, twice a day.?? * Images: * The named appointment provid er may or may not be the originator of this progress note, and it is not deemed complete until electronically signed by the appointment provider. Sign off status: Pending * Provider:?Armando Kerns MD Date:?08/2024 Generated for Yfn morales/Jennifer/Joeitting on:?09/28/2024 06:23 AM EDT History and Physical Notes * HPI (History of Present Illness) Category Sub-Category Detail Notes COVID-19 Screening Questions Have you had any new onset fever, chills, cough, congestion, sore throat, shortness of breath, muscle aches?: No Examination Category Sub-Category Detail Notes General Examination GENERAL APPEARANCE: pleasant , well nourished, well developed, in no acute distress, calm and relaxed HEAD: atraumatic, normocep halic EYES: eomi, perrla, anicte daniel, conjugate EARS: normal NOSE: septum intact NECK/THYROID: no jugular venous di stention, no carotid bruit, thyroid normal HEART: no clicks, gallops, murmurs, or rubs, regular rhythm, S1, S2 normal, no s3, or vascular bruits LUNGS: clear to auscultatio n ABDOMEN: bowel sounds normal, no ascites, no organomegaly, no mass NEUROLOGIC: alert and oriented, cranial nerves 2-12 grossly intact, deep tendon reflexes 2+ symmetrical, motor strength normal upper and lower extremities, sensory exam intact SKIN: no suspicious lesion s, anicteric PERIPHERAL PULSES: normal BREASTS: no masses palpable b ilaterally MUSCULOSKELETAL: extremities unremark able, no clubbing, cyanosis or edema LYMPH NODES: no enlarged lymph no karin,spleen normal RECTAL EXAM: not examined PSYCH: alert, oriented ORAL CAVITY: normal, unremarkable
--- OUTSIDE RECORDS SUMMARY | 2024-09-28 06:24 | XMS_ITS ---
Author Organization Armando Kerns III, MD Address [address] [place] [address] [place] [address] Care Team Providers Care Sustainability Officer Name Role Phone Armando Kerns Primary Care Provider Reason For Referral Reason Evaluate and Treat Increased Difficulty Breathing Asthma Diagnosis 1 Mild intermittent as thma without complication (J45.20) Diagnosis 2 Tobacco dependence ( F17.200) Referral Organization Armando Kerns III, MD Referring Provider First Name Armando Referring Provider Last Name Luis F Referring Provider Speciality Internal M edicine Referred Provider Candace Mccain [facility] er, Pulmonology Referred Provider Specialty Pulmonary [facility] General Notes Farhana Erazo 07/24/2024 11:53:06 AM > Per request of Dr. Kerns Referral was faxed with last progress note Referral Priority Routine REASON FOR VISIT Rx Request Medications Medication SIG (Take, Route, Fr equency, Duration) Notes Start Date End Date Status predniSONE 20 MG 1 tablet with food o r milk Orally Once a day for 20 days 05/22/2024 09/02/2024 Active Social History Sex Assigned At : Social History Observation Description Sex Assigned At Female Encounters Encounter Location Date Provider Diagnosis Armando Kerns III, MD [address] [place] [address] [place] [address] 07/24/2024 Armando Kerns Pharyngitis, unspecified etiology J02.9 Assessments Encounter Date Diagnosis (ICD Code) Assessment Notes Treatment Notes Treatment Clinical Notes 07/24/2024 Pharyngitis, unspecified etiology (ICD-10 - J02.9) Her recent illness has completely resolved and she has returned to her baseline. Plan Of Treatment Medication Medication Name Sig Start Date Stop Date Notes predniSONE 20 MG 1 tablet with food o r milk Orally Once a day for 20 days 05/22/2024 09/02/2024 Referrals Referral Date Details 07/24/2024 07/24/2024, Evaluate and Treat Increased Difficulty Breathing Asthma, Pulmonology [facility] Next Appt Details Provider Name:Armando Kerns, 10/04/2024 09:30:00 AM, [address] [place] [address] [place], [address], Progress Notes * JACQUELIN GRAVESDOB:1960 ( 64 yo F)Acc No.[id number]:07/24/2024 Patient:?JACQUELIN GRAVES :1960???Age:64 Y???Sex:Female Address:[address] [place] [address] [place], [address] * Refills? Refill predniSONE Tablet, 20 MG, Orally, 20 Tablet, 1 tablet with food or milk, Once a day, 20 days, Refills=1 Subjective: * Chief Complaints: * ???Rx Request * Medical History:? * Surgical History:? * Hospitalization/Major Diagno stic Procedure:? * Medications:? Objective: * Vitals:? * Physical Examination:? Assessment: * Assessment: 1.?Pharyngitis, unspecified etiology - J02.9???Notes :Her recent illness has completely resolved and she has returned to her baseline.??? Plan: * Treatment: 2.?Others? Referral To:Pulmonology [facility]??Pulmonary Diseases ?Reason:Evaluate and Treat Increased Difficulty Breathing Asthma * Procedure Codes:? * true * Date:? Generated for Yfn morales/Jennifer/Joeitting on:?09/28/2024 06:24 AM EDT Consultation Request Notes Referral Date Referring Provider Referred Provider Not es 07/24/2024 Armando Kerns [facility], Pulmonology Evaluate and Treat Increased Difficulty Breathing Asthma
== END 2024-09-28 06:22 | disposition home or self-care (01) ==
LOC: CF 06:21
PROVIDERS: Visit Provider Internal Medicine
DX: M54.16 Radiculopathy, lumbar region (principal)
CPT/HCPCS: 64483; J1100; J2003; Q9967

== ENCOUNTER 2024-09-28 10:50 | Outpatient (AMB) | payer OTHER, SELFPAY ==
[2024-09-28 11:13] VITALS: BP 182/92; PULSE 68; RESP 16; O2SAT 95
--- NOTE | 2024-09-28 11:13 | A.OFFVIS_ITS ---
Vital Signs 09/28/24 11:13 09/28/24 11:28 BP 182/92 H 190/90 H Blood Pressure Location Lt brachial Lt brachial Position Sitting Sitting Respiration 16 16 Pulse 68 75 Pulse Source Pulse Oximeter Pulse Oximeter Pulse Oximetry (%) 95 97 Oxygen Delivery Method Room Air Room Air Intake Visit Reasons: Right L4-L5 TFESI System Operator Required: No Allergies sulfa Allergy (Intermediate, Uncoded 09/28/24 11:13) Hives Medication List - Last Reconciled 09/28/24 by Shyanne Villafuerte LPN albuterol sulfate 2.5 mg (3 mL) inhalation Q4-6H PRN albuterol sulfate 90 mcg/actuation (ProAir HFA) 2 puffs inhalation Q4-6H PRN amitriptyline 50 mg PO BEDTIME amlodipine (Norvasc) 5 mg PO DAILY atenolol 100 mg PO DAILY yewuklamxh-jwtrqyut-ywmgruuvxy 160-9-4.8 mcg/actuation (Breztri Aerosphere) 2 inhalations inhalation BID 30 days nebulizer and compressor As directed nicotine 21 mg transdermal DAILY paroxetine HCl 1 tab PO DAILY tramadol 50 mg PO BID valsartan mg PO HPI HPI Right L4-L5 TFESI: Details: Patient presents for scheduled procedure. Denies any recent cough, cold, infection, fever or other significant changes in medical history since last office visit. [facility] Medical History Numbness COVID-19 Arthritis Habitual snoring Tobacco dependence Depression Internal hemorrhoids Nonhealing nonsurgical wound Degenerative disc disease at L5-S1 level History of TIA (transient ischemic attack) Hepatitis C Tubular adenoma of colon (~2001) Personal history of nicotine dependence Asthma Hypertension Cerebral microvascular disease Surgical History History of tubal ligation History of surgery on lower extremity (~2014) History of colonoscopy History of liver biopsy (~2014) History of hysterectomy (~2007) Family History Paternal Grandmother Colon cancer Father HTN (hypertension) CAD (coronary artery disease) Mother HTN (hypertension) CAD (coronary artery disease) Son HTN (hypertension) Social History Household Members: None Household Members Other:: son Housing: House Are you a primary skin care technician to a significant other at home: No Do you presently have visiting nurse or other home services: No Alcohol intake: current Alcohol intake frequency: a few times a month Patient Tobacco Use Status: Never used Tobacco Tobacco use type: Cigarette Cigarettes Per Day: 5 Years Smoked: 20 Years Quit 01/2022 Second Hand Smoke Exposure: No Substance Use Type: Marijuana service: No Current occupational status: employed Physical Exam Vital Signs: Last Vital Signs Pulse 75 09/28/24 11:28 Resp 16 09/28/24 11:28 BP 190/90 H 09/28/24 11:28 Pulse Ox 97 09/28/24 11:28 Oxygen Delivery Method Room Air 09/28/24 11:28 Office Procedures Details: Transforaminal epidural steroid injection, Right L4/5 After obtaining written consent, pre-procedure blood pressure and heart rate were stable and recorded in the nursing record. The patient was placed in the prone position on the fluoroscopy table. The lumbosacral area was prepped with chloraprep, allowed to dry and draped in sterile fashion. Using fluoroscopy, the skin overlying our target was ane sthetized with 0.5% lidocaine. A 22 gauge 3.5 inch spinal needle was advanced to the safe triangle in the upper pole of the right L4 foramen. No paresthesias were elicited with needle placement and aspiration was negative for blood and CSF. Correct needle position was confirmed with approximately 1 ml contrast dye (Omnipaque 180 mg/ml) injected under real-time fluoroscopy. No evidence of vascular or intrathecal uptake was seen and there was both epidural and peripheral spread of the contrast agent. 10 mg dexamethasone plus 1 ml containing 0.5% lidocaine was slowly injected. The needle was flushed and removed. The skin was cleansed and a sterile bandages were applied. The patient tolerated the procedure well and no complications were encountered. Following the procedure the patient's vital signs were stable. The patient was discharged home in good condition with post-procedural instructions. Time Out: Immediately prior to the procedure, the following was verbally confirmed that there is a signed consent form and that the correct patient, planned procedure, site and side are consistent with documentation and that necessary equipment and/or blood products are available prior to the start of the case. Complications: none EBL: <5 cc [address]003 - Lumbar/Sacral Procedure code (CPT) selection complete Assessment & Plan Assessment & Plan (1) Lumbar radiculopathy: Code(s): M54.16 - Radiculopathy, lumbar region Category: Medical Plan Patient is status post right L4-5 TFESI. Patient tolerated procedure well and was discharged home in stable condition with discharge instructions. All questions were answered. We will follow-up via telephone or in clinic to assess response to therapy. A follow-up appointment was made during today's visit. Orders: Orders FL guidance in treatment room Today Shelia Galo APRN, ASSESSMENT SERVICES MANAGER M54.16 - Radiculopathy, lumbar region AMB Transforaminal Epidural Steroid Injection Today Iain Guzman MD M54.16 - Radiculopathy, lumbar region Coding Level of Care Code Procedure Only Diagnoses Lumbar radiculopathy M54.16 CPT Codes Transforaminal Epidural Steroid Inj - TESI 3: 52386 - Lumbar/Sacral ([id number])
[2024-09-28 11:28] VITALS: BP 190/90; PULSE 75; RESP 16; O2SAT 97
== END 2024-09-28 11:28 | disposition home or self-care (01) ==
LOC: HO.PMCPRC 10:50
PROVIDERS: PCP Internal Medicine Medical Oncology; Visit Provider Internal Medicine
DX: M54.16 Radiculopathy, lumbar region (principal)
CPT/HCPCS: 64483

== ENCOUNTER 2024-10-17 09:53 | Outpatient (AMB) | payer OTHER, SELFPAY ==
--- NOTE | 2024-10-17 10:14 | MHC.OFFVIS ---
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 The patient has been having more coughing lately. She states that usually the winter months she has a hard time. Sometime in May she did have an x-ray done which I personally reviewed demonstrating no acute disease. Subsequently after that her breathing got worse and she was not responding to her typical albuterol therapy. She even had a [employer] nebulizer machine that she was using to give herself breathing treatments. The patient was not getting any good response and therefore she went to the hospital to be evaluated. There she was found to have significant wheezing. Repeat chest x-ray was okay. She did have blood work demonstrating significant eosinophilia. The patient was treated in the hospital for COPD exacerbation. Subsequently patient was discharged. She has been taking Dulera twice a day which has been helpful. The fact that the weather is getting a little warmer has also been helpful. Unfortunate she continues to smoke cigarettes. She has been wanting to quit. She did have a patch but did not like it was strong enough or able to function enough. She does take antidepressant therapy. We have to careful wet from a logical therapies we can provide her. I do believe the Nicotrol inhaler will be a good option for her and she start weaning down on the smoking. 10/17/2024 the patient is here for a re-evaluation. She had been lost to follow-up for few years. Likely due to the pandemic. She has developed worsening shortness of breath. Dyspnea with minimal activity moderate severity. She has been using her rescue inhaler often 2-3 times a day. She was responding well to the Breztri but she ran out. She also continues to smoke cigarettes. She has been able to cut down some. Still smoking about a pack every week. She did well with Chantix and she is willing to try against send a prescription for a starter pack and then she can call when she is ready for the maintenance. The patient also has been having issues with refractory hypertension. Blood pressure today was 190-92 and she states does overall better. She has tried multiple agents. I do believe that this is an issue for her that could be affecting her respiratory capacity. In the meantime she also has some thickening of the left ventricular wall already from the significant hypertension. The patient will be optimized with respiratory medicines to improve her respiratory capacity she is going to work on smoking and should try to also have improvement in her double product. Will plan to follow-up in 3 months and will do some pulmonary function studies also to assess her pulmonary capacity at that time. [facility] Medical History (Updated 10/18/24 @ 08:04 by Dalton Rutledge MD) Numbness COVID-19 Arthritis Habitual snoring Tobacco dependence Depression Internal hemorrhoids Nonhealing nonsurgical wound Degenerative disc disease at L5-S1 level History of TIA (transient ischemic attack) Hepatitis C Tubular adenoma of colon (~2001) Personal history of nicotine dependence Asthma Hypertension Cerebral microvascular disease Surgical History History of tubal ligation History of surgery on lower extremity (~2014) History of colonoscopy History of liver biopsy (~2014) History of hysterectomy (~2007) Family History Paternal Grandmother Colon cancer Father HTN (hypertension) CAD (coronary artery disease) Mother HTN (hypertension) CAD (coronary artery disease) Son HTN (hypertension) Social History (Updated 10/17/24 @ 10:19 by Fouzia Mcdonald CMA) Household Members: None Household Members Other:: son Housing: House Are you a primary long term care social worker to a significant other at home: No Do you presently have visiting nurse or other home services: No Alcohol intake: current Alcohol intake frequency: a few times a month Patient Tobacco Use Status: Current everyday Tobacco user Tobacco use type: Cigarette Cigarettes Per Day: 5 Years Smoked: 20 Years Quit 01/2022 Second Hand Smoke Exposure: No Substance Use Type: Marijuana service: No Current occupational status: employed Review of Systems Const Denies fever(s) Eyes Denies change in vision ENT Denies change in voice Card Denies chest pain, Reports dyspnea and Reports dyspnea on exertion Resp Reports chest congestion, Reports cough, Reports dyspnea, Reports dyspnea on exertion and Reports wheezing GI Reports no additional complaints Aller/Immun Reports wheezing Physical Exam Vital Signs: Last Vital Signs Pulse 70 10/17/24 10:15 BP 194/90 H 10/17/24 10:15 Pulse Ox 95 10/17/24 10:15 Oxygen Delivery Method Room Air 10/17/24 10:15 BMI result Body Mass Index 27.2 Const General: alert Neck Neck: Yes normal visual inspection, Yes full ROM and Yes no lymphadenopathy Chest Chest palpation & inspection: normal inspection of the chest Resp Auscultation: rhonchi, wheezes and diminished lung sounds Cardio Rate: regular rate Rhythm: regular rhythm Heart sounds: S1 normal heart sound present and S2 normal heart sound present GI Palpation (GI): Soft to palpation and nontender Auscultation: normal bowel sounds Skin General skin exam: rashes and/or lesions noted Assessment & Plan Assessment & Plan (1) COPD (chronic obstructive pulmonary disease): Code(s): J44.9 - Chronic obstructive pulmonary disease, unspecified Category: Medical Qualifiers: COPD type: COPD with acute exacerbation Qualified Code(s): J44.1 - Chronic obstructive pulmonary disease with (acute) exacerbation (2) Tobacco dependence: Code(s): F17.200 - Nicotine dependence, unspecified, uncomplicated Category: Medical (3) Hypertension: Code(s): I10 - Essential (primary) hypertension Category: Medical Qualifiers: Hypertension type: resistant hypertension Qualified Code(s): I1A.0 - Resistant hypertension Plan Restart Breztri ARIAS start Medrol Pk Tobacco cessation: Chantix Nephrology eval for severe HTN, refractory to meds LDCT PFTs Orders: Orders PFT pulmonary function test 2 Months J44.1 - Chronic obstructive pulmonary disease with (acute) exacerbation Referrals Nephrology Referral I10 - Essential (primary) hypertension Lung Cancer Screening Referral F17.200 - Nicotine dependence, unspecified, uncomplicated Medications: New methylprednisolone (Medrol (Adrien)) PO PER PKG DIR 21 ea 0RF 6 days varenicline tartrate (Chantix Starting Month ) PO PER PKG DIR 42 ea 0RF Changed From albuterol sulfate 2.5 mg (3 mL) inhalation Q4-6H PRN 90 mL 0RF shortness of breath or wheezing To albuterol sulfate 2.5 mg (3 mL) inhalation Q6H PRN 180 mL 6RF shortness of breath or wheezing Refilled erzbhvicug-kosqgfcd-uynslkeewp 160-9-4.8 mcg/actuation (Breztri Aerosphere) 2 inhalations inhalation BID 10.7 grams 11RF 30 days Coding Level of Care Code New Pt Level 4 (95261) Diagnoses Chronic obstructive pulmonary disease with acute exacerbation J44.1 COPD type: COPD with acute exacerbation Tobacco dependence F17.200 Resistant hypertension I1A.0 Hypertension type: resistant hypertension Time Spent (min) 40
[2024-10-17 10:15] VITALS: BP 194/90; PULSE 70; O2SAT 95; BMI 27.2
--- OUTSIDE RECORDS SUMMARY | 2024-10-17 11:09 | XMS_ITS | Patient Health Record ---
Author Organization Armando Kerns III, MD Address [address] [place] [address] Care Team Providers Care Manager Completions Name Role Phone Armando Kerns Primary Care Provider Allergies Allergen (clinical drug ingredient) Drug/Non Drug Allergy documented on EMR Reaction Allergy Type Onset Date Status sulfacetamide Sulfacetamide Unknown Drug Allergy Active prednisolone Prednisolone Unknown Drug Allergy A ctive Results Component Value Reference Range Notes MRSA Nasal Screen Reviewed date:11/13/2023 04:12:56 AM Interpretation: Performing Lab:[facility], [address] [place] [id number] Notes/Report: MRSA Nasal PCR NEGATIVE Negative SA Nasal PCR NEGATIVE Negative MRSA Interpretation SEE NOTE MRSA target DNA not detected; SA target DNA not detected. A MRSA NEGATIVE, SA NEGATIVE test result does not preclude MRSA or SA nasal colonization. FL guidance in OR Reviewed date:12/08/2023 01:11:14 PM Interpretation: Performing Lab: Notes/Report: [address] [address] Fluoroscopy Report Signed Patient: Libertad Graves MR#: [id number] 8 : 1960 Acct:[id number] Age/Sex: 63 / F ADM Date: 11/10/23 Loc: HO.SSS Attending Dr: Iain Guzman MD Ordering Physician: Iain Guzman MD Date of Service: 11/10/23 Procedure(s): FL guidance in OR Accession Number(s): [id number] cc: Armando Kerns MD; Iain Guzman MD [...] in OV> 12/04/23 2142 DD/ 1300 TD/TT: Sample Processor: [place] [address] Fluoroscopy Report Signed Patient: Libertad Graves MR#: [id number] 8 : 1960 Acct:[id number] Age/Sex: 63 / F ADM Date: 11/10/23 Loc: [facility] Attending Dr: Iain Guzman MD Ordering Physician: Iain Guzman MD Date of Service: 11/10/23 Procedure(s): AARON roya veronica in OR Accession Number(s): [id number] cc: Armando Kerns MD; Iain Guzman MD [...] 12/04/23 2142 DD/ 1300 TD/TT: 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 Kerns Referral was faxed with last progress note Referral Priority Routine Referral Appointment Date 10/17/2024 Medications Medication SIG (Take, Route, Frequency, Duration) Notes Start Date End Date Status Doxycycline Hyclate 100 MG 1 capsule Ora lly twice a day 05/30/2024 Active PARoxetine HCl 40 MG 1 tablet in the mor bethany Orally Once a day for 90 days Active Valsartan 40 MG 1 tablet Orally 06/19/2024 Active Albuterol Sulfate HFA 108 (90 [...] Problem Status W/U Status Risk Notes Problem 49911665 Postmenopausal (Z78.0) Active confirmed Her ovaries remain and she had a hysterectomy in the past. She is postmenopausal and should have bone density done periodically. Problem 821843547081938 Obesity (BMI 30.0-34.9) (E66.9) Active confirmed Her BMI is 30 a nd she has a stable weight. We discussed a weight loss plan for aggressive sodium restriction and calorie reduction. Problem 253501892 Lumbar radiculopathy (M54.16) Active confirmed She is experiencing an exacerbation of the lumbar radiculopathy. I have advised her to use heat and to rest and to continue the muscle relaxer. She will avoid heavy lifting. A follow-up in 1 week will be done. Problem 70730589 Other chronic pain (G89.29) Active confirmed She continues to have low back pain that radiates but the diffuse joint and muscle pain is much improved with discontinuing the statin medication. Problem 14822011 Essential hypertension (I10) Active confirmed Her blood [...] again. Her medications will be titrated. Problem 16911665 Tobacco dependence (F17.200) Active confirmed She continues t o consume a package of cigarettes daily. We have discussed the health consequences of continued smoking. She was made aware of all of the tobacco cessation programs in the area. Problem 893903083 Mild intermittent asthma without complication (J45.20) Active confirmed She is still on prednisone and will use her inhaler and finished the prednisone prescription. She reports the wheezing has improved. Problem 099572285 Chronic hepatitis C without hepatic coma (B18.2) Active confirmed She has a gastroenterologis t and I will obtain the old records. She will be referred back for therapy if it would be beneficial. Her titer was very elevated. Problem Combined disorder of muscle AND peripheral nerve (556198109) Neuromuscular disease (G70.9) Active confirmed Problem History of depression (288075120) History of depression (Z86.59) Active confirmed Her depression is mild. She has been compliant with all her medications. She is conducting all his activities of daily life without impairment. Problem 900339229 Adenomatous polyp of colon, unspecified part of colon (D12.6) Active confirmed The tubular adenoma was in 2001 and in 2013. She had a normal colonoscopy. She has a family history of colon cancer and should have a colonoscopy every 5 years. She agreed with this. She was referred back to Dr. Flannery to have a screening colonoscopy in the near future. Problem 78926740 Degenerative disc disease, lumbar (M51.36) Active confirmed She has spok en to the neurosurgeon he'll consider surgery after her next surgery. Her degree of pain is unchanged. I have prescribed Tegretol. Problem 64874637 Peripheral polyneuropathy (G62.9) Active confirmed Problem 031927990 Covid-19 (U07.1) Active confirmed She has completely recovered and denies any long-haul symptoms. Problem 542423202 Transient ischemic attack (G45.9) Active confirmed Problem 030471539 Cerebral microvascular disease (I67.89) Active confirmed No further neurological symptoms have been experienced. Vital Signs Heart Rate 60 /min 06/19/2024 Temperature 97.9 degrees Fahrenheit 06/19/2024 Blood pressure diastolic 88 mm Hg 06/19/2024 Height 67 in 06/19/2024 Blood pressure systolic 160 mm Hg 06/19/2024 Weight 192 lbs 06/19/2024 BMI 30.07 kg/m2 06/19/2024 Encounters Encounter Location Date Provider Diagnosis Armando Kerns III, MD [address] [place] [address] [place] [address] 05/30/2024 Armando Kerns Pharyngitis, unspeci fied etiology J02.9 ; Essential hypertension I10 ; Mild intermittent asthma without complication J45.20 ; Obesity (BMI 30.0-34.9) E66.9 and Tobacco dependence F17.200 Armando Kerns III, MD [address] [place] [address] [place] [address] 06/19/2024 Armando Kerns Pharyngitis, unspeci fied etiology J02.9 ; Essential hypertension I10 ; Mild intermittent asthma without complication J45.20 ; Postmenopausal Z78.0 ; Adenomatous polyp of colon, unspecified part of colon D12.6 ; Degenerative disc disease, lumbar M51.36 ; Tobacco dependence F17.200 and Obesity (BMI 30.0-34.9) E66.9 Armando Kerns III, MD [address] [place] [address] [place] [address] 12/02/2023 Armando Kerns Screening due Z13.9 Armando Kerns III, MD [address] [place] [address] [place] [address] 02/08/2024 Armando Kerns III, MD [address] [place] [address] [place] [address] 05/22/2024 Armando Kerns III, MD [address] [place] [address] [place] [address] 05/22/2024 Armando Kerns III, MD [address] [place] [address] [place] [address] 05/30/2024 Armando Kerns III, MD [address] [place] [address] [place] [address] 05/31/2024 Armando Kerns III, MD [address] [place] [address] [place] [address] 07/04/2024 Armando Kerns III, MD [address] [place] [address] [place] [address] 07/04/2024 Armando Kerns III, MD [address] [place] [address] [place] [address] 07/04/2024 Armando Kerns III, MD [address] [place] [address] [place] [address] 07/24/2024 Armando Enamoradorne Pharyngitis, unspeci fied etiology J02.9 Armando Kerns III, MD [address] [place] [address] [place] [address] 08/31/2024 Armando Enamoradorne Pharyngitis, unspeci fied etiology J02.9 Assessments Encounter Date Diagnosis (ICD Code) Assessment Notes Treat ment Notes Treatment Clinical Notes 05/30/2024 Essential hypertension (ICD-10 - I10) Her [...] and she has returned to her baseline. 05/30/2024 Mild intermittent asthma without complication (ICD-10 - J45.20) She is still on prednisone and will use her inhaler and finished the prednisone prescription. She reports the wheezing has improved. 06/19/2024 Mild intermittent asthma without complication (ICD-10 - J45.20) She is still on prednisone and will use her inhaler and finished the prednisone prescription. She reports the wheezing has improved. 05/30/2024 Obesity (BMI 30.0-34.9) (ICD-10 - E66.9) Her BMI is 30 and she has a stable weight. We discussed a weight loss plan for aggressive sodium restriction and calorie reduction. 06/19/2024 Postmenopausal (ICD-10 - Z78.0) Her ovaries remain and she had a hysterectomy in the past. She is postmenopausal and should have bone density done periodically. 05/30/2024 Tobacco dependence (ICD-10 - F17.200) She [...] a screening colonoscopy in the near future. 06/19/2024 Degenerative disc disease, lumbar (ICD-10 - [...] 08/20/2020 Next Appt Details Provider Name:Armando Kerns, 11/14/2024 02:30:00 PM, [address] [place] [address] , [address], [place], [address], Insurance Providers Payer Name Payer Address Payer Phone Subscriber Number Group Number Insured Name Patient Relationship to Insured Coverage Start Date Coverage End Date [employer] [address] [place] [phone] [id number] LIBERTAD GRAVES Self - patient is the insured Medical (General) History Medical History History ICD Code Degenerative disc disease at L5-S1 level M51.36 essential hypertension nonhealing wound, left 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 Skinner and Dr. Agustin in [place] overweight body mass index 29 tubular adenoma [...]
== END 2024-10-17 10:44 | disposition home or self-care (01) ==
LOC: HO.HPS 09:53
PROVIDERS: PCP Internal Medicine Medical Oncology; Visit Provider Hospitalist
DX: J44.1 Chronic obstructive pulmonary disease with (acute) exacerbation (principal); F17.200 Nicotine dependence, unspecified, uncomplicated; I1A.0 Resistant hypertension
CPT/HCPCS: 99214

== ENCOUNTER 2024-10-25 10:17 | Outpatient (AMB) | payer OTHER, SELFPAY ==
[2024-10-25 10:37] VITALS: BP 190/104; PULSE 67; RESP 16; O2SAT 97; BMI 27.2
--- NOTE | 2024-10-25 10:37 | MHC.OFFVIS ---
Vital Signs 10/25/24 10:37 Height 5 ft 9 in Weight 184 lb BMI 27.2 BP 190/104 H Blood Pressure Location Rt brachial Position Sitting Respiration 16 Pulse 67 Pulse Source Pulse Oximeter Pulse Oximetry (%) 97 Oxygen Delivery Method Room Air Intake Visit Reasons: s/p Right L4-L5 TFESI Intake Note: Pt's BP is grossly elevated - she states she feels fine and just took her BP meds Allergies sulfa Allergy (Intermediate, Uncoded 10/25/24 10:41) Hives Medication List - Last Reconciled 10/25/24 by Shyanne Villafuerte LPN albuterol sulfate 90 mcg/actuation (ProAir HFA) 2 puffs inhalation Q4-6H PRN albuterol sulfate 2.5 mg (3 mL) inhalation Q6H PRN amitriptyline 50 mg PO BEDTIME amlodipine (Norvasc) 5 mg PO DAILY atenolol 100 mg PO DAILY monbfiymdm-vxpmkjpq-quissklzuz 160-9-4.8 mcg/actuation (Breztri Aerosphere) 2 inhalations inhalation BID 30 days methylprednisolone (Medrol (Adrien)) PO PER PKG DIR 6 days nebulizer and compressor As directed nicotine 21 mg transdermal DAILY paroxetine HCl 1 tab PO DAILY valsartan mg PO varenicline tartrate (Chantix Starting Month Box) PO PER PKG DIR HPI HPI s/p Right L4-L5 TFESI: Details: History of Present Illness The patient is a 64-year-old female presenting with chronic low back pain and neurogenic claudication. Her pain is localized on the right side, irradiating down to her buttock and legs, with associated numbness in the right foot. The condition became noticeable after a recent lumbar injection provided temporary relief for one week. She describes her pain intensity as having improved by about 70% during that period; however, it never fully subsided and has gradually returned. The pain worsens when sitting straight or when walking, necessitating her tendency to lean forward for comfort. 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 Previous MRI findings were suggestive of moderate spinal stenosis, which aligns with her neurogenic claudication symptoms. Pain Description - Onset and Timing: Recent exacerbation after lumbar injection. - Quality and Character: Sharp pain radiating down the right side of the buttock and leg, with numbness in the right foot. - Primary Location: Right-side low back pain. - Radiation: Down the right buttock and leg. - Exacerbating Factors: Sitting straight, walking. - Relieving Factors: Leaning forward, resting. - Interference: Affects mobility and daily activities, including caring for pets. Physical Exam - Appears afebrile. - Alert and oriented. - Mood and affect appropriate. - Follows and participates in conversation appropriately. - Respiratory effort is unlabored. - Able to transition from sit to stand unassisted. - Ambulates with bilaterally normal heel strike and toe off. - Able to stand and walk on toes and heels. Results - MRI (3 years ago): Ligamentum flavum hypertrophy at L3-4 and L4-5, moderate spinal stenosis at L3-4. Pain Management - Affect: Pain has a significant negative impact on the patient's daily activities and overall psychological wellbeing. - Analgesia: Recent lumbar injection provided some relief but pain recurred; no current pain management strategy detailed in conversation. - Adverse Effects: None mentioned. - Activities of Daily Living: Pain affects mobility and work-related tasks; functional goals include returning to comfortable movement and activity with pets. - Aberrant Drug Related Behaviors: None noted in conversation. [facility]LY [facility] Medical History (Updated 11/07/24 @ 09:36 by Shereen Rivera PA-C) Numbness COVID-19 Arthritis Habitual snoring Depression Internal hemorrhoids Nonhealing nonsurgical wound Degenerative disc disease at L5-S1 level History of TIA (transient ischemic attack) Hepatitis C Tubular adenoma of colon (~2001) Personal history of nicotine dependence Asthma Hypertension Cerebral microvascular disease Surgical History History of tubal ligation History of surgery on lower extremity (~2014) History of colonoscopy History of liver biopsy (~2014) History of hysterectomy (~2007) Family History Paternal Grandmother Colon cancer Father HTN (hypertension) CAD (coronary artery disease) Mother HTN (hypertension) CAD (coronary artery disease) Son HTN (hypertension) Social History Household Members: None Household Members Other:: son Housing: House Are you a primary career manager to a significant other at home: No Do you presently have visiting nurse or other home services: No Alcohol intake: current Alcohol intake frequency: a few times a month Patient Tobacco Use Status: Current everyday Tobacco user Tobacco use type: Cigarette Cigarettes Per Day: 5 Years Smoked: 20 Years Quit 01/2022 Second Hand Smoke Exposure: No Substance Use Type: Marijuana service: No Current occupational status: employed Physical Exam Vital Signs: Last Vital Signs Pulse 67 10/25/24 10:37 Resp 16 10/25/24 10:37 BP 190/104 H 10/25/24 10:37 Pulse Ox 97 10/25/24 10:37 Oxygen Delivery Method Room Air 10/25/24 10:37 BMI result Body Mass Index 27.2 Assessment & Plan Assessment & Plan (1) Spinal stenosis, lumbar region with neurogenic claudication: Code(s): M48.062 - Spinal stenosis, lumbar region with neurogenic claudication Category: Medical (2) Lumbar radiculopathy: Code(s): M54.16 - Radiculopathy, lumbar region Category: Medical Plan Plan - Order a new MRI to update and evaluate current spinal pathology. Consider MILD procedure for neurogenic claudication symptoms. - Consider spinal cord stimulation trial pending decompression outcomes and insurance coverage. - Follow up to assess post-procedural outcomes and address remaining symptoms. Patient was informed and verbally consented to the use of an ambient scribe for clinic note documentation during this visit. Discussion Notes I discussed with the patient the diagnosis of chronic low back pain with neurogenic claudication secondary to lumbar spinal stenosis. We reviewed the current MRI findings, which show ligamentum flavum hypertrophy and moderate stenosis at the L3-4 level. I explained the proposed minimally invasive lumbar decompression as a potential procedure to alleviate symptoms. I highlighted its anticipated benefits, including reduced pressure on the spinal nerves, and mentioned the possibility of a spinal cord stimulation trial if decompression is not feasible through insurance. The patient understood the plan and expressed willingness to proceed. I advised ordering a new MRI to assess current conditions given the age of the previous study. We agreed to schedule a short stay in the OR for the procedure and discussed post-operative follow-up. Patient Instructions - Await our call to schedule minimally invasive lumbar decompression procedure. - Avoid prolonged sitting or activities that exacerbate pain until further notice. - Expect a follow-up appointment post-procedure to address any persisting symptoms and discuss efficacy. - Contact our office if symptoms worsen or new issues arise before scheduled procedure. Orders: Orders MR lumbar spine wo con 10/25/24 M48.062 - Spinal stenosis, lumbar region with neurogenic claudication Coding Level of Care Code Est Pt Level 4 (86747) Diagnoses Spinal stenosis, lumbar region with neurogenic claudication M48.062 Lumbar radiculopathy M54.16
--- OUTSIDE RECORDS SUMMARY | 2024-10-25 11:37 | XMS_ITS | Patient Health Record ---
Author Organization Armando Kerns III, MD Address [address] [place] [address] Care Team Providers Care Associate Faculty Name Role Phone Armando Kerns Primary Care Provider [phone] Allergies Allergen (clinical drug ingredient) Drug/Non Drug Allergy documented on EMR Reaction Allergy Type Onset Date Status sulfacetamide Sulfacetamide Unknown Drug Allergy Active prednisolone Prednisolone Unknown Drug Allergy A ctive Results Component Value Reference Range Notes MRSA Nasal Screen Reviewed date:11/13/2023 04:12:56 AM Interpretation: Performing Lab:[facility], [address] [place] [id number] Notes/Report: MRSA Nasal PCR NEGATIVE Negative SA Nasal PCR NEGATIVE Negative MRSA Interpretation SEE NOTE MRSA target DNA not detected; SA target DNA not detected. A MRSA NEGATIVE, SA NEGATIVE test result does not preclude MRSA or SA nasal colonization. FL guidance in OR Reviewed date:12/08/2023 01:11:14 PM Interpretation: Performing Lab: Notes/Report: [address] [address] Fluoroscopy Report Signed Patient: Libertad Graves MR#: [id number] 8 : 1960 Acct:[id number] Age/Sex: 63 / F ADM Date: 11/10/23 Loc: HO.SSS Attending Dr: Iain Guzman MD Ordering Physician: Iain Guzman MD Date of Service: 11/10/23 Procedure(s): FL guidance in OR Accession Number(s): [id number] cc: Armando Kerns MD; Iain Guzman MD [...] Guzman' report for complete details. Dictated By: Hiploito iLsa MD Signed By: <Electronically signed by Hipolito Lisa MD in OV> 12/04/23 2142 DD/ 1300 TD/TT: Acid Wash Operator: [place] [address] Fluoroscopy Report Signed Patient: Libertad Graves MR#: [id number] 8 : 1960 Acct:[id number] Age/Sex: 63 / F ADM Date: 11/10/23 [facility] Attending Dr: Iain Guzman MD Ordering Physician: Iain Guzman MD Date of Service: 11/10/23 Procedure(s): AARON roya veronica in OR Accession Number(s): [id number] cc: Armando Kerns MD; Iain Guzman MD [...] in OV> 12/04/23 2142 DD/ 1300 TD/TT: Full Roll Inspector ist: SS Reason For Referral Reason Evaluate and Treat Increased Difficulty Breathing Asthma Diagnosis 1 Mild intermittent as thma without complication (J45.20) Diagnosis 2 Tobacco dependence ( F17.200) Referral Organization Armando Kerns III, MD Referring Provider First Name Armando Referring Provider Last Name Luis F Referring Provider Speciality Internal M edicine Referred Provider [facility] er, Pulmonology Referred Provider Specialty Pulmonary Di [facility] General Notes DFarhana 07/24/2024 11:53:06 AM [...] Problem Status W/U Status Risk Notes Problem 09492479 Postmenopausal (Z78.0) Active confirmed Her ovaries remain and she had a hysterectomy in the past. She is postmenopausal and should have bone density done periodically. Problem 392963640897075 Obesity (BMI 30.0-34.9) (E66.9) Active confirmed Her BMI is 30 a nd she has a stable weight. We discussed a weight loss plan for aggressive sodium restriction and calorie reduction. Problem 211770611 Lumbar radiculopathy (M54.16) Active confirmed She is experiencing an exacerbation of the lumbar radiculopathy. I have advised her to use heat and to rest and to continue the muscle relaxer. She will avoid heavy lifting. A follow-up in 1 week will be done. Problem 58307138 Other chronic pain (G89.29) Active confirmed She continues to have low back pain that radiates but the diffuse joint and muscle pain is much improved with discontinuing the statin medication. Problem 76002156 Essential hypertension (I10) Active confirmed Her blood [...] again. Her medications will be titrated. Problem 87015158 Tobacco dependence (F17.200) Active confirmed She continues t o consume a package of cigarettes daily. We have discussed the health consequences of continued smoking. She was made aware of all of the tobacco cessation programs in the area. Problem 571513164 Mild intermittent asthma without complication (J45.20) Active confirmed She is still on prednisone and will use her inhaler and finished the prednisone prescription. She reports the wheezing has improved. Problem 773456284 Chronic hepatitis C without hepatic coma (B18.2) Active confirmed She has a gastroenterologis t and I will obtain the old records. She will be referred back for therapy if it would be beneficial. Her titer was very elevated. Problem Combined disorder of muscle AND peripheral nerve (873791520) Neuromuscular disease (G70.9) Active confirmed Problem History of depression (562712233) History of depression (Z86.59) Active confirmed Her depression is mild. She has been compliant with all her medications. She is conducting all his activities of daily life without impairment. Problem 927317387 Adenomatous polyp of colon, unspecified part of colon (D12.6) Active confirmed The tubular adenoma was in 2001 and in 2013. She had a normal colonoscopy. She has a family history of colon cancer and should have a colonoscopy every 5 years. She agreed with this. She was referred back to Dr. Flannery to have a screening colonoscopy in the near future. Problem 36709028 Degenerative disc disease, lumbar (M51.36) Active confirmed She has spok en to the neurosurgeon he'll consider surgery after her next surgery. Her degree of pain is unchanged. I have prescribed Tegretol. Problem 03749303 Peripheral polyneuropathy (G62.9) Active confirmed Problem 592592163 Covid-19 (U07.1) Active confirmed She has completely recovered and denies any long-haul symptoms. Problem 588887675 Transient ischemic attack (G45.9) Active confirmed Problem 910831396 Cerebral microvascular disease (I67.89) Active confirmed No further neurological symptoms have been experienced. Vital Signs Heart Rate 60 /min 06/19/2024 Temperature 97.9 degrees Fahrenheit 06/19/2024 Blood pressure diastolic 88 mm Hg 06/19/2024 Height 67 in 06/19/2024 Blood pressure systolic 160 mm Hg 06/19/2024 Weight 192 lbs 06/19/2024 BMI 30.07 kg/m2 06/19/2024 Encounters Encounter Location Date Provider Diagnosis Armando Kerns III, MD [address] [place] [address] [place] [address] 05/30/2024 Armando Kerns Pharyngitis, unspeci fied etiology J02.9 ; Essential hypertension I10 ; Mild intermittent asthma without complication J45.20 ; Obesity (BMI 30.0-34.9) E66.9 and Tobacco dependence F17.200 Armando Kerns III, MD [address] [place] [address] [place] [address] 06/19/2024 Armando Kerns Pharyngitis, unspeci fied etiology J02.9 ; Essential hypertension I10 ; Mild intermittent asthma without complication J45.20 ; Postmenopausal Z78.0 ; Adenomatous polyp of colon, unspecified part of colon D12.6 ; Degenerative disc disease, lumbar M51.36 ; Tobacco dependence F17.200 and Obesity (BMI 30.0-34.9) E66.9 Armando Kerns III, MD [address] [place] [address] [place] [address] 12/02/2023 Armando Kerns Screening due Z13.9 Armando Kerns III, MD [address] [place] [address] [place] [address] 02/08/2024 Armando Kerns III, MD [address] [place] [address] [place] [address] 05/22/2024 Armando Kerns III, MD [address] [place] [address] [place] [address] 05/22/2024 Armando Kerns III, MD [address] [place] [address] [place] [address] 05/30/2024 Armando Kerns III, MD [address] [place] [address] [place] [address] 05/31/2024 Armando Kerns III, MD [address] [place] [address] [place] [address] 07/04/2024 Armando Kerns III, MD [address] [place] [address] [place] [address] 07/04/2024 Armando Kerns III, MD [address] [place] [address] [place] [address] 07/04/2024 Armando Kerns III, MD [address] [place] [address] [place] [address] 07/24/2024 Armando Enamoradorne Pharyngitis, unspeci fied etiology J02.9 Armando Kerns III, MD [address] [place] [address] [place] [address] 08/31/2024 Armando Enamoradorne Pharyngitis, unspeci fied etiology [...] Provider Name:Armando Kerns, 11/14/2024 02:30:00 PM, [address] [place] [address] , [address], [place], [address], Insurance Providers Payer Name Payer Address Payer Phone Subscriber Number Group Number Insured Name Patient Relationship to Insured Coverage Start Date Coverage End Date [facility] [address] [place] [phone] [id number] LIBERTAD GRAVES Self - patient is the insured Medical (General) History Medical History History ICD Code Degenerative disc disease at L5-S1 level M51.36 essential hypertension nonhealing wound, left 2014, psychological anthropologist is Dr. Skinner and Dr. Agustin in [place] overweight body mass index 29 tubular adenoma [...]
== END 2024-10-25 11:37 | disposition home or self-care (01) ==
LOC: HO.PMC 10:18
PROVIDERS: PCP Internal Medicine Medical Oncology; Visit Provider Internal Medicine
DX: M48.062 Spinal stenosis, lumbar region with neurogenic claudication (principal); M54.16 Radiculopathy, lumbar region
CPT/HCPCS: 99214

== ENCOUNTER 2024-11-06 10:08 | Outpatient (AMB) | payer OTHER, SELFPAY ==
[2024-11-06 10:36] VITALS: BP 160/100; PULSE 67; O2SAT 97; BMI 27.8
--- NOTE | 2024-11-06 10:36 | HO.NEPHOV ---
Vital Signs 11/06/24 10:36 Height 5 ft 9 in Weight 188 lb BMI 27.8 BP 160/100 H Blood Pressure Location Lt brachial Position Sitting Pulse 67 Pulse Source Pulse Oximeter Pulse Oximetry (%) 97 Oxygen Delivery Method Room Air Intake Visit Reasons: INP: Essential (primary) hypertension Supervisor Feed House Required: No Accompanied by: Self / Same As Patient Allergies sulfa Allergy (Intermediate, Uncoded 10/25/24 10:41) Hives Medication List - Last Reconciled 11/06/24 by Alfredo Hansen MD albuterol sulfate 90 mcg/actuation (ProAir HFA) 2 puffs inhalation Q4-6H PRN albuterol sulfate 2.5 mg (3 mL) inhalation Q6H PRN amitriptyline 50 mg PO BEDTIME atenolol 100 mg PO DAILY ayjvtkoowm-osazhlfj-phptnmkkup 160-9-4.8 mcg/actuation (Breztri Aerosphere) 2 inhalations inhalation BID 30 days nebulizer and compressor As directed paroxetine HCl 1 tab PO DAILY valsartan 80 mg PO DAILY varenicline tartrate (Chantix Starting Month Box) PO PER PKG DIR HPI Comments Details: 64-year-old female presenting with uncontrolled hypertension. She has had high blood pressure for a long time and is currently taking valsartan and Tylenol, although she reports no significant improvement in her blood pressure levels. Her blood pressure readings at home are consistently high, often reaching 200/100 mmHg, which has caused concern among her colleagues. The patient also has a history of asthma, for which she uses albuterol inhalers and Breztri, which she finds effective. She reports chronic back pain, which has been severe enough to cause numbness in her foot and radiates to her legs. She has undergone several surgeries for her back and is scheduled for an MRI to assess the need for further surgical intervention. The patient has a history of tobacco use, having smoked for 20 years, but is currently using Chantix and has reduced her smoking to three cigarettes a day. She denies any history of diabetes or heart problems, but reports frequent urination without taking diuretics. [facility] Medical History (Updated 10/18/24 @ 08:04 by Dalton Rutledge MD) Numbness COVID-19 Arthritis Habitual snoring Tobacco dependence Depression Internal hemorrhoids Nonhealing nonsurgical wound Degenerative disc disease at L5-S1 level History of TIA (transient ischemic attack) Hepatitis C Tubular adenoma of colon (~2001) Personal history of nicotine dependence Asthma Hypertension Cerebral microvascular disease Surgical History History of tubal ligation History of surgery on lower extremity (~2014) History of colonoscopy History of liver biopsy (~2014) History of hysterectomy (~2007) Family History Paternal Grandmother Colon cancer Father HTN (hypertension) CAD (coronary artery disease) Mother HTN (hypertension) CAD (coronary artery disease) Son HTN (hypertension) Social History Household Members: None Household Members Other:: son Housing: House Are you a primary healthcare analyst to a significant other at home: No Do you presently have visiting nurse or other home services: No Alcohol intake: current Alcohol intake frequency: a few times a month Patient Tobacco Use Status: Current everyday Tobacco user Tobacco use type: Cigarette Cigarettes Per Day: 5 Years Smoked: 20 Years Quit 01/2022 Second Hand Smoke Exposure: No Substance Use Type: Marijuana service: No Current occupational status: employed Review of Systems Const Denies fever(s) and Denies weight loss Card Denies chest pain Resp Denies cough and Denies hemoptysis GI Denies abdominal pain, Denies diarrhea and Denies nausea Musc Denies back pain Neuro Denies focal weakness Physical Exam Vital Signs: Last Vital Signs Pulse 67 11/06/24 10:36 BP 160/100 H 11/06/24 10:36 Pulse Ox 97 11/06/24 10:36 Oxygen Delivery Method Room Air 11/06/24 10:36 BMI result Body Mass Index 27.8 Comfortable Neck supple no JVD. Lungs entry equal no rales. Heart S1-S2 heard no gallop or rub. Abdomen soft nontender. Neuro alert awake oriented. No asterixis. Extremities no edema. Results Reviewed Results Reviewed: No labs since May 2023 Assessment & Plan Assessment & Plan (1) Hypertension: Code(s): I10 - Essential (primary) hypertension Category: Medical Qualifiers: Hypertension type: resistant hypertension Qualified Code(s): I1A.0 - Resistant hypertension Plan - Take amlodipine 5 mg daily, monitor for leg swelling. - Undergo 24-hour blood pressure monitoring as scheduled. - Complete lab tests for kidney function and urine studies. - Continue using albuterol and Breztri inhalers as prescribed. - Attend MRI appointment for back pain evaluation. - Continue using Chantix and reduce smoking further. Orders: Orders Creatinine Urine Today I1A.0 - Resistant hypertension AMB 24 HR B/P Monitor PLACEMENT Today I10 - Essential (primary) hypertension Basic Metabolic Panel Today I1A.0 - Resistant hypertension Complete Blood Count no Diff Today I1A.0 - Resistant hypertension Total Protein Urine Random Today I1A.0 - Resistant hypertension UA and rflx microscopic Today I1A.0 - Resistant hypertension Medications: New amlodipine 5 mg PO DAILY 30 tabs 3RF Changed From valsartan 80 mg PO DAILY To valsartan 40 mg PO BID Coding Level of Care Code New Pt Level 4 (19186) Diagnoses Resistant hypertension I1A.0 Hypertension type: resistant hypertension
--- OUTSIDE RECORDS SUMMARY | 2024-11-06 11:15 | XMS_ITS | Patient Health Record ---
Author Organization Armando Kerns III, MD Address [address] [place] [address] Care Team Providers Care Traveling Clerk Name Role Phone Armando Kerns Primary Care Provider Allergies Allergen (clinical drug ingredient) Drug/Non Drug Allergy documented on EMR Reaction Allergy Type Onset Date Status sulfacetamide Sulfacetamide Unknown Drug Allergy Active prednisolone Prednisolone Unknown Drug Allergy A ctive Results Component Value Reference Range Notes MRSA Nasal Screen Reviewed date:11/13/2023 04:12:56 AM Interpretation: Performing Lab:[facility], [address] [place] [id number] Notes/Report: MRSA Nasal PCR NEGATIVE Negative SA Nasal PCR NEGATIVE Negative MRSA Interpretation SEE NOTE MRSA target DNA not detected; SA target DNA not detected. A MRSA NEGATIVE, SA NEGATIVE test result does not preclude MRSA or SA nasal colonization. FL guidance in OR Reviewed date:12/08/2023 01:11:14 PM Interpretation: Performing Lab: Notes/Report: [address] [address] Fluoroscopy Report Signed Patient: Libertad Graves MR#: [id number] 8 : 1960 Acct:[id number] Age/Sex: 63 / F ADM Date: 11/10/23 Loc: HO.SSS Attending Dr: Iain Guzman MD Ordering Physician: Iain uGzman MD Date of Service: 11/10/23 Procedure(s): FL guidance in OR Accession Number(s): [id number] cc: Armando Kerns MD; Iain Guzman MD [...] in OV> 12/04/23 2142 DD/ 1300 TD/TT: [place]el Operator: [place] [id number] Fluoroscopy Report Signed Patient: Libertad Graves MR#: [id number] 8 : 1960 Acct:[id number] Age/Sex: 63 / F ADM Date: 11/10/23 Loc: [facility] Attending Dr: Iain Guzman MD Ordering Physician: Iain Guzman MD Date of Service: 11/10/23 Procedure(s): AARON roya veronica in OR Accession Number(s): [id number] cc: Armando Kerns MD; Iain Guzman MD [...] in OV> 12/04/23 2142 DD/ 1300 TD/TT: Oil Operator ist: SS Reason For Referral Reason Evaluate and Treat Increased Difficulty Breathing Asthma Diagnosis 1 Mild intermittent as thma without complication (J45.20) Diagnosis 2 Tobacco dependence ( F17.200) Referral Organization Armando Kerns III, MD Referring Provider First Name Armando Referring Provider Last Name Luis F Referring Provider Speciality Internal M edicine Referred Provider [facility] er, Pulmonology Referred Provider Specialty Pulmonary Di [facility] General Notes DFarhana 07/24/2024 11:53:06 AM [...] Problem Status W/U Status Risk Notes Problem 44941489 Postmenopausal (Z78.0) Active confirmed Her ovaries remain and she had a hysterectomy in the past. She is postmenopausal and should have bone density done periodically. Problem 304487824052536 Obesity (BMI 30.0-34.9) (E66.9) Active confirmed Her BMI is 30 a nd she has a stable weight. We discussed a weight loss plan for aggressive sodium restriction and calorie reduction. Problem 464381167 Lumbar radiculopathy (M54.16) Active confirmed She is experiencing an exacerbation of the lumbar radiculopathy. I have advised her to use heat and to rest and to continue the muscle relaxer. She will avoid heavy lifting. A follow-up in 1 week will be done. Problem 56780314 Other chronic pain (G89.29) Active confirmed She continues to have low back pain that radiates but the diffuse joint and muscle pain is much improved with discontinuing the statin medication. Problem 73273163 Essential hypertension (I10) Active confirmed Her blood [...] again. Her medications will be titrated. Problem 72547478 Tobacco dependence (F17.200) Active confirmed She continues t o consume a package of cigarettes daily. We have discussed the health consequences of continued smoking. She was made aware of all of the tobacco cessation programs in the area. Problem 229176865 Mild intermittent asthma without complication (J45.20) Active confirmed She is still on prednisone and will use her inhaler and finished the prednisone prescription. She reports the wheezing has improved. Problem 357071297 Chronic hepatitis C without hepatic coma (B18.2) Active confirmed She has a gastroenterologis t and I will obtain the old records. She will be referred back for therapy if it would be beneficial. Her titer was very elevated. Problem Combined disorder of muscle AND peripheral nerve (315965839) Neuromuscular disease (G70.9) Active confirmed Problem History of depression (542590068) History of depression (Z86.59) Active confirmed Her depression is mild. She has been compliant with all her medications. She is conducting all his activities of daily life without impairment. Problem 368847789 Adenomatous polyp of colon, unspecified part of colon (D12.6) Active confirmed The tubular adenoma was in 2001 and in 2013. She had a normal colonoscopy. She has a family history of colon cancer and should have a colonoscopy every 5 years. She agreed with this. She was referred back to Dr. Flannery to have a screening colonoscopy in the near future. Problem 21522126 Degenerative disc disease, lumbar (M51.36) Active confirmed She has spok en to the neurosurgeon he'll consider surgery after her next surgery. Her degree of pain is unchanged. I have prescribed Tegretol. Problem 10475331 Peripheral polyneuropathy (G62.9) Active confirmed Problem 813940651 Covid-19 (U07.1) Active confirmed She has completely recovered and denies any long-haul symptoms. Problem 597175173 Transient ischemic attack (G45.9) Active confirmed Problem 993308755 Cerebral microvascular disease (I67.89) Active confirmed No further neurological symptoms have been experienced. Vital Signs Heart Rate 60 /min 06/19/2024 Temperature 97.9 degrees Fahrenheit 06/19/2024 Blood pressure diastolic 88 mm Hg 06/19/2024 Height 67 in 06/19/2024 Blood pressure systolic 160 mm Hg 06/19/2024 Weight 192 lbs 06/19/2024 BMI 30.07 kg/m2 06/19/2024 Encounters Encounter Location Date Provider Diagnosis Armando Kerns III, MD [address] [place] [address] [place] [address] 05/30/2024 Armando Kerns Pharyngitis, unspeci fied etiology J02.9 ; Essential hypertension I10 ; Mild intermittent asthma without complication J45.20 ; Obesity (BMI 30.0-34.9) E66.9 and Tobacco dependence F17.200 Armando Kerns III, MD [address] [place] [address] [place] [address] 06/19/2024 Armando Kerns Pharyngitis, unspeci fied etiology J02.9 ; Essential hypertension I10 ; Mild intermittent asthma without complication J45.20 ; Postmenopausal Z78.0 ; Adenomatous polyp of colon, unspecified part of colon D12.6 ; Degenerative disc disease, lumbar M51.36 ; Tobacco dependence F17.200 and Obesity (BMI 30.0-34.9) E66.9 Armando Kerns III, MD [address] [place] [address] [place] [address] 12/02/2023 Armando Kerns Screening due Z13.9 Armando Kerns III, MD [address] [place] [address] [place] [address] 02/08/2024 Armando Kerns III, MD [address] [place] [address] [place] [address] 05/22/2024 Armando Kerns III, MD [address] [place] [address] [place] [address] 05/22/2024 Armando Kerns III, MD [address] [place] [address] [place] [address] 05/30/2024 Armando Kerns III, MD [address] [place] [address] [place] [address] 05/31/2024 Armando Kerns III, MD [address] [place] [address] [place] [address] 07/04/2024 Armando Kerns III, MD [address] [place] [address] [place] [address] 07/04/2024 Armando Kerns III, MD [address] [place] [address] [place] [address] 07/04/2024 Armando Kerns III, MD [address] [place] [address] [place] [address] 07/24/2024 Armando Enamoradorne Pharyngitis, unspeci fied etiology J02.9 Armando Kerns III, MD [address] [place] [address] [place] [address] 08/31/2024 Armando Enamoradorne Pharyngitis, unspeci fied etiology [...] Details Provider Name:Armando Kerns, 11/14/2024 02:30:00 PM, [address] [place] [address] , [address], [place], [address], Insurance Providers Payer Name Payer Address Payer Phone Subscriber Number Group Number Insured Name Patient Relationship to Insured Coverage Start Date Coverage End Date [employer] [address] [place] [phone] [id number] LIBERTAD GRAVES Self - patient is the insured Medical (General) History Medical History History ICD Code Degenerative disc disease at L5-S1 level M51.36 essential hypertension nonhealing wound, left 2014, 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 Agustin in [place] overweight body mass index 29 tubular adenoma [...]
== END 2024-11-06 11:00 | disposition home or self-care (01) ==
LOC: HO.HKA 10:09
PROVIDERS: PCP Internal Medicine Medical Oncology; Referring Provider Hospitalist; Visit Provider Internal Medicine Hypertension Specialist
DX: I1A.0 Resistant hypertension (principal)
CPT/HCPCS: 99204

== ENCOUNTER 2024-11-07 16:06 | Outpatient (REF) | payer OTHER, SELFPAY ==
--- NOTE | ~2024-11-07 | XR_ITS ---
EXAMINATION: XR WRIST, LEFT CLINICAL INFORMATION: M25.532 - Pain in left wrist COMPARISON: None available. TECHNIQUE: PA, lateral, oblique, and scaphoid views of the left wrist. FINDINGS: The bones and soft tissues are normal. No fracture. Alignment is anatomic with normal joint spaces. No erosions or abnormal soft tissue calcifications. XR/XR wrist LT min 3V IMPRESSION: Normal left wrist. Electronically signed by: Zev Hyde MD 11/07/2024 04:45 PM EDT
== END 2024-11-07 16:07 | disposition home or self-care (01) ==
LOC: HO.HMGCX 16:06
PROVIDERS: PCP Internal Medicine Medical Oncology; Visit Provider Physician Assistant Medical
DX: S63.502A Unspecified sprain of left wrist, initial encounter (principal); W17.2XXA Fall into hole, initial encounter; Y93.F9 Activity, other caregiving; Y92.89 Other specified places as the place of occurrence of the external cause; Y99.0 Civilian activity done for income or pay; F17.210 Nicotine dependence, cigarettes, uncomplicated
CPT/HCPCS: 73110; 99202

== ENCOUNTER 2024-11-07 16:06 | Outpatient (AMB) | payer OTHER, SELFPAY ==
--- NOTE | 2024-11-07 16:07 | AM.OFFWIN_ITS ---
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 She tripped in a pothole while walking around her van, resulting in a fall where she landed on her knees and outstretched left hand. - The fall occurred today. - The patient reports significant pain i n the left wrist, with discomfort upon movement of fingers and thumb, though she retains the ability to move them. - The patient is right-handed and report s severe pain when attempting to squeeze with the affected hand. - No pain reported in the elbow or forea rm. - She has abrasions on both of her knees . - She denies shoulder pain, hand pain, n umbness, tingling, BORJA, LOC, CP, SOB, or syncope. Physical Exam General: Cooperative, healthy appearing, comfortable, no acute distress and well developed Orientation: Patient oriented x3 Head: Normal to inspection Neck: Normal visual inspection, full ROM Respiratory: Normal respiratory effort and able to speak in complete sentences. CTAB, no w/r/r noted. Skin: No rashes or lesions noted. Abrasions noted on the knees bilaterally. Bleeding controlled, superficial. Neuro: Patient oriented x3, CN 2-12 intact, gait normal. Sensation is intact. Back/spine: no TTP of cervical, thoracic or lumbar spine. No midline spinous tenderness noted. Extremities: FROM of the left wrist, no swelling or deformity noted. TTP of the radial and ulna styloid. FROM of the digits on the left hand. 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 FROM of the left elbow. Patient was informed and verbally consented to the use of an ambient scribe for clinic note documentation during this visit. [facility] Medical History (Updated 11/07/24 @ 09:36 by Shereen Rivera PA-C) Numbness COVID-19 Arthritis Habitual snoring Depression Internal hemorrhoids Nonhealing nonsurgical wound Degenerative disc disease at L5-S1 level History of TIA (transient ischemic attack) Hepatitis C Tubular adenoma of colon (~2001) Personal history of nicotine dependence Asthma Hypertension Cerebral microvascular disease Surgical History History of tubal ligation History of surgery on lower extremity (~2014) History of colonoscopy History of liver biopsy (~2014) History of hysterectomy (~2007) Family History Paternal Grandmother Colon cancer Father HTN (hypertension) CAD (coronary artery disease) Mother HTN (hypertension) CAD (coronary artery disease) Son HTN (hypertension) Social History Household Members: None Household Members Other:: son Housing: House Are you a primary respiratory care program director to a significant other at home: No Do you presently have visiting nurse or other home services: No Alcohol intake: current Alcohol intake frequency: a few times a month Patient Tobacco Use Status: Current everyday Tobacco user Tobacco use type: Cigarette Cigarettes Per Day: 5 Years Smoked: 20 Years Quit 01/2022 Second Hand Smoke Exposure: No Substance Use Type: Marijuana service: No Current occupational status: employed Review of Systems Const All systems reviewed & are unremarkable except as noted in HPI and below Physical Exam Vital Signs: Last Vital Signs Temp 98.7 F 11/07/24 16:09 Pulse 75 11/07/24 16:09 BP 158/90 H 11/07/24 16:09 Pulse Ox 96 11/07/24 16:09 Oxygen Delivery Method Room Air 11/07/24 16:09 BMI result Body Mass Index 27.5 Results Reviewed Results Reviewed: wrist x-ray reviewed in the office and negative. Will get official read. Assessment & Plan Assessment & Plan (1) Fall: Code(s): W19.XXXA - Unspecified fall, initial encounter Qualifiers: Encounter type: initial encounter Qualified Code(s): W19.XXXA - Unspecified fall, initial encounter (2) Left wrist sprain: Code(s): S63.502A - Unspecified sprain of left wrist, initial encounter Qualifiers: Encounter type: initial encounter Wrist sprain location: unspecified location Qualified Code(s): S63.502A - Unspecified sprain of left wrist, initial encounter Plan Most likely contusions and abrasions s/p fall vs fracture vs sprain X-ray done in the office today Plan- - will order an x-ray in the office today - rest, ice and elevation to the wrist - wear splint for comfort - tylenol and motrin as needed for pain - apply bacitracin to the wounds - may need ortho referral - follow up with PCP Orders: Orders XR wrist LT min 3V Today M25.532 - Pain in left wrist Coding Level of Care Code New Pt Level 4 (33837) Diagnoses Fall, initial encounter W19.XXXA Encounter type: initial encounter Sprain of left wrist, unspecified location, initial encounter S63.502A Encounter type: initial encounter Wrist sprain location: unspecified location
[2024-11-07 16:09] VITALS: BP 158/90; PULSE 75; TEMP 37.1; O2SAT 96; BMI 27.5
--- OUTSIDE RECORDS SUMMARY | 2024-11-07 18:57 | XMS_ITS | Patient Health Record ---
Author Organization Armando Kerns III, MD Address [address] [place] [address] Care Team Providers Care Automatic Brine Mixer Operator Name Role Phone Armando Kerns Primary Care Provider [phone] Allergies Allergen (clinical drug ingredient) Drug/Non Drug Allergy documented on EMR Reaction Allergy Type Onset Date Status sulfacetamide Sulfacetamide Unknown Drug Allergy Active prednisolone Prednisolone Unknown Drug Allergy A ctive Results Component Value Reference Range Notes MRSA Nasal Screen Reviewed date:11/13/2023 04:12:56 AM Interpretation: Performing Lab:[facility], [address] [place] [id number] Notes/Report: MRSA Nasal PCR NEGATIVE Negative SA Nasal PCR NEGATIVE Negative MRSA Interpretation SEE NOTE MRSA target DNA not detected; SA target DNA not detected. A MRSA NEGATIVE, SA NEGATIVE test result does not preclude MRSA or SA nasal colonization. FL guidance in OR Reviewed date:12/08/2023 01:11:14 PM Interpretation: Performing Lab: Notes/Report: [address] [address] Fluoroscopy Report Signed Patient: Jacquelin Graves MR#: [id number] 8 : 1960 Acct:[id number] Age/Sex: 63 / F ADM Date: 11/10/23 Loc: HO.SSS Attending Dr: Iain Guzman MD Ordering Physician: Iain Guzman MD Date of Service: 11/10/23 Procedure(s): FL guidance in OR Accession Number(s): [id number] cc: Armando Kerns MD; Iain Guzman MD [...] in OV> 12/04/23 2142 DD/ 1300 TD/TT: Owner Professional Engineer: [place] [id number] Fluoroscopy Report Signed Patient: Jacquelin Graves MR#: [id number] 8 : 1960 Acct:[id number] Age/Sex: 63 / F ADM Date: 11/10/23 Loc: [facility] Attending Dr: Iain Guzman MD Ordering Physician: Iain Guzman MD Date of Service: 11/10/23 Procedure(s): AARON roya veronica in OR Accession Number(s): [id number] cc: Armando Kerns MD; Iain Guzman MD [...] in OV> 12/04/23 2142 DD/ 1300 TD/TT: Lurer ist: SS XR wrist LT min 3V (Not yet reviewed by provider) Interpretation: Performing Lab: Notes/Report: [facility] Primary [address] [place] [address] XRay Report Signed Patient: Jacquelin Graves MR#: [id number] 8 : 1960 Acct:[id number] Age/Sex: 64 / F ADM Date: 11/07/24 Loc: .[facility] Attending Dr: Maciel Mendez PA-C Ordering Physician: MACIEL MENDEZ Date of Service: 11/07/24 Procedure(s): XR wrist LT min 3V Accession Number(s): [id number] cc: Armando Kerns MD; MACIEL MENDEZ EXAMINATION: XR WRIST, LEFT CLINICAL INFORMATION: M25.532 - Pain in left wrist COMPARISON: None available. TECHNIQUE: PA, lateral, oblique, and scaphoid views of the left wrist. FINDINGS: The bones and soft tissues are normal. No fracture. Alignment is anatomic with normal joint spaces. No erosions or abnormal soft tissue calcifications. XR/XR wrist LT min 3V IMPRESSION: Normal left wrist. Electronically signed by: Zev Hyde MD 11/07/2024 04:45 PM EDT Dictated By: Zev Hyde MD Signed By: <Electronically signed by Zev Hyde MD in OV> 11/07/24 1645 DD/ 1542 TD/TT: 11/07/24 1640 Owner Professional Engineer: [facility] Adult Primary [address] [place] [address] XRay Report Signed Patient: Jacquelin Graves MR#: [id number] 8 : 1960 Acct:[id number] Age/Sex: 64 / F ADM Date: 11/07/24 Loc: HO.HMGCX Attending Dr: Naomi Mendez PA-C Ordering Physician: MACIEL MENDEZ Date of Service: 11/07/24 Procedure(s): XR wri st LT min 3V Accession Number(s): [id number] cc: Armando Kerns MD; MACIEL MENDEZ EXAMINATION: XR WRIST, LEFT CLINICAL INFORMATION: M25.532 - Pain in le ft wrist COMPARISON: None available. TECHNIQUE: PA, lateral, oblique , and scaphoid views of the left wrist. FINDINGS: The bones and soft tissues are normal. No fracture. Alignment is anatomic with normal joint spaces. No erosions or abnormal soft tissue calcifications. X R/XR wrist LT min 3V IMPRESSION: Normal left wrist. Electronically mary d by: Zev Hyde MD 11/07/2024 04:45 PM EDT Dictated By: Zev Hyde MD Signed By: <Electronically signed by Zev Hyde MD in OV> 11/07/24 1645 DD/ 1542 TD/TT: 11/07/24 1640 Owner Professional Engineer: Reason For Referral Reason Evaluate and Treat Increased Difficulty Breathing Asthma Diagnosis 1 Mild intermittent as thma without complication (J45.20) Diagnosis 2 Tobacco dependence ( F17.200) Referral Organization Armando Kerns III, MD Referring Provider First Name Armando Referring Provider Last Name Luis F Referring Provider Speciality Internal M edicine Referred Provider [facility] er, Pulmonology Referred Provider Specialty Pulmonary Di seases General Notes D Farhana 07/24/2024 11:53:06 AM > Per request of [...] 50 MG TAKE 2 TABLETS BY MO UT EVERY MORNING Active Amitriptyline HCl 50 MG [...] Problem Status W/U Status Risk Notes Problem 29960527 Postmenopausal (Z78.0) Active confirmed Her ovaries remain and she had a hysterectomy in the past. She is postmenopausal and should have bone density done periodically. Problem 063536833009175 Obesity (BMI 30.0-34.9) (E66.9) Active confirmed Her BMI is 30 a nd she has a stable weight. We discussed a weight loss plan for aggressive sodium restriction and calorie reduction. Problem 874109478 Lumbar radiculopathy (M54.16) Active confirmed She is experiencing an exacerbation of the lumbar radiculopathy. I have advised her to use heat and to rest and to continue the muscle relaxer. She will avoid heavy lifting. A follow-up in 1 week will be done. Problem 80105483 Other chronic pain (G89.29) Active confirmed She continues to have low back pain that radiates but the diffuse joint and muscle pain is much improved with discontinuing the statin medication. Problem 17753279 Essential hypertension (I10) Active confirmed Her blood [...] again. Her medications will be titrated. Problem 71730889 Tobacco dependence (F17.200) Active confirmed She continues t o consume a package of cigarettes daily. We have discussed the health consequences of continued smoking. She was made aware of all of the tobacco cessation programs in the area. Problem 556227479 Mild intermittent asthma without complication (J45.20) Active confirmed She is still on prednisone and will use her inhaler and finished the prednisone prescription. She reports the wheezing has improved. Problem 901537186 Chronic hepatitis C without hepatic coma (B18.2) Active confirmed She has a gastroenterologis t and I will obtain the old records. She will be referred back for therapy if it would be beneficial. Her titer was very elevated. Problem Combined disorder of muscle AND peripheral nerve (763036626) Neuromuscular disease (G70.9) Active confirmed Problem History of depression (048351024) History of depression (Z86.59) Active confirmed Her depression is mild. She has been compliant with all her medications. She is conducting all his activities of daily life without impairment. Problem 335597339 Adenomatous polyp of colon, unspecified part of colon (D12.6) Active confirmed The tubular adenoma was in 2001 and in 2013. She had a normal colonoscopy. She has a family history of colon cancer and should have a colonoscopy every 5 years. She agreed with this. She was referred back to Dr. Flannery to have a screening colonoscopy in the near future. Problem 54678330 Degenerative disc disease, lumbar (M51.36) Active confirmed She has spok en to the neurosurgeon he'll consider surgery after her next surgery. Her degree of pain is unchanged. I have prescribed Tegretol. Problem 92377260 Peripheral polyneuropathy (G62.9) Active confirmed Problem 782236348 Covid-19 (U07.1) Active confirmed She has completely recovered and denies any long-haul symptoms. Problem 795925611 Transient ischemic attack (G45.9) Active confirmed Problem 341109487 Cerebral microvascular disease (I67.89) Active confirmed No further neurological symptoms have been experienced. Vital Signs Heart Rate 60 /min 06/19/2024 Temperature 97.9 degrees Fahrenheit 06/19/2024 Blood pressure diastolic 88 mm Hg 06/19/2024 Height 67 in 06/19/2024 Blood pressure systolic 160 mm Hg 06/19/2024 Weight 192 lbs 06/19/2024 BMI 30.07 kg/m2 06/19/2024 Encounters Encounter Location Date Provider Diagnosis Armando Kerns III, MD [address] [place] [address] [place] [address] 05/30/2024 Armando Kerns Pharyngitis, unspeci fied etiology J02.9 ; Essential hypertension I10 ; Mild intermittent asthma without complication J45.20 ; Obesity (BMI 30.0-34.9) E66.9 and Tobacco dependence F17.200 Armando Kerns III, MD [address] [place] [address] [place] [address] 06/19/2024 Armando Kerns Pharyngitis, unspeci fied etiology J02.9 ; Essential hypertension I10 ; Mild intermittent asthma without complication J45.20 ; Postmenopausal Z78.0 ; Adenomatous polyp of colon, unspecified part of colon D12.6 ; Degenerative disc disease, lumbar M51.36 ; Tobacco dependence F17.200 and Obesity (BMI 30.0-34.9) E66.9 Armando Kerns III, MD [address] [place] [address] [place] [address] 12/02/2023 Armando Kerns Screening due Z13.9 Armando Kerns III, MD [address] [place] [address] [place] [address] 02/08/2024 Armando Kerns III, MD [address] [place] [address] [place] [address] 05/22/2024 Armando Kerns III, MD [address] [place] [address] [place] [address] 05/22/2024 Armando Kerns III, MD [address] [place] [address] [place] [address] 05/30/2024 Armando Kerns III, MD [address] [place] [address] [place] [address] 05/31/2024 Armando Kerns III, MD [address] [place] [address] [place] [address] 07/04/2024 Armando Kerns III, MD [address] [place] [address] [place] [address] 07/04/2024 Armando Kerns III, MD [address] [place] [address] [place] [address] 07/04/2024 Armando Kerns III, MD [address] [place] [address] [place] [address] 07/24/2024 Armando Kerns Pharyngitis, unspeci fied etiology J02.9 Armando Kerns III, MD [address] [place] [address] [place] [address] 08/31/2024 Armando Kerns Pharyngitis, unspeci fied etiology [...] Panel 08/20/2020 Free T4 (Free Thyroxine) 08/20/2020 XR wrist LT min 3V 11/07/2024 Next Appt Details Provider Name:Armando Kerns, 11/14/2024 02:30:00 PM, [address] [place] [address] [address], [place], [address], Insurance Providers Payer Name Payer Address Payer Phone Subscriber Number Group Number Insured Name Patient Relationship to Insured Coverage Start Date Coverage End Date [facility] [address] [place] [phone] [id number] JACQUELIN GRAVES Self - patient is the insured Medical (General) History Medical History History ICD Code Degenerative disc disease at L5-S1 level M51.36 essential hypertension nonhealing wound, left 2014, acidizer is Dr. Skinner and Dr. Agustin in [place] overweight body mass index 29 tubular adenoma 2002 family history of colorectal cancer hepatitis C [...]
== END 2024-11-07 16:54 | disposition home or self-care (01) ==
PROVIDERS: PCP Internal Medicine Medical Oncology; Visit Provider Physician Assistant Medical
DX: S63.502A Unspecified sprain of left wrist, initial encounter (principal); W19.XXXA Unspecified fall, initial encounter; Z04.2 Encounter for examination and observation following work accident

== ENCOUNTER → 2024-11-07 16:31 | Outpatient (BNV) | payer OTHER, SELFPAY | PROVIDERS: PCP Internal Medicine Medical Oncology; Visit Provider Radiology Diagnostic Radiology | DX: M25.532 Pain in left wrist (principal) | CPT/HCPCS: 73110 ==

== ENCOUNTER → 2024-11-10 07:14 | Outpatient (BNV) | payer OTHER, SELFPAY | PROVIDERS: PCP Internal Medicine Medical Oncology; Visit Provider Radiology Diagnostic Radiology | DX: M47.896 Other spondylosis, lumbar region (principal) | CPT/HCPCS: 72148 ==

== ENCOUNTER 2024-11-10 07:18 | Outpatient (REF) | payer OTHER, SELFPAY ==
--- NOTE | ~2024-11-10 | MR_ITS ---
EXAMINATION: MR LUMBAR SPINE WITHOUT CONTRAST CLINICAL INFORMATION: Neurogenic claudication, spinal stenosis. Back pain, bilateral leg numbness. Chronic. COMPARISON: 03/18/2022 TECHNIQUE: Multiplanar multisequence MR imaging of the lumbar spine was done without IV contrast. Examination was performed on a 1.5 Johanna Siemens magnet, utilizing standard sequences. FINDINGS: CORONAL ALIGNMENT: -There is a trace levoconvex scoliosis. SAGITTAL ALIGNMENT: -There is a normal lordosis. -There is a 2 mm degenerative retrolisthesis of L3 upon L4. -Sagittal alignment otherwise normal. LUMBOSACRAL JUNCTION: -Normal. There are 5 [id number]-[id number] lumbar-type vertebral bodies. VERTEBRAL BODIES/BONE MARROW: -There are no compression deformities or fractures. -Trace edematous endplate changes present oriented to the left at L2-3. -Mild edema noted in the pedicles of L5, likely stress response. No pars defects. -There is a hemangioma in T11. There is no abnormal infiltrating bone marrow signal. DISCS: -There is mild loss of disc height and signal spanning L2-L5. -The remaining discs are normal in height and signal. SPINAL CANAL: -No abnormal developmental findings. CONUS MEDULLARIS: -Terminates at superior endplate of L2. Morphology and signal is normal. INTRADURAL NERVE ROOTS: - Within normal limits. No nerve root clumping or mass identified. Axial Disc Space Images: T12-L1: No central canal or neural foraminal narrowing. Normal facets. No interval change. L1-L2: No central canal or neural foraminal narrowing. Normal facets. No interval change. L2-L3: There is a shallow concentric disc bulge present, extending into both foraminal zones. There are mild hypertrophic degenerative facet changes with mild posterior ligamentous thickening/infolding. There is mild central canal narrowing, mild bilateral subarticular recess narrowing, and mild bilateral neural foraminal narrowing. No interval change. L3-L4: There is a concentric disc bulge present extending into both foraminal zones, with a superimposed left lateral and foraminal disc extrusion. The extruded disc demonstrates mild inferior migration, and is causing severe left subarticular recess stenosis with contact and deviation of the traversing left L4 nerve roots. There are mild to moderate hypertrophic degenerative facet changes with posterior ligamentous thickening/infolding. There is mild to moderate right and moderate left neural foraminal narrowing. There is mild to moderate central canal narrowing. The left disc extrusion is new from prior. L4-L5: There is a concentric bulging disc extending into both foraminal zones, with a superimposed left paracentral extruded component with mild inferior migration. Coupled with moderate hypertrophic degenerative facet changes bilaterally, posterior ligamentous thickening/infolding, there is moderate central canal stenosis, moderate left subarticular recess stenosis with contact but no definite impingement of the traversing left L5 nerve roots, mild to moderate right subarticular recess narrowing, and moderate right and xskk-[id number]-[id number] left neural foraminal narrowing. No significant interval change. L5-S1: There is a shallow concentric bulging disc extending into both foraminal zones, moderate to severe hypertrophic degenerative facet changes bilaterally, mild posterior ligamentous thickening/infolding, with findings resulting in mild central canal narrowing, minimal left greater than right subarticular recess narrowing, and mild to moderate bilateral neural foraminal narrowing. There is contact of the bilateral exiting L5 nerve roots without definite impingement. There is no definite mass effect upon the traversing S1 nerve roots. No significant interval change. IMAGED SI JOINTS: Mild degenerative arthritis bilaterally. PARAVERTEBRAL AND INCLUDED EXTRASPINAL SOFT TISSUES: -There is a small left renal cyst. -The aorta is normal in caliber. -No retroperitoneal adenopathy is present. -Normal-appearing paravertebral and paraspinous musculature. MR/MR lumbar spine wo con IMPRESSION: 1. Moderate lumbar spondylosis most notable spanning L2-S1. Compared with the prior examination, examination is stable with the exception of a new left lateral disc extrusion at L3-4 causing moderate to severe left subarticular recess narrowing and causing mass effect upon the traversing left L4 nerve roots. 2. At L4-5 there is a stable central extruded disc component, resulting in moderate central canal, moderate left greater than right subarticular recess, and mild to moderate neural foraminal stenosis. 3. Edema within the pedicles of L5, likely stress response. No pars defects. 4. Mild to moderate stable disc degeneration spanning L2-L5. 5. See above for details. Electronically signed by: Zev Hyde MD 11/10/2024 08:41 AM EDT
== END 2024-11-10 07:19 | disposition home or self-care (01) ==
LOC: HO.MRI 07:18
PROVIDERS: PCP Internal Medicine Medical Oncology; Visit Provider Internal Medicine
DX: M48.062 Spinal stenosis, lumbar region with neurogenic claudication (principal)
CPT/HCPCS: 72148

== ENCOUNTER 2024-11-27 11:26 | Outpatient (AMB) | payer OTHER, SELFPAY ==
--- NOTE | 2024-11-27 11:26 | A.OFFVIS_ITS ---
Intake Visit Reasons: MR results Allergies sulfa Allergy (Intermediate, Uncoded 10/25/24 10:41) Hives HPI HPI MR results: Details: History of Present Illness The patient is a 64-year-old female presenting with chronic radicular pain and axial low back pain. The pain initially started in the left leg but has since shifted to the right leg, where it has persisted for a while. The pain radiates from the buttocks down the leg to the foot, causing tingling sensations in the foot. The MRI findings indicate new issues on the left side, but the patient's primary pain is on the right side, which has not shown new changes. The patient has significant arthritis in the facet joints, which may be contributing to the pain. Previous interventions have included medications such as Tramadol, which provided minimal relief. The patient reports that bending backward exacerbates the pain, leading to spasms. Pain Description - Pain initially in left leg, now in right leg - Radiates from buttocks down leg to foot - Tingling sensation in foot - Exacerbated by bending backward, causing spasms Results - MRI: New findings on the left side, no new changes on the right side Pain Management - Affect: Pain impacts daily comfort, causing significant discomfort. - Analgesia: Tramadol provided minimal relief; patient reports tingling and discomfort. - Activities of Daily Living: Pain interferes with sitting and requires frequent movement. - Aberrant Drug Related Behaviors: None reported. [facility] Medical History (Updated 12/01/24 @ 13:34 by Iian Guzman MD) Numbness COVID-19 Arthritis Habitual snoring Depression Internal hemorrhoids Nonhealing nonsurgical wound Degenerative disc disease at L5-S1 level History of TIA (transient ischemic attack) Hepatitis C Tubular adenoma of colon (~2001) Personal history of nicotine dependence Asthma Hypertension Cerebral microvascular disease Surgical History History of tubal ligation History of surgery on lower extremity (~2014) History of colonoscopy History of liver biopsy (~2014) History of hysterectomy (~2007) Family History Paternal Grandmother Colon cancer Father HTN (hypertension) CAD (coronary artery disease) Mother HTN (hypertension) CAD (coronary artery disease) Son HTN (hypertension) Social History Household Members: None Household Members Other:: son Housing: House Are you a primary caregiver services home to a significant other at home: No Do you presently have visiting nurse or other home services: No Alcohol intake: current Alcohol intake frequency: a few times a month Patient Tobacco Use Status: Current everyday Tobacco user Tobacco use type: Cigarette Cigarettes Per Day: 5 Years Smoked: 20 Years Quit 01/2022 Second Hand Smoke Exposure: No Substance Use Type: Marijuana service: No Current occupational status: employed Telehealth Telehealth Telehealth Platform: Patients Know Best Location of provider rendering services: practice address Location of patient: address on file Patient Identification confirmed using: Name, : Yes Telehealth method: video Patient verbally consented to treatment: Yes Patient verbally consented to billing insurance company: Yes Patient informed of any privacy concerns related to visit: Yes Minutes spent on Phone/Video with Pt.: 15 Assessment & Plan Assessment & Plan (1) Lumbar spondylosis: Code(s): M47.816 - Spondylosis without myelopathy or radiculopathy, lumbar region Category: Medical Plan Plan - Plan for L4-5 and L5-S1 intraarticular facet injections with aspiration (+/- AZCHERY). - Consider interlaminar injection if current interventions are ineffective. - If pain persists, consider spinal cord stimulation for chronic radicular pain. - Prescribed a limited supply of Tramadol for temporary relief until interventions are performed. Patient was informed and verbally consented to the use of an ambient scribe for clinic note documentation during this visit. Discussion Notes I discussed with the patient the findings of the MRI, which showed new issues on the left side, but confirmed that the primary pain is on the right side with no new changes. We talked about the plan for L4-5 and L5-S1 intraarticular facet injections with aspiration and corticosteroid injection, and the possibility of interlaminar injection if needed. I explained that if these interventions do not alleviate the pain, we may consider spinal cord stimulation. The patient was informed about the temporary prescription of Tramadol for pain relief until the procedures are completed. Patient Instructions - Follow up with the clinic for scheduling of facet injections. - Use prescribed Tramadol as directed for temporary pain relief. - Report any new or worsening symptoms to the clinic immediately. Medications: New acetaminophen-codeine 300-30 mg 1 tab PO BID PRN 14 tabs 0RF pain Coding Level of Care Code Tele Est Pt Level 4 (54853) Diagnoses Lumbar spondylosis M47.816
--- OUTSIDE RECORDS SUMMARY | 2024-11-27 12:35 | XMS_ITS | Patient Health Record ---
Author Organization [facility] Address [address] [place] [address] Care Team Providers Care Silver Solderer Name Role Phone Ubaldo Lemos Primary Care Provider Armando Maciel Unavailable [phone] Allergies Allergen (clinical drug ingredient) Drug/Non Drug Allergy documented on EMR Reaction Allergy Type Onset Date Status Sulfa Unknown Drug Allergy Active Reason For Referral No Information Medications Medication SIG (Take, Route, Frequency, Duration) Notes Start Date End Date Status Atenolol 50 MG 1 tablet Orally Once a day Active Flovent HFA 110 MCG/ACT 1 puff Inhalatio n Twice a day Active ProAir HFA 108 (90 Base) MCG/ACT 2 puffs as needed Inhalation every 4 hrs Active hydroCHLOROthiazide 25 MG 1 tablet Orall y Once a day Active cloNIDine HCl 0.1 MG 1 tablet Orally Once a day Active Paxil 10 MG 1 tablet in the morning Orally Once a day Active LORazepam 0.5 MG 1 tablet at bedtime as needed Orally Once a day Not-Taking Problems Problem Type SNOMED Code ICD Code Onset Dates Problem Status W/U Status Risk Notes Problem Screening for malignant neoplasm of colon (217863942) Screening for colorectal cancer (V76.51) Active confirmed Problem Chronic hepatitis C (100219551) Chronic hepatitis C (070.54) Active confirmed Problem History of polyp of colon (480472752) H/O adenomatous polyp of colon (V12.72) Active confirmed Problem Iron excess (95307305) Iron excess (275.09) Active confirmed Problem Serum alpha-fetoprot ein level elevated (142364736) 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 Problem Elevated liver enzymes level (108202003) Elevated LFTs (790.6) Active confirmed Plan Of Treatment Pending Test Test Name Order Date BUN 10/18/2014 CREATININE 10/18/2014 LIVER PROFILE 02/02/2014 LIVER PROFILE 12/07/2014 LIVER PROFILE 10/18/2014 LIVER PROFILE 11/13/2014 CBC w DIFF 11/13/2014 CBC w DIFF 02/02/2014 CBC w DIFF 11/22/2014 CBC w DIFF 12/07/2014 CBC w DIFF 10/18/2014 PROTHROMBIN TIME (PT, INR) 02/02/2014 ALPHA-FETOPROTEIN,TUMOR MARKER 4 HEMOCHROMATOSIS (C282Y) 09/13/2014 HEPATITIS C VIRAL LOAD 12/07/2014 HEPATITIS C VIRAL LOAD 10/18/2014 HEPATITIS C VIRAL LOAD 11/13/2014 HEPATITIS C GENOTYPE 02/02/2014 MRI ABD W&WO CONTRAST 10/18/2014 Future Test Test Name Order Date COLONOSCOPY 02/02/2014 Insurance Providers Payer Name Payer Address Payer Phone Subscriber Number Group Number Insured Name Patient Relationship to Insured Coverage Start Date Coverage End Date [facility] [address] [place] [phone] [id number] JACQUELIN GRAVES Self - patient is the insured Medical (General) History Medical History History ICD Code colonoscopy 01/10/2002--1 small tubular adenoma removed Hepatitis C--diagnosed in 06 07--never had any followup--hepatitis C viral load was 184,000 at that time-she has never been treated for the Hepatitis C. In September of 2014 she had a liver biopsy showing active hepatitis, grade 2-3/4 and stage III/IV fibrosis(bridging fibrosis)--her alpha-fetoprotein level was 13.0 and she has hepatitis C genotype 1A--quantitative iron study on her liver tissue was in the normal range--her ferritin was 760 with and iron saturation of 49% Denies ID,DM,CVA,renal disease Asthma HTN On Paxil for Hot flashes negative colonoscopy in 2013, other than some sigmoid diverticulosis and internal hemorrhoids Surgical History Surgery Date(Month/Year) hysterectomy and removal of 1 ovary
--- OUTSIDE RECORDS SUMMARY | 2024-11-27 12:35 | XMS_ITS | Patient Health Record ---
Author Organization Armando Kerns III, MD Address [address] [place] [address] [address] [address] Care Team Providers Care Optics Engineer Name Role Phone Armando Kerns Primary Care Provider Allergies Allergen (clinical drug ingredient) Drug/Non Drug Allergy documented on EMR Reaction Allergy Type Onset Date Status sulfacetamide Sulfacetamide Unknown Drug Allergy Active prednisolone Prednisolone Unknown Drug Allergy A ctive Results Component Value Reference Range Notes XR wrist LT min 3V Reviewed date:11/08/2024 05:38:18 AM Interpretation: Performing Lab: Notes/Report: [facility] [address] [address] XRay Report Signed Patient: Jacquelin Graves MR#: [id number] 8 : 1960 Acct:[id number] Age/Sex: 64 / F ADM Date: 11/07/24 Loc: .[facility] Attending Dr: Maciel Richardson PA-C Ordering Physician: MACIEL RICHARDSON Date of Service: 11/07/24 Procedure(s): XR wrist LT min 3V Accession Number(s): [id number] cc: Armando Kerns MD; MACIEL RICHARDSON EXAMINATION: XR WRIST, LEFT CLINICAL INFORMATION: M25.532 [...] Zev Hyde MD 11/07/2024 04:45 PM EDT RP Dictated By: Zev Hyde MD Signed By: <Electronically signed by Zev Hyde MD in OV> 11/07/241644 DD/ 1542 TD/TT: 11/07/24 1640 [place] Hydraulic Press Operator: [facility] [address] [place] [address] [place] [address] XRay Report Signed Patient: Jacquelin Graves MR#: [id number] 8 : 1960 Acct:[id number] Age/Sex: 64 / F ADM Date: 11/07/24 [facility]: Naomi Richardson PA-C Ordering Physician: MACIEL RICHARDSON Date of Service: 11/07/24 Procedure(s): XR wri st LT min 3V Accession Number(s): [id number] cc: Armando Kerns MD; MACIEL RICHARDSON EXAMINATION: XR WRIST, LEFT CLINICAL INFORMATION: M25.532 - Pain in left wrist COMPARISON: None available. TECHNIQUE: PA, lateral, oblique , and scaphoid views of the left wrist. FINDINGS: The bones and soft t issues are normal. No fracture. Alignment is anatomic with normal joint spaces. No erosions or abnormal soft tissue calcifications. X R/XR wrist LT min 3V IMPRESSION: Normal left wrist. Electronically mary d by: Zev Hyde MD 11/07/2024 04:45 PM EDT RP Dictated By: Zev Hyde MD Signed By: <Electron ically signed by Zev Hyde MD in OV> 11/07/241644 DD/ 1542 TD/TT: 11/07/24 1640 [place] Hydraulic Press Operator: MR lumbar spine wo con (Not yet reviewed by provider) Interpretation: Performing Lab: Notes/Report: [address] [address] Magnetic Resonance Report Signed Patient: Jacquelin Graves MR#: [id number] 8 : 1960 Acct:[id number] Age/Sex: 64 / F ADM Date: 11/10/24 Loc: HO.MRI Attending Dr: Iain Guzman MD Ordering Physician: Iain Guzman MD Date of Service: 11/10/24 Procedure(s): MR lumbar spine wo con Accession Number(s): [id number] cc: Armando Kerns MD; Iain Guzman MD EXAMINATION: MR LUMBAR SPINE WITHOUT CONTRAST CLINICAL INFORMATION: Neurogenic claudication, spinal stenosis. Back pain, bilateral leg numbness. Chronic. COMPARISON: 03/18/2022 TECHNIQUE: Multiplanar multisequence MR imaging of the lumbar spine was done without IV contrast. Examination was performed on a 1.5 Johanna Siemens magnet, utilizing standard sequences. FINDINGS: CORONAL ALIGNMENT: -There is a trace levoconvex scoliosis. SAGITTAL ALIGNMENT: -There is a normal lordosis. -There is a 2 mm degenerative retrolisthesis of L3 upon L4. -Sagittal alignment otherwise normal. LUMBOSACRAL JUNCTION: -Normal. There are 5 inx-tzg-mlgtvbk lumbar-type vertebral bodies. VERTEBRAL BODIES/BONE MARROW: -There are no compression deformities or fractures. -Trace edematous endplate changes present oriented to the left at L2-3. -Mild edema noted in the pedicles of L5, likely stress response. No pars defects. -There is a hemangioma in T11. There is no abnormal infiltrating bone marrow signal. DISCS: -There is mild loss of disc height and signal spanning L2-L5. -The remaining discs are normal in height and signal. SPINAL CANAL: -No abnormal developmental findings. CONUS MEDULLARIS: -Terminates at superior endplate of L2. Morphology and signal is normal. INTRADURAL NERVE ROOTS: - Within normal limits. No nerve root clumping or mass identified. Axial Disc Space Images: T12-L1: No central canal or neural foraminal narrowing. Normal facets. No interval change. L1-L2: No central canal or neural foraminal narrowing. Normal facets. No interval change. L2-L3: There is a shallow concentric disc bulge present, extending into both foraminal zones. There are mild hypertrophic degenerative facet changes with mild posterior ligamentous thickening/infolding. There is mild central canal narrowing, mild bilateral subarticular recess narrowing, and mild bilateral neural foraminal narrowing. No interval change. L3-L4: There is a concentric disc bulge present extending into both foraminal zones, with a superimposed left lateral and foraminal disc extrusion. The extruded disc demonstrates mild inferior migration, and is causing severe left subarticular recess stenosis with contact and deviation of the traversing left L4 nerve roots. There are mild to moderate hypertrophic degenerative facet changes with posterior ligamentous thickening/infolding. There is mild to moderate right and moderate left neural foraminal narrowing. There is mild to moderate central canal narrowing. The left disc extrusion is new from prior. L4-L5: There is a concentric bulging disc extending into both foraminal zones, with a superimposed left paracentral extruded component with mild inferior migration. Coupled with moderate hypertrophic degenerative facet changes bilaterally, posterior ligamentous thickening/infolding, there is moderate central canal stenosis, moderate left subarticular recess stenosis with contact but no definite impingement of the traversing left L5 nerve roots, mild to moderate right subarticular recess narrowing, and moderate right and qxbm-ty-fwmsgzdg left neural foraminal narrowing. No significant interval change. L5-S1: There is a shallow concentric bulging disc extending into both foraminal zones, moderate to severe hypertrophic degenerative facet changes bilaterally, mild posterior ligamentous thickening/infolding, with findings resulting in mild central canal narrowing, minimal left greater than right subarticular recess narrowing, and mild to moderate bilateral neural foraminal narrowing. There is contact of the bilateral exiting L5 nerve roots without definite impingement. There is no definite mass effect upon the traversing S1 nerve roots. No significant interval change. IMAGED SI JOINTS: Mild degenerative arthritis bilaterally. PARAVERTEBRAL AND INCLUDED EXTRASPINAL SOFT TISSUES: -There is a small left renal cyst. -The aorta is normal in caliber. -No retroperitoneal adenopathy is present. -Normal-appearing paravertebral and paraspinous musculature. MR/MR lumbar spine wo con IMPRESSION: 1. Moderate lumbar spondylosis most notable spanning L2-S1. Compared with the prior examination, examination is stable with the exception of a new left lateral disc extrusion at L3-4 causing moderate to severe left subarticular recess narrowing and causing mass effect upon the traversing left L4 nerve roots. 2. At L4-5 there is a stable central extruded disc component, resulting in moderate central canal, moderate left greater than right subarticular recess, and mild to moderate neural foraminal stenosis. 3. Edema within the pedicles of L5, likely stress response. No pars defects. 4. Mild to moderate stable disc degeneration spanning L2-L5. 5. See above for details. Electronically signed by: Zev Hyde MD 11/10/2024 08:41 AM EDT RP Dictated By: Zev Hyde MD Signed By: <Electronically signed by Zev Hyde MD in OV> 11/10/24 0841 DD/ 0715 TD/TT: 11/10/24 0805 [place] Hydraulic Press Operator: [place] [address] Magnetic Resonance Report Signed Patient: Jacquelin Graves MR#: [id number] 8 : 1960 Acct:[id number] Age/Sex: 64 / F ADM Date: 11/10/24 Loc: HO.MRI Attending Dr: Iain Guzman MD Ordering Physician: Iain Guzman MD Date of Service: 11/10/24 Procedure(s): MR lum bar spine wo con Accession Number(s): [id number] cc: Armando Kerns MD; Iain Guzman MD EXAMINATION: MR LUMBAR SPINE WITH OUT CONTRAST CLINICAL INFORMATION: Neurogenic claudicat ion, spinal stenosis. Back pain, bilateral leg numbness. Chronic. COMPARISON: 03/18/2022 TECHNIQUE: Multiplanar multiseq uence MR imaging of the lumbar spine was done without IV contrast. Examination was performed on a 1.5 Johanna Siemens magnet, utilizing st andard sequences. FINDINGS: CORONAL ALIGNMENT: -There is a trace le voconvex scoliosis. SAGITTAL ALIGNMENT: -There is a normal lordosis. -There is a 2 mm deg enerative retrolisthesis of L3 upon L4. -Sagittal alignment otherwise normal. LUMBOSACRAL JUNCTION: -Normal. There are 5 ohj-abd-sxecwkr lumbar-type vertebral bodies. VERTEBRAL BODIES/BONE MARROW: -There are no compre ssion deformities or fractures. -Trace edematous end plate changes present oriented to the left at L2-3. -Mild edema noted in the pedicles of L5, likely stress response. No pars defects. -There is a hemangio ma in T11. There is no abnormal infiltrating bone marrow signal. DISCS: -There is mild loss of disc height and signal spanning L2-L5. -The remaining discs are normal in height and signal. SPINAL CANAL: -No abnormal develop mental findings. CONUS MEDULLARIS: -Terminates at super ior endplate of L2. Morphology and signal is normal. INTRADURAL NERVE ROOTS: - Within normal limi ts. No nerve root clumping or mass identified. Axial Disc Space Images: T12-L1: No central c anal or neural foraminal narrowing. Normal facets. No interval change. L1-L2: No central ca nal or neural foraminal narrowing. Normal facets. No interval change. L2-L3: There is a sh allow concentric disc bulge present, extending into both foraminal zones . There are mild hypertrophic degenerative facet changes with mild po sterior ligamentous thickening/infolding. There is mild central canal n arrowing, mild bilateral subarticular recess narrowing, and mild bilateral neural foraminal narrowing. No interval change. L3-L4: There is a co ncentric disc bulge present extending into both foraminal zones, wit h a superimposed left lateral and foraminal disc extrusion. The extru ded disc demonstrates mild inferior migration, and is causing severe le ft subarticular recess stenosis with contact and deviation of the tra versing left L4 nerve roots. There are mild to moderate hypertrophi c degenerative facet changes with posterior ligamentous thickening/infolding. There is mild to moderate right and moderate left neural foraminal narrowing. There is mild to moderate central canal narrow ing. The left disc extrusion is new from prior. L4-L5: There is a co ncentric bulging disc extending into both foraminal zones, with a superi mposed left paracentral extruded component with mild inferior migrat ion. Coupled with moderate hypertrophic degenerative facet c hanges bilaterally, posterior ligamentous thickening/infolding , there is moderate central canal stenosis, moderate left subart icular recess stenosis with contact but no definite impingement of the t raversing left L5 nerve roots, mild to moderate right subarticular r ecess narrowing, and moderate right and szka-ki-auuyepby lef t neural foraminal narrowing. No significant interval change. L5-S1: There is a sh allow concentric bulging disc extending into both foraminal zones, mod erate to severe hypertrophic degenerative facet changes bilaterally, mild posterior ligamentous thickening/infolding, with findings result ing in mild central canal narrowing, minimal left greater than right s ubarticular recess narrowing, and mild to moderate bilateral neural for aminal narrowing. There is contact of the bilateral exiting L5 nerve coleman ts without definite impingement. There is no definite mass effect upon the traversing S1 nerve roots. No significant interval change. IMAGED SI JOINTS: Mild degenerative ar thritis bilaterally. PARAVERTEBRAL AND IN CLUDED EXTRASPINAL SOFT TISSUES: -There is a small le ft renal cyst. -The aorta is normal in caliber. -No retroperitoneal adenopathy is present. -Normal-appearing pa ravertebral and paraspinous musculature. M R/MR lumbar spine wo con IMPRESSION: 1. Moderate lumbar s pondylosis most notable spanning L2-S1. Compared with the prior exami nation, examination is stable with the exception of a new left lateral d isc extrusion at L3-4 causing moderate to severe left subarticular re cess narrowing and causing mass effect upon the traversing left L4 nerve roots. 2. At L4-5 there is a stable central extruded disc component, resulting in moderate central canal, moderate left greater than right subarticular recess, and mild to moderate neural foraminal stenosis. 3. Edema within the pedicles of L5, likely stress response. No pars defects. 4. Mild to moderate stable disc degeneration spanning L2-L5. 5. See above for details. Electronically mary d by: Zev Hyde MD 11/10/2024 08:41 AM EDT Dictated By: Zev Hyde MD Signed By: <Larry cortes signed by Zev Hyde MD in OV> 11/10/24 0841 DD/ 0715 TD/TT: 11/10/24 0805 [place] Hydraulic Press Operator: Reason For Referral Reason Evaluate and Treat Increased Difficulty Breathing Asthma Diagnosis 1 Mild intermittent as thma without complication (J45.20) Diagnosis 2 Tobacco dependence ( F17.200) Referral Organization Armando Kerns III, MD Referring Provider First Name Armando Referring Provider Last Name Luis F Referring Provider Speciality Internal M edicine Referred Provider [facility] er, Pulmonology Referred Provider Specialty Pulmonary Di [...] Problem Status W/U Status Risk Notes Problem 91989590 Postmenopausal (Z78.0) Active confirmed Her ovaries remain and she had a hysterectomy in the past. She is postmenopausal and should have bone density done periodically. Problem 835785300484451 Obesity (BMI 30.0-34.9) (E66.9) Active confirmed Her BMI is 30 a nd she has a stable weight. We discussed a weight loss plan for aggressive sodium restriction and calorie reduction. Problem 442235091 Lumbar radiculopathy (M54.16) Active confirmed She is experiencing an exacerbation of the lumbar radiculopathy. I have advised her to use heat and to rest and to continue the muscle relaxer. She will avoid heavy lifting. A follow-up in 1 week will be done. Problem 18583076 Other chronic pain (G89.29) Active confirmed She continues to have low back pain that radiates but the diffuse joint and muscle pain is much improved with discontinuing the statin medication. Problem 32681451 Essential hypertension (I10) Active confirmed Her blood [...] again. Her medications will be titrated. Problem 43728623 Tobacco dependence (F17.200) Active confirmed She continues t o consume a package of cigarettes daily. We have discussed the health consequences of continued smoking. She was made aware of all of the tobacco cessation programs in the area. Problem 354707044 Mild intermittent asthma without complication (J45.20) Active confirmed She is still on prednisone and will use her inhaler and finished the prednisone prescription. She reports the wheezing has improved. Problem 201702028 Chronic hepatitis C without hepatic coma (B18.2) Active confirmed She has a gastroenterologis t and I will obtain the old records. She will be referred back for therapy if it would be beneficial. Her titer was very elevated. Problem Combined disorder of muscle AND peripheral nerve (571331017) Neuromuscular disease (G70.9) Active confirmed Problem History of depression (122767042) History of depression (Z86.59) Active confirmed Her depression is mild. She has been compliant with all her medications. She is conducting all his activities of daily life without impairment. Problem 801528906 Adenomatous polyp of colon, unspecified part of colon (D12.6) Active confirmed The tubular adenoma was in 2001 and in 2013. She had a normal colonoscopy. She has a family history of colon cancer and should have a colonoscopy every 5 years. She agreed with this. She was referred back to Dr. Flannery to have a screening colonoscopy in the near future. Problem 63370443 Degenerative disc disease, lumbar (M51.36) Active confirmed She has spok en to the neurosurgeon he'll consider surgery after her next surgery. Her degree of pain is unchanged. I have prescribed Tegretol. Problem 11101001 Peripheral polyneuropathy (G62.9) Active confirmed Problem 150983136 Covid-19 (U07.1) Active confirmed She has completely recovered and denies any long-haul symptoms. Problem 239046193 Transient ischemic attack (G45.9) Active confirmed Problem 046499171 Cerebral microvascular disease (I67.89) Active confirmed No further neurological symptoms have been experienced. Vital Signs Heart Rate 60 /min 06/19/2024 Temperature 97.9 degrees Fahrenheit 06/19/2024 Blood pressure diastolic 88 mm Hg 06/19/2024 Height 67 in 06/19/2024 Blood pressure systolic 160 mm Hg 06/19/2024 Weight 192 lbs 06/19/2024 BMI 30.07 kg/m2 06/19/2024 Encounters Encounter Location Date Provider Diagnosis Armando Kerns III, MD [address] [place] [address] [place] [address] 05/30/2024 Armando Kerns Pharyngitis, unspeci fied etiology J02.9 ; Essential hypertension I10 ; Mild intermittent asthma without complication J45.20 ; Obesity (BMI 30.0-34.9) E66.9 and Tobacco dependence F17.200 Armando Kerns III, MD [address] [place] [address] [place] [address] 06/19/2024 Armando Kerns Pharyngitis, unspeci fied etiology J02.9 ; Essential hypertension I10 ; Mild intermittent asthma without complication J45.20 ; Postmenopausal Z78.0 ; Adenomatous polyp of colon, unspecified part of colon D12.6 ; Degenerative disc disease, lumbar M51.36 ; Tobacco dependence F17.200 and Obesity (BMI 30.0-34.9) E66.9 Armando Kerns III, MD [address] [place] [address] 12/02/2023 Armando Vaca due Z13.9 Armando Kerns III, MD [address] [place] [address] [place] [address] 02/08/2024 Armando Kerns III, MD [address] [place] [address] [place] [address] 05/22/2024 Armando Kerns III, MD [address] [place] [address] [place] [address] 05/22/2024 Armando Kerns III, MD [address] [place] [address] [place] [address] 05/30/2024 Armando Kerns III, MD [address] [place] [address] [place] [address] 05/31/2024 Armando Kerns III, MD [address] [place] [address] [place] [address] 07/04/2024 Armando Kerns III, MD [address] [place] [address] [place] [address] 07/04/2024 Armando Kerns III, MD [address] [place] [address] [place] [address] 07/04/2024 Armando Kerns III, MD [address] [place] [address] [place] [address] 07/24/2024 Armando Kerns Pharyngitis, unspeci fied etiology J02.9 Armando Kerns III, MD [address] [place] [address] [place] [address] 08/31/2024 Armando Kerns Pharyngitis, unspeci fied etiology [...] Panel 08/20/2020 Free T4 (Free Thyroxine) 08/20/2020 MR lumbar spine wo con 11/10/2024 Next Appt Details Provider Name:Armando Dixonne, 02/28/2025 09:45:00 AM, [address] [place] [address] [address], [place], [address], Insurance Providers Payer Name Payer Address Payer Phone Subscriber Number Group Number Insured Name Patient Relationship to Insured Coverage Start Date Coverage End Date [facility] [address] [place] [phone] [id number] JACQUELIN GRAVES Self - patient is the insured Medical (General) History Medical History History ICD Code Degenerative disc disease at L5-S1 level M51.36 essential hypertension nonhealing wound, left 2014, handle machine operator is Dr. Skinner and Dr. Agustin in [place] overweight body mass index 29 tubular adenoma [...]
== END 2024-11-27 11:27 | disposition home or self-care (01) ==
LOC: HO.PMC 11:26
PROVIDERS: PCP Internal Medicine Medical Oncology; Visit Provider Internal Medicine
DX: M47.816 Spondylosis without myelopathy or radiculopathy, lumbar region (principal)
CPT/HCPCS: 99214

== ENCOUNTER → 2024-12-12 13:23 | Outpatient (BNVA) | payer OTHER, SELFPAY | PROVIDERS: PCP Internal Medicine Medical Oncology; Visit Provider Internal Medicine Hypertension Specialist | DX: I1A.0 Resistant hypertension (principal) | CPT/HCPCS: 93786; 93788 ==

== ENCOUNTER 2024-12-12 13:32 | Outpatient (AMB) | payer OTHER, SELFPAY ==
[2024-12-12 13:32] VITALS: BP 154/80
--- NOTE | 2024-12-12 13:32 | HO.NEPHOV ---
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: No Accompanied by: Self / Same As Patient Allergies sulfa Allergy (Intermediate, Uncoded 10/25/24 10:41) Hives Medication List - Last Reconciled 12/12/24 by Alfredo Hansen MD acetaminophen-codeine 300-30 mg 1 tab PO BID PRN albuterol sulfate 90 mcg/actuation (ProAir HFA) 2 puffs inhalation Q4-6H PRN albuterol sulfate 2.5 mg (3 mL) inhalation Q6H PRN amitriptyline 50 mg PO BEDTIME amlodipine 5 mg PO DAILY atenolol 100 mg PO DAILY [id number]-[id number] 160-9-4.8 mcg/actuation (Breztri Aerosphere) 2 inhalations inhalation BID 30 days nebulizer and compressor As directed paroxetine HCl 1 tab PO DAILY valsartan 40 mg PO BID varenicline tartrate (Chantix Starting Month Box) PO PER PKG DIR HPI Comments Details: 64-year-old female presenting with uncontrolled hypertension. She has had high blood pressure for a long time and is currently taking valsartan and Tylenol, although she reports no significant improvement in her blood pressure levels. Her blood pressure readings at home are consistently high, often reaching 200/100 mmHg, which has caused concern among her colleagues. The patient also has a history of asthma, for which she uses albuterol inhalers and Breztri, which she finds effective. She reports chronic back pain, which has been severe enough to cause numbness in her foot and radiates to her legs. She has undergone several surgeries for her back and is scheduled for an MRI to assess the need for further surgical intervention. The patient has a history of tobacco use, having smoked for 20 years, but is currently using Chantix and has reduced her smoking to three cigarettes a day. She denies any history of diabetes or heart problems, but reports frequent urination without taking diuretics. 12/12/24 Underwent ABPM [facility] Medical History (Updated 12/01/24 @ 13:34 by Iain Guzman MD) Numbness COVID-19 Arthritis Habitual snoring Depression Internal hemorrhoids Nonhealing nonsurgical wound Degenerative disc disease at L5-S1 level History of TIA (transient ischemic attack) Hepatitis C Tubular adenoma of colon (~2001) Personal history of nicotine dependence Asthma Hypertension Cerebral microvascular disease Surgical History History of tubal ligation History of surgery on lower extremity (~2014) History of colonoscopy History of liver biopsy (~2014) History of hysterectomy (~2007) Family History Paternal Grandmother Colon cancer Father HTN (hypertension) CAD (coronary artery disease) Mother HTN (hypertension) CAD (coronary artery disease) Son HTN (hypertension) Social History Household Members: None Household Members Other:: son Housing: House Are you a primary healthcare economics manager to a significant other at home: No Do you presently have visiting nurse or other home services: No Alcohol intake: current Alcohol intake frequency: a few times a month Patient Tobacco Use Status: Current everyday Tobacco user Tobacco use type: Cigarette Cigarettes Per Day: 5 Years Smoked: 20 Years Quit 01/2022 Second Hand Smoke Exposure: No Substance Use Type: Marijuana service: No Current occupational status: employed Physical Exam Vital Signs: Last Vital Signs BP 154/80 H 12/12/24 13:32 Comfortable Neck supple no JVD. Lungs entry equal no rales. Heart S1-S2 heard no gallop or rub. Abdomen soft nontender. Neuro alert awake oriented. No asterixis. Extremities no edema. Office Procedures 24 B/P Monitor Interpretation Details: Resistant HTN 24 hr average BP is 151/89 Non dipper CPT: 42389 24 Hour Blood Pressure Monitor Reading Procedure code (CPT) selection complete Assessment & Plan Assessment & Plan (1) Hypertension: Code(s): I10 - Essential (primary) hypertension Category: Medical Qualifiers: Hypertension type: resistant hypertension Qualified Code(s): I1A.0 - Resistant hypertension Plan - Take amlodipine 5 mg daily, monitor for leg swelling. Increase Valsartan to 80 mg BID - Continue using albuterol and Breztri inhalers as prescribed. - Continue using Chantix and reduce smoking further. Orders: Orders AMB 24 HR B/P Monitor INTERPRETATION Today I10 - Essential (primary) hypertension Medications: Changed From valsartan 40 mg PO BID To valsartan 80 mg PO BID 60 tabs 0RF Coding Level of Care Code Est Pt Level 4 (78295) Diagnoses Resistant hypertension I1A.0 Hypertension type: resistant hypertension CPT Codes - CPT: 96712 24 Hour Blood Pressure Monitor Reading ([id number])
== END 2024-12-12 16:12 | disposition home or self-care (01) ==
LOC: HO.HKA 13:33
PROVIDERS: PCP Internal Medicine Medical Oncology; Visit Provider Internal Medicine Hypertension Specialist
DX: I1A.0 Resistant hypertension (principal)
CPT/HCPCS: 93790; 99214

== ENCOUNTER 2025-01-12 08:25 | Outpatient (REF) | payer OTHER, SELFPAY ==
--- OUTSIDE RECORDS SUMMARY | 2024-08-31 06:33 | XMS_ITS ---
Author Organization Armando Kerns III, MD Address [address] [place] [address] [place] [address] Care Team Providers Care Counter Helper Name Role Phone Armando Kerns Primary Care Provider REASON FOR VISIT Refills Medications Medication SIG (Take, Route, Fr equency, Duration) Notes Start Date End Date Status PARoxetine HCl 40 MG 1 tablet in the mor bethany Orally Once a day for 90 days Active Social History Sex Assigned At : Social History Observation Description Sex Assigned At Female Encounters Encounter Location Date Provider Diagnosis Armando Kerns III, MD [address] [place] [address] [place] [address] 08/31/2024 Armando Luis F Pharyngitis, unspecified etiology J02.9 Assessments Encounter Date Diagnosis (ICD Code) Assessment Notes Treatment Notes Treatment Clinical Notes 08/31/2024 Pharyngitis, unspecified etiology (ICD-10 - J02.9) Her recent illness has completely resolved and she has returned to her baseline. Plan Of Treatment Medication Medication Name Sig Start Date Stop Date Notes PARoxetine HCl 40 MG 1 tablet in the mor bethany Orally Once a day for 90 days Next Appt Details Provider Name:Armando Kerns, 02/28/2025 09:45:00 AM, [address] [place] [address] [place], [address], Progress Notes * JACQUELIN GRAVESDOB:1960 ( 64 yo F)Acc No.[id number]:08/31/2024 Patient: Sophie MOREJACQUELIN MITCHELL :1960 A ge:64 Y S ex:Female Address: [place], [address] * Refills Refill PARoxetine HCl Tablet, 40 MG, Orally, 90 Tablet, 1 tablet in the morning, Once a day, 90 days, Refills=3 * true * Date: Generated for Yfn morales/Jennifer/Joeitting on: 0 01/12/2025 09:12 AM EDT
--- OUTSIDE RECORDS SUMMARY | 2024-10-04 13:30 | XMS_ITS ---
Author Organization Armando Kerns III, MD Address [address] [place] [address] [place] [address] Care Team Providers Care Rn Occupational Name Role Phone Armando Kerns Primary Care Provider REASON FOR VISIT Annual Exam Social History Sex Assigned At : Social History Observation Description Sex Assigned At Female Encounters Encounter Location Date Provider Diagnosis Armando Kerns III, MD [address] [place] [address] [place] [address] 10/04/2024 Armando Kerns Plan Of Treatment Next Appt Details Provider Name:Armando Kerns, 02/28/2025 09:45:00 AM, [address] [place] [address] [place], [address], Progress Notes * JACQUELIN GRAVESDOB:1960 ( 64 yo F)Acc No.[id number]:10/04/2024 Progress Notes Patient: JACQUELIN SOTO Provider: Sky Kerns MD :1960 A ge:64 Y S ex:Female Date:10/04/2024 Address:[address] [id number] Subjective: * Chief Complaints: * 1 . [...] 10/04/2024 Generated for Yfn morales/Jennifer/Garcia on: 0 01/12/2025 09:13 AM EDT
--- OUTSIDE RECORDS SUMMARY | 2024-11-14 13:00 | XMS_ITS ---
Author Organization Armando Kerns III, MD Address [address] [place] [address] [place] [address] Care Team Providers Care Manager Balance Name Role Phone Armando Kerns Primary Care Provider REASON FOR VISIT Annual Exam Social History Sex Assigned At : Social History Observation Description Sex Assigned At Female Encounters Encounter Location Date Provider Diagnosis Armando Kerns III, MD [address] [place] [address] [place] [address] 11/14/2024 Armando Kerns Plan Of Treatment Next Appt Details Provider Name:Armando Kerns, 02/28/2025 09:45:00 AM, [address] [place] [address] [place], [address], Progress Notes * NETTA GRAVESCHENGDOB:1960 ( 64 yo F)Acc No.[id number]:11/14/2024 Progress Notes Patient: JACQUELIN SOTO Provider: Sky Kerns MD :1960 A ge:64 Y S ex:Female Date:11/14/2024 Address:[address] [id number] Subjective: * Chief Complaints: * 1 . Annual Exam. * Medical History: Objective: * Vitals: Assessment: Plan: * Treatment: * Images: * The named appointment provid er may or may not be the originator of this progress note, and it is not deemed complete until electronically signed by the appointment provider. Sign off status: Pending * Provider: Sky Kerns MD Date: 11/14/2024 Generated for Yfn morales/Jennifer/Garcia on: 01/12/2025 09:13 AM EDT
--- OUTSIDE RECORDS SUMMARY | 2024-12-05 06:39 | XMS_ITS ---
Author Organization Armando Kerns III, MD Address [address] [place] [address] [place] [address] Care Team Providers Care Steam Tunnel Feeder Name Role Phone Armando Kerns Primary Care Provider [phone] REASON FOR VISIT FMLA/ [employer] Social History Sex Assigned At : Social History Observation Description Sex Assigned At Female Encounters Encounter Location Date Provider Diagnosis Armando Kerns III, MD [address] [place] [address] [place] [address] 12/05/2024 Armando Kerns Plan Of Treatment Next Appt Details Provider Name:Armando Kerns, 02/28/2025 09:45:00 AM, [address] [place] [address] [place], [address], Progress Notes * JACQUELIN GRAVESDOB:1960 ( 64 yo F)Acc No.[id number]:12/05/2024 Patient: JACQUELIN SOTO :1960 A ge:64 Y S ex:Female Address[address] [place], * true * Date: Generated for Printi ng/Faxing/eTransmitting on: 0 01/12/2025 09:13 AM EDT
--- OUTSIDE RECORDS SUMMARY | 2025-01-09 09:15 | XMS_ITS ---
Author Organization Armando Kerns III, MD Address [address] [place] [address] [address] [place] [address] Care Team Providers Care Solar Sales Specialist Name Role Phone Armando Kerns Primary Care Provider Allergies Allergen (clinical drug ingredient) Drug/Non Drug Allergy documented on EMR Reaction Allergy Type Onset Date Status sulfacetamide Sulfacetamide Unknown Drug Allergy Active prednisolone Prednisolone Unknown Drug Allergy A ctive REASON FOR VISIT Injury right leg. Would like a Td Shot. Medications Medication SIG (Take, Route, Frequency, Duration) Notes Start Date End Date Status predniSONE 20 MG 1 tablet with food o r milk Orally Once a day 05/22/2024 Active PARoxetine HCl 40 MG 1 tablet in the mor bethany Orally Once a day Active Albuterol Sulfate HFA 108 (90 Base) MCG/ACT 1 puff Inhalation every 4 hrs Active Valsartan 40 MG 1 tablet Orally Twic e a day 06/19/2024 Active Doxycycline Hyclate 100 MG 1 capsule Ora lly twice a day 05/30/2024 Active Amitriptyline HCl 50 MG TAKE ONE TABLET BY MOUTH AT BEDTIME Active Atenolol 50 MG TAKE 2 TABLETS BY MO UTH EVERY MORNING Active Breztri Aerosphere 160-9-4.8 MCG/ACT 2 puffs Inhalation Twice a day 06/25/2023 Active Albuterol Sulfate HFA 108 (90 Base) MCG/ACT 1 puff as needed Inhalation every 4 hrs 06/25/2023 Active Dulera 200-5 MCG/ACT INHALE 2 PUFFS TWO TIMES A DAY Active amLODIPine Besylate 5 MG TAKE ONE TABLET BY MOUTH EVERY DAY Active Immunizations Vaccine Route Administration Date Status Comme nts Td IM Intramuscular 01/09/2025 Administered Social History Tobacco Use: Social History [...] User Light cigarett e smoker ((1-9 cigs/day) Vital Signs Temperature 97.2 degrees Fahrenheit 01/10/20 25 Blood pressure systolic 156 mm Hg 01/10/20 25 Blood pressure diastolic 85 mm Hg 025 Heart Rate 73 /min 01/09/2025 Height 67 in 01/09/2025 Weight 185 lbs 01/09/2025 BMI 28.97 kg/m2 01/09/2025 Encounters Encounter Location Date Provider Diagnosis Armando Kerns III, MD [address] [place] [address] [place] [address] 01/09/2025 Armando Kerns Pharyngitis, unspecified etiology J02.9 ; Immunization, tetanus toxoid Z23 and Tick bite, unspecified site, initial encounter W57.XXXA Assessments Encounter Date Diagnosis (ICD Code) Assessment Notes Treatment Notes Treatment Clinical Notes 01/09/2025 Pharyngitis, unspecified etiology (ICD-10 - J02.9) Her recent illness has completely resolved and she has returned to her baseline. 01/09/2025 Immunization, tetanus toxoid (ICD-10 - Z23) 01/09/2025 Tick bite, unspecified site, initial encounter (ICD-10 - W57.XXXA) Plan Of Treatment Medication Medication Name Sig Start Date Stop Date Notes PARoxetine HCl 40 MG 1 tablet in the mor bethany Orally Once a day Albuterol Sulfate HFA 108 (9 0 Base) MCG/ACT 1 puff Inhalation every 4 hrs Valsartan 40 MG 1 tablet Orally Twice a day 06/19/2024 Amitriptyline HCl 50 MG TAKE ONE TABLET BY MOUTH AT BEDTIME Atenolol 50 MG TAKE 2 TABLETS BY MO UTH EVERY MORNING Breztri Aerosphere 160-9-4.8 MCG/ACT 2 puffs Inhalation Twice a day 06/25/2023 Albuterol Sulfate HFA 108 (9 0 Base) MCG/ACT 1 puff as needed Inhalation every 4 hrs 06/25/2023 Dulera 200-5 MCG/ACT INHALE 2 PUFFS TWO TIMES A DAY amLODIPine Besylate 5 MG TAKE ONE TABLET BY MOUTH EVERY DAY Pending Test Test Name Order Date LYME IGM & IGG RFLX WB 01/09/2025 Next Appt Details Follow Up: As Scheduled, Carolynn son: Annual Exam Provider Name:Armando Kerns, 02/28/2025 09:45:00 AM, [address] [place] [address] DR, [facility] [address], [place], [address], Progress Notes * NETTA GRAVESCHENGDOB:1960 ( 64 yo F)Acc No.[id number]:01/09/2025 Progress Notes Patient: JACQUELIN SOTO Provider: Sky Kerns MD :1960 A ge:64 Y S ex:Female Date:01/09/2025 Address:[address] [place] [address] [facility] [place], [id number] Subjective: * Chief Complaints: * 1 . Injury right leg. Would like a Td Shot.. * HPI: C OVID-19 Screening: r leg above the ankle wound, date last sat, got a tetanus shot, lumb back of head. Questions H ave you had any new onset fever, chills, cough, congestion, sore throat, shortness of breath, muscle aches? N o * ROS: G eneral/Constitutional: pain o nly normal aches and pains. C hills d enies.?Fatigue a dmits. F ever d enies. E NT: Decreased hearing d enies. R espiratory: Cough d enies. C ardiovascular: Chest pain with exertion d enies. D yspnea on exertion?denies. S hortness of breath d enies. G astrointestinal: Constipation d enies. D ecreased appetite d enies.?Diarrhea d enies. H eartburn d enies. N ausea d enies. R ectal bleeding?denies. V omiting d enies. H ematology: bruising d enies. p etechiae d enies. S wollen glands n one have been noted. G enitourinary: Frequent urination d enies. M usculoskeletal: Muscle aches d enies. P ainful joints d enies. S ciatica d enies. W eakness d enies. S kin: Itching d enies. R franko d enies. S kin lesion(s)?denies. N eurologic: Difficulty speaking d enies. D izziness d enies.?Headache d enies. L ow back pain d enies. P sychiatric: Depressed mood d enies. * Medical History: D egenerative disc disease at L5-S1 level, Essential hypertension, nonhealing wound, left 2014, support services rep is Dr. Skinner and Dr. Agustin in [place], Overweight body mass index 29, Tubular adenoma 2001, Family history of colorectal cancer, hepatitis C, Internal hemorrhoids, Asthma, History of depression, Sulfa allergy, Ferritin level 760, Last menstrual period 2005, Tobacco dependence. * Surgical History: t ubal ligation 01/1986, colonoscopy, Dr. Kirby, tubular adenoma 01/2002, hysterectomy, ovaries remain 2007, colonoscopy, Dr. Kirby, no lesions 2013, liver biopsy, Dr. Echevarria 09/2014, debridement nonhealing wound, left calf 03/2015, Cervical spondylosis with myelopathy and radiculopathy 11/19/2022, No history . * Hospitalization/Major Diagno stic Procedure: l eg cellulitis/ ulcer 08/2015, Cerebral Microvascular disease 07/2020, No history . * Family History: F ather: alive, Hypertension, CAD, diagnosed with HTN, CVD. M other: alive, Hypertension, CAD, lung cancer, diagnosed with Cancer, HTN, CVD. S on(s): alive, diagnosed with HTN. S iblings: alive. P aternal Grand Mother: diagnosed with Cancer. 1 brother(s) , 2 sister(s) - healthy. 2 son(s) - healthy. . Her paternal grandmother of colon cancer. Her sons are both hypertensive. Her brother has hypertension. * Social History: T obacco Use: T obacco Use/Smoking P atient is a c urrent smoker H ow often do you smoke cigarettes? s ome days, but not every day H ow many cigarettes a day do you smoke? 5 or less H ow soon after you wake up do you smoke your first cigarette? a fter 60 minutes A re you interested in quitting? R dyana to quit A dditional Findings: Tobacco User L ight cigarette smoker ((1-9 cigs/day) S he is single and lives with her son. She smokes about 10 cigarettes per day and does not drink or take drugs. She works for [employer]. Smoking: The patient reported smoking, but not as much as before. Work: The patient reported working 40-46 hours a week. Exercise: The patient reported walking a lot. * Medications: T aking predniSONE 20 MG Tablet 1 tablet with food or milk Orally Once a day , Taking amLODIPine Besylate 5 MG Tablet [...] puff Inhalation every 4 hrs , Taking PARoxetine HCl 40 MG Tablet 1 tablet in the morning Orally Once a day , Medication List reviewed and reconciled with the patient * Allergies: S ulfacetamide, Prednisolone. Objective: * Vitals: H t: 67, Wt: 185, BMI:28.97, BP: 156/85, HR: 73, Temp: 97.2, Wt-k.91. * Examination: G eneral Examination: GENERAL APPEARANCE: p leasant, well nourished, well developed, in no acute distress, calm and relaxed. HEAD: a traumatic, normocephalic. EYES: e rand, perrla, anicteric, conjugate. EARS: n ormal. NOSE: s eptum intact. ORAL CAVITY: n ormal, unremarkable. NECK/THYROID: n o jugular venous distention, no carotid bruit, thyroid normal. LYMPH NODES: n o enlarged lymph nodes,spleen normal. SKIN: n o suspicious lesions, anicteric. HEART: n o clicks, gallops, murmurs, or rubs, regular rhythm, S1, S2 normal, no s3, or vascular bruits. LUNGS: c lear to auscultation . BREASTS: no masses palpable bilaterally. ABDOMEN: b owel sounds normal, no ascites, no organomegaly, no mass. RECTAL EXAM: n ot examined. MUSCULOSKELETAL: e xtremities unremarkable, no clubbing, cyanosis or edema. PERIPHERAL PULSES: n ormal. NEUROLOGIC: a lert and oriented, cranial nerves 2-12 grossly intact, deep tendon reflexes 2+ symmetrical, motor strength normal upper and lower extremities, sensory exam intact. PSYCH: a lert, oriented. Assessment: * Assessment: 1. I mmunization, tetanus toxoid - Z23 (Primary) 2 . P haryngitis, unspecified etiology - J02.9 N otes :Her recent illness has completely resolved and she has returned to her baseline. 3 . T ick bite, unspecified site, initial encounter - W57.XXXA ? Plan: * Treatment: 2. T ick bite, unspecified site, initial encounter L AB: LYME IGM & IGG RFLX WB * Immunizations: Td : 0.5 mL (Dose No:1) (Route: Intramuscular) given by Armando Kerns MD on Right Arm (Immunization, tetanus toxoid) ???Immunization record has been reviewed and updated. * Procedure Codes: 9 0714 TD VACCINE NO PRSRV >/= 7 IM, Td * Preventive Medicine: Counseling: C are goal follow-up plan: Counseling for abnormal BMI given Y es Above Normal BMI Follow-up D ietary management education, guidance, and counseling, Dietary needs education, Exercise promotion: strength training, Exercise promotion: stretching, Feeding regime, Giving encouragement to exercise, Lifestyle education regarding diet, Nutrition / feeding management, Nutrition therapy, Prescribed activity/exercise education, Prescribed diet education, Prescribed dietary intake, Special diet education, Weight monitoring , Intervention, Order not done: Medical or Other reason not done * Follow Up: A s Scheduled (Reason: Annual Exam) * Images: * The named appointment provid er may or may not be the originator of this progress note, and it is not deemed complete until electronically signed by the appointment provider. Sign off status: Pending * Provider: Sky Kerns MD Date: 01/09/2025 Generated for Natalyai carmen/Jennifer/eTransmitting on: 01/12/2025 09:13 AM EDT History and Physical Notes * [...] edema LYMPH NODES: no enlarged lymph no krain,spleen normal RECTAL EXAM: not examined PSYCH: alert, oriented ORAL CAVITY: normal, unremarkable
--- OUTSIDE RECORDS SUMMARY | 2025-01-12 09:13 | XMS_ITS | Patient Health Record ---
Author Organization Armando Kerns III, MD Address [address] [place] [address] [address] [place] [address] Care Team Providers Care Glass Polisher Name Role Phone Armando Kerns Primary Care Provider [phone] Allergies Allergen (clinical drug ingredient) Drug/Non Drug Allergy documented on EMR Reaction Allergy Type Onset Date Status sulfacetamide Sulfacetamide Unknown Drug Allergy Active prednisolone Prednisolone Unknown Drug Allergy A ctive Results Component Value Reference Range Notes XR wrist LT min 3V Reviewed date:11/08/2024 05:38:18 AM Interpretation: Performing Lab: Notes/Report: [facility] [address] [place] [address] XRay Report Signed Patient: Jacquelin Graves MR#: [id number] 8 : 1960 Acct:[id number] Age/Sex: 64 / F ADM Date: 11/07/24 Loc: .[facility] Attending Dr: Maciel Mendez PA-C Ordering Physician: MACIEL MENDEZ Date of Service: 11/07/24 Procedure(s): XR wrist LT min 3V Accession Number(s): [id number] cc: Armando Kerns MD; MACIEL MENDEZ EXAMINATION: [...] OV> 11/07/241644 DD/ 1542 TD/TT: 11/07/24 1640 Interior Block Wirer: [facility] [address] [place] [address] [place] [address] XRay Report Signed Patient: Jacquelin Graves MR#: [id number] 8 : 1960 Acct:[id number] Age/Sex: 64 / F ADM Date: 11/07/24 [facility]: Naomi Mendez PA-C Ordering Physician: MACIEL MENDEZ Date of Service: 11/07/24 Procedure(s): XR wri st LT min 3V Accession Number(s): [id number] cc: Armando Kerns MD; MACIEL MENDEZ EXAMINATION: [...] OV> 11/07/241644 DD/ 1542 TD/TT: 11/07/24 1640 Interior Block Wirer: MR lumbar spine wo con (Not yet reviewed by provider) Interpretation: Performing Lab: Notes/Report: [address] [address] Magnetic Resonance Report Signed Patient: Jacquelin Graves MR#: [id number] 8 : 1960 Acct:[id number] Age/Sex: 64 / F ADM Date: 11/10/24 Loc: HO.MRI Attending Dr: Iain Guzman MD Ordering Physician: Iain Guzman MD Date of Service: 11/10/24 Procedure(s): MR lumbar spine wo con Accession Number(s): [id number] cc: Armando Kerns MD; Iain Guzman MD [...] normal. LUMBOSACRAL JUNCTION: -Normal. There are 5 vas-hgj-opnhcyd lumbar-type vertebral bodies. VERTEBRAL BODIES/BONE MARROW: -There [...] subarticular recess narrowing, and moderate right and fvil-cx-xwdroiuj left neural foraminal narrowing. No significant interval [...] 11/10/24 0841 DD/ 0715 TD/TT: 11/10/24 0805 Interior Block Wirer: [place] [address] Magnetic Resonance Report Signed Patient: Jacquelin Graves MR#: [id number] 8 : 1960 Acct:[id number] Age/Sex: 64 / F ADM Date: 11/10/24 Loc: HO.MRI Attending Dr: Iain Guzman MD Ordering Physician: Iain Guzman MD Date of Service: 11/10/24 Procedure(s): MR lum bar spine wo con Accession Number(s): [id number] cc: Armando Kerns MD; Iain Guzman MD [...] normal. LUMBOSACRAL JUNCTION: -Normal. There are 5 rll-pjq-oqljaug lumbar-type vertebral bodies. VERTEBRAL BODIES/BONE MARROW: -There [...] r ecess narrowing, and moderate right and trkr-vg-gclzrqlo lef t neural foraminal narrowing. No significant [...] 11/10/24 0841 DD/ 0715 TD/TT: 11/10/24 0805 Interior Block Wirer: Reason For Referral Reason Evaluate and Treat Increased Difficulty Breathing Asthma Diagnosis 1 Mild intermittent as thma without complication (J45.20) Diagnosis 2 Tobacco dependence ( F17.200) Referral Organization Armando Kerns III, MD Referring Provider First Name Armando Referring Provider Last Name Luis F Referring Provider Speciality Internal M edicine Referred Provider [facility] er, Pulmonology Referred Provider Specialty Pulmonary Di seases General Notes D Farhana 07/24/2024 11:53:06 AM > Per request of Dr. Kerns Referral was faxed with last progress note Referral Priority Routine Referral Appointment Date 10/17/2024 Medications Medication SIG (Take, Route, Frequency, Duration) Notes Start Date End Date Status Amitriptyline HCl 50 MG TAKE ONE TABLET [...] ONE TABLET BY MOUTH EVERY DAY Active predniSONE 20 MG 1 tablet [...] Ora lly twice a day 05/30/2024 Active Immunizations Vaccine Route Administration Date Status Comme nts Hepatitis A (adult) Unknown 01/25/2018 Administered PPV 23 Unknown 08/08/2021 Administered COVID PFIZER Unknown 06/20/2020 Administered COVID PFIZER Unknown 05/27/2020 Administered Flu-IIv4pf Unknown 04/29/2020 Administered Influenza no Preserv 3 and > Unknown 02/27/2016 Administered Td IM Intramuscular 01/09/2025 Administered Social History [...] Problem Status W/U Status Risk Notes Problem 93390106 Postmenopausal (Z78.0) Active confirmed Her ovaries remain and she had a hysterectomy in the past. She is postmenopausal and should have bone density done periodically. Problem 139352097267832 Obesity (BMI 30.0-34.9) (E66.9) Active confirmed Her BMI is 30 a nd she has a stable weight. We discussed a weight loss plan for aggressive sodium restriction and calorie reduction. Problem 792657012 Lumbar radiculopathy (M54.16) Active confirmed She is experiencing an exacerbation of the lumbar radiculopathy. I have advised her to use heat and to rest and to continue the muscle relaxer. She will avoid heavy lifting. A follow-up in 1 week will be done. Problem 36977086 Other chronic pain (G89.29) Active confirmed She continues to have low back pain that radiates but the diffuse joint and muscle pain is much improved with discontinuing the statin medication. Problem 00439538 Essential hypertension (I10) Active confirmed Her blood [...] again. Her medications will be titrated. Problem 45078559 Tobacco dependence (F17.200) Active confirmed She continues t o consume a package of cigarettes daily. We have discussed the health consequences of continued smoking. She was made aware of all of the tobacco cessation programs in the area. Problem 773075148 Mild intermittent asthma without complication (J45.20) Active confirmed She is still on prednisone and will use her inhaler and finished the prednisone prescription. She reports the wheezing has improved. Problem 670850535 Chronic hepatitis C without hepatic coma (B18.2) Active confirmed She has a gastroenterologis t and I will obtain the old records. She will be referred back for therapy if it would be beneficial. Her titer was very elevated. Problem Combined disorder of muscle AND peripheral nerve (632214644) Neuromuscular disease (G70.9) Active confirmed Problem History of depression (266168460) History of depression (Z86.59) Active confirmed Her depression is mild. She has been compliant with all her medications. She is conducting all his activities of daily life without impairment. Problem 754629056 Adenomatous polyp of colon, unspecified part of colon (D12.6) Active confirmed The tubular adenoma was in 2001 and in 2013. She had a normal colonoscopy. She has a family history of colon cancer and should have a colonoscopy every 5 years. She agreed with this. She was referred back to Dr. Flannery to have a screening colonoscopy in the near future. Problem 52417852 Degenerative disc disease, lumbar (M51.36) Active confirmed She has spok en to the neurosurgeon he'll consider surgery after her next surgery. Her degree of pain is unchanged. I have prescribed Tegretol. Problem 26780852 Peripheral polyneuropathy (G62.9) Active confirmed Problem 498720620 Covid-19 (U07.1) Active confirmed She has completely recovered and denies any long-haul symptoms. Problem 181564427 Transient ischemic attack (G45.9) Active confirmed Problem 508478262 Cerebral microvascular disease (I67.89) Active confirmed No further neurological symptoms have been experienced. Vital Signs Heart Rate 73 /min 01/09/2025 Temperature 97.2 degrees Fahrenheit 01/09/2025 Blood pressure diastolic 85 mm Hg 01/09/2025 Height 67 in 01/09/2025 Blood pressure systolic 156 mm Hg 01/09/2025 Weight 185 lbs 01/09/2025 BMI 28.97 kg/m2 01/09/2025 Encounters Encounter Location Date Provider Diagnosis Armando Kerns III, MD [address] [place] [address] [place] [address] 01/09/2025 Armando Kerns Pharyngitis, unspeci fied etiology J02.9 ; Immunization, tetanus toxoid Z23 and Tick bite, unspecified site, initial encounter W57.XXXA Armando Kerns III, MD [address] [place] [address] [place] [address] 05/30/2024 Armando Kerns Pharyngitis, unspeci fied etiology J02.9 ; Essential hypertension I10 ; Mild intermittent asthma without complication J45.20 ; Obesity (BMI 30.0-34.9) E66.9 and Tobacco dependence F17.200 Armando Kerns III, MD [address] [place] [address] [place] [address] 06/19/2024 Armando Kerns Pharyngitis, unspeci fied etiology J02.9 ; Essential hypertension I10 ; Mild intermittent asthma without complication J45.20 ; Postmenopausal Z78.0 ; Adenomatous polyp of colon, unspecified part of colon D12.6 ; Degenerative disc disease, lumbar M51.36 ; Tobacco dependence F17.200 and Obesity (BMI 30.0-34.9) E66.9 Armando Kerns III, MD [address] [place] [address] [place] [address] 02/08/2024 Armando Kerns III, MD [address] [place] [address] [place] [address] 05/22/2024 Armando Kerns III, MD [address] [place] [address] [place] [address] 05/22/2024 Armando Kerns III, MD [address] [place] [address] [place] [address] 05/30/2024 Armando Kerns III, MD [address] [place] [address] [place] [address] 05/31/2024 Armando Kerns III, MD [address] [place] [address] [place] [address] 07/04/2024 Armando Kerns III, MD [address] [place] [address] [place] [address] 07/04/2024 Armando Kerns III, MD [address] [place] [address] [place] [address] 07/04/2024 Armando Kerns III, MD [address] [place] [address] [place] [address] 07/24/2024 Armando Kerns Pharyngitis, unspeci fied etiology J02.9 Armando Kerns III, MD [address] [place] [address] [place] [address] 08/31/2024 Armando Kerns Pharyngitis, unspeci fied etiology J02.9 Armando Kerns III, MD [address] [place] [address] [place] [address] 12/05/2024 Armando Kerns Assessments Encounter Date Diagnosis (ICD Code) Assessment Notes Treat ment Notes Treatment Clinical Notes 01/09/2025 Pharyngitis, unspecified etiology (ICD-10 - J02.9) Her recent illness has completely resolved and she has returned to her baseline. 05/30/2024 Essential hypertension (ICD-10 - I10) Her [...] and she has returned to her baseline. 07/24/2024 Pharyngitis, unspecified etiology (ICD-10 - J02.9) Her recent illness has completely resolved and she has returned to her baseline. 08/31/2024 Pharyngitis, unspecified etiology (ICD-10 - J02.9) Her recent illness has completely resolved and she has returned to her baseline. 01/09/2025 Immunization, tetanus toxoid (ICD-10 - Z23) 01/09/2025 Tick bite, unspecified site, initial encounter (ICD-10 - W57.XXXA) 05/30/2024 Mild intermittent asthma without complication (ICD-10 [...] (HETEROPHILE AB) 06/11/2021 MAMMOGRAM DIGITAL BILATERAL SCREEN 12/01 MAMMOGRAM DIGITAL BILATERAL SCREEN 03/12 LYME IGM & IGG RFLX WB 01/09/2025 Lipid Panel 08/20/2020 Free T4 (Free Thyroxine) 08/20/2020 MR lumbar spine wo con 11/10/2024 Next Appt Details Provider Name:Armando Kerns, 02/28/2025 09:45:00 AM, [address] [place] [address] [address] [place], [place], [address], Insurance Providers Payer Name Payer Address Payer Phone Subscriber Number Group Number Insured Name Patient Relationship to Insured Coverage Start Date Coverage End Date [facility] [address] [place] [phone] [id number] JACQUELIN GRAVES Self - patient is the insured Medical (General) History Medical History History ICD Code Degenerative disc disease at L5-S1 level M51.36 essential hypertension nonhealing wound, left 2014, 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 Skinner and Dr. Agustin in [place] overweight body mass index 29 tubular adenoma [...]
--- OUTSIDE RECORDS SUMMARY | 2025-01-12 09:13 | XMS_ITS | Patient Health Record ---
Author Organization [facility] Address [address] [place] [address] Care Team Providers Care Psychiatry Teacher Name Role Phone Ubaldo Lemos Primary Care Provider Armando Maciel Unavailable [phone] Allergies Allergen (clinical drug ingredient) Drug/Non Drug [...] Problem Screening for malignant neoplasm of colon (558233802) Screening for colorectal cancer (V76.51) Active confirmed Problem Chronic hepatitis C (359259841) Chronic hepatitis C (070.54) Active confirmed Problem History of polyp of colon (369012698) H/O adenomatous polyp of colon (V12.72) Active confirmed Problem Iron excess (84335178) Iron excess (275.09) Active confirmed Problem Serum alpha-fetoprot ein level elevated (927133161) 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 Problem Elevated liver enzymes level (557058414) Elevated LFTs (790.6) Active confirmed Plan Of Treatment Pending Test Test Name Order Date BUN 10/18/2014 CREATININE 10/18/2014 LIVER PROFILE 02/02/2014 LIVER PROFILE 12/07/2014 LIVER PROFILE 10/18/2014 LIVER PROFILE 11/13/2014 CBC w DIFF 10/18/2014 CBC w DIFF 11/13/2014 CBC w DIFF 02/02/2014 CBC w DIFF 11/22/2014 CBC w DIFF 12/07/2014 PROTHROMBIN TIME (PT, INR) 02/02/2014 ALPHA-FETOPROTEIN,TUMOR MARKER [...] Insured Coverage Start Date Coverage End Date [facility] [address] [place] [address] [id number] JACQUELIN GRAVES Self - patient is the [...] with and iron saturation of 49% Denies [place],DM,CVA,renal disease Asthma HTN On Paxil for Hot flashes negative colonoscopy in 2013, other than some sigmoid diverticulosis and internal hemorrhoids Surgical History Surgery Date(Month/Year) hysterectomy and removal of 1 ovary
[2025-01-13 06:33] LABS: Lyme Abs Screen <0.90 index
== END 2025-01-12 08:26 | disposition home or self-care (01) ==
LOC: HO.LAB 08:25
PROVIDERS: PCP Internal Medicine Medical Oncology; Visit Provider Internal Medicine Medical Oncology
DX: T14.90XA Injury, unspecified, initial encounter (principal); W57.XXXA Bitten or stung by nonvenomous insect and other nonvenomous arthropods, initial encounter
CPT/HCPCS: 36415; 86617; 86618

== ENCOUNTER 2025-01-25 06:39 | Outpatient (REF) | payer OTHER, SELFPAY ==
--- OUTSIDE RECORDS SUMMARY | 2024-10-04 13:30 | XMS_ITS ---
Author Organization Armando Kerns III, MD Address [address] [place] [address] [place] [address] Care Team Providers Care Retail Wireless Sales Representative Name Role Phone Armando Kerns Primary Care Provider REASON FOR VISIT Annual Exam Social History Sex Assigned At : Social History Observation Description Sex Assigned At Female Encounters Encounter Location Date Provider Diagnosis Armando Kerns III, MD [address] [place] [address] [place] [address] 10/04/2024 Armando Kerns Plan Of Treatment Next Appt Details Provider Name:Armando Kerns, 02/28/2025 09:45:00 AM, [address] [place] [address] [place], [address], Progress Notes * NETTA GRAVESCHENGDOB:1960 ( 64 yo F)Acc No.[id number]:10/04/2024 Progress Notes Patient: JACQUELIN SOTO Provider: Sky Kerns MD :1960 A ge:64 Y S ex:Female Date:10/04/2024 Address:[address] [id number] Subjective: * Chief Complaints: * 1 . Annual Exam. * Medical History: Objective: * Vitals: Assessment: Plan: * Treatment: * Images: * The named appointment provid er may or may not be the originator of this progress note, and it is not deemed complete until electronically signed by the appointment provider. Sign off status: Pending * Provider: Sky Kerns MD Date: 0 10/04/2024 Generated for Yfn morales/Jennifer/Garcia on: 0 01/25/2025 06:42 AM EDT
--- OUTSIDE RECORDS SUMMARY | 2024-11-14 13:00 | XMS_ITS ---
Author Organization Armando Kerns III, MD Address [address] [place] [address] [place] [address] Care Team Providers Care Frozen Foods Manager Name Role Phone Armando Kerns Primary Care Provider [phone] REASON FOR VISIT Annual Exam Social History Sex Assigned At : Social History Observation Description Sex Assigned At Female Encounters Encounter Location Date Provider Diagnosis Armando Kerns III, MD [address] [place] [address] [place] [address] 11/14/2024 Armando Kerns Plan Of Treatment Next Appt Details Provider Name:Armando Kerns, 02/28/2025 09:45:00 AM, [address] [place] [address] [place], [address], Progress Notes * NETTA GRAVESCHENGDOB:1960 ( 64 yo F)Acc No.[id number]:11/14/2024 Progress Notes Patient: JACQUELIN SOTO Provider: Sky Kerns MD :1960 A ge:64 Y S ex:Female Date:11/14/2024 Address:[address] [id number] Subjective: * Chief Complaints: * 1 . [...] Date: 11/14/2024 Generated for Yfn morales/Jennifer/Garcia on: 01/25/2025 06:43 AM EDT
--- OUTSIDE RECORDS SUMMARY | 2024-12-05 06:39 | XMS_ITS ---
Author Organization Armando Kerns III, MD Address [address] [place] [address] [place] [address] Care Team Providers Care Broaching Machine Operator Name Role Phone Armando Kerns Primary Care Provider REASON FOR VISIT FMLA/ [employer] Social History Sex Assigned At : Social History Observation Description Sex Assigned At Female Encounters Encounter Location Date Provider Diagnosis Armando Kerns III, MD [address] [place] [address] [place] [address] 12/05/2024 Armando Kerns Plan Of Treatment Next Appt Details Provider Name:Armando Kerns, 02/28/2025 09:45:00 AM, [address] [place] [address] [place], [address], Progress Notes * JACQUELIN GRAVESDOB:1960 ( 64 yo F)Acc No.[id number]:12/05/2024 Patient: JACQUELIN SOTO :1960 A ge:64 Y S ex:Female Address[address] [place], * true * Date: Generated for Printi ng/Faxing/eTransmitting on: 0 01/25/2025 06:43 AM EDT
--- OUTSIDE RECORDS SUMMARY | 2025-01-09 09:15 | XMS_ITS ---
Author Organization Armando Kerns III, MD Address [address] [place] [address] [address] [place] [address] Care Team Providers Care Frontend Engineer Name Role Phone Armando Kerns Primary Care Provider [phone] Allergies Allergen (clinical drug ingredient) Drug/Non Drug [...] Risk Notes Problem Bite of tick (event) (726214504) Tick bite, unspecified site, initial encounter (W57.XXXA) Active confirmed She reports a recent deer tick finding that is in the skin of her back. She was given a course of doxycycline. Problem 809309899 Pharyngitis, unspecified etiology (J02.9) Active confirmed Her recent illness has completely resolved and she has returned to her baseline. Problem 962024011 Overweight (E66.3) Active confirmed We made a [...] Date Provider Diagnosis Armando Kerns III, MD [address] [place] [address] [address], [place]URA [phone] 01/09/2025 Armando Kerns Immunization, tetsantiagou s toxoid [...] Exam Provider Name:Armando Kerns, 02/28/2025 09:45:00 AM, [address] [place] [address] , [address] [place], [address], Progress Notes * NETTA GRAVESCHENGDOB:1960 ( 64 yo F)Acc No.[id number]:01/09/2025 Progress Notes Patient: JACQUELIN SOTO Provider: Sky Kerns MD :1960 A ge:64 Y S ex:Female Date:01/09/2025 [facility] [id number] Subjective: * Chief Complaints: * S kin [...] drink or take drugs. She works for [employer]. Smoking: The patient reported smoking, but not [...] MD Date: 0 01/09/2025 Generated for Yfn morales/Jennifer/Joeitting on: 0 01/25/2025 06:43 AM EDT History and Physical Notes * [...] attached LYMPH NODES: no enlarged lymph no karin,spleen normal RECTAL EXAM: not examined PSYCH: alert, oriented ORAL CAVITY: normal, unremarkable
--- OUTSIDE RECORDS SUMMARY | 2025-01-24 06:12 | XMS_ITS ---
Author Organization Armando Kerns III, MD Address [address] [place] [address] [place] [address] Care Team Providers Care Cruise Guide Name Role Phone Armando Kerns Primary Care Provider [phone] REASON FOR VISIT Rx request Medications Medication SIG (Take, Route, Frequency, Duration) Notes Start Date End Date Status Doxycycline Hyclate 100 MG 1 capsule Ora lly twice a day for 10 days 05/30/2024 02/03/2025 Active Social History Sex Assigned At : Social History Observation Description Sex Assigned At Female Encounters Encounter Location Date Provider Diagnosis Armando Kerns III, MD [address] [place] [address] [place] [address] 01/24/2025 Armando Kerns Wound of right lower [...] 05/30/2024 02/03/2025 Next Appt Details Provider Name:Armando Kerns, 02/28/2025 09:45:00 AM, [address] [place] [address] [place], [address], Progress Notes * LILY GRAVES:1960 ( 64 yo F)Acc No.[id number]:01/24/2025 Patient: JACQUELIN SOTO :1960 A ge:64 Y S ex:Female Address:[address] [place] [address] [place], [address] * Refills Refill Doxycycline Hyclate Capsule, 100 MG, Orally, 20 Capsule, 1 capsule, twice a day, 10 days, Refills=0 * true * Date: Generated for Yfn morales/Jennifer/Romeosmitting on: 0 01/25/2025 06:42 AM EDT
--- NOTE | ~2025-01-25 | CT_ITS ---
CLINICAL HISTORY: NICOTINE DEPENDENCE CT lung cancer screening (LDCT) Comparison: CT/SR - CT LUNG SCREENING - 11/28/21 13:39 EDT Technique: Axial CT images of the chest using low-dose technique. Referring provider counseled the patient on shared decision-making for LDCT screening. Additional counseling was provided on smoking cessation. Effective radiation dose total: DLP 36.9 mGycm, CTDIvol 1.1 mGy. Findings: Lung: The trachea and central bronchi are patent. No dense consolidation, pleural effusion or pneumothorax. There are no suspicious noncalcified pulmonary nodules. Coronary artery calcifications: Jrhx-uu-symeyjss Normal heart size. Unremarkable mediastinal structures, chest wall and thyroid. Limited upper abdomen: Unremarkable Other: No acute osseous findings. IMPRESSION: No acute cardiopulmonary disease. No suspicious pulmonary nodules or masses. Lung rads category 1 This document has been electronically signed by: Mindy Nunez MD on 01/25/2025 09:19:49
--- OUTSIDE RECORDS SUMMARY | 2025-01-25 06:43 | XMS_ITS | Patient Health Record ---
Author Organization [facility] Address [address] [place] [address] Care Team Providers Care Naval Surface Fire Support Planner Name Role Phone Ubaldo Lemos Primary Care Provider Armando Maciel Unavailable [phone] Allergies Allergen (clinical drug ingredient) Drug/Non Drug [...] Problem Screening for malignant neoplasm of colon (365582801) Screening for colorectal cancer (V76.51) Active confirmed Problem Chronic hepatitis C (951029943) Chronic hepatitis C (070.54) Active confirmed Problem History of polyp of colon (503835229) H/O adenomatous polyp of colon (V12.72) Active confirmed Problem Iron excess (67098128) Iron excess (275.09) Active confirmed Problem Serum alpha-fetoprot ein level elevated (367994786) 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
--- OUTSIDE RECORDS SUMMARY | 2025-01-25 06:43 | XMS_ITS | Patient Health Record ---
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 [address] XRay Report Signed Patient: Jacquelin Graves MR#: [id number] 8 : 1960 Acct:[id number] Age/Sex: 64 / F ADM Date: 11/07/24 Loc: .[facility] Attending Dr: Maciel Mendez PA-C Ordering Physician: MACIEL MENDEZ Date of Service: 11/07/24 Procedure(s): XR wrist LT min 3V Accession Number(s): [id number] cc: Armando Kerns MD; MACIEL MENDEZ EXAMINATION: [...] OV> 11/07/241644 DD/ 1542 TD/TT: 11/07/24 1640 Psychiatry Instructor: [facility] [address] [place] [address] [place] [address] XRay Report Signed Patient: Jacquelin Graves MR#: [id number] 8 : 1960 Acct:[id number] Age/Sex: 64 / F ADM Date: 11/07/24 [facility] Dr: Naomi Mendez PA-C Ordering Physician: MACIEL MENDEZ Date of Service: 11/07/24 Procedure(s): XR wri st LT min 3V Accession Number(s): [id number] cc: Armando Kerns MD; MACIEL MENDEZ EXAMINATION: [...] OV> 11/07/241644 DD/ 1542 TD/TT: 11/07/24 1640 Psychiatry Instructor: MR lumbar spine wo con (Not yet reviewed by provider) Interpretation: Performing Lab: Notes/Report: [facility] [id number] [place] [address] Magnetic Resonance Report Signed Patient: Jacquelin Graves MR#: [id number] 8 : 1960 Acct:[id number] Age/Sex: 64 / F ADM Date: 11/10/24 Loc: HO.MRI Attending Dr: Iain Guzman MD Ordering Physician: Iain Guzman MD Date of Service: 11/10/24 Procedure(s): MR lumbar spine wo con Accession Number(s): [id number] cc: Armando Kerns MD; Iain Guzman MD [...] normal. LUMBOSACRAL JUNCTION: -Normal. There are 5 gvt-skr-wqawubk lumbar-type vertebral bodies. VERTEBRAL BODIES/BONE MARROW: -There [...] subarticular recess narrowing, and moderate right and stpe-zh-vwfurdkz left neural foraminal narrowing. No significant interval [...] 11/10/24 0841 DD/ 0715 TD/TT: 11/10/24 0805 Psychiatry Instructor: [place] [address] Magnetic Resonance Report Signed Patient: Jacquelin Graves MR#: [id number] 8 : 1960 Acct:[id number] Age/Sex: 64 / F ADM Date: 11/10/24 Loc: HO.MRI Attending Dr: Iain Guzman MD Ordering Physician: Iain Guzman MD Date of Service: 11/10/24 Procedure(s): MR lum bar spine wo con Accession Number(s): [id number] cc: Armando Kerns MD; Iain Guzman MD [...] normal. LUMBOSACRAL JUNCTION: -Normal. There are 5 alf-eiq-xmlpdyf lumbar-type vertebral bodies. VERTEBRAL BODIES/BON E MARROW: -There are no compression deformities or [...] abnormal developmental findings. CONUS MEDULLARIS: -Terminates at super ior [...] ion. Coupled with moderate hypertrophic degenerative facet changes bilaterally, posterior ligamentous thickening/infolding , there is moderate central canal stenosis, moderate left subarticular recess stenosis with contact but no definite impingement of the traversing left L5 nerve roots, mild to moderate right subarticular recess narrowing, and moderate right and elxj-ml-yliyhrah lef t neural foraminal narrowing. No significant [...] is present. -Normal-appearing paravertebral and paraspinous musculature. M R/MR lumbar spine wo con IMPRESSION: 1. Moderate lumbar spondylosis most notable spanning L2-S1. Compared with the prior examination, examination is stable with the exception of a new left lateral d isc extrusion at L3-4 causing moderate to severe left subarticular re cess narrowing and causing mass effect upon the traversing left L4 n erve roots. 2. At L4-5 there is a [...] 11/10/24 0841 DD/ 0715 TD/TT: 11/10/24 0805 Psychiatry Instructor: Lyme IgG/IgM w/reflex to WB (Not yet reviewed by provider) Interpretation: Performing Lab:[facility], [address] [place] [id number] Notes/Report: Lyme Abs Screen <0.90 Index Interpretation ----- < 0.90 Negative 0.90-1.09 Equivocal > 1.09 Positive As recommended by the Food and Drug Administration (FDA), all samples with positive or equivocal results in a Borrelia burgdorferi antibody screen will be tested using a blot method. Positive or equivocal screening test results should not be interpreted as truly positive until verified as such using a supplemental assay (e.g., B. burgdorferi blot). The screening test and/or blot for B. burgdorferi antibodies may be falsely negative in early stages of Lyme disease, including the period when erythema migrans is apparent. THIS TEST WAS PERFORMED AT: [facility] [address] [place] [phone] ELBERT TIPTON MD Lyme Blot TNP Reason For Referral Reason Evaluate and Treat Increased Difficulty Breathing Asthma Diagnosis 1 Mild intermittent as thma without complication (J45.20) Diagnosis 2 Tobacco dependence ( F17.200) Referral Organization Armando Kerns III, MD Referring Provider First Name Armando Referring Provider Last Name Luis F Referring Provider Speciality Internal M edicine Referred Provider [facility] er, Pulmonology Referred Provider Specialty Pulmonary Di seases General Notes Farhana Erazo 07/24/2024 11:53:06 AM [...] milk Orally Once a day 05/22/2024 Active amLODIPine Besylate 5 MG TAKE ONE TABLET BY MOUTH EVERY DAY Active Doxycycline Hyclate 100 MG 1 capsule Ora lly twice a day for 10 days 05/30/2024 02/03/2025 Active PARoxetine HCl 40 MG 1 tablet in the mor bethany Orally Once a day Active Albuterol Sulfate HFA 108 (90 Base) MCG/ACT 1 puff Inhalation every 4 hrs Active Valsartan 40 MG 1 tablet Orally Twic e a day 06/19/2024 Active Immunizations Vaccine Route Administration Date Status [...] Problem Status W/U Status Risk Notes Problem 09291759 Postmenopausal (Z78.0) Active confirmed Her ovaries remain and she had a hysterectomy in the past. She is postmenopausal and should have bone density done periodically. Problem 316078962 Overweight (E66.3) Active confirmed We made a plan to lose weight at a rate of one half of a pound per week through her body mass index is in the normal range. Problem 396191628774289 Obesity (BMI 30.0-34.9) (E66.9) Active confirmed Her BMI is 30 a nd she has a stable weight. We discussed a weight loss plan for aggressive sodium restriction and calorie reduction. Problem 875586511 Lumbar radiculopathy (M54.16) Active confirmed She is experiencing an exacerbation of the lumbar radiculopathy. I have advised her to use heat and to rest and to continue the muscle relaxer. She will avoid heavy lifting. A follow-up in 1 week will be done. Problem 90163603 Other chronic pain (G89.29) Active confirmed She continues to have low back pain that radiates but the diffuse joint and muscle pain is much improved with discontinuing the statin medication. Problem 95273212 Essential hypertension (I10) Active confirmed Her blood pressure was adequaate stable level today. Problem 04540492 Tobacco dependence (F17.200) Active confirmed She continues t o consume a package of cigarettes daily. We have discussed the health consequences of continued smoking. She was made aware of all of the tobacco cessation programs in the area. Problem 195047003 Mild intermittent asthma without complication (J45.20) Active confirmed She is still on prednisone and will use her inhaler and finished the prednisone prescription. She reports the wheezing has improved. Problem 928256749 Chronic hepatitis C without hepatic coma (B18.2) Active confirmed She has a gastroenterologis t and I will obtain the old records. She will be referred back for therapy if it would be beneficial. Her titer was very elevated. Problem Combined disorder of muscle AND peripheral nerve (006049729) Neuromuscular disease (G70.9) Active confirmed Problem History of depression (370493979) History of depression (Z86.59) Active confirmed Her depression is mild. She has been compliant with all her medications. She is conducting all his activities of daily life without impairment. Problem 657291609 Adenomatous polyp of colon, unspecified part of colon (D12.6) Active confirmed The tubular adenoma was in 2001 and in 2013. She had a normal colonoscopy. She has a family history of colon cancer and should have a colonoscopy every 5 years. She agreed with this. She was referred back to Dr. Flannery to have a screening colonoscopy in the near future. Problem 061577359 Pharyngitis, unspecified etiology (J02.9) Active confirmed Her recent illness has completely resolved and she has returned to her baseline. Problem 46840541 Degenerative disc disease, lumbar (M51.36) Active confirmed She has spok en to the neurosurgeon he'll consider surgery after her next surgery. Her degree of pain is unchanged. I have prescribed Tegretol. Problem 94953435 Peripheral polyneuropathy (G62.9) Active confirmed Problem 029757683 Covid-19 (U07.1) Active confirmed She has completely recovered and denies any long-haul symptoms. Problem 988430347 Transient ischemic attack (G45.9) Active confirmed Problem 781060759 Cerebral microvascular disease (I67.89) Active confirmed No further neurological symptoms have been experienced. Problem Bite of tick (event) (035092870) Tick bite, unspecified site, initial encounter (W57.XXXA) Active confirmed She reports a recent deer tick finding that is in the skin of her back. She was given a course of doxycycline. Vital Signs Heart Rate 73 /min 01/09/2025 Temperature 97.2 degrees Fahrenheit 01/09/2025 Blood pressure diastolic 80 mm Hg 01/09/2025 Height 67 in 01/09/2025 Blood pressure systolic 136 mm Hg 01/09/2025 Weight 185 lbs 01/09/2025 BMI 28.97 kg/m2 01/09/2025 Encounters Encounter Location Date Provider Diagnosis Armando Kerns III, MD [address] [place] [address] [place] [address] 05/30/2024 Armando Kerns Pharyngitis, unspeci fied etiology J02.9 ; Essential hypertension I10 ; Mild intermittent asthma without complication J45.20 ; Obesity (BMI 30.0-34.9) E66.9 and Tobacco dependence F17.200 Armando Kerns III, MD [address] [place] [address] [place] [address] 06/19/2024 Armando Kerns Pharyngitis, unspeci fied etiology J02.9 ; Essential hypertension I10 ; Mild intermittent asthma without complication J45.20 ; Postmenopausal Z78.0 ; Adenomatous polyp of colon, unspecified part of colon D12.6 ; Degenerative disc disease, lumbar M51.36 ; Tobacco dependence F17.200 and Obesity (BMI 30.0-34.9) E66.9 Armando Kerns III, MD [address] [place] [address] [place] [address] 01/09/2025 Armando Kerns Immunization, tetanu s toxoid Z23 ; Wound of right lower extremity, initial encounter S81.801A ; Tick bite, unspecified site, initial encounter W57.XXXA ; Tobacco dependence F17.200 ; Essential hypertension I10 ; Mild intermittent asthma without complication J45.20 ; History of depression Z86.59 and Overweight E66.3 Armando Kerns III, MD [address] [place] [address] [place] [address] 02/08/2024 Armando Kerns III, MD [address] [place] [address] [place] [address] 05/22/2024 Armando Kerns III, MD [address] [place] [address] [place] [address] 05/22/2024 Armando Kerns III, MD [address] [place] [address] [place] [address] 05/30/2024 Armando Kerns III, MD [address] [place] [address] [place] [address] 05/31/2024 Armando Kerns III, MD [address] [place] [address] [place] [address] 07/04/2024 Armando Kerns III, MD [address] [place] [address] [place] [address] 07/04/2024 Armando Kerns III, MD [address] [place] [address] [place] [address] 07/04/2024 Armando Kerns III, MD [address] [place] [address] [place] [address] 07/24/2024 Armando Kerns Pharyngitis, unspeci fied etiology J02.9 Armando Kerns III, MD [address] [place] [address] [place] [address] 08/31/2024 Armando Kerns Pharyngitis, unspeci fied etiology J02.9 Armando Kerns III, MD [address] [place] [address] [place] [address] 12/05/2024 Armando Kerns III, MD [address] [place] [address] [place] [address] 01/24/2025 Armando Kerns Wound of right lower [...] infected. She was given a tetanus booster. 07/24/2024 Pharyngitis, unspecified etiology (ICD-10 - J02.9) Her recent illness has completely resolved and she has returned to her baseline. 08/31/2024 Pharyngitis, unspecified etiology (ICD-10 - J02.9) Her recent illness has completely resolved and she has returned to her baseline. 01/24/2025 Wound of right lower extremity, initial encounter (ICD-10 - S81.801A) She has a 48 hour hold skin tear above the right ankle which was dressed and cleaned and did not appear infected. She was given a tetanus booster. 05/30/2024 Mild intermittent asthma without complication (ICD-10 - J45.20) She is still on prednisone and will use her inhaler and finished the prednisone prescription. She reports the wheezing has improved. 06/19/2024 Mild intermittent asthma without complication (ICD-10 - J45.20) She is still on prednisone and will use her inhaler and finished the prednisone prescription. She reports the wheezing has improved. 01/09/2025 Tick bite, unspecified site, initial encounter (ICD-10 - W57.XXXA) She reports a recent deer tick finding that is in the skin of her back. She was given a course of doxycycline. 05/30/2024 Obesity (BMI 30.0-34.9) (ICD-10 - E66.9) Her BMI is 30 and she has a stable weight. We discussed a weight loss plan for aggressive sodium restriction and calorie reduction. 06/19/2024 Postmenopausal (ICD-10 - Z78.0) Her ovaries remain and she had a hysterectomy in the past. She is postmenopausal and should have bone density done periodically. 01/09/2025 Tobacco dependence (ICD-10 - F17.200) She continues to consume a package of cigarettes daily. We have discussed the health consequences of continued smoking. She was made aware of all of the tobacco cessation programs in the area. 05/30/2024 Tobacco dependence (ICD-10 - F17.200) She [...] a screening colonoscopy in the near future. 01/09/2025 Essential hypertension (ICD-10 - I10) Her blood pressure was adequaate stable level today. 06/19/2024 Degenerative disc disease, lumbar (ICD-10 - M51.36) She has spoken to the neurosurgeon he'll consider surgery after her next surgery. Her degree of pain is unchanged. I have prescribed Tegretol. 01/09/2025 Mild intermittent asthma without complication (ICD-10 - J45.20) She is still on prednisone and will use her inhaler and finished the prednisone prescription. She reports the wheezing has improved. 06/19/2024 Tobacco dependence (ICD-10 - F17.200) She continues to consume a package of cigarettes daily. We have discussed the health consequences of continued smoking. She was made aware of all of the tobacco cessation programs in the area. 01/09/2025 History of depression (ICD-10 - Z86.59) Her depression is mild. She has been compliant with all her medications. She is conducting all his activities of daily life without impairment. 06/19/2024 Obesity (BMI 30.0-34.9) (ICD-10 - E66.9) Her BMI is 30 and she has a stable weight. We discussed a weight loss plan for aggressive sodium restriction and calorie reduction. 01/09/2025 Overweight (ICD-10 - E66.3) We made a plan to lose weight at a rate of one half of a pound per week through her body mass index is in the normal range. 02/08/2024 Other Plan Of Treatment Pending Test [...] 08/20/2020 MR lumbar spine wo con 11/10/2024 Lyme IgG/IgM w/reflex to WB 01/12/2025 Next Appt Details Provider Name:Armando Kerns, 02/28/2025 09:45:00 AM, [address] [place] [address] [address], [place], [address], Insurance Providers Payer Name Payer Address Payer Phone Subscriber Number Group Number Insured Name Patient Relationship to Insured Coverage Start Date Coverage End Date [facility] [address] [place] [phone] [id number] JACQUELIN GRAVES Self - patient is the insured Medical (General) History Medical History History ICD Code Degenerative disc disease at L5-S1 level M51.36 essential hypertension nonhealing wound, left 2014, pt escort is Dr. Skinner and Dr. Agustin in [place] overweight body mass index 29 tubular adenoma [...]
--- NOTE | 2025-01-25 07:36 | PFT_ITS ---
Indications COPD Spirometry FEV1 to FVC 61%; FEV1 2.2 L; FVC 3.62 L. No significant response to bronchodilators noted. Lung Volumes Total lung capacity 97% predicted; residual volume 112% predicted Diffusion Capacity DLCO 78% predicted Comparisons 08/2021 Interpretation There is an obstructive ventilatory defect consistent with azbq-dp-rspwkmsk COPD. No significant response to bronchodilators noted. Lung volumes are within normal limits. The patient does have a mild diffusion impairment. When compared to PFTs from 2021 there is a significant decrease in the FVC, a significant decrease in the FEV1, no significant change in total lung capacity and a significant improvement in the diffusing capacity. MTDD
[2025-01-25 08:08] VITALS: PULSE 68; O2SAT 98
== END 2025-01-25 06:40 | disposition home or self-care (01) ==
LOC: HO.CT 06:39
PROVIDERS: PCP Internal Medicine Medical Oncology; Visit Provider Physician Assistant Medical
DX: Z12.2 Encounter for screening for malignant neoplasm of respiratory organs (principal); Z87.891 Personal history of nicotine dependence; J44.1 Chronic obstructive pulmonary disease with (acute) exacerbation
CPT/HCPCS: 71271; 94060; 94640; 94727; 94729

== ENCOUNTER → 2025-01-25 06:45 | Outpatient (BNV) | payer OTHER, SELFPAY | PROVIDERS: PCP Internal Medicine Medical Oncology; Visit Provider Radiology Diagnostic Radiology | DX: Z87.891 Personal history of nicotine dependence (principal) | CPT/HCPCS: 71271 ==

== ENCOUNTER → 2025-01-25 07:36 | Outpatient (BNV) | payer OTHER, SELFPAY | PROVIDERS: PCP Internal Medicine Medical Oncology; Visit Provider Hospitalist | DX: J44.1 Chronic obstructive pulmonary disease with (acute) exacerbation (principal) | CPT/HCPCS: 94060; 94727; 94729 ==

== ENCOUNTER 2025-02-12 11:01 | Outpatient (AMB) | payer OTHER, SELFPAY ==
--- OUTSIDE RECORDS SUMMARY | 2024-10-04 13:30 | XMS_ITS ---
Author Organization Armando Kerns III, MD Address [address] [place] [address] [place] [address] Care Team Providers Care Document Control Supervisor Name Role Phone Dr. Armando Kerns III Primary Care Provider [phone] REASON FOR VISIT Annual Exam Social History Sex Assigned At : Social History Observation Description Sex Assigned At Female Encounters Encounter Location Date Provider Diagnosis Armando Kerns III, MD [address] [place] [address] [place] [address] 10/04/2024 Armando Kerns Plan Of Treatment Next Appt Details Provider Name:Armando Kerns , 02/28/2025 09:45:00 AM, [address] [place] [address] [place], [address], Progress Notes * JACQUELIN GRAVESDOB:1960 ( 64 yo F)Acc No.[id number]:10/04/2024 Progress Notes Patient: JACQUELIN SOTO Provider: Sky Kerns MD :1960 A ge:64 Y S ex:Female Date:10/04/2024 Address:[address] [id number] Subjective: * Chief Complaints: * 1 . [...] 10/04/2024 Generated for Yfn morales/Jennifer/Garcia on: 0 02/12/2025 12:33 PM EDT
--- OUTSIDE RECORDS SUMMARY | 2024-11-14 13:00 | XMS_ITS ---
Author Organization Armando Kerns III, MD Address [address] [place] [address] [place] [address] Care Team Providers Care Radioisotope Technologist Name Role Phone Dr. Armando Kerns III Primary Care Provider REASON FOR VISIT Annual Exam Social History Sex Assigned At : Social History Observation Description Sex Assigned At Female Encounters Encounter Location Date Provider Diagnosis Armando Kerns III, MD [address] [place] [address] [place] [address] 11/14/2024 Armando Kerns Plan Of Treatment Next Appt Details Provider Name:Armando Kerns , 02/28/2025 09:45:00 AM, [address] [place] [address] [place], [address], Progress Notes * JACQUELIN GRAVESDOB:1960 ( 64 yo F)Acc No.[id number]:11/14/2024 Progress Notes Patient: JACQUELIN SOTO Provider: Sky Kerns MD :1960 A ge:64 Y S ex:Female Date:11/14/2024 Address:[address] [id number] Subjective: * Chief Complaints: * 1 . Annual Exam. * Medical History: Objective: * Vitals: Assessment: Plan: * Treatment: * Images: * The named appointment provid er may or may not be the originator of this progress note, and it is not deemed complete until electronically signed by the appointment provider. Sign off status: Pending * Provider: Sky Kerns MD Date: 0 11/14/2024 Generated for Yfn morales/Jennifer/Garcia on: 0 02/12/2025 12:33 PM EDT
--- OUTSIDE RECORDS SUMMARY | 2024-12-05 06:39 | XMS_ITS ---
Author Organization Armando Kerns III, MD Address [address] [place] [address] [place] [address] Care Team Providers Care Eyeglass Inspector Name Role Phone Dr. Armando Kerns III Primary Care Provider REASON FOR VISIT FMLA/ [employer] Social History Sex Assigned At : Social History Observation Description Sex Assigned At Female Encounters Encounter Location Date Provider Diagnosis Armando Kerns III, MD [address] [place] [address] [place] [address] 12/05/2024 Armando Kerns Plan Of Treatment Next Appt Details Provider Name:Armando Kerns , 02/28/2025 09:45:00 AM, [address] [place] [address] [place], [address], Progress Notes * JACQUELIN GRAVESDOB:1960 ( 64 yo F)Acc No.[id number]:12/05/2024 Patient: JACQUELIN SOTO :1960 A ge:64 Y S ex:Female Address[address] [place], * true * Date: Generated for Printi ng/Faxing/eTransmitting on: 0 02/12/2025 12:33 PM EDT
--- OUTSIDE RECORDS SUMMARY | 2025-01-09 09:15 | XMS_ITS ---
Author Organization Armando Kerns III, MD Address [address] [place] [address] [address] [place] [address] Care Team Providers Care Charge Authorizer Name Role Phone Dr. Armando Kerns III Primary Care Provider [phone] Allergies Allergen (clinical drug ingredient) Drug/Non Drug Allergy documented on EMR Reaction Allergy Type Onset Date Status sulfacetamide Sulfacetamide Unknown Drug Allergy Active prednisolone Prednisolone Unknown Drug Allergy A ctive REASON FOR VISIT Skin tear right ankle all, Hypertension, Asthma, Tobacco dependence, Obesity, Degenerative disc disease lumbar spine, Lumbar radiculopathy, Depression Medications Medication SIG (Take, Route, Frequency, Duration) Notes Start Date End Date Status predniSONE 20 MG 1 tablet with food o r milk Orally Once a day 05/22/2024 Active Doxycycline Hyclate 100 MG 1 capsule Ora lly twice a day 05/30/2024 Active PARoxetine HCl 40 MG 1 tablet in the mor bethany Orally Once a day Active Albuterol Sulfate HFA 108 (90 Base) MCG/ACT 1 puff Inhalation every 4 hrs Active Valsartan 40 MG 1 tablet Orally Twic e a day 06/19/2024 Active Amitriptyline HCl 50 MG TAKE ONE TABLET BY MOUTH AT BEDTIME Active Atenolol 50 MG TAKE 2 TABLETS BY MO UT EVERY MORNING Active Breztri Aerosphere 160-9-4.8 MCG/ACT [...] User Light cigarett e smoker ((1-9 cigs/day) Problems Problem Type SNOMED Code ICD Code Onset Dates Problem Status W/U Status Risk Notes Problem Bite of tick (event) (403754221) Tick bite, unspecified site, initial encounter (W57.XXXA) Active confirmed She reports a recent deer tick finding that is in the skin of her back. She was given a course of doxycycline. Problem 041920195 Pharyngitis, unspecified etiology (J02.9) Active confirmed Her recent illness has completely resolved and she has returned to her baseline. Problem 971907751 Overweight (E66.3) Active confirmed We made a plan to lose weight at a rate of one half of a pound per week through her body mass index is in the normal range. Vital Signs Temperature 97.2 degrees Fahrenheit 01/10/20 25 Blood pressure systolic 136 mm Hg 01/10/20 25 Blood pressure diastolic 80 mm Hg 025 Heart Rate 73 /min 01/09/2025 Height 67 in 01/09/2025 Weight 185 lbs 01/09/2025 BMI 28.97 kg/m2 01/09/2025 Encounters Encounter Location Date Provider Diagnosis Armando Kerns III, MD [address] [place] [address] [address], [place] [phone] 01/09/2025 Armando Kerns Immunization, tetsantiagou s toxoid Z23 ; Wound of right lower extremity, initial encounter S81.801A ; Tick bite, unspecified site, initial encounter W57.XXXA ; Tobacco dependence F17.200 ; Essential hypertension I10 ; Mild intermittent asthma without complication J45.20 ; History of depression Z86.59 and Overweight E66.3 Assessments Encounter Date Diagnosis (ICD Code) Assessment Notes Treatment Notes Treatment Clinical Notes 01/09/2025 Immunization, tetanus toxoid (ICD-10 - Z23) She received this todayBy injection in the left arm. She tolerated it well without side effects. 01/09/2025 Wound of right lower extremity, initial encounter (ICD-10 - S81.801A) She has a 48 hour hold skin tear above the right ankle which was dressed and cleaned and did not appear infected. She was given a tetanus booster. 01/09/2025 Tick bite, unspecified site, initial encounter (ICD-10 - W57.XXXA) She reports a recent deer tick finding that is in the skin of her back. She was given a course of doxycycline. 01/09/2025 Tobacco dependence (ICD-10 - F17.200) She continues to consume a package of cigarettes daily. We have discussed the health consequences of continued smoking. She was made aware of all of the tobacco cessation programs in the area. 01/09/2025 Essential hypertension (ICD-10 - I10) Her blood pressure was adequaate stable level today. 01/09/2025 Mild intermittent asthma without complication (ICD-10 - J45.20) She is still on prednisone and will use her inhaler and finished the prednisone prescription. She reports the wheezing has improved. 01/09/2025 History of depression (ICD-10 - Z86.59) Her depression is mild. She has been compliant with all her medications. She is conducting all his activities of daily life without impairment. 01/09/2025 Overweight (ICD-10 - E66.3) We made a plan to lose weight at a rate of one half of a pound per week through her body mass index is in the normal range. Plan Of Treatment Medication Medication Name Sig Start Date Stop Date Notes predniSONE 20 MG 1 tablet with food o r milk Orally Once a day 05/22/2024 Doxycycline Hyclate 100 MG 1 capsule Ora lly twice a day 05/30/2024 PARoxetine HCl 40 MG 1 tablet in [...] Scheduled, Carolynn son: Annual Exam Provider Name:Armando Kerns , 02/28/2025 09:45:00 AM, [address] [place] [address] [place] [address], [place], [address], Progress Notes * STARJACQUELINDOB:1960 ( 64 yo F)Acc No.[id number]:01/09/2025 Progress Notes Patient: JACQUELNI SOTO Provider: Sky Kerns MD :1960 A ge:64 Y S ex:Female Date:01/09/2025 [facility] [id number] Subjective: * Chief Complaints: * S kin tear right ankle allHypertensionAsthmaTobacco dependenceObesityDegenerative disc disease lumbar spineLumbar radiculopathyDepression * HPI: C OVID-19 Screening: She suffered a 3 and skin tag anteriorly above the right ankle for day 8 hours ago. It is not bleeding and does not appear to be infected. It was clean and bandaged. She received a tetanus booster. She was otherwise medically stable and had no new complaints. ?She said she has been feeling pressure on the back of her head, but upon examination appear to be normal. This is likely muscle contraction. A followup appointment was given to her. Questions H ave you had any new onset fever, chills, cough, congestion, sore throat, shortness of breath, muscle aches? N o * ROS: G eneral/Constitutional: pain S kin tear right ankle. C hills d enies. F atigue a dmits. F ever d enies. E NT: Decreased hearing d enies. R espiratory: Cough n on-productive. C ardiovascular: Chest pain with exertion d enies. D yspnea on exertion?denies. S hortness of breath d enies. G astrointestinal: Constipation d enies. D ecreased appetite d enies.?Diarrhea d enies. H e[place]burn o ccasional. N ausea d enies. R ectal bleeding d enies. V omiting d enies. H ematology: bruising d enies. p etechiae d enies. S wollen glands n one have been noted. G enitourinary: Frequent urination d enies. M usculoskeletal: Muscle aches d enies. P ainful joints d enies. S ciatica d enies. W eakness d enies. S kin: Itching d enies. R franko d enies. S kin lesion(s)?Skin tear above her right ankle. N eurologic: Difficulty speaking d enies. D izziness d enies.?Headache d enies. L ow back pain d enies. P sychiatric: Depressed mood d enies. * Medical History: * Surgical History: t ubal ligation 01/1986colonoscopy, Dr. Kirby, tubular adenoma 01/2002hysterectomy, ovaries remain 2007colonoscopy, Dr. Kirby, no lesions 2013liver biopsy, Dr. Echevarria 09/2014debridement nonhealing wound, left calf 03/2015Cervical spondylosis with myelopathy and radiculopathy 11/19/2022No history * Hospitalization/Major Diagno stic Procedure: l eg cellulitis/ ulcer 08/2015Cerebral Microvascular disease 07/2020No history * Family History: F ather: alive, Hypertension, CAD, diagnosed with HTN, CVD. M other: alive, Hypertension, CAD, lung cancer, diagnosed with CVD, Cancer, HTN. S on(s): alive, diagnosed with HTN. S iblings: alive. P aternal Grand Mother: diagnosed with Cancer. 1 brother(s) , 2 sister(s) - healthy. 2 son(s) - healthy. . Her paternal grandmother of colon cancer. Her sons are both hypertensive. Her brother has hypertension. * Social History: T obacco Use: T obacco Use/Smoking P freddy is a c urrent smoker H ow [...] drink or take drugs. She works for [employer]. Smoking: The patient reported smoking, but not as much as before. Work: The patient reported working 40-46 hours a week. Exercise: The patient reported walking a lot. * Medications: T akingpredniSONE 20 MG Tablet 1 tablet with food or milk Orally Once a day amLODIPine Besylate 5 MG Tablet TAKE ONE TABLET BY MOUTH EVERY DAY Dulera 200-5 MCG/ACT Aerosol INHALE 2 PUFFS TWO TIMES A DAY Albuterol Sulfate HFA 108 (90 Base) MCG/ACT Aerosol Solution 1 puff as needed Inhalation every 4 hrs Breztri Aerosphere 160-9-4.8 MCG/ACT Aerosol 2 puffs Inhalation Twice a day Atenolol 50 MG Tablet TAKE 2 TABLETS BY MOUTH EVERY MORNING Amitriptyline HCl 50 MG Tablet TAKE ONE TABLET BY MOUTH AT BEDTIME Doxycycline Hyclate 100 MG Capsule 1 capsule Orally twice a day Valsartan 40 MG Tablet 1 tablet Orally Twice a day Albuterol Sulfate HFA 108 (90 Base) MCG/ACT Aerosol Solution 1 puff Inhalation every 4 hrs PARoxetine HCl 40 MG Tablet 1 tablet in the morning Orally Once a day Medication List reviewed and reconciled with the patientTaking predniSONE 20 MG Tablet 1 tablet with food or milk Orally Once a day Taking amLODIPine Besylate 5 MG Tablet TAKE ONE TABLET BY MOUTH EVERY DAY Taking Dulera 200-5 MCG/ACT Aerosol INHALE 2 PUFFS TWO TIMES A DAY Taking Albuterol Sulfate HFA 108 (90 Base) MCG/ACT Aerosol Solution 1 puff as needed Inhalation every 4 hrs Taking Breztri Aerosphere 160-9-4.8 MCG/ACT Aerosol 2 puffs Inhalation Twice a day Taking Atenolol 50 MG Tablet TAKE 2 TABLETS BY MOUTH EVERY MORNING Taking Amitriptyline HCl 50 MG Tablet TAKE ONE TABLET BY MOUTH AT BEDTIME Taking Doxycycline Hyclate 100 MG Capsule 1 capsule Orally twice a day Taking Valsartan 40 MG Tablet 1 tablet Orally Twice a day Taking Albuterol Sulfate HFA 108 (90 Base) MCG/ACT Aerosol Solution 1 puff Inhalation every 4 hrs Taking PARoxetine HCl 40 MG Tablet 1 tablet in the morning Orally Once a day Medication List reviewed and reconciled with the patient * Allergies: S ulfacetamidePrednisoloneno[Allergies Verified] Objective: * Vitals: H t: 67, Wt: 185, BMI:28.97, BP: 136/80, HR: 73, Temp: 97.2, Wt-k.91. * Examination: G eneral Examination: GENERAL APPEARANCE: p leasant, well nourished, well developed, in no acute distress, calm and relaxed: overweight: woman. HEAD: a traumatic, normocephalic. EYES: e rand, [...] normal, no s3, or vascular bruits. LUNGS: : diminished breath sounds throughout: no wheezes, rales, rhonchi: good air movement. BREASTS: no masses palpable bilaterally. ABDOMEN: b owel sounds normal, no ascites, no organomegaly, no mass: overweight. RECTAL EXAM: n ot examined. MUSCULOSKELETAL: e xtremities unremarkable, no clubbing, cyanosis or edema, 3 inches skin tag anterior above the right ankle without erythema, beginning to heal, skin flap attached. PERIPHERAL PULSES: n ormal. NEUROLOGIC: a lert and oriented, cranial nerves 2-12 grossly intact, deep tendon reflexes 2+ symmetrical, motor strength normal upper and lower extremities, sensory exam intact. PSYCH: a lert, oriented. Assessment: * Assessment: 1. W ound of right lower extremity, initial encounter - S81.801A (Primary) N otes :She has a 48 hour hold skin tear above the right ankle which was dressed and cleaned and did not appear infected. She was given a tetanus booster. 2 . I mmunization, tetanus toxoid - Z23 N otes :She received this todayBy injection in the left arm. She tolerated it well without side effects. 3 . T ick bite, unspecified site, initial encounter - W57.XXXA ?Notes :She reports a recent deer tick finding that is in the skin of her back. She was given a course of doxycycline. 4 . T obacco dependence - F17.200 N otes :She continues to consume a package of cigarettes daily. We have discussed the health consequences of continued smoking. She was made aware of all of the tobacco cessation programs in the area. 5 . E ssential hypertension - I10 N otes :Her blood pressure was adequaate stable level today. 6 . M ild intermittent asthma without complication - J45.20 N otes :She is still on prednisone and will use her inhaler and finished the prednisone prescription. She reports the wheezing has improved. 7 . H istory of depression - Z86.59 N otes :Her depression is mild. She has been compliant with all her medications. She is conducting all his activities of daily life without impairment. 8 . O verweight - E66.3 N otes :We made a plan to lose weight at a rate of one half of a pound per week through her body mass index is in the normal range. Plan: * Treatment: 2. T ick bite, unspecified site, initial encounter L AB: LYME IGM & IGG RFLX WB 3. O thers Continue amLODIPine Besylate Tablet, 5 MG, TAKE ONE TABLET BY MOUTH EVERY DAY; C ontinue Dulera Aerosol, 200-5 MCG/ACT, INHALE 2 PUFFS TWO TIMES A DAY; C ontinue Albuterol Sulfate HFA Aerosol Solution, 108 (90 Base) MCG/ACT, 1 puff as needed, Inhalation, every 4 hrs; C ontinue Breztri Aerosphere Aerosol, 160-9-4.8 MCG/ACT, 2 puffs, Inhalation, Twice a day; C ontinue Atenolol Tablet, 50 MG, TAKE 2 TABLETS BY MOUTH EVERY MORNING; C ontinue Amitriptyline HCl Tablet, 50 MG, TAKE ONE TABLET BY MOUTH AT BEDTIME; C ontinue Valsartan Tablet, 40 MG, 1 tablet, Orally, Twice a day; C ontinue Albuterol Sulfate HFA Aerosol Solution, 108 (90 Base) MCG/ACT, 1 puff, Inhalation, every 4 hrs; C ontinue PARoxetine HCl Tablet, 40 MG, 1 tablet in the morning, Orally, Once a day. * Immunizations: Td : 0.5 mL (Dose No:1) (Route: Intramuscular) given by Armando Kerns MD on Right Arm (Immunization, tetanus toxoid) ???Immunization record has been reviewed and updated. * Procedure Codes: 9 0714 TD VACCINE NO PRSRV >/= 7 IM Td * Preventive Medicine: Counseling: C are [...] done: Medical or Other reason not done S moking/Tobacco Use Patient counseled on the dangers of tobacco use and urged to quit. 0 01/12/2025 Patient Lifestyle Goals P atient wants to quit Treatment Goals S et a quit date, Cut down by 1 cigarette a week Barriers S tress, Social smoker Self-Management Plan M brooke a plan to cut down number of cigarettes over time and set a date to work towards quitting * Follow Up: A s Scheduled (Reason: Annual Exam) * Images: * Sign off status: Completed true * Provider: Sky Kerns MD Date: 0 01/09/2025 Generated for Yfn morales/Jennifer/Erickaransmitting on: 0 02/12/2025 12:33 PM EDT History and Physical Notes * HPI (History of Present Illness) Category Sub-Category Detail Notes COVID-19 Screening Questions Have you had any new onset fever, chills, cough, congestion, sore throat, shortness of breath, muscle aches?: No Examination Category Sub-Category Detail Notes General Examination GENERAL APPEARANCE: pleasant , well nourished, well developed, in no acute distress, calm and relaxed: overweight: woman HEAD: atraumatic, normocep halic EYES: eomi, perrla, anicte daniel, conjugate EARS: normal NOSE: septum intact NECK/THYROID: no jugular venous di stention, no carotid bruit, thyroid normal HEART: no clicks, gallops, murmurs, or rubs, regular rhythm, S1, S2 normal, no s3, or vascular bruits LUNGS: : diminished breath sounds throughout: no wheezes, rales, rhonchi: good air movement ABDOMEN: bowel sounds normal, no ascites, no organomegaly, no mass: overweight NEUROLOGIC: alert and oriented, cranial nerves 2-12 grossly intact, deep tendon reflexes 2+ symmetrical, motor strength normal upper and lower extremities, sensory exam intact SKIN: no suspicious lesion s, anicteric PERIPHERAL PULSES: normal BREASTS: no masses palpable b ilaterally MUSCULOSKELETAL: extremities unremark able, no clubbing, cyanosis or edema, 3 inches skin tag anterior above the right ankle without erythema, beginning to heal, skin flap attached LYMPH NODES: no enlarged lymph no kairn,spleen normal RECTAL EXAM: not examined PSYCH: alert, oriented ORAL CAVITY: normal, unremarkable
--- OUTSIDE RECORDS SUMMARY | 2025-01-24 06:12 | XMS_ITS ---
Author Organization Armando Kerns III, MD Address [address] [place] [address] [place] [address] Care Team Providers Care Equipment Maintenance Superintendent Name Role Phone Dr. Armando Kerns III Primary Care Provider REASON FOR VISIT Rx request Medications Medication SIG (Take, Route, Frequency, Duration) Notes Start Date End Date Status Doxycycline Hyclate 100 MG 1 capsule Ora lly twice a day for 10 days 05/30/2024 02/03/2025 Active Social History Sex Assigned At : Social History Observation Description Sex Assigned At Female Encounters Encounter Location Date Provider Diagnosis Armando Kerns III, MD [address] [place] [address] [place] [address] 01/24/2025 Armando Kerns Wound of right lower extremity, initial encounter S81.801A Assessments Encounter Date Diagnosis (ICD Code) Assessment Notes Treatment Notes Treatment Clinical Notes 01/24/2025 Wound of right lower extremity, initial encounter (ICD-10 - S81.801A) She has a 48 hour hold skin tear above the right ankle which was dressed and cleaned and did not appear infected. She was given a tetanus booster. Plan Of Treatment Medication Medication Name Sig Start Date Stop Date Notes Doxycycline Hyclate 100 MG 1 capsule Ora lly twice a day for 10 days 05/30/2024 02/03/2025 Next Appt Details Provider Name:Armando Kerns , 02/28/2025 09:45:00 AM, [address] [place] [address] [place], [address], Progress Notes * JACQUELIN GRAVESDOB:1960 ( 64 yo F)Acc No.[id number]:01/24/2025 Patient: JACQUELIN SOTO :1960 A ge:64 Y S ex:Female Address:[address] [place] [address], [address] * Refills Refill Doxycycline Hyclate Capsule, 100 MG, Orally, 20 Capsule, 1 capsule, twice a day, 10 days, Refills=0 * true * Date: Generated for Yfn morales/Jennifer/Romeosmitting on: 0 02/12/2025 12:33 PM EDT
[2025-02-12 11:02] VITALS: BP 144/78; PULSE 63; O2SAT 96; BMI 27.9
--- NOTE | 2025-02-12 11:02 | HO.NEPHOV_ITS ---
Vital Signs 02/12/25 11:02 02/12/25 11:10 Height 5 ft 9 in Weight 189 lb BMI 27.9 BP 144/78 H 140/70 H Blood Pressure Location Rt brachial Rt brachial Position Sitting Sitting Pulse 63 Pulse Source Pulse Oximeter Pulse Oximetry (%) 96 Oxygen Delivery Method Room Air Intake Visit Reasons: 2 MO FU Peanut Shaker Required: No Accompanied by: Self / Same As Patient Allergies Seasonal Allergies Allergy (Unknown, Verified 02/12/25 11:04) Unknown sulfa Allergy (Intermediate, Uncoded 10/25/24 10:41) Hives Medication List - Last Reconciled 02/12/25 by Alfredo Hansen MD acetaminophen-codeine 300-30 mg 1 tab PO BID PRN albuterol sulfate 90 mcg/actuation (ProAir HFA) 2 puffs inhalation Q4-6H PRN albuterol sulfate 2.5 mg (3 mL) inhalation Q6H PRN amitriptyline 50 mg PO BEDTIME amlodipine 5 mg PO DAILY atenolol 100 mg PO DAILY bowauiornb-nnthzmnd-amubrbicjp 160-9-4.8 mcg/actuation (Breztri Aerosphere) 2 inhalations inhalation BID 30 days nebulizer and compressor As directed paroxetine HCl 1 tab PO DAILY valsartan 80 mg PO BID varenicline tartrate (Chantix Starting Month Box) PO PER PKG DIR HPI Comments Details: 64-year-old female presenting with uncontrolled hypertension. She has had high blood pressure for a long time and is currently taking valsartan and Tylenol, although she reports no significant improvement in her blood pressure levels. Her blood pressure readings at home are consistently high, often reaching 200/100 mmHg, which has caused concern among her colleagues. The patient also has a history of asthma, for which she uses albuterol inhalers and Breztri, which she finds effective. She reports chronic back pain, which has been severe enough to cause numbness in her foot and radiates to her legs. She has undergone several surgeries for her back and is scheduled for an MRI to assess the need for further surgical intervention. The patient has a history of tobacco use, having smoked for 20 years, but is currently using Chantix and has reduced her smoking to three cigarettes a day. She denies any history of diabetes or heart problems, but reports frequent urination without taking diuretics. 12/12/24 Underwent ABPM 02/12/25 Overall doing well BP better controlled Still smokes 5 cig a day [facility] Medical History (Updated 12/01/24 @ 13:34 by Iain Guzman MD) Numbness COVID-19 Arthritis Habitual snoring Depression Internal hemorrhoids Nonhealing nonsurgical wound Degenerative disc disease at L5-S1 level History of TIA (transient ischemic attack) Hepatitis C Tubular adenoma of colon (~2001) Personal history of nicotine dependence Asthma Hypertension Cerebral microvascular disease Surgical History History of tubal ligation History of surgery on lower extremity (~2014) History of colonoscopy History of liver biopsy (~2014) History of hysterectomy (~2007) Family History Paternal Grandmother Colon cancer Father HTN (hypertension) CAD (coronary artery disease) Mother HTN (hypertension) CAD (coronary artery disease) Son HTN (hypertension) Social History Household Members: None Household Members Other:: son Housing: House Are you a primary home health caregiver to a significant other at home: No Do you presently have visiting nurse or other home services: No Alcohol intake: current Alcohol intake frequency: a few times a month Patient Tobacco Use Status: Current everyday Tobacco user Tobacco use type: Cigarette Cigarettes Per Day: 5 Years Smoked: 20 Years Quit 01/2022 Second Hand Smoke Exposure: No Substance Use Type: Marijuana service: No Current occupational status: employed Physical Exam Vital Signs: Last Vital Signs Pulse 63 02/12/25 11:02 BP 140/70 H 02/12/25 11:10 Pulse Ox 96 02/12/25 11:02 Oxygen Delivery Method Room Air 02/12/25 11:02 BMI result Body Mass Index 27.9 Comfortable Neck supple no JVD. Lungs entry equal no rales. Heart S1-S2 heard no gallop or rub. Abdomen soft nontender. Neuro alert awake oriented. No asterixis. Extremities no edema. Results Reviewed Results Reviewed: No labs since May 2023 Assessment & Plan Assessment & Plan (1) Hypertension: Code(s): I10 - Essential (primary) hypertension Category: Medical Qualifiers: Hypertension type: resistant hypertension Qualified Code(s): I1A.0 - Resistant hypertension Plan - Take amlodipine 5 mg daily, monitor for leg swelling. Keep Valsartan to 80 mg BID and Atenolol No change in antihypertensives today Low salt diet Discussed smoking cessation Coding Level of Care Code Est Pt Level 4 (60896) Diagnoses Resistant hypertension I1A.0 Hypertension type: resistant hypertension
[2025-02-12 11:10] VITALS: BP 140/70
--- OUTSIDE RECORDS SUMMARY | 2025-02-12 12:33 | XMS_ITS | Patient Health Record ---
Author Organization [facility] Address [address] [place] [address] Care Team Providers Care Used Car Lot Attendant Name Role Phone Ubaldo Lemos Primary Care Provider Armando Maciel Unavailable [phone] Allergies Allergen (clinical drug ingredient) Drug/Non Drug [...] Problem Screening for malignant neoplasm of colon (700544044) Screening for colorectal cancer (V76.51) Active confirmed Problem Chronic hepatitis C (814207240) Chronic hepatitis C (070.54) Active confirmed Problem History of polyp of colon (768393100) H/O adenomatous polyp of colon (V12.72) Active confirmed Problem Iron excess (34940237) Iron excess (275.09) Active confirmed Problem Serum alpha-fetoprot ein level elevated (914546651) 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
--- OUTSIDE RECORDS SUMMARY | 2025-02-12 12:33 | XMS_ITS | Patient Health Record ---
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 Armando Kerns III Primary Care Provider [phone] Allergies Allergen (clinical drug ingredient) Drug/Non Drug Allergy documented on EMR Reaction Allergy Type Onset Date Status sulfacetamide Sulfacetamide Unknown Drug Allergy Active prednisolone Prednisolone Unknown Drug Allergy A ctive Results Component Value Reference Range Notes XR wrist LT min 3V Reviewed date:11/08/2024 05:38:18 AM Interpretation: Performing Lab: Notes/Report: [facility] [address] [place] [address] XRay Report Signed Patient: Jacquelin Graves MR#: [id number] 8 : 1960 Acct:[id number] Age/Sex: 64 / F ADM Date: 11/07/24 Loc: .[facility]GCX Attending Dr: Maciel Richardson PA-C Ordering Physician: MACIEL RICHARDSON Date of Service: 11/07/24 Procedure(s): XR wrist LT min 3V Accession Number(s): [id number] cc: Armando Kerns MD; MACIEL RICHARDSON EXAMINATION: [...] by Zev Hyde MD in OV> 11/07/24 164 DD/ 1542 TD/TT: 11/07/24 1640 Custodial Manager: [facility] [address] [place] [address] [place] [address] XRay Report Signed Patient: Jacquelin Graves MR#: [id number] 8 : 1960 Acct:[id number] Age/Sex: 64 / F ADM Date: 11/07/24 [facility]: Naomi STEVENSC Ordering Physician: MACIEL RICHARDSON Date of Service: 11/07/24 Procedure(s): XR wri st LT min 3V Accession Number(s): [id number] cc: Armando Kerns MD; MACIEL RICHARDSON EXAMINATION: [...] 11/07/24 1645 DD/ 1542 TD/TT: 11/07/24 1640 Custodial Manager: MR lumbar spine wo con (Not yet reviewed by provider) Interpretation: Performing Lab: Notes/Report: [address] [address] Magnetic Resonance Report Signed Patient: Jacquelin Graves MR#: [id number] 8 : 1960 Acct:[id number] Age/Sex: 64 / F ADM Date: 11/10/24 Loc: HO.MRI Attending Dr: Iain Guzman MD Ordering Physician: Iain Guzman MD Date of Service: 11/10/24 Procedure(s): MR lumbar spine wo con Accession Number(s): [id number] cc: Armando Kerns MD; Iain Guzman MD [...] normal. LUMBOSACRAL JUNCTION: -Normal. There are 5 jie-mrw-olxbvxy lumbar-type vertebral bodies. VERTEBRAL BODIES/BONE MARROW: -There [...] subarticular recess narrowing, and moderate right and kedr-cv-tupzxmlu left neural foraminal narrowing. No significant interval [...] 11/10/24 0841 DD/ 0715 TD/TT: 11/10/24 0805 Custodial Manager: [place] [address] Magnetic Resonance Report Signed Patient: Jacquelin Graves MR#: [id number] 8 : 1960 Acct:[id number] Age/Sex: 64 / F ADM Date: 11/10/24 Loc: HO.MRI Attending Dr: Iain Guzman MD Ordering Physician: Iain Guzman MD Date of Service: 11/10/24 Procedure(s): MR lum bar spine wo con Accession Number(s): [id number] cc: Armando Kerns MD; Iain Guzman MD [...] normal. LUMBOSACRAL JUNCTION: -Normal. There are 5 jgg-pho-nmynyba lumbar-type vertebral bodies. VERTEBRAL BODIES/BON E MARROW: [...] subarticular recess narrowing, and moderate right and kckl-an-lgemfwjd lef t neural foraminal narrowing. No significant [...] 11/10/24 0841 DD/ 0715 TD/TT: 11/10/24 0805 Custodial Manager: Lyme IgG/IgM w/reflex to WB (Not yet reviewed by provider) Interpretation: Performing Lab:[facility], [address] [place] [id number] Notes/Report: Lyme Abs Screen <0.90 Index Interpretation [...] is apparent. THIS TEST WAS PERFORMED AT: [facility] [address] [place] [phone] ELBERT TIPTON MD Lyme Blot TNP CT lung screening (Not yet r eviewed by provider) Interpretation: Performing Lab: Notes/Report: [address] [address] [address] Scan Report Signed Patient: Jacquelin Graves MR#: [id number] 8 : 1960 Acct:[id number] Age/Sex: 64 / F ADM Date: 01/25/25 Loc: .CT Attending Dr: Shereen Rivera PA-C Ordering Physician: Shereen Rivera PA-C Date of Service: 01/25/25 Procedure(s): CT lung screening Accession Number(s): [id number] cc: Armando Kerns MD; Shereen Rivera PA-C Report Number: [id number]: Total DLP = 48.00 mGy-cm Reason for Exam: NICOTINE DEPENDENCE CLINICAL HISTORY: NICOTINE DEPENDENCE CT lung cancer screening (LDCT) Comparison: CT/SR - CT LUNG SCREENING - 11/28/21 13:39 EDT Technique: Axial CT images of the chest using low-dose technique. Referring provider counseled the patient on shared decision-making for LDCT screening. Additional counseling was provided on smoking cessation. Effective radiation dose total: DLP 36.9 mGycm, CTDIvol 1.1 mGy. Findings: Lung: The trachea and central bronchi are patent. No dense consolidation, pleural effusion or pneumothorax. There are no suspicious noncalcified pulmonary nodules. Coronary artery calcifications: Ipnq-gy-vbqzibgl Normal heart size. Unremarkable mediastinal structures, chest wall and thyroid. Limited upper abdomen: Unremarkable Other: No acute osseous findings. IMPRESSION: No acute cardiopulmonary disease. No suspicious pulmonary nodules or masses. Lung rads category 1 This document has been electronically signed by: Mindy Nunez MD on 01/25/2025 09:19:49 Dictated By: Mindy Nunez MD Signed By: <Electronically signed by Mindy Nunez MD in OV> 01/25/25920 DD/ 8 TD/TT: 01/25/25918 Custodial Manager: [address] [address] [address] Scan Report Signed Patient: Jacquelin Graves MR#: [id number] 8 : 1960 Acct:[id number] Age/Sex: 64 / F ADM Date: 01/25/25 Loc: HO.CT Attending Dr: Shereen Rivera PA-C Ordering Physician: Shereen Rivera PA-C Date of Service: 01/25/25 Procedure(s): CT isaac g screening Accession Number(s): [id number] cc: Armando Kerns MD; Shereen Rivera PA-C Report Number: [id number]: Total DLP = 48.00 mGy-cm Reason for Exam: NICOTINE DEPENDENCE CLINICAL HISTORY: NICOTINE DEPENDENCE CT lung cancer scree bethany (LDCT) Comparison: CT/SR - CT LUNG SCREENING - 11/28/21 13:39 EDT Technique: Axial CT images of t he chest using low-dose technique. Referring provider counseled the patien t on shared decision-making for LDCT screening. Additional counselin tian was provided on smoking cessation. Effective radiation dose total: DLP 36.9 mGycm, CTDIvol 1.1 mGy. Findings: Lung: The trachea an d central bronchi are patent. No dense consolidation, pleural effusion or pneumothorax. There are no suspicious noncalcified pulmonary nodules. Coronary artery calcifications: Cpip-fn-qhlzqejn Normal heart size. Unremarkable mediastinal structures, chest wall and thyroid. Limited upper abdome n: Unremarkable Other: No acute osse ous findings. IMPRESSION: No acute cardiopulmo nary disease. No suspicious pulmonary nodules or masses. Lung rads category 1 This document has be en electronically signed by: Mindy Nunez MD on 01/25/2025 09:19:49 Dictated By: Mindy Nunez MD Signed By: <Electronically signed by Mindy Nunez MD in OV> 01/25/25920 DD/ 8 TD/TT: 01/25/25918 Custodial Manager: Reason For Referral Reason Evaluate and Treat Increased Difficulty Breathing Asthma Diagnosis 1 Mild intermittent as thma without complication (J45.20) Diagnosis 2 Tobacco dependence ( F17.200) Referral Organization Armando Kerns III, MD Referring Provider First Name Armando Referring Provider Last Name Luis F Referring Provider Speciality Internal M edicine Referred Provider [facility] er, Pulmonology Referred Provider Specialty Pulmonary Aliya shaw General Notes Farhana Erazo 07/24/2024 11:53:06 AM > Per request of Dr. Kerns Referral was faxed with last progress note Referral Priority Routine Referral Appointment Date 10/17/2024 Medications Medication SIG (Take, Route, Frequency, Duration) Notes Start Date End Date Status Breztri Aerosphere 160-9-4.8 MCG/ACT 2 puffs Inhalation Twice a day 06/25/2023 Active Albuterol Sulfate HFA 108 (90 Base) MCG/ACT 1 puff as needed Inhalation every 4 hrs 06/25/2023 Active Atenolol 50 MG TAKE TWO TABLETS BY MOUTH EVERY MORNING for 30 Active Dulera 200-5 MCG/ACT INHALE 2 PUFFS TWO TIMES A DAY Active predniSONE 20 MG 1 tablet with food o r milk Orally Once a day 05/22/2024 Active amLODIPine Besylate 5 MG TAKE ONE TABLET BY MOUTH EVERY DAY Active PARoxetine HCl 40 MG 1 tablet in the mor bethany Orally Once a day Active Albuterol Sulfate HFA 108 (90 Base) MCG/ACT 1 puff Inhalation every 4 hrs Active Amitriptyline HCl 50 MG TAKE ONE TABLET BY MOUTH AT BEDTIME for 30 Active Valsartan 40 MG 1 tablet Orally Tw a day 06/19/2024 Active Immunizations Vaccine Route [...] Problem Status W/U Status Risk Notes Problem 27524119 Postmenopausal (Z78.0) Active confirmed Her ovaries remain and she had a hysterectomy in the past. She is postmenopausal and should have bone density done periodically. Problem 140449313 Overweight (E66.3) Active confirmed We made a plan to lose weight at a rate of one half of a pound per week through her body mass index is in the normal range. Problem 656417277465267 Obesity (BMI 30.0-34.9) (E66.9) Active confirmed Her BMI is 30 a nd she has a stable weight. We discussed a weight loss plan for aggressive sodium restriction and calorie reduction. Problem 222859787 Lumbar radiculopathy (M54.16) Active confirmed She is experiencing an exacerbation of the lumbar radiculopathy. I have advised her to use heat and to rest and to continue the muscle relaxer. She will avoid heavy lifting. A follow-up in 1 week will be done. Problem 74892318 Other chronic pain (G89.29) Active confirmed She continues to have low back pain that radiates but the diffuse joint and muscle pain is much improved with discontinuing the statin medication. Problem 58973665 Essential hypertension (I10) Active confirmed Her blood pressure was adequaate stable level today. Problem 20843928 Tobacco dependence (F17.200) Active confirmed She continues t o consume a package of cigarettes daily. We have discussed the health consequences of continued smoking. She was made aware of all of the tobacco cessation programs in the area. Problem 803742844 Mild intermittent asthma without complication (J45.20) Active confirmed She is still on prednisone and will use her inhaler and finished the prednisone prescription. She reports the wheezing has improved. Problem 890894971 Chronic hepatitis C without hepatic coma (B18.2) Active confirmed She has a gastroenterologis t and I will obtain the old records. She will be referred back for therapy if it would be beneficial. Her titer was very elevated. Problem Combined disorder of muscle AND peripheral nerve (859909986) Neuromuscular disease (G70.9) Active confirmed Problem History of depression (709126846) History of depression (Z86.59) Active confirmed Her depression is mild. She has been compliant with all her medications. She is conducting all his activities of daily life without impairment. Problem 715956020 Adenomatous polyp of colon, unspecified part of colon (D12.6) Active confirmed The tubular adenoma was in 2001 and in 2013. She had a normal colonoscopy. She has a family history of colon cancer and should have a colonoscopy every 5 years. She agreed with this. She was referred back to Dr. Flannery to have a screening colonoscopy in the near future. Problem 536875839 Pharyngitis, unspecified etiology (J02.9) Active confirmed Her recent illness has completely resolved and she has returned to her baseline. Problem 40271294 Degenerative disc disease, lumbar (M51.36) Active confirmed She has spok en to the neurosurgeon he'll consider surgery after her next surgery. Her degree of pain is unchanged. I have prescribed Tegretol. Problem 03004923 Peripheral polyneuropathy (G62.9) Active confirmed Problem 275574980 Covid-19 (U07.1) Active confirmed She has completely recovered and denies any long-haul symptoms. Problem 145070455 Transient ischemic attack (G45.9) Active confirmed Problem 958057058 Cerebral microvascular disease (I67.89) Active confirmed No further neurological symptoms have been experienced. Problem Bite of tick (event) (835216111) Tick bite, unspecified site, initial encounter (W57.XXXA) [...] Date Provider Diagnosis Armando Kerns III, MD [address] [place] [address] [place] [address] 05/30/2024 Armando Kerns Pharyngitis, unspeci fied etiology J02.9 ; Essential hypertension I10 ; Mild intermittent asthma without complication J45.20 ; Obesity (BMI 30.0-34.9) E66.9 and Tobacco dependence F17.200 Armando Kerns III, MD [address] [place] [address] [place] [address] 06/19/2024 Armando Kerns Pharyngitis, unspeci fied etiology J02.9 ; Essential hypertension I10 ; Mild intermittent asthma without complication J45.20 ; Postmenopausal Z78.0 ; Adenomatous polyp of colon, unspecified part of colon D12.6 ; Degenerative disc disease, lumbar M51.36 ; Tobacco dependence F17.200 and Obesity (BMI 30.0-34.9) E66.9 Armando Kerns III, MD [address] [place] [address] [place] [address] 01/09/2025 Armando Kerns Immunization, tetanu s toxoid Z23 ; Wound of right lower extremity, initial encounter S81.801A ; Tick bite, unspecified site, initial encounter W57.XXXA ; Tobacco dependence F17.200 ; Essential hypertension I10 ; Mild intermittent asthma without complication J45.20 ; History of depression Z86.59 and Overweight E66.3 Armando Kerns III, MD [address] [place] [address] [place] [address] 05/22/2024 Armando Kerns III, MD [address] [place] [address] [place] [address] 05/22/2024 Armando Kerns III, MD [address] [place] [address] [place] [address] 05/30/2024 Armando Kerns III, MD [address] [place] [address] [place] [address] 05/31/2024 Armando Kerns III, MD [address] [place] [address] [place] [address] 07/04/2024 Armando Kerns III, MD [address] [place] [address] [place] [address] 07/04/2024 Armando Kerns III, MD [address] [place] [address] [place] [address] 07/04/2024 Armando Kerns III, MD [address] [place] [address] [place] [address] 07/24/2024 Armando Kerns Pharyngitis, unspeci fied etiology J02.9 Armando Kerns III, MD [address] [place] [address] [place] [address] 08/31/2024 Armando Kerns Pharyngitis, unspeci fied etiology J02.9 Armando Kerns III, MD [address] [place] [address] [place] [address] 12/05/2024 Armando Kerns III, MD [address] [place] [address] [place] [address] 01/24/2025 Armando Kerns Wound of right lower [...] in the normal range. Plan Of Treatment Pending Test Test Name Order Date PROFILE, FASTING (COMPREHENSIVE METABOLI C) 08/20/2020 PROFILE, RANDOM (COMPREHENSIVE METABOLIC ) 06/11/2021 TSH (THYROID STIMULATING HORMONE) 2020 CBC w DIFF 06/11/2021 MONO TEST (HETEROPHILE AB) 06/11/2021 MAMMOGRAM DIGITAL BILATERAL SCREEN 03/12 MAMMOGRAM DIGITAL BILATERAL SCREEN 12/01 LYME IGM & IGG RFLX WB 01/09/2025 Lipid Panel 08/20/2020 Free T4 (Free Thyroxine) 08/20/2020 CT lung screening 01/25/2025 MR lumbar spine wo con 11/10/2024 Lyme IgG/IgM w/reflex to WB 01/12/2025 Next Appt Details Provider Name:Armando Kerns , 02/28/2025 09:45:00 AM, [address] [place] [address] , [address], [place], [address], Insurance Providers Payer Name Payer Address Payer Phone Subscriber Number Group Number Insured Name Patient Relationship to Insured Coverage Start Date Coverage End Date [facility] [address] [place] [phone] [id number] JACQUELIN GRAVES Self - patient is the insured Medical (General) History Medical History History ICD Code Degenerative disc disease at L5-S1 level M51.36 essential hypertension nonhealing wound, left 2014, mat sewer is Dr. Skinner and Dr. Agustin in [place] overweight body mass index 29 tubular adenoma [...]
== END 2025-02-12 16:36 | disposition home or self-care (01) ==
LOC: HO.HKA 11:02
PROVIDERS: PCP Internal Medicine Medical Oncology; Visit Provider Internal Medicine Hypertension Specialist
DX: I1A.0 Resistant hypertension (principal)
CPT/HCPCS: 99214